=== PATIENT | male | born 1945 | race Caucasian/White ===

== ENCOUNTER 2016-03-25 15:55 | Emergency (ER) | payer OTHER, MEDICARE ==
[~2016-03-25] VITALS: Ht 177.8 cm; Wt 59.9 kg
[~2016-03-25 15:55] MED LIST: AMBIEN 10MG10 MG PO; AMITIZA24 MCG PO; AMLODIPINE5 MG PO; ANDROGEL1.62% TOP; ASPIR 8181 MG PO; ASPIRIN EC81 M1 PO; CARVEDILOL12.5 M1 PO; CYMBALTA 30 MG30 MG PO; ISOSORBIDE MONO60 M1 PO; LISINOPRIL20 M1 PO; METOPROLOL SUCC25 MG PO; MULTI VITAMINS1 TAB PO; NOVAPLUS FE50 MCG/HR TOP; OMEPRAZOLE40 M1 PO; OXYCODONE HYDRO10 M1 PO; PRILOSEC 20MG C20 MG PO; RANEXA 500MG500 MG PO; REGLAN10 M1 PO; SINEMET 25-1001 TAB PO; SPIRIVA1 PUF INH; SPIRONOLACTONE25 M1 PO; SYMBICORT 16010.2 GM INH; SYMBICORT 80/4.1 PUF INH; VENTOLIN1 PUF INH; VITAMIN B-121000 MC3 PO; VITAMIN D31000 UNI2 PO; ZOFRAN ODT4 MG SL
--- NOTE | 2016-03-25 16:49 | ED DYSPNEA/ASTHMA COMPLAINT ---
History of Present Illness General Chief Complaint: Upper Respiratory Sx/Fever Stated Complaint: URI X 5 DAYS Source: patient, old records Exam Limitations: no limitations Vital Signs & Intake/Output Vital Signs & Intake/Output Vital Signs Date Time Temp Pulse Resp B/P Pulse O2 O2 Flow FiO2 Ox Delivery Rate 03/25 1814 98.0 69 22 124/70 96 Room Air 03/25 1758 96 Room Air 03/25 1758 76 16 96 Room Air 03/25 1723 95 03/25 1612 99.6 89 34 121/77 94 Room Air Allergies Coded Allergies: NO KNOWN ALLERGIES (12/24/10) Reconcile Medications Albuterol Sulfate (Ventolin) 1 UNIT PUF 2 PUF INH Q4 HRS NEEDED PRN Shortness of breath (Reported) Amlodipine Besylate (Amlodipine) 5 MG TAB 1 TAB PO DAILY HYPRTENSION ( Reported) Aspirin (Ecotrin*) 81 MG TABLET.DR 1 TAB PO DAILY HEART/BLOOD (Reported) Azithromycin (Zithromax) 250 MG TABLET 1 DP PO AD brochitis/copd 2 the first day followed by 1 for days 2-5 Budesonide/Formoterol Fumarate (Symbicort 160-4.5 Mcg Inhaler) 160 MCG-4.5 MCG/ ACTUATION HFA.AER.AD 2 PUF INH BID COPD (Reported) Carbidopa/Levodopa (Sinemet) 25 MG/100 MG TAB 1 TAB PO AT BEDTIME RESTLESS LEG SYNDROME (Reported) Carvedilol 12.5 MG TABLET 1 TAB PO BID HEART/BP (Reported) Cholecalciferol (Vitamin D3) (Unknown Strength) TABLET (Unknown Dose) PO DAILY SUPPLEMENT (Reported) Cyanocobalamin (Vitamin B-12) (Unknown Strength) TABLET (Unknown Dose) PO DAILY SUPPLEMENT (Reported) Duloxetine Hydrochloride (Cymbalta) 30 MG CAPSULE.DR 1 CAP PO DAILY MOOD ( Reported) Fentanyl 50 MCG/HR TDM 1 PAT TOP Q3D PAIN (Reported) Isosorbide Mononitrate (Isosorbide Mononitrate ER) 60 MG TAB.ER.24H 1 TAB PO DAILY HEART (Reported) Lisinopril 20 MG TABLET 1 TAB PO DAILY BP (Reported) Lubiprostone (Amitiza) 24 MCG CAPSULE 1 CAP PO DAILY Constipation (Reported) Metoclopramide HCl (Reglan) 10 MG TABLET 1 TAB PO TID PRN N/V (Reported) 30 minutes before meals and bedtime Multivitamin (One Daily Multivitamin) 1 EACH TABLET 1 TAB PO DAILY supplement (Reported) Omeprazole 40 MG CAPSULE.DR 1 CAP PO DAILY GI (Reported) Ondansetron (Zofran Odt) 4 MG TAB.RAPDIS 1 TAB SL Q8 PRN nuasea/vomiting OXYCODONE HCL (Oxycodone Hydrochloride) 10 MG TABLET 1 TAB PO TID PRN PAIN ( Reported) Prednisone (Deltasone) 20 MG TABLET 1 TAB PO BID COPD Ranolazine (Ranexa 500MG) 500 MG TAB.ER.12H 1 TAB PO BID HEART (Reported) Spironolactone (Unknown Strength) TABLET (Unknown Dose) PO AD DIURETIC ( Reported) Tiotropium [place] (Spiriva) 18 MCG CAP.W.DEV 1 PUF INH DAILY COPD (Reported) Triage Note: C/O WORSENING PRODUCTIVE COUGH WITH FEVER X 5 DAYS. ALSO C/O WEAKNESS, POOR APPETITE. DENEIS CHEST PAIN. PMH: CT X 4. Triage Nurses Notes Reviewed? yes Onset: Abrupt Duration: day(s): (4-5), constant Timing: recent history Severity: moderate, severe Activities at Onset: none HPI: 70-year-old male comes into emergency room with complaints of cough shortness of breath fever chills body aches and mucus production. Patient has a significant history of COPD and congestive heart failure and cardiac disease. Patient has an EF of 23% he reports. Patient has been feeling sick for the past 4-5 days getting progressively worse. Patient is reporting fevers 102 at home. (NIMISHA MENDOZA,VANNESSA) Past History Travel History Traveled to [place] past 21 day No Medical History Any Pertinent Medical History? 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 No (VANNESSA FLETCHER) Review of Systems Review of Systems Constitutional: Reports: see HPI. EENTM: Reports: see HPI. Respiratory: Reports: see HPI. Cardiovascular: Reports: no symptoms. GI: Reports: no symptoms. Genitourinary: Reports: no symptoms. Musculoskeletal: Reports: no symptoms. Skin: Reports: no symptoms. Neurological/Psychological: Reports: no symptoms. Hematologic/Endocrine: Reports: no symptoms. Immunologic/Allergic: Reports: no symptoms. All Other Systems: Reviewed and Negative (VANNESSA FLETCHER) Physical Exam Physical Exam General Appearance: alert, awake, mild distress Head: atraumatic, normal appearance Eyes: Bilateral: normal appearance, EOMI. Ears, Nose, Throat: normal pharynx, normal ENT inspection Neck: normal inspection, full range of motion Respiratory: decreased breath sounds, wheezing, respiratory distress (mild) Cardiovascular: regular rate/rhythm, murmur Gastrointestinal: soft Extremities: normal inspection Neurologic/Psych: awake, alert, oriented x 3, normal gait, normal mood/affect Skin: intact, normal color Core Measures ACS in differential dx? Yes Severe Sepsis Present: No Septic Shock Present: No (VANNESSA FLETCHER) Progress Differential Diagnosis: asthma, AMI, bronchitis, costochondritis, CHF, COPD, musculoskeletal pain, pericarditis, pulmonary embolism, pneumonia, pneumothorax, rib fracture, unstable angina Plan of Care: Orders Procedure Date/time Status RAPID VIRAL INFLUENZA A 03/25 164 Complete BLOOD CULTURE 03/25 1648 Active TROPONIN LEVEL 03/25 164 Complete LACTIC ACID 03/25 164 Complete COMPREHENSIVE METABOLIC PANEL 03/25 164 Complete CBC WITHOUT DIFFERENTIAL 03/25 164 Complete EKG 03/25 164 Active Laboratory Tests 03/25/16 1948: Lactic Acid Cancelled 03/25/16 165: Anion Gap 11, Estimated GFR > 60, BUN/Creatinine Ratio 16.0, Glucose 102 H, Lactic Acid 1.4, Calcium 9.6, Total Bilirubin 0.5, AST 16 L, ALT 25, Alkaline Phosphatase 41, Troponin I < 0.01, Total Protein 7.2, Albumin 3.9, Globulin 3.3, Albumin/Globulin Ratio 1.2, CBC w Diff NO MAN DIFF REQ, RBC 3.93 L, MCV 96.1 H , MCH 31.3 H, RDW 13.9, MPV 7.5, Gran % 65.5, Lymphocytes % 21.3, Monocytes % 8.8, Eosinophils % 4.0, Basophils % 0.4, Absolute Granulocytes 6.9 H, Absolute Lymphocytes 2.3, Absolute Monocytes 0.9 H, Absolute Eosinophils 0.4, Absolute Basophils 0, PUBS MCHC 32.5 L Microbiology 03/25 1701 BLOOD: Blood Culture - RECD 03/25 1654 BLOOD: Blood Culture - RECD Diagnostic Imaging: Viewed by Me: Radiology Read. Discussed w/RAD: Radiology Read. Radiology Impression: EXAM TYPE: RAD - XRY-CHEST XRAY, PA AND LATERAL EXAMINATION: XR CHEST CLINICAL INFORMATION: 70-year-old male with cough and mucus production and fever. COMPARISON: Chest x-ray on 02/02/2016. TECHNIQUE: PA and lateral views of the chest were obtained. FINDINGS: Examination shows the left pectoral AICD pacemaker to be unchanged in position. The heart is not enlarged. Numerous clips are seen throughout the mediastinum. Sternal wires are in place. Lungs are clear. Pulmonary vascularity is normal. There is no sign of consolidation or pleural effusion. IMPRESSION: No pneumonia. DICTATED BY: JILLIAN NEVES MD DATE/TIME DICTATED:03/25/161810 REEL HOOKER:RAMÓN DATE /TIME TRANSCRIBED:03/25/161810 Initial ED EKG: normal intervals, normal p-waves, normal sinus rhythm, rate (79) , nonspecific ST T wave chg Prior EKG: unchanged Comments: 03/25/2016 7:08:17 PM Patient clinically looks well. Walking O2 saturation 95-96%. Patient was able to walk up and down the hallways with no difficulty. No evidence of acute heart failure or pneumonia. Symptoms are likely consistent with bronchitis versus COPD. At this time I feel that the patient can follow-up with his [employer] hcm developer. Sure decision making. No apparent distress. Nontoxic appearing. Reevaluated as stated before multiple times. Patient was seen and evaluated by Dr. Stone and he agrees with plan of care. (NIMISHA MENDOZA,VANNESSA) Departure Departure Disposition: HOME OR SELF CARE Condition: Stable Clinical Impression Primary Impression: Bronchitis Secondary Impressions: COPD (chronic obstructive pulmonary disease) Referrals: ANN VERMA MD (PCP/Family) Additional Instructions: Take azithromycin and prednisone as prescribed. Follow-up with your [employer] hcm developer. Return if any other concerns worsening symptoms. Please go over all results of today's visit with your primary care doctor. Contact your primary care doctor to let them know you were here in the emergency room. There may be nonspecific findings which may not be related to your visit today here in the emergency room but may require further evaluation and chronic monitoring by your primary care doctor. If you had a laceration today the chance of foreign body always remains. You should follow-up with your primary care doctor for recheck in 3-5 days for a wound check. If you had an x-ray done there is a chance that a fracture could have been missed on initial read and you should follow-up with your primary care doctor for repeat x-rays if symptoms persist. If your blood pressure was elevated here in the emergency room please have rechecked by her primary care doctor within the next 48 hours by your primary care doctor. If you were prescribed a narcotic here in the emergency room or any type of controlled substances you're not allowed to drive while taking this medication or operate any type of heavy machinery. Narcotics can make you feel lightheaded dizziness nausea and can cause constipation. You may need to picking table worker a stool softener. Thank you for choosing [facility] emergency room. Please return to the emergency room immediately if you have any other concerns worsening of symptoms. Departure Forms: Customer Survey General Discharge Information Prescriptions: Current Visit Scripts Azithromycin (Zithromax) 1 DP PO AD #6 TAB 2 the first day followed by 1 for days 2-5 Prednisone (Deltasone) 1 TAB PO BID #8 MG (VANNESSA FLETCHER) PA/INDEPENDENT JEWELER Co-Sign Statement Statement: ED Attending supervision documentation- [X] I saw and evaluated the patient. I have also reviewed all the pertinent lab results and diagnostic results. I agree with the findings and the plan of care as documented in the PA's/INDEPENDENT JEWELER's documentation. [] I have reviewed the ED Record and agree with the PA's/INDEPENDENT JEWELER's documentation. [] Additions or exceptions (if any) to the PAs/INDEPENDENT JEWELER's note and plan are summarized below: [] (MILY STONE DO) Critical Care Note Critical Care Note Critical Care Time: non-applicable (NIMISHA MENDOZA,VANNESSA)
[2016-03-25 17:14] LABS: ABSOLUTE BASOPHIL COUNT 0 /CUMM (0.0-0.2); ABSOLUTE EOSINOPHIL COUNT 0.4 /CUMM (0.0-0.7); ABSOLUTE GRANULOCYTE CT 6.9 /CUMM (1.4-6.5); ABSOLUTE LYMPH COUNT 2.3 /CUMM (1.2-3.4); ABSOLUTE MONOCYTE COUNT 0.9 /CUMM (0.10-0.60); BASOPHIL % 0.4 % (0.0-2.0); GRANULOCYTE % 65.5 % (42.2-75.2); HEMATOCRIT 37.8 % (42-52); MEAN CORPUSCULAR HGB 31.3 PG (27.0-31.0); MEAN CORPUSCULAR HGB CONC 32.5 G/DL (33.0-37.0); MEAN CORPUSCULAR VOLUME 96.1 FL (80.0-94.0); MEAN PLATELET VOLUME 7.5 FL (7.4-10.4); PLATELET COUNT 340 /CUMM (130-400); RBC DISTRIBUTION WIDTH 13.9 % (11.5-14.5); RED BLOOD CELL CT 3.93 /CUMM (4.70-6.10); WHITE BLOOD CELL COUNT 10.6 /CUMM (4.8-10.8)
[2016-03-25 18:14] VITALS: BP 124/70
--- NOTE | 2016-03-25 18:17 | RADIOLOGY REPORT ---
EXAMINATION: XR CHEST CLINICAL INFORMATION: 70-year-old male with cough and mucus production and fever. COMPARISON: Chest x-ray on 02/02/2016. TECHNIQUE: PA and lateral views of the chest were obtained. FINDINGS: Examination shows the left pectoral AICD pacemaker to be unchanged in position. The heart is not enlarged. Numerous clips are seen throughout the mediastinum. Sternal wires are in place. Lungs are clear. Pulmonary vascularity is normal. There is no sign of consolidation or pleural effusion. IMPRESSION: No pneumonia.
[2016-03-25] MEDS ORDERED: ZITHROMAX250 M2 PO (18:41)
[2016-03-25] MEDS ORDERED: DELTASONE20 MG PO (18:41)
== END 2016-03-25 18:55 ==
LOC: ERH 15:55
PROVIDERS: Physician Assistant Medical
DX: J44.9 Chronic obstructive pulmonary disease, unspecified (principal)
CPT/HCPCS: 1263; 87040; 87804; 87804-59; 93005; 93010; 96374

== ENCOUNTER 2017-05-24 11:23 | Inpatient (IN) | payer OTHER, MEDICARE ==
[~2017-05-24] VITALS: Ht 180.3 cm; Wt 64.0 kg
[~2017-05-24 11:23] MED LIST changes: +AMITIZA24 MC1 PO; -AMITIZA24 MCG PO; -AMLODIPINE5 MG PO; -CYMBALTA 30 MG30 MG PO; +CYMBALTA60 M1 PO; +DELTASONE20 MG PO; +FENTANYL1 EAC3 TOP; +NORVASC5 M1 PO; -NOVAPLUS FE50 MCG/HR TOP; +OXYCODONE HCL10 M2 PO; +OXYCODONE HCL5 M2 PO; -OXYCODONE HYDRO10 M1 PO; -RANEXA 500MG500 MG PO; +RANEXA500 M1 PO; +SINEMET 25-1001 EACH PO; -SINEMET 25-1001 TAB PO; +VENTOLIN HFA18 GM INH; -VENTOLIN1 PUF INH; +ZITHROMAX250 M2 PO
--- NOTE | 2017-05-24 11:38 | ED MVC/FALL/TRAUMA COMPLAINT ---
History of Present Illness General Chief Complaint: Fall Stated Complaint: BIBA FOR FALL Source: patient, EMS Exam Limitations: confusion Vital Signs & Intake/Output Vital Signs & Intake/Output Vital Signs Date Time Temp Pulse Resp B/P B/P Pulse O2 O2 Flow FiO2 Mean Ox Delivery Rate 05/24 1532 97.4 79 18 164/78 97 Room Air 05/24 1347 86 167/72 05/24 1136 97.8 88 17 184/90 98 Room Air Allergies Coded Allergies: No Known Allergies (10/01/16) Reconcile Medications Albuterol Sulfate (Ventolin Hfa) 90 MCG HFA.AER.AD 2 PUF INH Q4-6 PRN PRN SHORTNESS OF BREATH (Reported) Amlodipine Besylate (Norvasc) 5 MG TABLET 1 TAB PO DAILY HTN (Reported) Aspirin (Ecotrin*) 81 MG TABLET.DR 1 TAB PO DAILY HEART/BLOOD (Reported) Budesonide/Formoterol Fumarate (Symbicort 160-4.5 Mcg Inhaler) 160 MCG-4.5 MCG/ ACTUATION HFA.AER.AD 2 PUF INH BID COPD (Reported) Carbidopa/Levodopa (Sinemet 25-100 MG Tablet) 25 MG-100 MG TABLET 1 TAB PO BID RESTLESS LEGS (Reported) Duloxetine HCl (Cymbalta) 60 MG CAPSULE.DR 1 CAP PO DAILY MOOD (Reported) Fentanyl 50 MCG/HOUR PATCH.TD72 1 PAT TOP Q3D PAIN (Reported) Isosorbide Mononitrate (Isosorbide Mononitrate ER) 60 MG TAB.ER.24H 1 TAB PO DAILY HEART (Reported) Lubiprostone (Amitiza) 24 MCG CAPSULE 1 CAP PO BID CONSTIPATION (Reported) Metoclopramide HCl (Reglan) 10 MG TABLET 1 TAB PO TID PRN N/V (Reported) 30 minutes before meals and bedtime Omeprazole 40 MG CAPSULE.DR 1 CAP PO DAILY GI (Reported) Oxycodone HCl 10 MG TABLET 1 TAB PO TIDPRN PRN PAIN (Reported) Ranolazine (Ranexa) 500 MG TAB.ER.12H 1 TAB PO BID HEART (Reported) Spironolactone 25 MG TABLET 0.5 TAB PO AD DIURETIC (Reported) Triage Nurses Notes Reviewed? yes Onset: Abrupt Duration: day(s): (1), constant, continues in ED Timing: recent history Severity: moderate, severe Method of Injury: fall Loss of Consciousness: no loss of consciousness No Modifying Factors: none HPI: 71-year-old male comes into emergency room for further evaluation of right hip pain. Patient fell last night apparently at home. He tripped and fell and came down his right hip. He was on the floor all night. His nurse found him today. He lives by himself. He has no family. Some baseline confusion. Denies any other associated pain other than his right hip. Denies any other associated symptoms. (Charles Zaragoza) Past History Travel History Traveled to [place] past 21 day No Medical History Any Pertinent Medical History? 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 No (Charles Zaragoza) Review of Systems Review of Systems Constitutional: Reports: see HPI. Eyes: Reports: no symptoms. Ears, Nose, Throat, Mouth: Reports: no symptoms. Respiratory: Reports: no symptoms. Cardiovascular: Reports: no symptoms. Gastrointestinal/Abdominal: Reports: no symptoms. Genitourinary: Reports: no symptoms. Musculoskeletal: Reports: see HPI. Skin: Reports: no symptoms. Neurological/Psychological: Reports: see HPI. All Other Systems: Reviewed and Negative (Charles Zaragoza) Physical Exam Physical Exam General Appearance: alert, awake, moderate distress, thin Head: atraumatic Eyes: Bilateral: normal appearance, EOMI. Ears, Nose, Throat, Mouth: hearing grossly normal Neck: normal inspection, IN C COLLAR Respiratory: no respiratory distress Cardiovascular: regular rate/rhythm Gastrointestinal: soft Back: decreased range of motion Extremities: RIGHT LEG SHORTENING, LIMITED RANGE OF MOTION OF RIGHT HIP, TENDERNESS WITH PALPATION, Neurologic/Psych: awake, alert Skin: intact Core Measures ACS in differential dx? No CVA/TIA Diagnosis No Sepsis Present: No Sepsis Focused Exam Completed? No (Charles Zaragoza) Progress Differential Diagnosis: abd injury, C/T/L spine injury, ext injury, ICH, pelvis injury, pnemothorax, spinal cord injury Plan of Care: Orders Procedure Date/time Status Nothing by Mouth 05/25 B Active CBC WITHOUT DIFFERENTIAL 05/25 0600 Active BASIC ELECTROLYTES PLUS BUN&CR 05/25 0600 Active Misc Message 05/24 1622 Active ED Holding Orders 05/24 1622 Active Admit to inpatient 05/24 1622 Active Vital Signs 05/24 1622 Active BLOOD CULTURE 05/24 1620 Active BASIC ELECTROLYTES PLUS BUN&CR 05/24 1619 Active Pathway - chart 05/24 1617 Active House Staff 05/24 1617 Active Code Status 05/24 1617 Active Patient Data 05/24 1552 Active Intake & Output 05/24 1355 Active URINE DRUGS OF ABUSE 05/24 1312 Complete Marie, Insertion/Removal/Asses 05/24 1129 Active CULTURE,URINE 05/24 1129 Active URINALYSIS 05/24 1129 Complete TROPONIN LEVEL 05/24 1129 Complete PARTIAL THROMBOPLASTIN TIME 05/24 1129 Complete PROTHROMBIN TIME 05/24 1129 Complete COMPREHENSIVE METABOLIC PANEL 05/24 1129 Complete CREATINE PHOSPHOKINASE 05/24 1129 Complete CBC WITHOUT DIFFERENTIAL 05/24 1129 Complete EKG 05/24 1129 Active TYPE & SCREEN (NOT X-MATCH) 05/24 1129 Active VTE Mechanical Prophylaxis 05/24 UNK Active Current Medications Sig/Jesus Start time Last Medication Dose Stop Time Status Admin Acetaminophen 650 MG Q6P PRN 05/24 1615 UNVr (Tylenol) Morphine Sulfate 2 MG Q4P PRN 05/24 1615 UNVr (Morphine) Oxycodone/ 1 TAB Q6P PRN 05/24 1615 UNVr Acetaminophen (Percocet) Sodium Chloride 1,000 ML .Q10H 05/24 1615 UNVr (Normal Saline 0.9%) Sodium Polystyrene 60 ML ONCE ONE 05/24 1615 CANr Sulfonate 05/24 1616 (Kayexalate) Sodium Chloride 1,000 ML ONCE ONE 05/24 1130 AC 05/24 (Normal Saline 0.9%) 05/24 2128 1142 Laboratory Tests 05/24/17 1403: Urine Opiates Screen 1145.00, Methadone Screen 109, Barbiturate Screen < 60, Ur Phencyclidine Scrn < 6.00, Amphetamines Screen < 100, U Benzodiazepines Scrn < 85, Urine Cocaine Screen < 50, Urine Cannabis Screen < 5.00 05/24/17 1400: Urine Color YEL, Urine Clarity CLEAR, Urine pH 6.5, Ur Specific Screven 1.025, Urine Protein NEG, Urine Ketones 15 H, Urine Nitrite NEG, Urine Bilirubin NEG, Urine Urobilinogen 0.2, Ur Leukocyte Esterase NEG, Ur Microscopic SEDIMENT EXAMINED, Urine RBC 15-25 H, Urine Mucus MOD H, Urine Hemoglobin MOD H, Urine Glucose NEG 05/24/17 1133: Anion Gap 15, Estimated GFR > 60, BUN/Creatinine Ratio 37.1 H, Glucose 137 H, Calcium 10.0, Total Bilirubin 1.4 H, AST 36, ALT 29, Alkaline Phosphatase 36, Creatine Kinase 271 H, Troponin I < 0.01, Total Protein 7.9, Albumin 4.5, Globulin 3.4, Albumin/Globulin Ratio 1.3, PT 13.0 H, INR 1.19 H, APTT 27, CBC w Diff MAN DIFF ORDERED, RBC 4.03 L, MCV 91.3, MCH 30.4, MCHC 33.3, RDW 14.9 H , MPV 7.9, Gran % 87.1 H, Lymphocytes % 6.8 L, Monocytes % 5.7, Eosinophils % 0.2, Basophils % 0.2, Absolute Granulocytes 18.2 H, Segmented Neutrophils 84 H , Absolute Lymphocytes 1.4, Lymphocytes 10 L, Monocytes 6, Absolute Monocytes 1.2 H, Absolute Eosinophils 0, Absolute Basophils 0, Platelet Estimate ADEQUATE , Normocytic RBCs VERIFIED, Normochromic RBCs VERIFIED Microbiology 05/25 1619 BLOOD: Blood Culture - ORD 05/24 162 BLOOD: Blood Culture - ORD 05/24 1400 URINE ROUT: Urine Culture - RECD Diagnostic Imaging: Viewed by Me: Radiology Read, CT Scan. Discussed w/RAD: Radiology Read, CT Scan. Radiology Impression: PATIENT: CORNELL GARNER PRESENT AGE: 71 PATIENT ACCOUNT NO: [id number] : 44 LOCATION: [facility] ORDERING PHYSICIAN: Charles MENDOZA SERVICE DATE: 05/24/17 EXAM TYPE : CAT - CT CERV SPINE WO IV CONTRAST; CT HEAD WO IV CONTRAST EXAMINATION: CT HEAD AND CERVICAL SPINE. CLINICAL INFORMATION: Fall. Head injury. Right hip pain. Altered mental status. COMPARISON: CT scan of the head 05/12/2017. TECHNIQUE: Horseradish Maker images were obtained. CT acquisition of the head and cervical spine was performed without intravenous administration of contrast. Reformatted into multiplanar images at the acquisition workstation. DLP: 996.37 mGy-cm. FINDINGS: Head: There is no acute intracranial hemorrhage or abnormal extra- axial collection. No intracranial mass effect or midline shift. Lateral and third ventricles are prominent and there is proportionate prominence of the subarachnoid spaces reflecting global parenchymal volume loss. Ill-defined foci of hypoattenuation are visualized throughout the periventricular white matter that most likely represent a chronic manifestation of small vessel ischemia. Rowe-white matter differentiation is otherwise grossly preserved and there is no evidence of acute territorial infarct. The calvarium and skull base are intact. Mastoid air cells and middle ear cavities are well aerated. Visualized paranasal sinuses are well-aerated. Cervical spine: There is slight retrolisthesis of C4- C5. Vertebral alignment is otherwise preserved in the sagittal dimension. Vertebral heights are preserved. There is no acute fracture. No abnormal prevertebral soft tissue swelling. There is advanced arthrosis of the atlantodental joint. C1-C2 articular facets are unremarkable. There are varying degrees of neuroforaminal encroachment related to uncovertebral joint spurring and facet degenerative change. Grossly no evidence of canal compromise. Heavily calcified atheromatous plaque involves both carotid bifurcations. Soft tissues of the neck including the thyroid gland are otherwise unremarkable. IMPRESSION: Head: There is global parenchymal volume loss and chronic small vessel ischemic changes within the periventricular white matter. No evidence of acute territorial infarct or hemorrhage. Cervical spine: Multilevel degenerative spondylosis of the cervical spine. No evidence of acute fracture or traumatic subluxation. Grossly no evidence of canal compromise. Uncovertebral joint spurring and facet degenerative change causes varying degrees of neuroforaminal encroachment. Heavily calcified atheromatous plaque involves both carotid bifurcations. DICTATED BY: Rupinder CORREIA,Vadim Gaviria DATE/TIME DICTATED:05/24/171250 COIL ASSEMBLER:RAMÓN DATE/TIME TRANSCRIBED:05/24/171250 CONFIDENTIAL, DO NOT COPY WITHOUT APPROPRIATE AUTHORIZATION. <Electronically signed in Other Vendor System> SIGNED BY: Vadim Bucio MD 05/24/17 1300, PATIENT: CORNELL GARNER PRESENT AGE: 71 PATIENT ACCOUNT NO: [id number] : 44 LOCATION: [facility] ORDERING PHYSICIAN: Charles MENDOZA SERVICE DATE: 05/24/17 EXAM TYPE: RAD - XRY-AP PELVIS; XRY-HIP 2-3 VIEWS, RIGHT EXAMINATION: XR PELVIS XR HIP, RIGHT CLINICAL INFORMATION: Fall. Pain. COMPARISON: Pelvic radiography 10/16/2009. TECHNIQUE: AP view of the pelvis. 2 views of the right hip. FINDINGS: There is an intertrochanteric right proximal femoral fracture with overriding of fracture fragments and varus angulation. The right femoral head is well situated over the acetabulum. No other fracture or dislocation. The pelvic rings are maintained. Lower lumbar degenerative changes. Decreased bone mineral density. IMPRESSION: Intertrochanteric right femoral fracture. DICTATED BY: Teofilo Mustafa MD DATE/ TIME DICTATED:05/24/171418 COIL ASSEMBLER:RAMÓN DATE/TIME TRANSCRIBED: 05/24/171418 CONFIDENTIAL, DO NOT COPY WITHOUT APPROPRIATE AUTHORIZATION. < Electronically signed in Other Vendor System> SIGNED BY: Teofilo Mustafa MD 05/24/17 1430 Initial ED EKG: normal sinus rhythm, rate (84) (Charles Zaragoza) Departure Departure Disposition: STILL A PATIENT Condition: Stable Clinical Impression Primary Impression: Intertrochanteric fracture of right femur Secondary Impressions: Leukocytosis Referrals: Toni Govea MD (PCP/Family) Departure Forms: Customer Survey General Discharge Information Admission Note Spoke With: Mario Quick MD Documentation of Exam: Documentation of any treatments & extenuating circumstances including Concerns Regarding Discharge (functional status, medication knowledge or non-compliance, living conditions, etc.) that warrant an admission rather than observation: Patient will require surgery. IV pain control. Cardiac clearance. High risk. Patient has a hip fracture. Nonweightbearing. Medically not safe for discharge. (Charles Zaragoza) PA/SHELL WORKER Co-Sign Statement Statement: ED Attending supervision documentation- [X] I saw and evaluated the patient. I have also reviewed all the pertinent lab results and diagnostic results. I agree with the findings and the plan of care as documented in the PA's/SHELL WORKER's documentation. Patient presents for evaluation of right hip pain status post fall. Physical examination reveals tenderness with range of motion of the right hip. The right lower extremity is otherwise neurovascularly intact. [] I have reviewed the ED Record and agree with the PA's/SHELL WORKER's documentation. [] Additions or exceptions (if any) to the PAs/SHELL WORKER's note and plan are summarized below: [] (Marie CORREIA,Murali Colindres) Critical Care Note Critical Care Note Critical Care Time: 30-74 min (35) (Charles Zaragoza)
[2017-05-24 11:42] LABS: ABSOLUTE BASOPHIL COUNT 0 /CUMM (0.0-0.2); ABSOLUTE EOSINOPHIL COUNT 0 /CUMM (0.0-0.7); ABSOLUTE GRANULOCYTE CT 18.2 /CUMM (1.4-6.5); ABSOLUTE LYMPH COUNT 1.4 /CUMM (1.2-3.4); ABSOLUTE MONOCYTE COUNT 1.2 /CUMM (0.10-0.60); BASOPHIL % 0.2 % (0.0-2.0); EOSINOPHIL % 0.2 % (0-5); GRANULOCYTE % 87.1 % (42.2-75.2); HEMATOCRIT 36.8 % (42-52); MEAN CORPUSCULAR HGB 30.4 PG (27.0-31.0); MEAN CORPUSCULAR HGB CONC 33.3 G/DL (33.0-37.0); MEAN CORPUSCULAR VOLUME 91.3 FL (80.0-94.0); MEAN PLATELET VOLUME 7.9 FL (7.4-10.4); PLATELET COUNT 325 /CUMM (130-400); RBC DISTRIBUTION WIDTH 14.9 % (11.5-14.5); RED BLOOD CELL CT 4.03 /CUMM (4.70-6.10); WHITE BLOOD CELL COUNT 20.9 /CUMM (4.8-10.8)
[2017-05-24 11:52] LABS: PTT 27 SEC (25-37)
--- NOTE | 2017-05-24 13:00 | CT SCAN REPORT ---
EXAMINATION: CT HEAD AND CERVICAL SPINE. CLINICAL INFORMATION: Fall. Head injury. Right hip pain. Altered mental status. COMPARISON: CT scan of the head 05/12/2017. TECHNIQUE: Ramp Supervisor images were obtained. CT acquisition of the head and cervical spine was performed without intravenous administration of contrast. Reformatted into multiplanar images at the acquisition workstation. DLP: 996.37 mGy-cm. FINDINGS: Head: There is no acute intracranial hemorrhage or abnormal extra-axial collection. No intracranial mass effect or midline shift. Lateral and third ventricles are prominent and there is proportionate prominence of the subarachnoid spaces reflecting global parenchymal volume loss. Ill-defined foci of hypoattenuation are visualized throughout the periventricular white matter that most likely represent a chronic manifestation of small vessel ischemia. Rowe-white matter differentiation is otherwise grossly preserved and there is no evidence of acute territorial infarct. The calvarium and skull base are intact. Mastoid air cells and middle ear cavities are well aerated. Visualized paranasal sinuses are well-aerated. Cervical spine: There is slight retrolisthesis of C4-C5. Vertebral alignment is otherwise preserved in the sagittal dimension. Vertebral heights are preserved. There is no acute fracture. No abnormal prevertebral soft tissue swelling. There is advanced arthrosis of the atlantodental joint. C1-C2 articular facets are unremarkable. There are varying degrees of neuroforaminal encroachment related to uncovertebral joint spurring and facet degenerative change. Grossly no evidence of canal compromise. Heavily calcified atheromatous plaque involves both carotid bifurcations. Soft tissues of the neck including the thyroid gland are otherwise unremarkable. IMPRESSION: Head: There is global parenchymal volume loss and chronic small vessel ischemic changes within the periventricular white matter. No evidence of acute territorial infarct or hemorrhage. Cervical spine: Multilevel degenerative spondylosis of the cervical spine. No evidence of acute fracture or traumatic subluxation. Grossly no evidence of canal compromise. Uncovertebral joint spurring and facet degenerative change causes varying degrees of neuroforaminal encroachment. Heavily calcified atheromatous plaque involves both carotid bifurcations.
--- NOTE | 2017-05-24 14:30 | RADIOLOGY REPORT ---
EXAMINATION: XR PELVIS XR HIP, RIGHT CLINICAL INFORMATION: Fall. Pain. COMPARISON: Pelvic radiography 10/16/2009. TECHNIQUE: AP view of the pelvis. 2 views of the right hip. FINDINGS: There is an intertrochanteric right proximal femoral fracture with overriding of fracture fragments and varus angulation. The right femoral head is well situated over the acetabulum. No other fracture or dislocation. The pelvic rings are maintained. Lower lumbar degenerative changes. Decreased bone mineral density. IMPRESSION: Intertrochanteric right femoral fracture.
--- NOTE | 2017-05-24 15:31 | Cons- Orthopedic ---
General Information and HPI Consulting Request Date of Consult: 05/24/17 Requested By: REJI LUCERO Reason for Consult: R hip fracture Source of Information: patient, old records Exam Limitations: no limitations History of Present Illness: 71-year-old male presents to the emergency department after a mechanical fall last night where he states he slipped and fell onto his right side injuring his right hip. He spent the evening on the floor, came to the ER today, x-ray show a right hip intertrochanteric fracture and orthopedics was consulted for further management and evaluation of this. He is being admitted to the medical service due to his multiple comorbidities and possible early rhabdomyolysis. He denies any other previous hip pain or injury, he has moderate to severe pain in the right hip and cannot stand or walk. Allergies/Medications Allergies: Coded Allergies: No Known Allergies (10/01/16) Home Med List: Albuterol Sulfate (Ventolin Hfa) 90 MCG HFA.AER.AD 2 PUF INH Q4-6 PRN PRN SHORTNESS OF BREATH (Reported) Amlodipine Besylate (Norvasc) 5 MG TABLET 1 TAB PO DAILY HTN (Reported) Aspirin (Ecotrin*) 81 MG TABLET.DR 1 TAB PO DAILY HEART/BLOOD (Reported) Budesonide/Formoterol Fumarate (Symbicort 160-4.5 Mcg Inhaler) 160 MCG-4.5 MCG/ ACTUATION HFA.AER.AD 2 PUF INH BID COPD (Reported) Carbidopa/Levodopa (Sinemet 25-100 MG Tablet) 25 MG-100 MG TABLET 1 TAB PO BID RESTLESS LEGS (Reported) Duloxetine HCl (Cymbalta) 60 MG CAPSULE.DR 1 CAP PO DAILY MOOD (Reported) Fentanyl 50 MCG/HOUR PATCH.TD72 1 PAT TOP Q3D PAIN (Reported) Isosorbide Mononitrate (Isosorbide Mononitrate ER) 60 MG TAB.ER.24H 1 TAB PO DAILY HEART (Reported) Lubiprostone (Amitiza) 24 MCG CAPSULE 1 CAP PO BID CONSTIPATION (Reported) Metoclopramide HCl (Reglan) 10 MG TABLET 1 TAB PO TID PRN N/V (Reported) 30 minutes before meals and bedtime Omeprazole 40 MG CAPSULE.DR 1 CAP PO DAILY GI (Reported) Oxycodone HCl 10 MG TABLET 1 TAB PO TIDPRN PRN PAIN (Reported) Ranolazine (Ranexa) 500 MG TAB.ER.12H 1 TAB PO BID HEART (Reported) Spironolactone 25 MG TABLET 0.5 TAB PO AD DIURETIC (Reported) Past History Medical History Neurological: NONE EENT: NONE Cardiovascular: hypertension, myocardial infarction, CAD AR X 4 BYPASS ATHLEROSCLEROSIS PAD Respiratory: COPD, obstructive sleep apnea Gastrointestinal: NAUSEA Hepatic: NONE Renal: NONE Musculoskeletal: BACK FX restless leg syndrome Psychiatric: anxiety, depression Endocrine: NONE Blood Disorders: NONE Cancer(s): prostate cancer 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 Review of Systems Review of Systems: Review of systems: See HPI, all other systems negative. Constitutional: No chills fever or weight loss HEENT: No visual changes no sore throat no congestion Cardiovascular: No chest pain ,palpitation , orthopnea or ankle swelling Skin: No jaundice no rashes Respiratory: No dyspnea cough sputum or hemoptysis GI: No nausea no vomiting : No dysuria no hematuria Musclulo skeletal: No back pain no neck pain, see HPI Neurologic: No numbness no confusion Psych: No stress anxiety or depression,. Heme/endocrine: No bruising no bleeding no polyuria or polydipsia Immunology: No splenectomy or history of AIDS Exam & Diagnostic Data Vital Signs and I&O Vital Signs Date Time Temp Pulse Resp B/P B/P Pulse O2 O2 Flow FiO2 Mean Ox Delivery Rate 05/24 1532 97.4 79 18 164/78 97 Room Air 05/24 1347 86 167/72 05/24 1136 97.8 88 17 184/90 98 Room Air Intake & Output 05/24 1600 05/24 0800 05/24 0000 05/23 1600 05/23 0805/23 0000 Intake Total Output Total 1150 Balance -1150 Output, Urine 1150 Patient 130 lb Weight Weight Reported by Patient Measurement Method Physical Exam: Well-developed well-nourished no apparent distress. HEENT: Atraumatic, extraocular motion intact Neck: Supple, no lymphadenopathy Respiratory: No respiratory distress Extremities: No edema RIGHT lower extremity tenderness to the right greater trochanteric region, right lower leg is shortened Mild thigh swelling right proximal thigh and hip region Hip range of motion is severely limited with significant pain Neurovascularly intact distally Bilateral calves are supple, nontender. Neuro: Alert and oriented x3 Psych: Mood affect normal, normal memory normal judgment. Skin: Warm and dry, no rash on exposed skin Last 24 Hours of Labs: Laboratory Tests 05/24 05/24 1403 1400 Toxicology Urine Opiates Screen (>2000 NG/ML) 1145.00 Methadone Screen (>300 NG/ML) 109 Barbiturate Screen (>200 NG/ML) < 60 Ur Phencyclidine Scrn (>25 NG/ML) < 6.00 Amphetamines Screen (>1000 NG/ML) < 100 U Benzodiazepines Scrn (>200 NG/ML) < 85 Urine Cocaine Screen (>300 NG/ML) < 50 Urine Cannabis Screen (>50 NG/ML) < 5.00 Urines Urine Color (YEL,AMB,STR) YEL Urine Clarity (CLEAR) CLEAR Urine pH (5.0 - 8.0) 6.5 Ur Specific [place] (1.001 - 1.035) 1.025 Urine Protein (NEG,<30 MG/DL) NEG Urine Ketones (NEG) 15 H Urine Nitrite (NEG) NEG Urine Bilirubin (NEG) NEG Urine Urobilinogen (0.1 - 1.0 EU/dl) 0.2 Ur Leukocyte Esterase (NEG) NEG Ur Microscopic SEDIMENT EXAMINED Urine RBC (0 - 5 /HPF) 15-25 H Urine Mucus (FEW,NONE) MOD H Urine Hemoglobin (NEG) MOD H Urine Glucose (N MG/DL) NEG 05/24 1133 Chemistry Sodium (137 - 145 mmol/L) 133 L Potassium (3.5 - 5.1 mmol/L) 5.4 H Chloride (98 - 107 mmol/L) 91 L Carbon Dioxide (22 - 30 mmol/L) 27 Anion Gap (5 - 16) 15 BUN (9 - 20 mg/dL) 26 H Creatinine (0.7 - 1.2 mg/dL) 0.7 Estimated GFR (>60 ml/min) > 60 BUN/Creatinine Ratio (7 - 25 %) 37.1 H Glucose (65 - 99 mg/dL) 137 H Calcium (8.4 - 10.2 mg/dL) 10.0 Total Bilirubin (0.2 - 1.3 mg/dL) 1.4 H AST (17 - 59 U/L) 36 ALT (21 - 72 U/L) 29 Alkaline Phosphatase (< 127 U/L) 36 Creatine Kinase (55 - 170 U/L) 271 H Troponin I (<0.11 ng/ml) < 0.01 Total Protein (6.3 - 8.2 g/dL) 7.9 Albumin (3.5 - 5.0 g/dL) 4.5 Globulin (1.9 - 4.2 gm/dL) 3.4 Albumin/Globulin Ratio (1.1 - 2.2 %) 1.3 Coagulation PT (9.4 - 12.5 SEC) 13.0 H INR (0.90 - 1.17) 1.19 H APTT (25 - 37 SEC) 27 Hematology CBC w Diff MAN DIFF ORDERED WBC (4.8 - 10.8 /CUMM) 20.9 H RBC (4.70 - 6.10 /CUMM) 4.03 L Hgb (14.0 - 18.0 G/DL) 12.2 L Hct (42 - 52 %) 36.8 L MCV (80.0 - 94.0 FL) 91.3 MCH (27.0 - 31.0 PG) 30.4 MCHC (33.0 - 37.0 G/DL) 33.3 RDW (11.5 - 14.5 %) 14.9 H Plt Count (130 - 400 /CUMM) 325 MPV (7.4 - 10.4 FL) 7.9 Gran % (42.2 - 75.2 %) 87.1 H Lymphocytes % (20.5 - 51.1 %) 6.8 L Monocytes % (1.7 - 9.3 %) 5.7 Eosinophils % (0 - 5 %) 0.2 Basophils % (0.0 - 2.0 %) 0.2 Absolute Granulocytes (1.4 - 6.5 /CUMM) 18.2 H Segmented Neutrophils (42.2 - 75.2 %) 84 H Absolute Lymphocytes (1.2 - 3.4 /CUMM) 1.4 Lymphocytes (20.5 - 51.1 %) 10 L Monocytes (1.7 - 9.3 %) 6 Absolute Monocytes (0.10 - 0.60 /CUMM) 1.2 H Absolute Eosinophils (0.0 - 0.7 /CUMM) 0 Absolute Basophils (0.0 - 0.2 /CUMM) 0 Platelet Estimate (ADEQUATE) ADEQUATE Normocytic RBCs VERIFIED Normochromic RBCs VERIFIED Imaging Results: Plain radiographs of the right hip show intertrochanteric right hip fracture Assessment/Plan Assessment/Plan Patient with right hip intratrochanteric fracture Being admitted to the medical service, he will need open reduction internal fixation of this when medically cleared. He has multiple medical comorbidities. Would hold all anticoagulation and antiplatelet if clinically acceptable with the medical team. If possible that patient will be cleared by tomorrow, would make nothing by mouth after midnight, pain medication as needed, IV fluids. bedrest, non weight bearing pre op. Discussed with Dr. Jara Problem List: 1. Intertrochanteric fracture of right femur Consult Acknowledgment - Thank you for your consult request.
--- NOTE | 2017-05-24 16:09 | History & Physical ---
Esme CORREIA,Toni 05/24/17 6736: General Information and HPI MD Statement: I have seen and personally examined CORNELL GARNER and documented this H&P. The patient is a 71 year old M who presented with a patient stated chief complaint of [fall, R hip pain]. Source of Information: patient, old records Exam Limitations: no limitations History of Present Illness: Patient is a 71-year-old male with a PMH significant for CAD status post RI with PCI and stent placement, COPD, obstructive sleep apnea, peripheral artery disease, prostate cancer status post radiation and in remission who presents to [facility] ED after suffering a fall at home. Patient states that he is supposed to use a cane or walker for ambulation but is often noncompliant. He was walking at home when his leg suddenly gave out and he fell and hit his right hip against his bed. This occurred the morning prior to admission and he was unable to stand up since that time. He was found the morning of admission by his visiting nurse. He is unable to get anything to eat or drink he was on the ground. He denies any associated chest pain, shortness of breath, lightheadedness, dizziness or loss of consciousness prior to the fall. He did not hit his head. At the time he fell his pain is a 9/10, his pain is now approximately 7/10. He has no numbness or tingling of his right leg. Allergies/Medications Allergies: Coded Allergies: No Known Allergies (10/01/16) Home Med list Albuterol Sulfate (Ventolin Hfa) 90 MCG HFA.AER.AD 2 PUF INH Q4-6 PRN PRN SHORTNESS OF BREATH (Reported) Amlodipine Besylate (Norvasc) 5 MG TABLET 1 TAB PO DAILY HTN (Reported) Aspirin (Ecotrin*) 81 MG TABLET.DR 1 TAB PO DAILY HEART/BLOOD (Reported) Budesonide/Formoterol Fumarate (Symbicort 160-4.5 Mcg Inhaler) 160 MCG-4.5 MCG/ ACTUATION HFA.AER.AD 2 PUF INH BID COPD (Reported) Carbidopa/Levodopa (Sinemet 25-100 MG Tablet) 25 MG-100 MG TABLET 1 TAB PO BID RESTLESS LEGS (Reported) Duloxetine HCl (Cymbalta) 60 MG CAPSULE.DR 1 CAP PO DAILY MOOD (Reported) Fentanyl 50 MCG/HOUR PATCH.TD72 1 PAT TOP Q3D PAIN (Reported) Isosorbide Mononitrate (Isosorbide Mononitrate ER) 60 MG TAB.ER.24H 1 TAB PO DAILY HEART (Reported) Lubiprostone (Amitiza) 24 MCG CAPSULE 1 CAP PO BID CONSTIPATION (Reported) Metoclopramide HCl (Reglan) 10 MG TABLET 1 TAB PO TID PRN N/V (Reported) 30 minutes before meals and bedtime Omeprazole 40 MG CAPSULE.DR 1 CAP PO DAILY GI (Reported) Oxycodone HCl 10 MG TABLET 1 TAB PO TIDPRN PRN PAIN (Reported) Ranolazine (Ranexa) 500 MG TAB.ER.12H 1 TAB PO BID HEART (Reported) Spironolactone 25 MG TABLET 0.5 TAB PO AD DIURETIC (Reported) Past History Travel History Traveled to [place] past 21 day No Medical History Neurological: NONE EENT: NONE Cardiovascular: hypertension, myocardial infarction, CAD RI X 4 BYPASS ATHLEROSCLEROSIS PAD Respiratory: COPD, obstructive sleep apnea Gastrointestinal: NAUSEA Hepatic: NONE Renal: NONE Musculoskeletal: BACK FX restless leg syndrome Psychiatric: anxiety, depression Endocrine: NONE Blood Disorders: NONE Cancer(s): prostate cancer 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 Home Services at Home: Nursing Primary Language: Hebrew ETOH Use: denies use Illicit Drug Use: denies illicit drug use Functional Ability ADLs Independent: dressing, eating, toileting, bathing. Review of Systems Review of Systems Constitutional: Reports: no symptoms. EENTM: Reports: no symptoms. Cardiovascular: Denies: chest pain, palpitations, syncope. Respiratory: Denies: cough, short of breath. GI: Reports: no symptoms. Genitourinary: Reports: no symptoms. Musculoskeletal: Reports: see HPI, joint pain (R hip). Skin: Reports: no symptoms. Exam & Diagnostic Data Last 24 Hrs of Vital Signs/I&O Vital Signs Date Time Temp Pulse Resp B/P B/P Pulse O2 O2 Flow FiO2 Mean Ox Delivery Rate 05/24 1840 98.1 68 20 140/84 95 05/24 1756 98.5 87 17 158/82 96 Room Air 05/24 1532 97.4 79 18 164/78 97 Room Air 05/24 1347 86 167/72 05/24 1136 97.8 88 17 184/90 98 Room Air Intake & Output 05/24 1600 05/24 0800 05/24 0000 Intake Total Output Total 1150 Balance -1150 Output, Urine 1150 Patient 130 lb Weight Weight Reported by Patient Measurement Method Physical Exam General Appearance Alert, Oriented X3, Cooperative, Mild Distress HEENT PERRLA, EOMI, Mucous Membr. moist/pink Neck No JVD Cardiovascular Regular Rate, Normal S1, Normal S2 Lungs Clear to Auscultation, Normal Air Movement Abdomen Normal Bowel Sounds, Soft, No Tenderness Neurological Normal Speech, Normal Tone, Sensation Intact Extremities No Clubbing, No Cyanosis, No Edema, R Lateral thigh TTP, no overlying skin changes, Pain with active and passive ROM, R leg shortened and externally rotated Vascular Normal Pulses, Pulses Symmetrical Last 24 Hrs of Labs/Rudy: Laboratory Tests 05/24/17 1740: Anion Gap 11, Estimated GFR > 60, BUN/Creatinine Ratio 37.1 H, 25-OH Vitamin D Total Pending 05/24/17 1403: Urine Opiates Screen 1145.00, Methadone Screen 109, Barbiturate Screen < 60, Ur Phencyclidine Scrn < 6.00, Amphetamines Screen < 100, U Benzodiazepines Scrn < 85, Urine Cocaine Screen < 50, Urine Cannabis Screen < 5.00 05/24/17 1400: Urine Color YEL, Urine Clarity CLEAR, Urine pH 6.5, Ur Specific [place] 1.025, Urine Protein NEG, Urine Ketones 15 H, Urine Nitrite NEG, Urine Bilirubin NEG, Urine Urobilinogen 0.2, Ur Leukocyte Esterase NEG, Ur Microscopic SEDIMENT EXAMINED, Urine RBC 15-25 H, Urine Mucus MOD H, Urine Hemoglobin MOD H, Urine Glucose NEG 05/24/17 1133: Anion Gap 15, Estimated GFR > 60, BUN/Creatinine Ratio 37.1 H, Glucose 137 H, Calcium 10.0, Total Bilirubin 1.4 H, AST 36, ALT 29, Alkaline Phosphatase 36, Creatine Kinase 271 H, Troponin I < 0.01, Total Protein 7.9, Albumin 4.5, Globulin 3.4, Albumin/Globulin Ratio 1.3, PT 13.0 H, INR 1.19 H, APTT 27, CBC w Diff MAN DIFF ORDERED, RBC 4.03 L, MCV 91.3, MCH 30.4, MCHC 33.3, RDW 14.9 H , MPV 7.9, Gran % 87.1 H, Lymphocytes % 6.8 L, Monocytes % 5.7, Eosinophils % 0.2, Basophils % 0.2, Absolute Granulocytes 18.2 H, Segmented Neutrophils 84 H , Absolute Lymphocytes 1.4, Lymphocytes 10 L, Monocytes 6, Absolute Monocytes 1.2 H, Absolute Eosinophils 0, Absolute Basophils 0, Platelet Estimate ADEQUATE , Normocytic RBCs VERIFIED, Normochromic RBCs VERIFIED Microbiology 05/24 1800 BLOOD: Blood Culture - RECD 05/24 1740 BLOOD: Blood Culture - RECD 05/24 1400 URINE ROUT: Urine Culture - RECD Diagnostic Data EKG Results NSR, no significant ST-T changes, HR [address] Head: There is global parenchymal volume loss and chronic small vessel ischemic changes within the periventricular white matter. No evidence of acute territorial infarct or hemorrhage. Cervical spine: Multilevel degenerative spondylosis of the cervical spine. No evidence of acute fracture or traumatic subluxation. Grossly no evidence of canal compromise. Uncovertebral joint spurring and facet degenerative change causes varying degrees of neuroforaminal encroachment. Heavily calcified atheromatous plaque involves both carotid bifurcations. Hip XR Intertrochanteric right femoral fracture. Assessment/Plan Assessment: Patient is a 71-year-old male with a PMH significant for CAD status post RI with PCI and stent placement, COPD, obstructive sleep apnea, peripheral artery disease, prostate cancer status post radiation and in remission who presents to [facility] ED after suffering a fall at home. He hit his right hip and suffered severe amount of pain, he did not his head and had no symptoms suggestive of neurocardiogenic syncope. Labs are significant for leukocytosis, mild hyponatremia, hyperkalemia which has resolved, creatinine kinase 271 Problem list #Intertrochanteric right femoral fracture #Leukocytosis, possibly reactive #Electrolyte abnormalities, hyperkalemia (resolved), hyponatremia #Chronic medical problems Plan -Admit to GENERAL medicine -Patient's RCRI is 1, with history of CAD. Proceeding with surgery would be reasonable from a medical standpoint -Nothing by mouth at midnight -Hold anticoagulation until surgery -Monitor CBC for leukocytosis -Follow-up blood and urine cultures -Confirm med list in am with patient's pharmacy Diet: Nothing by mouth at midnight DVT prophylaxis: Alps, will start pharmacologic prophylaxis after surgery CODE STATUS: Full code As Ranked By This Provider Problem List: 1. Leukocytosis 2. Intertrochanteric fracture of right femur Core Measures/Misc (11/15) Acute Coronary Syndrome ACS Diagnosis: No Congestive Heart Failure Congestive Heart Failure Diagnosis No Cerebrovascular Accident CVA/TIA Diagnosis: No VTE (View Protocol) VTE Risk Factors Age>40 No Mechanical VTE Prophylaxis d/t N/A MechProphylax Ordered No VTE Pharm Prophylaxis d/t Surgical Contraindication Sepsis (View protocol) Sepsis Present: No Marion Whitley MD 05/24/171957: Review of Systems Review of Systems Constitutional: Reports: no symptoms. Exam & Diagnostic Data Last 24 Hrs of Vital Signs/I&O Vital Signs Date Time Temp Pulse Resp B/P B/P Pulse O2 O2 Flow FiO2 Mean Ox Delivery Rate 05/24 1840 98.1 68 20 140/84 95 05/24 1756 98.5 87 17 158/82 96 Room Air 05/24 1532 97.4 79 18 164/78 97 Room Air 05/24 1347 86 167/72 05/24 1136 97.8 88 17 184/90 98 Room Air Intake & Output 05/24 1600 05/24 0800 05/24 0000 Intake Total Output Total 1150 Balance -1150 Output, Urine 1150 Patient 130 lb Weight Weight Reported by Patient Measurement Method Physical Exam General Appearance Alert, Oriented X3, Cooperative, Mild Distress Skin No Significant Lesion HEENT PERRLA, EOMI, Mucous Membr. moist/pink Neck No JVD Cardiovascular Regular Rate, Normal S1, Normal S2 Lungs Clear to Auscultation, Normal Air Movement Abdomen Normal Bowel Sounds, Soft, No Tenderness Extremities No Edema, Pain with movement of Rt leg Last 24 Hrs of Labs/Rudy: Laboratory Tests 05/24/17 1740: Anion Gap 11, Estimated GFR > 60, BUN/Creatinine Ratio 37.1 H 05/24/17 1403: Urine Opiates Screen 1145.00, Methadone Screen 109, Barbiturate Screen < 60, Ur Phencyclidine Scrn < 6.00, Amphetamines Screen < 100, U Benzodiazepines Scrn < 85, Urine Cocaine Screen < 50, Urine Cannabis Screen < 5.00 05/24/17 1400: Urine Color YEL, Urine Clarity CLEAR, Urine pH 6.5, Ur Specific [place] 1.025, Urine Protein NEG, Urine Ketones 15 H, Urine Nitrite NEG, Urine Bilirubin NEG, Urine Urobilinogen 0.2, Ur Leukocyte Esterase NEG, Ur Microscopic SEDIMENT EXAMINED, Urine RBC 15-25 H, Urine Mucus MOD H, Urine Hemoglobin MOD H, Urine Glucose NEG 05/24/17 1133: Anion Gap 15, Estimated GFR > 60, BUN/Creatinine Ratio 37.1 H, Glucose 137 H, Calcium 10.0, Total Bilirubin 1.4 H, AST 36, ALT 29, Alkaline Phosphatase 36, Creatine Kinase 271 H, Troponin I < 0.01, Total Protein 7.9, Albumin 4.5, Globulin 3.4, Albumin/Globulin Ratio 1.3, PT 13.0 H, INR 1.19 H, APTT 27, CBC w Diff MAN DIFF ORDERED, RBC 4.03 L, MCV 91.3, MCH 30.4, MCHC 33.3, RDW 14.9 H , MPV 7.9, Gran % 87.1 H, Lymphocytes % 6.8 L, Monocytes % 5.7, Eosinophils % 0.2, Basophils % 0.2, Absolute Granulocytes 18.2 H, Segmented Neutrophils 84 H , Absolute Lymphocytes 1.4, Lymphocytes 10 L, Monocytes 6, Absolute Monocytes 1.2 H, Absolute Eosinophils 0, Absolute Basophils 0, Platelet Estimate ADEQUATE , Normocytic RBCs VERIFIED, Normochromic RBCs VERIFIED Microbiology 05/24 1800 BLOOD: Blood Culture - RECD 05/24 1740 BLOOD: Blood Culture - RECD 05/24 1400 URINE ROUT: Urine Culture - RECD Resident Review Statement Resident Statement: examined this patient, discussed with internet marketing manager, agreed with internet marketing manager, reviewed images, amended to note Other Findings: 71-year-old male with a past medical history of hypertension, RI, CAD with 4 stents, COPD, ANDRADE, PAD, prostate cancer status post radiation; in remission who presents after a fall at home with a fracture of his right hip. Patient lives alone and uses a walker for ambulation and reports his legs giving out from under him while he was walking to his kitchen. He denies dizziness, lightheadedness, palpitations, chest pain or shortness of breath prior to fall. He reports laying on the floor for 2-3 days until he was found by his visiting nurse and brought to the ER this morning. EKG-normal sinus rhythm, rate 84 Assessment 1. Right hip fracture 2. Leukocytosis; unclear etiology could be reactive Plan Admit to Ortho evaluation for hip repair Medical clearance-RCRI (1 point-History of ischemic heart disease)-Class 2 risk; 0.9% risk of major cardiac event Check Vit D level Start Calcium and Vit D Keep NPO at IA for surgery in AM Full code Alps for DVT ppx Non-weight bearing for now Repeat labs in a.m. Please confirm his home medications and restart Follow attending recommendations Mario Quick MD 05/25/17 0000: Attending MD Review Statement Attending Statement Attending MD Statement: examined this patient, discuss w/resident/PA/TRAIN CONTROLLER, agreed w/resident/PA/TRAIN CONTROLLER, reviewed EMR data (avail), reviewed images, amended to note Attending Assessment/Plan: The patient is a 71 yo male with h/o CAD (s/p RI/stent), COPD, ANDRADE, PVD, RLS, and prostate cancer (s/p XRT) who presented in the [place] ED after a mechanical fall at home resulting in intertrochanteric fracture of the right hip. He normally uses a cane or walker at home, however is often non-compliant. He denied any chest pain, dyspnea, palpitations, lightheadedness, etc. Has pain in hip. Seen by ortho in ED. Physical Exam: VS: T 98.1, P 58, R 20, BP 140/84, PO 95-97% RA HEENT: eyes- PERRLA, EOMI paris- slightly dry mucosa Neck: no JVD/bruits Chest: sl diminished breath sounds, clear Cor: RRR, nl S1, S2 + 1/6 sys murm Abd: BS+, soft, NT Ext: no edema, right leg externally rotated Neuro: alert, non-focal exam Labs/Tests- as above Impression/Plan: #Acute Intertrochanteric Fracture of Right Hip- due to mechanical fall. Plan: Admit to general medical service. Orthopedic consult obtained. Will need ORIF, STR. #Leukocytosis- etiology unclear. No source of infection. May be reactive/ demargination. Plan: Follow-up WBC and observe for symptoms of infection. Cultures done. #CAD- has h/o CAD as above. Followed by Dr. Soto. RCRI is 1- no cardiac symptoms or EKG abnormalities. Plan: Should be OK for OR. Continue usual meds. #HTN- BP has been stable. Plan: Continue Amlodipine. #COPD- lungs clear and pulse ox good. Plan: Continue prn inhaler/aerosol. #GERD- on Omeprazole. Plan: Continue Omeprazole.
[2017-05-24 18:40] VITALS: BP 140/84
--- NOTE | 2017-05-24 18:50 | Cons- Orthopedic ---
General Information and HPI Consulting Request Date of Consult: 05/24/17 Requested By: Mario Quick MD Reason for Consult: Right intertrochanteric hip fracture Source of Information: patient History of Present Illness: Patient was at home had a mechanical fall and developed pain in the right hip inability to ambulate. He was taken to [facility] emergency room Allergies/Medications Allergies: Coded Allergies: No Known Allergies (10/01/16) Home Med List: Albuterol Sulfate (Ventolin Hfa) 90 MCG HFA.AER.AD 2 PUF INH Q4-6 PRN PRN SHORTNESS OF BREATH (Reported) Amlodipine Besylate (Norvasc) 5 MG TABLET 1 TAB PO DAILY HTN (Reported) Aspirin (Ecotrin*) 81 MG TABLET.DR 1 TAB PO DAILY HEART/BLOOD (Reported) Budesonide/Formoterol Fumarate (Symbicort 160-4.5 Mcg Inhaler) 160 MCG-4.5 MCG/ ACTUATION HFA.AER.AD 2 PUF INH BID COPD (Reported) Carbidopa/Levodopa (Sinemet 25-100 MG Tablet) 25 MG-100 MG TABLET 1 TAB PO BID RESTLESS LEGS (Reported) Duloxetine HCl (Cymbalta) 60 MG CAPSULE.DR 1 CAP PO DAILY MOOD (Reported) Fentanyl 50 MCG/HOUR PATCH.TD72 1 PAT TOP Q3D PAIN (Reported) Isosorbide Mononitrate (Isosorbide Mononitrate ER) 60 MG TAB.ER.24H 1 TAB PO DAILY HEART (Reported) Lubiprostone (Amitiza) 24 MCG CAPSULE 1 CAP PO BID CONSTIPATION (Reported) Metoclopramide HCl (Reglan) 10 MG TABLET 1 TAB PO TID PRN N/V (Reported) 30 minutes before meals and bedtime Omeprazole 40 MG CAPSULE.DR 1 CAP PO DAILY GI (Reported) Oxycodone HCl 10 MG TABLET 1 TAB PO TIDPRN PRN PAIN (Reported) Ranolazine (Ranexa) 500 MG TAB.ER.12H 1 TAB PO BID HEART (Reported) Spironolactone 25 MG TABLET 0.5 TAB PO AD DIURETIC (Reported) Past History Medical History Neurological: NONE EENT: NONE Cardiovascular: hypertension, myocardial infarction, CAD [place] X 4 BYPASS ATHLEROSCLEROSIS PAD Respiratory: COPD, obstructive sleep apnea Gastrointestinal: NAUSEA Hepatic: NONE Renal: NONE Musculoskeletal: BACK FX restless leg syndrome Psychiatric: anxiety, depression Endocrine: NONE Blood Disorders: NONE Cancer(s): prostate cancer 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 Admission Lab Results I reviewed the following labs: Laboratory Tests 05/24 05/24 05/24 1740 1403 1400 Chemistry Sodium (137 - 145 mmol/L) 132 L Potassium (3.5 - 5.1 mmol/L) 4.4 Chloride (98 - 107 mmol/L) 94 L Carbon Dioxide (22 - 30 mmol/L) 27 Anion Gap (5 - 16) 11 BUN (9 - 20 mg/dL) 26 H Creatinine (0.7 - 1.2 mg/dL) 0.7 Estimated GFR (>60 ml/min) > 60 BUN/Creatinine Ratio (7 - 25 %) 37.1 H Toxicology Urine Opiates Screen (>2000 NG/ML) 1145.00 Methadone Screen (>300 NG/ML) 109 Barbiturate Screen (>200 NG/ML) < 60 Ur Phencyclidine Scrn (>25 NG/ML) < 6.00 Amphetamines Screen (>1000 NG/ML) < 100 U Benzodiazepines Scrn (>200 NG/ML) < 85 Urine Cocaine Screen (>300 NG/ML) < 50 Urine Cannabis Screen (>50 NG/ML) < 5.00 Urines Urine Color (YEL,AMB,STR) YEL Urine Clarity (CLEAR) CLEAR Urine pH (5.0 - 8.0) 6.5 Ur Specific [place] (1.001 - 1.035) 1.025 Urine Protein (NEG,<30 MG/DL) NEG Urine Ketones (NEG) 15 H Urine Nitrite (NEG) NEG Urine Bilirubin (NEG) NEG Urine Urobilinogen (0.1 - 1.0 EU/dl) 0.2 Ur Leukocyte Esterase (NEG) NEG Ur Microscopic SEDIMENT EXAMINED Urine RBC (0 - 5 /HPF) 15-25 H Urine Mucus (FEW,NONE) MOD H Urine Hemoglobin (NEG) MOD H Urine Glucose (N MG/DL) NEG 05/24 1133 Chemistry Sodium (137 - 145 mmol/L) 133 L Potassium (3.5 - 5.1 mmol/L) 5.4 H Chloride (98 - 107 mmol/L) 91 L Carbon Dioxide (22 - 30 mmol/L) 27 Anion Gap (5 - 16) 15 BUN (9 - 20 mg/dL) 26 H Creatinine (0.7 - 1.2 mg/dL) 0.7 Estimated GFR (>60 ml/min) > 60 BUN/Creatinine Ratio (7 - 25 %) 37.1 H Glucose (65 - 99 mg/dL) 137 H Calcium (8.4 - 10.2 mg/dL) 10.0 Total Bilirubin (0.2 - 1.3 mg/dL) 1.4 H AST (17 - 59 U/L) 36 ALT (21 - 72 U/L) 29 Alkaline Phosphatase (< 127 U/L) 36 Creatine Kinase (55 - 170 U/L) 271 H Troponin I (<0.11 ng/ml) < 0.01 Total Protein (6.3 - 8.2 g/dL) 7.9 Albumin (3.5 - 5.0 g/dL) 4.5 Globulin (1.9 - 4.2 gm/dL) 3.4 Albumin/Globulin Ratio (1.1 - 2.2 %) 1.3 Coagulation PT (9.4 - 12.5 SEC) 13.0 H INR (0.90 - 1.17) 1.19 H APTT (25 - 37 SEC) 27 Hematology CBC w Diff MAN DIFF ORDERED WBC (4.8 - 10.8 /CUMM) 20.9 H RBC (4.70 - 6.10 /CUMM) 4.03 L Hgb (14.0 - 18.0 G/DL) 12.2 L Hct (42 - 52 %) 36.8 L MCV (80.0 - 94.0 FL) 91.3 MCH (27.0 - 31.0 PG) 30.4 MCHC (33.0 - 37.0 G/DL) 33.3 RDW (11.5 - 14.5 %) 14.9 H Plt Count (130 - 400 /CUMM) 325 MPV (7.4 - 10.4 FL) 7.9 Gran % (42.2 - 75.2 %) 87.1 H Lymphocytes % (20.5 - 51.1 %) 6.8 L Monocytes % (1.7 - 9.3 %) 5.7 Eosinophils % (0 - 5 %) 0.2 Basophils % (0.0 - 2.0 %) 0.2 Absolute Granulocytes (1.4 - 6.5 /CUMM) 18.2 H Segmented Neutrophils (42.2 - 75.2 %) 84 H Absolute Lymphocytes (1.2 - 3.4 /CUMM) 1.4 Lymphocytes (20.5 - 51.1 %) 10 L Monocytes (1.7 - 9.3 %) 6 Absolute Monocytes (0.10 - 0.60 /CUMM) 1.2 H Absolute Eosinophils (0.0 - 0.7 /CUMM) 0 Absolute Basophils (0.0 - 0.2 /CUMM) 0 Platelet Estimate (ADEQUATE) ADEQUATE Normocytic RBCs VERIFIED Normochromic RBCs VERIFIED Exam & Diagnostic Data Vital Signs and I&O Vital Signs Date Time Temp Pulse Resp B/P B/P Pulse O2 O2 Flow FiO2 Mean Ox Delivery Rate 05/24 1840 98.1 68 20 140/84 95 05/24 1756 98.5 87 17 158/82 96 Room Air 05/24 1532 97.4 79 18 164/78 97 Room Air 05/24 1347 86 167/72 05/24 1136 97.8 88 17 184/90 98 Room Air Intake & Output 05/24 1600 05/24 0800 05/24 0000 05/23 1600 05/23 0800 05/23 0000 Intake Total Output Total 1150 Balance -1150 Output, Urine 1150 Patient 130 lb Weight Weight Reported by Patient Measurement Method Physical Exam: Patient is a 71-year-old male is alert he answers questions appropriately this evening. He is complaining of pain in the right hip. She is a closed injury to his right hip. Neurologically intact in that lower extremity. Also chronically has severe low back pain from a prior fall and some lumbar fractures. He has good motion of his ankle and foot. Pulses are 2+. Assessment/Plan Assessment/Plan Patient is a 71-year-old male with a closed right intratrochanteric hip fracture. The plan at this point in time is for clearance by the medical team and then probable intramedullary rodding sometime tomorrow on the add-on list. The patient signs consent willingly I went through the operative procedure with the patient. Consult Acknowledgment - Thank you for your consult request. Attending MD Review Statement Attending Statement Attending MD Statement: examined this patient
[2017-05-24 23:57] VITALS: BP 136/70
[2017-05-25 06:35] VITALS: BP 120/80
--- NOTE | 2017-05-25 06:41 | Admission Certification ---
Admission Certification Certification Statement - As attending physician, I certify that at the time of - admission, based on clinical presentation, severity of - symptoms, need for further diagnostic testing and - therapeutic interventions, and risk of adverse outcomes - without in-hospital treatment, in my clinical assessment, - this patient requires an acute hospital stay for a minimum - of two nights or longer. I have also considered psychsocial - factors such as support system, advanced age, financial - issues, cognitive issues, and failed out-patient treatments, - past re-admission history, safety of patient, and lack of - compliance as applicable. Specific rationale supporting this admission is: The patient presents with acute right hip intertrochanteric fracture secondary to mechanical fall. Needs surgical intervention (?ORIF)/orthopedic consult. Also evaluation cardiac risk, ?cause of leukocytosis (no obvious infection).
[2017-05-25 08:40] LABS: ABSOLUTE BASOPHIL COUNT 0 /CUMM (0.0-0.2); ABSOLUTE EOSINOPHIL COUNT 0.1 /CUMM (0.0-0.7); ABSOLUTE LYMPH COUNT 1.4 /CUMM (1.2-3.4); ABSOLUTE MONOCYTE COUNT 1.3 /CUMM (0.10-0.60); BASOPHIL % 0.1 % (0.0-2.0); EOSINOPHIL % 0.4 % (0-5); MEAN CORPUSCULAR HGB 31.1 PG (27.0-31.0); MEAN CORPUSCULAR HGB CONC 33.7 G/DL (33.0-37.0); MEAN CORPUSCULAR VOLUME 92.2 FL (80.0-94.0); MEAN PLATELET VOLUME 8.4 FL (7.4-10.4); PLATELET COUNT 222 /CUMM (130-400); RBC DISTRIBUTION WIDTH 15.4 % (11.5-14.5); RED BLOOD CELL CT 3.14 /CUMM (4.70-6.10); WHITE BLOOD CELL COUNT 14.8 /CUMM (4.8-10.8)
[2017-05-25 09:16] LABS: HEMATOCRIT 28.9 % (42-52)
--- NOTE | 2017-05-25 11:36 | PN- Att Addend ---
Attending Addendum Attending Brief Note 71M PMH CAD (s/p MA/stent), COPD, ANDRADE, PVD, RLS, and prostate cancer (s/p XRT) admitted with mechanical fall at home and right hip fracture. RCRI = 1, low cardiac risk at this time for surgery, EKG NSR with no acute changes. Patient received Morphine this morning and was sleepy. He has no complaints. 1. Right closed intertrochanteric hip fracture 2. Fall, initial 3. History of CAD Plan - Continue on general medicine - Cardiology consult - Medically optimized for OR this afternoon - NPO - Continue pain control - Follow orthopedic recommendations - PT eval post-op - DVT PPx
[2017-05-25 12:51] VITALS: BP 160/80
--- NOTE | 2017-05-25 13:05 | PN- Housestaff ---
Subjective Follow-up For: Right intertrochanteric fracture Subjective: Patient seen and examined. Was sleeping received morphine because of pain. He is scheduled for today. Daughter and brother were updated about the patient's progress so far. Review of Systems Constitutional: Reports: see HPI. Objective Last 24 Hrs of Vital Signs/I&O Vital Signs Date Time Temp Pulse Resp B/P B/P Pulse O2 O2 Flow FiO2 Mean Ox Delivery Rate 05/25 1251 98.1 76 20 160/80 96 05/25 0918 70 150/76 05/25 0800 Room Air 05/25 0635 97.6 69 20 120/80 96 Room Air 05/24 2357 98.2 70 20 136/70 98 Room Air 05/24 1840 98.1 68 20 140/84 95 05/24 1756 98.5 87 17 158/82 96 Room Air 05/24 1532 97.4 79 18 164/78 97 Room Air 05/24 1347 86 167/72 Intake & Output 05/25 1600 05/25 0800 05/25 0000 Intake Total 800 500 Output Total 125 600 Balance 675 -100 Intake, IV 800 400 Intake, Oral 100 Number 1 4 Bowel Movements Output, Urine 125 600 Patient 147 lb 130 lb Weight Weight Reported by Patient Measurement Method Physical Exam General Appearance: Mild Distress Neck: Supple Cardiovascular: Regular Rate, Normal S1, Normal S2 Lungs: Clear to Auscultation Abdomen: Normal Bowel Sounds, Soft Extremities: No Edema Current Medications: Current Medications Sig/Jesus Start time Last Medication Dose Route Stop Time Status Admin Acetaminophen 650 MG Q6P PRN 05/24 1615 AC PO Acetaminophen 1,000 MG ONCE ONE 05/24 1600 DC 05/24 N/A 1 UNIT IV 05/24 1614 1608 Amlodipine Besylate 5 MG DAILY 05/25 1000 AC 05/25 PO 0918 Calcium 600 MG BID 05/24 2200 AC 05/24 PO 2258 Cholecalciferol 2,000 IU DAILY 05/24 2102 AC 05/24 PO 2258 Fentanyl Citrate 50 MCG Q3D 05/24 2100 AC 05/24 TOP 2129 Lorazepam 0.5 MG ONCE ONE 05/24 1600 DC 05/24 IV 05/24 1601 1608 Morphine Sulfate 2 MG Q4P PRN 05/24 1615 AC 05/25 IV 1311 Morphine Sulfate 0 .STK-MED ONE 05/24 1342 DC .ROUTE Morphine Sulfate 4 MG ONCE ONE 05/24 1330 DC 05/24 IV 05/24 1331 1347 Omeprazole 40 MG DAILY AC 05/25 0700 AC 05/25 PO 0540 Oxycodone/ 1 TAB Q6P PRN 05/24 1615 AC 05/25 Acetaminophen PO 0543 Sodium Chloride 1,000 ML .Q10H 05/24 1615 AC 05/25 IV 0539 Sodium Chloride 1,000 ML ONCE ONE 05/24 1130 DC 05/24 IV 05/24 2129 1142 Sodium Polystyrene 60 ML ONCE ONE 05/24 1615 CAN Sulfonate PO 05/24 1616 Last 24 Hrs of Lab/Rudy Results Last 24 Hrs of Labs/Mics: Laboratory Tests 05/25/17 0803: Anion Gap 11, Estimated GFR > 60, BUN/Creatinine Ratio 30.0 H, CBC w Diff NO MAN DIFF REQ, RBC 3.14 L, MCV 92.2, MCH 31.1 H, MCHC 33.7, RDW 15.4 H, MPV 8.4, Gran % 81.0 H, Lymphocytes % 9.5 L, Monocytes % 9.0, Eosinophils % 0.4, Basophils % 0.1, Absolute Granulocytes 12.0 H, Absolute Lymphocytes 1.4, Absolute Monocytes 1.3 H, Absolute Eosinophils 0.1, Absolute Basophils 0 05/24/17 1740: Anion Gap 11, Estimated GFR > 60, BUN/Creatinine Ratio 37.1 H, 25-OH Vitamin D Total 19.2 L 05/24/17 1403: Urine Opiates Screen 1145.00, Methadone Screen 109, Barbiturate Screen < 60, Ur Phencyclidine Scrn < 6.00, Amphetamines Screen < 100, U Benzodiazepines Scrn < 85, Urine Cocaine Screen < 50, Urine Cannabis Screen < 5.00 05/24/17 1400: Urine Color YEL, Urine Clarity CLEAR, Urine pH 6.5, Ur Specific [place] 1.025, Urine Protein NEG, Urine Ketones 15 H, Urine Nitrite NEG, Urine Bilirubin NEG, Urine Urobilinogen 0.2, Ur Leukocyte Esterase NEG, Ur Microscopic SEDIMENT EXAMINED, Urine RBC 15-25 H, Urine Mucus MOD H, Urine Hemoglobin MOD H, Urine Glucose NEG Microbiology 05/24 1800 BLOOD: Blood Culture - RES 05/24 1740 BLOOD: Blood Culture - RES 05/24 1400 URINE ROUT: Urine Culture - RES Assessment/Plan Assessment: Patient is a 71-year-old male with a PMH significant for CAD status post ID with PCI and stent placement, COPD, obstructive sleep apnea, peripheral artery disease, prostate cancer status post radiation and in remission who presents to [facility] ED after suffering a fall at home. He hit his right hip and suffered severe amount of pain, he did not his head and had no symptoms suggestive of neurocardiogenic syncope. #Acute Intertrochanteric Fracture of Right Hip- due to mechanical fall. -Scheduled for ORIF today -Patient's RCRI is 1, with history of CAD. Proceeding with surgery would be reasonable from a medical standpoint -PT eval post procedure -Hold anticoagulation until surgery #Leukocytosis- etiology unclear. No source of infection. May be reactive/ demargination. -Follow-up blood and urine cultures No growth so far -Monitor fever and WBC curve stable -Monitor off antibiotics #CAD- has h/o CAD as above. Followed by Dr. Nunez. RCRI is 1- no cardiac symptoms or EKG abnormalities. -Will notify Dr. nunez #HTN- BP has been stable. -Continue Amlodipine. #COPD -Continue prn inhaler/aerosol. #GERD -Continue Omeprazole. Diet: Nothing by mouth at midnight DVT prophylaxis: Alps, will start pharmacologic prophylaxis after surgery CODE STATUS: Full code Problem List: 1. Intertrochanteric fracture of right femur Pain Ratin Pain Location: R hip Pain Goal: Pain 4 or less Pain Plan: prn Tomorrow's Labs & Rationales: cbc bep
[2017-05-25 15:42] VITALS: BP 120/70
[2017-05-25 22:56] VITALS: BP 142/70
[2017-05-26 06:41] VITALS: BP 140/80
--- NOTE | 2017-05-26 07:21 | PN- Housestaff ---
Subjective Follow-up For: ORIF Subjective: Patient seen and examined. Resting comfortably. As per patient has pain is well managed. The patient did not underwent ORIF yesterday because of OR schedule, he will be going today after 1 PM. He denies any fever, chills, and nausea or abdominal pain. Review of Systems Constitutional: Reports: see HPI. Objective Last 24 Hrs of Vital Signs/I&O Vital Signs Date Time Temp Pulse Resp B/P B/P Pulse O2 O2 Flow FiO2 Mean Ox Delivery Rate 05/26 0930 99.2 74 20 154/74 95 Room Air 05/26 0641 98.9 74 20 140/80 95 Room Air 05/25 2256 99.1 83 20 142/70 97 Room Air 05/25 2130 99.1 05/25 2024 100.3 05/25 1542 98.7 78 20 120/70 95 05/25 1251 98.1 76 20 160/80 96 Intake & Output 05/26 1600 05/26 0800 05/26 0000 Intake Total 800 800 Output Total 250 300 Balance 550 500 Intake, IV 800 400 Intake, Oral 0 400 Number 4 Bowel Movements Output, Urine 250 300 Patient 149 lb Weight Weight Bed scale Measurement Method Physical Exam General Appearance: Alert, Oriented X3 Skin: No Rashes Cardiovascular: Normal S1, Normal S2 Lungs: Clear to Auscultation Abdomen: Normal Bowel Sounds, Soft Neurological: Normal Speech Other Physical Findings: No hematoma noted at the site of fracture Current Medications: Current Medications Sig/Jesus Start time Last Medication Dose Route Stop Time Status Admin Acetaminophen 650 MG .STK-MED ONE 05/25 2022 DC PO 05/26 2023 Acetaminophen 650 MG Q6P PRN 05/24 161 AC 05/25 PO 2024 Amlodipine Besylate 5 MG DAILY 05/25 1000 AC 05/26 PO 0918 Calcium 600 MG BID 05/24 2200 05/25 PO 2138 Cholecalciferol 2,000 IU DAILY 05/24 2101 AC 05/24 PO 225 Fentanyl Citrate 50 MCG Q3D 05/24 2100 AC 05/24 TOP 212 Morphine Sulfate 2 MG Q4P PRN 05/24 1615 AC 05/26 IV 0925 Omeprazole 40 MG DAILY AC 05/25 0700 05/26 PO 0528 Oxycodone/ 1 TAB Q6P PRN 05/24 161 AC 05/25 Acetaminophen PO 2310 Patient Medication 1 ED ONE ONE 05/25 1615 DC 05/25 Teaching ED 05/25 1616 1711 Sodium Chloride 1,000 ML .Q10H 05/24 1615 AC 05/26 IV 0925 Last 24 Hrs of Lab/Rudy Results Last 24 Hrs of Labs/Mics: Laboratory Tests 05/26/17 0620: Anion Gap 10, Estimated GFR > 60, BUN/Creatinine Ratio 20.0, CBC w Diff NO MAN DIFF REQ, RBC 3.11 L, MCV 92.7, MCH 31.0, MCHC 33.4, RDW 15.3 H, MPV 8.3, Gran % 69.2, Lymphocytes % 19.0 L, Monocytes % 9.7 H, Eosinophils % 1.9, Basophils % 0.2, Absolute Granulocytes 8.1 H, Absolute Lymphocytes 2.2, Absolute Monocytes 1.1 H, Absolute Eosinophils 0.2, Absolute Basophils 0 Assessment/Plan Assessment: Patient is a 71-year-old male with a PMH significant for CAD status post CT with PCI and stent placement, COPD, obstructive sleep apnea, peripheral artery disease, prostate cancer status post radiation and in remission who presents to [facility] ED after suffering a fall at home. He hit his right hip and suffered severe amount of pain, he did not his head and had no symptoms suggestive of neurocardiogenic syncope. He is being treated and evaluated for following conditions #Acute Intertrochanteric Fracture of Right Hip- due to mechanical fall. -Scheduled for ORIF today after 1pm -Patient's RCRI is 1, with history of CAD. Proceeding with surgery would be reasonable from a medical standpoint -PT eval post procedure -Hold anticoagulation until surgery #Leukocytosis- etiology unclear. No source of infection. May be reactive/ demargination. -Follow-up blood and urine cultures No growth so far -Monitor fever and WBC curve stable -Monitor off antibiotics #Drop in H/H Pt H/H dropped form to 12/27, most likely dilutional. All cell lines down -Stable at 9.28 today -Continue to monitor -No hematoma at site of fracture -No obvious signs of bleeding hemodynamically stable #CAD- has h/o CAD as above. Followed by Dr. Soto. RCRI is 1- no cardiac symptoms or EKG abnormalities. -Cardiology consult placed with Dr. Soto #HTN- BP has been stable. -Continue Amlodipine. #COPD -Continue prn inhaler/aerosol. #GERD -Continue Omeprazole. Diet: Nothing by mouth DVT prophylaxis: Alps, will start pharmacologic prophylaxis after surgery CODE STATUS: Full code Problem List: 1. Intertrochanteric fracture of right femur Pain Ratin Pain Location: R hip Pain Goal: Pain 4 or less Pain Plan: prn Tomorrow's Labs & Rationales: cbc DVT/Prophylaxis: mechanical
[2017-05-26 08:16] LABS: ABSOLUTE BASOPHIL COUNT 0 /CUMM (0.0-0.2); ABSOLUTE EOSINOPHIL COUNT 0.2 /CUMM (0.0-0.7); ABSOLUTE GRANULOCYTE CT 8.1 /CUMM (1.4-6.5); ABSOLUTE LYMPH COUNT 2.2 /CUMM (1.2-3.4); ABSOLUTE MONOCYTE COUNT 1.1 /CUMM (0.10-0.60); BASOPHIL % 0.2 % (0.0-2.0); EOSINOPHIL % 1.9 % (0-5); GRANULOCYTE % 69.2 % (42.2-75.2); HEMATOCRIT 28.8 % (42-52); MEAN CORPUSCULAR HGB CONC 33.4 G/DL (33.0-37.0); MEAN CORPUSCULAR VOLUME 92.7 FL (80.0-94.0); MEAN PLATELET VOLUME 8.3 FL (7.4-10.4); PLATELET COUNT 220 /CUMM (130-400); RBC DISTRIBUTION WIDTH 15.3 % (11.5-14.5); RED BLOOD CELL CT 3.11 /CUMM (4.70-6.10); WHITE BLOOD CELL COUNT 11.8 /CUMM (4.8-10.8)
[2017-05-26 09:30] VITALS: BP 154/74
[2017-05-26 13:42] VITALS: BP 146/78
--- NOTE | 2017-05-26 15:13 | Cons- Cardiology ---
General Information and HPI Consulting Request Date of Consult: 05/26/17 Requested By: Marci Howell MD Reason for Consult: Preoperative assessment prior to hip surgery. Source of Information: patient, old records Exam Limitations: no limitations History of Present Illness: the patient is a 71-year-old male who is well-known to me. He has a history significant for coronary disease, status post myocardial infarction, arrhythmia, with syncope, and ultimately cardiac catheterization and defibrillator implantation in September 2015. At that time, his cardiac catheterization showed significant obstructive coronary disease which was not amenable to intervention. The patient is now admitted to the hospital after a fall with resultant right hip fracture. according to the patient, he did not lose consciousness at the time of the event. Allergies/Medications Allergies: Coded Allergies: No Known Allergies (10/01/16) Home Med List: Albuterol Sulfate (Ventolin Hfa) 90 MCG HFA.AER.AD 2 PUF INH Q4-6 PRN PRN SHORTNESS OF BREATH (Reported) Amlodipine Besylate (Norvasc) 5 MG TABLET 1 TAB PO DAILY HTN (Reported) Aspirin (Ecotrin*) 81 MG TABLET.DR 1 TAB PO DAILY HEART/BLOOD (Reported) Budesonide/Formoterol Fumarate (Symbicort 160-4.5 Mcg Inhaler) 160 MCG-4.5 MCG/ ACTUATION HFA.AER.AD 2 PUF INH BID COPD (Reported) Carbidopa/Levodopa (Sinemet 25-100 MG Tablet) 25 MG-100 MG TABLET 1 TAB PO BID RESTLESS LEGS (Reported) Duloxetine HCl (Cymbalta) 60 MG CAPSULE.DR 1 CAP PO DAILY MOOD (Reported) Fentanyl 50 MCG/HOUR PATCH.TD72 1 PAT TOP Q3D PAIN (Reported) Isosorbide Mononitrate (Isosorbide Mononitrate ER) 60 MG TAB.ER.24H 1 TAB PO DAILY HEART (Reported) Lubiprostone (Amitiza) 24 MCG CAPSULE 1 CAP PO BID CONSTIPATION (Reported) Metoclopramide HCl (Reglan) 10 MG TABLET 1 TAB PO TID PRN N/V (Reported) 30 minutes before meals and bedtime Omeprazole 40 MG CAPSULE.DR 1 CAP PO DAILY GI (Reported) Oxycodone HCl 10 MG TABLET 1 TAB PO TIDPRN PRN PAIN (Reported) Ranolazine (Ranexa) 500 MG TAB.ER.12H 1 TAB PO BID HEART (Reported) Spironolactone 25 MG TABLET 0.5 TAB PO AD DIURETIC (Reported) Current Medications: Current Medications Sig/Jesus Start time Last Medication Dose Route Stop Time Status Admin Acetaminophen 650 MG .STK-MED ONE 05/25 2022 DC PO 05/26 2023 Acetaminophen 650 MG Q6P PRN 05/24 1615 AC 05/25 PO 202 Amlodipine Besylate 5 MG DAILY 05/25 1000 AC 05/26 PO 0918 Calcium 600 MG BID 05/24 2200 AC 05/25 PO 2139 Cholecalciferol 2,000 IU DAILY 05/24 2102 AC 05/24 PO 2258 Fentanyl Citrate 50 MCG Q3D 05/24 2100 AC 05/24 TOP 2129 Morphine Sulfate 2 MG Q4P PRN 05/24 1615 AC 05/26 IV 1329 Omeprazole 40 MG DAILY AC 05/25 0700 AC 05/26 PO 0528 Oxycodone/ 1 TAB Q6P PRN 05/24 1615 AC 05/25 Acetaminophen PO 2310 Patient Medication 1 ED ONE ONE 05/25 1615 DC 05/25 Teaching ED 05/25 1616 1711 Sodium Chloride 1,000 ML .Q10H 05/24 1615 AC 05/26 IV 0925 Past History Travel History Traveled to [place] past 21 day No Medical History Blood Transfusion Hx: No Neurological: restless leg syndrome EENT: NONE Cardiovascular: hypertension, myocardial infarction, CAD SD X 4 BYPASS ATHLEROSCLEROSIS PAD Respiratory: COPD, obstructive sleep apnea Gastrointestinal: NAUSEA Hepatic: NONE Renal: NONE Musculoskeletal: BACK FX restless leg syndrome Psychiatric: anxiety, depression Endocrine: NONE Blood Disorders: NONE Cancer(s): prostate cancer 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 Home Services at Home: Nursing Primary Language: Bengali Smoking Status: Former Smoker ETOH Use: denies use Illicit Drug Use: denies illicit drug use Functional Ability ADLs Independent: dressing, eating, toileting, bathing. Exam & Diagnostic Data Vital Signs and I&O Vital Signs Date Time Temp Pulse Resp B/P B/P Pulse O2 O2 Flow FiO2 Mean Ox Delivery Rate 05/26 1342 99.4 84 16 146/78 95 Room Air 05/26 0930 99.2 74 20 154/74 95 Room Air 05/26 0641 98.9 74 20 140/80 95 Room Air 05/25 2256 99.1 83 20 142/70 97 Room Air 05/25 2130 99.1 05/25 2024 100.3 05/25 1542 98.7 78 20 120/70 95 Intake & Output 05/26 1600 05/26 0800 05/26 0000 05/25 1600 05/25 0800 05/25 0000 Intake Total 860 800 800 800 800 500 Output Total 1400 250 300 350 125 600 Balance -540 550 500 450 675 -100 Intake, IV 800 800 400 800 800 400 Intake, Oral 60 0 400 100 Number 1 4 5 4 Bowel Movements Output, Urine 1400 250 300 350 125 600 Patient 149 lb 147 lb 130 lb Weight Weight Bed scale Reported by Patient Measurement Method Physical Exam: General Appearance Alert, Oriented X3, Cooperative, Mild Distress HEENT PERRLA, EOMI, Mucous Membr. moist/pink Neck No JVD Cardiovascular Regular Rate, Normal S1, Normal S2, 1/6 systolic murmur left sternal border Lungs Clear to Auscultationand percussion bilaterally Abdomen Normal Bowel Sounds, Soft, No Tenderness Neurological Normal /nonfocal Extremities No Clubbing, No Cyanosis, No Edema, R Lateral thigh TTP, no overlying skin changes, Pain with active and passive ROM, R leg shortened and externally rotated Vascular Normal Pulses, Pulses Symmetrical Labs/Rudy Results: Laboratory Tests 05/26 05/25 0620 0803 Chemistry Sodium (137 - 145 mmol/L) 134 L 133 L Potassium (3.5 - 5.1 mmol/L) 3.6 4.0 Chloride (98 - 107 mmol/L) 102 101 Carbon Dioxide (22 - 30 mmol/L) 22 21 L Anion Gap (5 - 16) 10 11 BUN (9 - 20 mg/dL) 14 21 H Creatinine (0.7 - 1.2 mg/dL) 0.7 0.7 Estimated GFR (>60 ml/min) > 60 > 60 BUN/Creatinine Ratio (7 - 25 %) 20.0 30.0 H Hematology CBC w Diff NO MAN DIFF REQ NO MAN DIFF REQ WBC (4.8 - 10.8 /CUMM) 11.8 H 14.8 H RBC (4.70 - 6.10 /CUMM) 3.11 L 3.14 L Hgb (14.0 - 18.0 G/DL) 9.6 L 9.8 L Hct (42 - 52 %) 28.8 L 28.9 L MCV (80.0 - 94.0 FL) 92.7 92.2 MCH (27.0 - 31.0 PG) 31.0 31.1 H MCHC (33.0 - 37.0 G/DL) 33.4 33.7 RDW (11.5 - 14.5 %) 15.3 H 15.4 H Plt Count (130 - 400 /CUMM) 220 222 MPV (7.4 - 10.4 FL) 8.3 8.4 Gran % (42.2 - 75.2 %) 69.2 81.0 H Lymphocytes % (20.5 - 51.1 %) 19.0 L 9.5 L Monocytes % (1.7 - 9.3 %) 9.7 H 9.0 Eosinophils % (0 - 5 %) 1.9 0.4 Basophils % (0.0 - 2.0 %) 0.2 0.1 Absolute Granulocytes (1.4 - 6.5 /CUMM) 8.1 H 12.0 H Absolute Lymphocytes (1.2 - 3.4 /CUMM) 2.2 1.4 Absolute Monocytes (0.10 - 0.60 /CUMM) 1.1 H 1.3 H Absolute Eosinophils (0.0 - 0.7 /CUMM) 0.2 0.1 Absolute Basophils (0.0 - 0.2 /CUMM) 0 0 03/26 1740 Chemistry Sodium (137 - 145 mmol/L) 132 L Potassium (3.5 - 5.1 mmol/L) 4.4 Chloride (98 - 107 mmol/L) 94 L Carbon Dioxide (22 - 30 mmol/L) 27 Anion Gap (5 - 16) 11 BUN (9 - 20 mg/dL) 26 H Creatinine (0.7 - 1.2 mg/dL) 0.7 Estimated GFR (>60 ml/min) > 60 BUN/Creatinine Ratio (7 - 25 %) 37.1 H 25-OH Vitamin D Total (30 - 100 ng/ml) 19.2 L Assessment/Plan Assessment/Plan Assessment: 1. Right hip fracture post fall without evidence of syncope 2. Known CAD; last cath in 10/14 with non revascularizable disease at that time 3. PPM / AICD 4. PAD 5. COPD Recommendations: 1. From a cardiac perspective, the patient has moderate risk of cardiac issues with any surgery. He has been stable from a cardiac standpoint, but has had a cardiac event/SD/VT about 15 months ago and cath at that time showed significant disease which was not amenable to intervention. 2. I would consider monitoring the patient on telemetry post procedure 3. During the procedure a magnet can be placed on his device and removed post procedure. 4. Continue regular meds if possible. Consult Acknowledgment - Thank you for your consult request.
--- NOTE | 2017-05-26 18:42 | Operative Report ---
Operative/Inv Procedure Report Surgery Date: 05/26/17 Name of Procedure: Right intramedullary rodding Pre-Operative Diagnosis: Right comminuted intertrochanteric hip fracture Post-Operative Diagnosis: Right comminuted intertrochanteric hip fracture Estimated Blood Loss: 50ml to 100ml Surgeon/Sap Gatherer: Vickie jara Anesthesia: laryngeal mask airway Operative/Procedure Note Note: Patient is a 71-year-old male with a comminuted right intertrochanteric hip fracture was brought to the operating room given a general anesthetic transferred from his bed onto the fracture table and placed in longitudinal traction. With reduction maneuvers prior to surgery he still had some sag to his fracture site due to some comminution so this warranted a slightly larger incision to get a retractor under the greater trochanter to lift it into a co linear position. We did the appropriate timeouts his right leg was signed the right leg was prepped and draped in usual sterile fashion. He had about a 4-5 cm incision over the greater trochanter and proximal. A Murray retractor was placed under the greater trochanter to lift the femur. Guidewire was placed down the femur and then proximal reaming commenced. A 10 x 130 jared was placed. This was a sli.do jared. Excellent alignment was noted on the AP and lateral fluoroscopic pictures after the jared had been placed. Then went ahead and placed the proximal lag screw which turned out to be 100 mm. This was first reamed and then the appropriate screw placed. Then went ahead and did the distal locking screw which measured 40 mm. Small incisions were made for the lag screw and the locking screw. Thorough irrigation was carried out the end of the procedure final x-rays taken in the operating room the wounds closed in a layered fashion dry sterile dressing is applied and he was sent back to recovery room in stable condition no complications all needle and instrument counts correct and a dictation by Dr. Jara thank you
[2017-05-26 19:28] VITALS: BP 122/70
--- NOTE | 2017-05-26 19:46 | RADIOLOGY REPORT ---
EXAMINATION: XR HIP, RIGHT CLINICAL INFORMATION: Right hip intramedullary rodding COMPARISON: 05/24/2017 TECHNIQUE: 3 images submitted during ORIF of the right hip. FINDINGS: Right hip intertrochanteric fracture appears to be anatomically reduced. Hardware appears satisfactory. IMPRESSION: Anatomic caodaism as above.
[2017-05-26 21:07] VITALS: BP 152/80
[2017-05-26 23:42] VITALS: BP 122/64
[2017-05-27 06:51] VITALS: BP 124/76
--- NOTE | 2017-05-27 07:09 | PN- Housestaff ---
[place] 05/27/17 0708: Subjective Follow-up For: Right hip fracture s/p ORIF Tele-Events Since Last Visit: sinus rhythm with HR 76-91 Subjective: No overnight events. Patient afebrile overnight. Seen and examined this morning. He denied any chest pain, short of breath, nausea, vomiting, chills, fever, abdominal pain dysuria. patient reported having right hip pain 7/10 but it's under control with pain medication. Patient has first postoperative day after right hip surgery. He is on telemetry floor considering his significant cardiac history in the past. If patient remains stable. 24-hour he can be transferred back to [facility]. Review of Systems Constitutional: Reports: no symptoms. EENTM: Reports: no symptoms. Cardiovascular: Reports: no symptoms. Respiratory: Reports: no symptoms. Gastrointestinal: Reports: no symptoms. Genitourinary: Reports: no symptoms. Musculoskeletal: Reports: see HPI. Neurological/Psychological: Reports: no symptoms. Objective Last 24 Hrs of Vital Signs/I&O Vital Signs Date Time Temp Pulse Resp B/P B/P Pulse O2 O2 Flow FiO2 Mean Ox Delivery Rate 05/27 0651 99.6 77 20 124/76 99 Nasal 2.0L Cannula 05/27 0000 Nasal 2.0L Cannula 05/26 2342 99.6 99 18 122/64 95 Nasal Cannula 05/26 2107 99.1 97 18 152/80 96 Nasal 2.0L Cannula 05/26 1928 98.9 86 16 122/70 96 Nasal 2.0L Cannula 05/26 1342 99.4 84 16 146/78 95 Room Air Intake & Output 05/27 1600 05/27 0800 05/27 0000 Intake Total 1310 200 Output Total 350 1050 Balance 960 -850 Intake, IV 950 200 Intake, Oral 360 0 Output, Urine 350 1050 Physical Exam General Appearance: Alert, Oriented X3, Cooperative Skin: No Rashes Skin Temp/Moisture Exam: Warm/Dry Sepsis Skin Exam (color): Normal for Ethnicity HEENT: Atraumatic, PERRLA, EOMI Neck: Supple Cardiovascular: Normal S1, Normal S2 Lungs: Clear to Auscultation Abdomen: Soft, No Tenderness Neurological: Normal Speech, Normal Tone Assessment/Plan Assessment: Patient is a 71-year-old male with a PMH significant for CAD status post IL with PCI and stent placement, COPD, obstructive sleep apnea, peripheral artery disease, prostate cancer status post radiation and in remission who presents to [facility] ED after suffering a fall at home. He hit his right hip and suffered severe amount of pain, he did not his head and had no symptoms suggestive of neurocardiogenic syncope. He is being treated and evaluated for following conditions Right Intertrochanteric Fracture s/p ORIF: -1st post op day. -Patient was transfered to tele considering his significat cardiac hisatory to monitor for 24hrs. -PT eval. -Eliquis is strted from today evening. DAY 1 -Follow ortho recommendations for anticoagulation. Leukocytosis: -etiology unclear. No source of infection. May be reactive/demargination. -Follow-up blood and urine cultures No growth so far -Monitor fever and WBC curve stable -Monitor off antibiotics Drop in H/H: -H&H 7.9/23.5 today from 9.6 -We will follow her systems software manager want to transfuse the patient. -Continue to monitor -No hematoma at site of fracture -No obvious signs of bleeding hemodynamically stable CAD s/p CABG: - Followed by Dr. Soto. RCRI is 1- no cardiac symptoms or EKG abnormalities. -Patient was transfered to tele floor after the surgery yesterday considering his significat past medical history for cardiac problem. HTN: - BP has been stable. -Continue Amlodipine. COPD: -Continue prn inhaler/aerosol. GERD: -Continue Omeprazole. DVT prophylaxis: Alps, will start eliquis CODE STATUS: Full code Problem List: 1. Intertrochanteric fracture of right femur Pain Ratin Pain Location: right hip Pain Goal: Pain 4 or less Pain Plan: pain pathway Tomorrow's Labs & Rationales: cbc Johanny Torres 05/27/17 1553: Attending MD Review Statement Attending Statement Attending MD Statement: examined this patient, discuss w/resident/PA/FEED INSPECTION SUPERVISOR, agreed w/resident/PA/FEED INSPECTION SUPERVISOR, reviewed EMR data (avail), discussed with nursing, discussed with case mgmt Attending Assessment/Plan: Anemia- acute blood loss- will d/w cardio if they want to transfuse given his cardiac history. will recheck jose. Hip fracture rt side s/p surgical repair- started on eliquis for dvt prophylaxis. Vit d def- on vit d supplement.
--- NOTE | 2017-05-27 08:08 | PN- Orthopedic ---
Subjective Subjective: Patient reports postop pain which is currently uncontrolled. He denies ambualting with PT yet. He denies numbness or tingling. Objective Vital Signs and I&Os Vital Signs Date Time Temp Pulse Resp B/P B/P Pulse O2 O2 Flow FiO2 Mean Ox Delivery Rate 05/27 0651 99.6 77 20 124/76 99 Nasal 2.0L Cannula 05/27 0000 Nasal 2.0L Cannula 05/26 2342 99.6 99 18 122/64 95 Nasal Cannula 05/26 2106 99.1 97 18 152/80 96 Nasal 2.0L Cannula 05/26 1928 98.9 86 16 122/70 96 Nasal 2.0L Cannula 05/26 1342 99.4 84 16 146/78 95 Room Air Intake & Output 05/27 1600 05/27 0800 05/27 0000 05/26 1600 05/26 0800 05/26 0000 Intake Total 1310 200 860 800 800 Output Total 350 1050 1400 250 300 Balance 960 -850 -540 550 500 Intake, IV 950 200 800 800 400 Intake, Oral 360 0 60 0 400 Number 1 4 Bowel Movements Output, Urine 350 1050 1400 250 300 Patient 149 lb Weight Weight Bed scale Measurement Method Physical Exam: Gen - nad Ext - Right hip dressing c/d/i, compartment soft, moves all extremities, sensory /motor intact, alps in place, no edema or calf tenderness Stone - clear/yellow urine noted Current Medications: Current Medications Sig/Jesus Start time Last Medication Dose Route Stop Time Status Admin Acetaminophen 650 MG Q6P PRN 05/24 161 AC 05/25 PO 2024 Amlodipine Besylate 5 MG DAILY 05/25 1000 AC 05/26 PO 09 Calcium 600 MG BID 05/24 2199 AC 05/26 PO 2234 Cefazolin Sodium 2 GM IQ8 05/27 0000 DC 05/27 N/A 1 UNIT IV 05/27 828 0159 Cholecalciferol 2,000 IU DAILY 05/24 2101 AC 05/24 PO 2258 Dexamethasone 4 MG .STK-MED ONE 05/26 1613 DC IM 05/26 161 Fentanyl Citrate 250 MCG .STK-MED ONE 05/26 161 DC IM 05/26 161 Fentanyl Citrate 50 MCG Q3D 05/24 2100 AC 05/24 TOP 2129 Ketamine HCl 50 MG .STK-MED ONE 05/26 1612 DC IM 05/26 1613 Midazolam HCl 2 MG .STK-MED ONE 05/26 1612 DC IM 05/26 1613 Morphine Sulfate 4 MG .STK-MED ONE 05/26 1900 DC IM 05/26 1901 Morphine Sulfate 2 MG Q4P PRN 05/24 1615 AC 05/27 IV 0525 Omeprazole 40 MG DAILY AC 05/25 0700 AC 05/27 PO 0646 Ondansetron HCl 8 MG .STK-MED ONE 05/26 1613 DC IM 05/26 161 Oxycodone HCl 5 MG ONCE ONE 05/26 2230 DC 05/26 PO 05/26 223 223 Oxycodone/ 1 TAB Q6P PRN 05/24 161 AC 05/27 Acetaminophen PO 0416 Sodium Chloride 1,000 ML .Q10H 05/24 161 DC 05/27 IV 0250 Results Last 48 Hours of Labs: Laboratory Tests 05/27 05/26 0710 0620 Chemistry Sodium (137 - 145 mmol/L) 134 L Potassium (3.5 - 5.1 mmol/L) 3.6 Chloride (98 - 107 mmol/L) 102 Carbon Dioxide (22 - 30 mmol/L) 22 Anion Gap (5 - 16) 10 BUN (9 - 20 mg/dL) 14 Creatinine (0.7 - 1.2 mg/dL) 0.7 Estimated GFR (>60 ml/min) > 60 BUN/Creatinine Ratio (7 - 25 %) 20.0 Hematology CBC w Diff NO MAN DIFF REQ NO MAN DIFF REQ WBC (4.8 - 10.8 /CUMM) 10.6 11.8 H RBC (4.70 - 6.10 /CUMM) 2.54 L 3.11 L Hgb (14.0 - 18.0 G/DL) 7.9 L 9.6 L Hct (42 - 52 %) 23.5 L 28.8 L MCV (80.0 - 94.0 FL) 92.5 92.7 MCH (27.0 - 31.0 PG) 30.9 31.0 MCHC (33.0 - 37.0 G/DL) 33.5 33.4 RDW (11.5 - 14.5 %) 15.1 H 15.3 H Plt Count (130 - 400 /CUMM) 215 220 MPV (7.4 - 10.4 FL) 8.6 8.3 Gran % (42.2 - 75.2 %) 80.4 H 69.2 Lymphocytes % (20.5 - 51.1 %) 10.8 L 19.0 L Monocytes % (1.7 - 9.3 %) 8.6 9.7 H Eosinophils % (0 - 5 %) 0 1.9 Basophils % (0.0 - 2.0 %) 0.2 0.2 Absolute Granulocytes (1.4 - 6.5 /CUMM) 8.5 H 8.1 H Absolute Lymphocytes (1.2 - 3.4 /CUMM) 1.1 L 2.2 Absolute Monocytes (0.10 - 0.60 /CUMM) 0.9 H 1.1 H Absolute Eosinophils (0.0 - 0.7 /CUMM) 0 0.2 Absolute Basophils (0.0 - 0.2 /CUMM) 0 0 Assessment/Plan Assessment/Plan 71 M POD 1 s/p R IM rodding secondary to R comminuted IT hip fx with inadequate pain control PT eval, WBAT Add Percocet 2 tabs q4-6h prn for severe pain IV Morphine for breakthrough pain Cont cardiac diet D/c stone DVT ppx - Lovenox or Eliquis x4 weeks, alps Dressing change POD2 Labs reviewed, monitor H&H Will continue to follow All other medical mamagment per primary D/w Dr. Jara
[2017-05-27 08:24] LABS: ABSOLUTE BASOPHIL COUNT 0 /CUMM (0.0-0.2); ABSOLUTE EOSINOPHIL COUNT 0 /CUMM (0.0-0.7); EOSINOPHIL % 0 % (0-5); GRANULOCYTE % 80.4 % (42.2-75.2)
[2017-05-27 08:58] LABS: ABSOLUTE GRANULOCYTE CT 8.5 /CUMM (1.4-6.5); ABSOLUTE LYMPH COUNT 1.1 /CUMM (1.2-3.4); ABSOLUTE MONOCYTE COUNT 0.9 /CUMM (0.10-0.60); BASOPHIL % 0.2 % (0.0-2.0); MEAN CORPUSCULAR HGB 30.9 PG (27.0-31.0); MEAN CORPUSCULAR HGB CONC 33.5 G/DL (33.0-37.0); MEAN CORPUSCULAR VOLUME 92.5 FL (80.0-94.0); MEAN PLATELET VOLUME 8.6 FL (7.4-10.4); PLATELET COUNT 215 /CUMM (130-400); RBC DISTRIBUTION WIDTH 15.1 % (11.5-14.5); RED BLOOD CELL CT 2.54 /CUMM (4.70-6.10); WHITE BLOOD CELL COUNT 10.6 /CUMM (4.8-10.8)
[2017-05-27 09:14] LABS: HEMATOCRIT 23.5 % (42-52)
[2017-05-27 14:54] VITALS: BP 142/76
--- NOTE | 2017-05-27 20:04 | PN- Cardiology ---
Subjective Subjective: Cardiac status appears stable post operatively Objective Vital Signs and I&Os Vital Signs Date Time Temp Pulse Resp B/P B/P Pulse O2 O2 Flow FiO2 Mean Ox Delivery Rate 05/27 1600 96 Room Air Room Air 05/27 1454 99.2 85 17 142/76 96 Room Air 05/27 1415 Nasal 2.0L Cannula 05/27 1254 Nasal 2.0L Cannula 05/27 0800 99 Nasal 2.0L Cannula 05/27 0651 99.6 77 20 124/76 99 Nasal 2.0L Cannula 05/27 0000 Nasal 2.0L Cannula 05/26 2342 99.6 99 18 122/64 95 Nasal Cannula 05/26 2107 99.1 97 18 152/80 96 Nasal 2.0L Cannula Intake & Output 05/27 1600 05/27 0800 05/27 0000 05/26 1600 05/26 0800 05/26 0000 Intake Total 600 1310 200 860 800 800 Output Total 114 719 0605 1400 250 300 Balance -100 960 -850 -540 550 500 Intake, IV 200 950 200 800 800 400 Intake, Oral 400 360 0 60 0 400 Number 1 1 4 Bowel Movements Output, Urine 923 757 4592 1400 250 300 Patient 149 lb 149 lb Weight Weight Bed scale Measurement Method Current Medications: Current Medications Sig/Jesus Start time Last Medication Dose Route Stop Time Status Admin Acetaminophen 650 MG Q6P PRN 05/24 1615 AC 05/25 PO 5 Amlodipine Besylate 5 MG DAILY 05/25 1000 AC 05/27 PO 0938 Apixaban 2.5 MG BID 05/27 2199 AC PO Calcium 600 MG BID 05/24 220 AC 05/27 PO 0931 Cefazolin Sodium 2 GM IQ8 05/27 0000 DC 05/27 N/A 1 UNIT IV 05/27 08 0940 Cholecalciferol 2,000 IU DAILY 05/24 2102 AC 05/27 PO 0931 Fentanyl Citrate 50 MCG Q3D 05/24 2100 AC 05/24 TOP 2129 Morphine Sulfate 2 MG Q4P PRN 05/24 1615 AC 05/27 IV 1727 Omeprazole 40 MG DAILY AC 05/25 0700 AC 05/27 PO 0646 Oxycodone HCl 5 MG ONCE ONE 05/26 2230 DC 05/26 PO 05/26 223 2234 Oxycodone/ 1 TAB Q6P PRN 05/24 1615 AC 05/27 Acetaminophen PO 1855 Patient Medication 1 ED ONE ONE 05/27 1530 DC Teaching ED 05/27 1531 Sodium Chloride 1,000 ML .Q10H 05/24 1615 DC 05/27 IV 0250 Results Last 48 Hrs of Labs/Mics: Laboratory Tests 05/27/17 0710: CBC w Diff NO MAN DIFF REQ, RBC 2.54 L, MCV 92.5, MCH 30.9, MCHC 33.5, RDW 15.1 H, MPV 8.6, Gran % 80.4 H, Lymphocytes % 10.8 L, Monocytes % 8.6, Eosinophils % 0, Basophils % 0.2, Absolute Granulocytes 8.5 H, Absolute Lymphocytes 1.1 L, Absolute Monocytes 0.9 H, Absolute Eosinophils 0, Absolute Basophils 0 05/26/17 0620: Anion Gap 10, Estimated GFR > 60, BUN/Creatinine Ratio 20.0, CBC w Diff NO MAN DIFF REQ, RBC 3.11 L, MCV 92.7, MCH 31.0, MCHC 33.4, RDW 15.3 H, MPV 8.3, Gran % 69.2, Lymphocytes % 19.0 L, Monocytes % 9.7 H, Eosinophils % 1.9, Basophils % 0.2, Absolute Granulocytes 8.1 H, Absolute Lymphocytes 2.2, Absolute Monocytes 1.1 H, Absolute Eosinophils 0.2, Absolute Basophils 0 Assessment/Plan Assessment/Plan Assessment: 1. Right hip fracture post fall without evidence of syncope 2. Known CAD; last cath in 10/14 with non revascularizable disease at that time 3. PPM / AICD 4. PAD 5. COPD Recommendations: 1. From a cardiac perspective, the patient has moderate risk of cardiac issues with any surgery. He has been stable from a cardiac standpoint, but has had a cardiac event/DE/VT about 15 months ago and cath at that time showed significant disease which was not amenable to intervention. 2. The patient appears to be stable postoperatively and can be taken off of telemetry in the AM 4. Continue regular meds if possible. Continue telemetry? No
[2017-05-27 22:34] VITALS: BP 142/76
--- NOTE | 2017-05-27 22:59 | RADIOLOGY REPORT ---
EXAMINATION: XR PORTABLE CHEST CLINICAL INFORMATION: Fever, postop COMPARISON: 05/12/2017 TECHNIQUE: Portable frontal view of the chest was obtained. FINDINGS: Mild discoid atelectasis both bases. There is no infiltrate seen. Heart size mildly enlarged. Dual-chamber pacer device grossly intact. No pleural disease. Evidence of previous cardiac surgery. No focal abnormality grossly. IMPRESSION: No active chest disease. Stable exam.
[2017-05-28 06:00] VITALS: BP 142/72
--- NOTE | 2017-05-28 07:07 | PN- Housestaff ---
[facility] 0707: Subjective Follow-up For: Right hip fracture s/p ORIF Tele-Events Since Last Visit: off tele Subjective: No overnight events. Patient remained afebrile overnight. Seen and examined this morning. He was complaining of right hip pain 09/07. Patient reported that his pain is under control with pain medication. He is cleared by cardiology to keep him off tele monitor. She denied any chest pain, short of breath, nausea, fever, chills, abdominal pain and dysuria. He is back to his normal eating and drinking habit. His last bowel movement was yesterday. Review of Systems Constitutional: Reports: no symptoms. EENTM: Reports: no symptoms. Cardiovascular: Reports: no symptoms. Respiratory: Reports: no symptoms. Gastrointestinal: Reports: no symptoms. Genitourinary: Reports: no symptoms. Musculoskeletal: Reports: see HPI. Skin: Reports: no symptoms. Neurological/Psychological: Reports: no symptoms. Objective Last 24 Hrs of Vital Signs/I&O Vital Signs Date Time Temp Pulse Resp B/P B/P Pulse O2 O2 Flow FiO2 Mean Ox Delivery Rate 05/28 0600 98.4 77 18 142/72 97 05/27 2234 100.6 86 16 142/76 99 Room Air 05/27 1600 96 Room Air Room Air 05/27 1454 99.2 85 17 142/76 96 Room Air 05/27 1415 Nasal 2.0L Cannula 05/27 1254 Nasal 2.0L Cannula 05/27 0800 99 Nasal 2.0L Cannula Intake & Output 05/28 0800 05/28 0000 05/27 1600 Intake Total 100 100 600 Output Total 700 800 700 Balance -600 -700 -100 Intake, IV 200 Intake, Oral 100 100 400 Number 1 Bowel Movements Output, Urine 700 800 700 Patient 143 lb 149 lb Weight Physical Exam General Appearance: Alert, Oriented X3, Cooperative Skin: No Rashes Skin Temp/Moisture Exam: Warm/Dry Sepsis Skin Exam (color): Normal for Ethnicity HEENT: Atraumatic, PERRLA, EOMI Neck: Supple Cardiovascular: Normal S1, Normal S2 Lungs: Clear to Auscultation Abdomen: Soft, No Tenderness Neurological: Normal Speech, Sensation Intact Extremities: No Edema Assessment/Plan Assessment: Patient is a 71-year-old male with a PMH significant for CAD status post IA with PCI and stent placement, COPD, obstructive sleep apnea, peripheral artery disease, prostate cancer status post radiation and in remission who presents to [facility] ED after suffering a fall at home. He hit his right hip and suffered severe amount of pain, he did not his head and had no symptoms suggestive of neurocardiogenic syncope. He is being treated and evaluated for following conditions Right Intertrochanteric Fracture s/p ORIF: -2nd post op day. -Patient was transfered to tele considering his significat cardiac hisatory to monitor for 24hrs. -PT eval. -Eliquis is strted from today evening. DAY 2. Leukocytosis: -etiology unclear. No source of infection. May be reactive/demargination. -Follow-up blood and urine cultures No growth so far -Monitor fever and WBC curve stable -Monitor off antibiotics Drop in H/H: -H&H 7.9/23.4 today from 9.6 -If hemoglobin drops less than 7.9 we will transfuse him. -Continue to monitor. CAD s/p CABG: -Followed by Dr. Soto. RCRI is 1- no cardiac symptoms or EKG abnormalities. -Patient was transfered to tele floor after the surgery yesterday considering his significat past medical history for cardiac problem. HTN: - BP has been stable. -Continue Amlodipine. COPD: -Continue prn inhaler/aerosol. GERD: -Continue Omeprazole. DVT prophylaxis: Alps, will start eliquis CODE STATUS: Full code Problem List: 1. Intertrochanteric fracture of right femur Pain Ratin Pain Location: right hip Pain Goal: Pain 4 or less Pain Plan: pain pathway Tomorrow's Labs & Rationales: Johanny Connolly 05/28/17 1212: Attending MD Review Statement Attending Statement Attending MD Statement: examined this patient, discuss w/resident/PA/CLAIM SERVICE REPRESENTATIVE, agreed w/resident/PA/CLAIM SERVICE REPRESENTATIVE, reviewed EMR data (avail), discussed with nursing, discussed with case mgmt Attending Assessment/Plan: Low grade temp of 100.6 last night. will do incentive spirometry, If remains afebrile tomorrow. will dc to STR at [facility] tomorrow am. pt has bed secured there. d/w pt the care plan. dc tele. d/w cardio the care plan. dc tele. d/w cardio the care plan.
[2017-05-28 08:01] LABS: ABSOLUTE BASOPHIL COUNT 0.1 /CUMM (0.0-0.2); ABSOLUTE EOSINOPHIL COUNT 0.2 /CUMM (0.0-0.7); ABSOLUTE LYMPH COUNT 2.3 /CUMM (1.2-3.4); ABSOLUTE MONOCYTE COUNT 0.9 /CUMM (0.10-0.60); BASOPHIL % 0.5 % (0.0-2.0); EOSINOPHIL % 1.4 % (0-5); GRANULOCYTE % 70.1 % (42.2-75.2); HEMATOCRIT 23.4 % (42-52); MEAN CORPUSCULAR HGB 30.9 PG (27.0-31.0); MEAN CORPUSCULAR HGB CONC 33.5 G/DL (33.0-37.0); MEAN CORPUSCULAR VOLUME 92.3 FL (80.0-94.0); MEAN PLATELET VOLUME 8.2 FL (7.4-10.4); PLATELET COUNT 247 /CUMM (130-400); RBC DISTRIBUTION WIDTH 14.8 % (11.5-14.5); RED BLOOD CELL CT 2.54 /CUMM (4.70-6.10); WHITE BLOOD CELL COUNT 11.4 /CUMM (4.8-10.8)
--- NOTE | 2017-05-28 12:12 | PN- Orthopedic ---
Subjective Subjective: 71 y/o Male S/P right ITfx ORIF 05/26 doing well postop. currently sitting in hair eating lunch. complains of hip soreness was seen by PT yesterday and stood up but complains of weakness Objective Vital Signs and I&Os Vital Signs Date Time Temp Pulse Resp B/P B/P Pulse O2 O2 Flow FiO2 Mean Ox Delivery Rate 05/28 1011 Room Air Room Air 05/28 0929 77 142/72 05/28 0600 98.4 77 18 142/72 97 05/27 2234 100.6 86 16 142/76 99 Room Air 05/27 1600 96 Room Air Room Air 05/27 1454 99.2 85 17 142/76 96 Room Air 05/27 1415 Nasal 2.0L Cannula 05/27 1254 Nasal 2.0L Cannula Intake & Output 05/28 1600 05/28 0800 05/28 0000 05/27 1600 05/27 0800 05/27 0000 Intake Total 100 200 214 3070 200 Output Total 700 800 588 973 4152 Balance -600 -700 -100 960 -850 Intake, IV 200 950 200 Intake, Oral 100 100 400 360 0 Number 1 Bowel Movements Output, Urine 700 [phone] Patient 143 lb 149 lb Weight Physical Exam: A+O x 3 brother present during visit -all questions answered chest -CTA symmetric heart -RRR without MRG abd - soft without distention, NT right hip - dressings removed - incision -CDI without erythema or drainage thigh with mild edema, calves soft bilaterally and distal pulses intact. Results Last 48 Hours of Labs: Laboratory Tests 05/28 05/27 0615 0710 Chemistry Sodium (137 - 145 mmol/L) 135 L Potassium (3.5 - 5.1 mmol/L) 3.7 Chloride (98 - 107 mmol/L) 101 Carbon Dioxide (22 - 30 mmol/L) 24 Anion Gap (5 - 16) 11 BUN (9 - 20 mg/dL) 10 Creatinine (0.7 - 1.2 mg/dL) 0.6 L Estimated GFR (>60 ml/min) > 60 BUN/Creatinine Ratio (7 - 25 %) 16.7 Hematology CBC w Diff NO MAN DIFF REQ NO MAN DIFF REQ WBC (4.8 - 10.8 /CUMM) 11.4 H 10.6 RBC (4.70 - 6.10 /CUMM) 2.54 L 2.54 L Hgb (14.0 - 18.0 G/DL) 7.9 L 7.9 L Hct (42 - 52 %) 23.4 L 23.5 L MCV (80.0 - 94.0 FL) 92.3 92.5 MCH (27.0 - 31.0 PG) 30.9 30.9 MCHC (33.0 - 37.0 G/DL) 33.5 33.5 RDW (11.5 - 14.5 %) 14.8 H 15.1 H Plt Count (130 - 400 /CUMM) 247 215 MPV (7.4 - 10.4 FL) 8.2 8.6 Gran % (42.2 - 75.2 %) 70.1 80.4 H Lymphocytes % (20.5 - 51.1 %) 20.1 L 10.8 L Monocytes % (1.7 - 9.3 %) 7.9 8.6 Eosinophils % (0 - 5 %) 1.4 0 Basophils % (0.0 - 2.0 %) 0.5 0.2 Absolute Granulocytes (1.4 - 6.5 /CUMM) 8.0 H 8.5 H Absolute Lymphocytes (1.2 - 3.4 /CUMM) 2.3 1.1 L Absolute Monocytes (0.10 - 0.60 /CUMM) 0.9 H 0.9 H Absolute Eosinophils (0.0 - 0.7 /CUMM) 0.2 0 Absolute Basophils (0.0 - 0.2 /CUMM) 0.1 0 Admission Lab Results I reviewed the following labs: Laboratory Tests 05/28 0615 Chemistry Sodium (137 - 145 mmol/L) 135 L Potassium (3.5 - 5.1 mmol/L) 3.7 Chloride (98 - 107 mmol/L) 101 Carbon Dioxide (22 - 30 mmol/L) 24 Anion Gap (5 - 16) 11 BUN (9 - 20 mg/dL) 10 Creatinine (0.7 - 1.2 mg/dL) 0.6 L Estimated GFR (>60 ml/min) > 60 BUN/Creatinine Ratio (7 - 25 %) 16.7 Hematology CBC w Diff NO MAN DIFF REQ WBC (4.8 - 10.8 /CUMM) 11.4 H RBC (4.70 - 6.10 /CUMM) 2.54 L Hgb (14.0 - 18.0 G/DL) 7.9 L Hct (42 - 52 %) 23.4 L MCV (80.0 - 94.0 FL) 92.3 MCH (27.0 - 31.0 PG) 30.9 MCHC (33.0 - 37.0 G/DL) 33.5 RDW (11.5 - 14.5 %) 14.8 H Plt Count (130 - 400 /CUMM) 247 MPV (7.4 - 10.4 FL) 8.2 Gran % (42.2 - 75.2 %) 70.1 Lymphocytes % (20.5 - 51.1 %) 20.1 L Monocytes % (1.7 - 9.3 %) 7.9 Eosinophils % (0 - 5 %) 1.4 Basophils % (0.0 - 2.0 %) 0.5 Absolute Granulocytes (1.4 - 6.5 /CUMM) 8.0 H Absolute Lymphocytes (1.2 - 3.4 /CUMM) 2.3 Absolute Monocytes (0.10 - 0.60 /CUMM) 0.9 H Absolute Eosinophils (0.0 - 0.7 /CUMM) 0.2 Absolute Basophils (0.0 - 0.2 /CUMM) 0.1 Assessment/Plan Assessment/Plan POD#2 right hip ORIF for IT FX continue with PT -WBAT eliquis for DVT proph will need ECF for D/C Core Measures Venous Thromboembolism VTE Risk Factors Age>40 No Mechanical VTE Prophylaxis d/t N/A MechProphylax Ordered No VTE Pharm Prophylaxis d/t Surgical Contraindication
--- NOTE | 2017-05-28 13:14 | PN- Cardiology ---
Subjective Subjective: The patient is doing well day #2 postop. No cardiac symptoms. Objective Vital Signs and I&Os Vital Signs Date Time Temp Pulse Resp B/P B/P Pulse O2 O2 Flow FiO2 Mean Ox Delivery Rate 05/28 1011 Room Air Room Air 05/28 0929 77 142/72 05/28 0600 98.4 77 18 142/72 97 05/27 2234 100.6 86 16 142/76 99 Room Air 05/27 1600 96 Room Air Room Air 05/27 1454 99.2 85 17 142/76 96 Room Air 05/27 1415 Nasal 2.0L Cannula Intake & Output 05/28 1600 05/28 0800 05/28 0000 05/27 1600 05/27 0800 05/27 0000 Intake Total 100 859 336 3405 200 Output Total 700 800 557 958 7455 Balance -600 -700 -100 960 -850 Intake, IV 200 950 200 Intake, Oral 100 100 400 360 0 Number 1 Bowel Movements Output, Urine 700 800 [phone] Patient 143 lb 149 lb Weight Physical Exam: General Appearance Alert, Oriented X3, Cooperative, Mild Distress HEENT PERRLA, EOMI, Mucous Membr. moist/pink Neck No JVD Cardiovascular Regular Rate, Normal S1, Normal S2, 1/6 systolic murmur left sternal border Lungs Clear to Auscultationand percussion bilaterally Abdomen Normal Bowel Sounds, Soft, No Tenderness Neurological Normal /nonfocal Extremities No Clubbing, No Cyanosis, No Edema, stable postop findings Vascular Normal Pulses, Pulses Symmetrical Current Medications: Current Medications Sig/Jesus Start time Last Medication Dose Route Stop Time Status Admin Acetaminophen 650 MG Q6P PRN 05/24 161 AC 05/25 PO 2024 Amlodipine Besylate 5 MG DAILY 05/25 1000 AC 05/28 PO 928 Apixaban 2.5 MG BID 05/27 2199 AC 05/28 PO 927 Calcium 600 MG BID 05/24 2199 AC 05/28 PO 927 Cholecalciferol 2,000 IU DAILY 05/28 1000 CAN PO Cholecalciferol 2,000 IU DAILY 05/24 2101 AC 05/28 PO 928 Fentanyl Citrate 50 MCG Q3D 05/24 2100 AC 05/27 TOP 2105 Melatonin 5 MG AT BEDTIME 05/27 2199 AC PO Morphine Sulfate 2 MG Q4P PRN 05/24 161 AC 05/28 IV 1032 Omeprazole 40 MG DAILY AC 05/25 0700 AC 05/28 PO 0544 Oxycodone/ 1 TAB Q6P PRN 05/24 1615 AC 05/28 Acetaminophen PO 1156 Patient Medication 1 ED ONE ONE 05/28 1230 DC Teaching ED 05/28 1231 Patient Medication 1 ED ONE ONE 05/27 1530 DC Teaching ED 05/27 1531 Potassium Chloride 20 MEQ ONCE ONE 05/28 0915 DC 05/28 PO 05/28 0916 0928 Tiotropium [place] 1 PUF DAILY 05/28 1013 AC INH Results Last 48 Hrs of Labs/Mics: Laboratory Tests 05/28/17 0615: Anion Gap 11, Estimated GFR > 60, BUN/Creatinine Ratio 16.7, CBC w Diff NO MAN DIFF REQ, RBC 2.54 L, MCV 92.3, MCH 30.9, MCHC 33.5, RDW 14.8 H, MPV 8.2, Gran % 70.1, Lymphocytes % 20.1 L, Monocytes % 7.9, Eosinophils % 1.4, Basophils % 0.5, Absolute Granulocytes 8.0 H, Absolute Lymphocytes 2.3, Absolute Monocytes 0.9 H, Absolute Eosinophils 0.2, Absolute Basophils 0.1 05/27/17 0710: CBC w Diff NO MAN DIFF REQ, RBC 2.54 L, MCV 92.5, MCH 30.9, MCHC 33.5, RDW 15.1 H, MPV 8.6, Gran % 80.4 H, Lymphocytes % 10.8 L, Monocytes % 8.6, Eosinophils % 0, Basophils % 0.2, Absolute Granulocytes 8.5 H, Absolute Lymphocytes 1.1 L, Absolute Monocytes 0.9 H, Absolute Eosinophils 0, Absolute Basophils 0 Assessment/Plan Assessment/Plan Assessment: 1. Right hip fracture post fall without evidence of syncope 2. Known CAD; last cath in 10/14 with non revascularizable disease at that time 3. PPM / AICD 4. PAD 5. COPD 6. Anemia Recommendations: 1. From a cardiac perspective, the patient has moderate risk of cardiac issues with any surgery. He has been stable from a cardiac standpoint, but has had a cardiac event/MN/VT about 15 months ago and cath at that time showed significant disease which was not amenable to intervention. 2. The patient appears to be stable postoperatively and can be taken off of telemetry 3. Continue regular meds if possible. 4. Continue to monitor hemoglobin/hematocrit and transfuse if necessary. Continue telemetry? No
[2017-05-28 14:31] VITALS: BP 132/66
[2017-05-28 19:03] VITALS: BP 128/68
[2017-05-28 22:05] VITALS: BP 122/76
[2017-05-29 06:47] VITALS: BP 122/60
--- NOTE | 2017-05-29 06:57 | PN- Housestaff ---
See Addendum Subjective Follow-up For: ORIF Subjective: Patient seen and examined. Resting comfortably. Complains of pain at fracture site. States is due for his IV morphine. Otherwise uneventful night Review of Systems Constitutional: Reports: see HPI. Objective Last 24 Hrs of Vital Signs/I&O Vital Signs Date Time Temp Pulse Resp B/P B/P Pulse O2 O2 Flow FiO2 Mean Ox Delivery Rate 05/29 0647 98.3 73 20 122/60 96 Room Air 05/28 2205 99.2 81 20 122/76 100 Room Air 05/28 1903 99.0 92 18 128/68 97 Room Air Room Air 05/28 1431 98.2 96 18 132/66 97 05/28 1011 Room Air Room Air 05/28 0929 77 142/72 Intake & Output 05/29 1600 05/29 0800 05/29 0000 Intake Total Output Total 650 1075 Balance -650 -1075 Output, Urine 650 1075 Patient 141 lb Weight Weight Bed scale Measurement Method Physical Exam General Appearance: Alert, Oriented X3, Cooperative Cardiovascular: Normal S1, Normal S2, No Murmurs Lungs: Clear to Auscultation Abdomen: Normal Bowel Sounds, Soft Current Medications: Current Medications Sig/Jesus Start time Last Medication Dose Route Stop Time Status Admin Acetaminophen 650 MG Q6P PRN 05/24 1615 AC 05/25 PO 202 Amlodipine Besylate 5 MG DAILY 05/25 1000 AC 05/28 PO 09 Apixaban 2.5 MG BID 05/27 2200 AC 05/28 PO 211 Calcium 600 MG BID 05/24 2200 AC 05/28 PO 2115 Cholecalciferol 2,000 IU DAILY 05/24 2102 AC 05/28 PO 0929 Fentanyl Citrate 50 MCG Q3D 05/24 2100 AC 05/27 TOP 210 Ferrous Sulfate 325 MG TID 05/28 1600 AC 05/28 PO 2116 Melatonin 5 MG AT BEDTIME 05/27 2200 AC 05/28 PO 211 Morphine Sulfate 2 MG Q4P PRN 05/24 1615 AC 05/29 IV 0431 Omeprazole 40 MG DAILY AC 05/25 0700 AC 05/29 PO 0608 Oxycodone/ 1 TAB Q6P PRN 05/24 1615 AC 05/29 Acetaminophen PO 0615 Patient Medication 1 ED ONE ONE 05/28 1230 DC 05/28 Teaching ED 05/28 1231 1230 Polyethylene Glycol 17 GM DAILY PRN 05/28 1430 AC PO Potassium Chloride 20 MEQ ONCE ONE 05/28 0915 DC 05/28 PO 05/28 0916 0928 Tiotropium [place] 1 PUF DAILY 05/28 1013 AC 05/28 INH 1437 Last 24 Hrs of Lab/Rudy Results Last 24 Hrs of Labs/Mics: Laboratory Tests 05/29/17 0705: Anion Gap 10, Estimated GFR > 60, BUN/Creatinine Ratio 15.0, CBC w Diff Pending, WBC Pending, RBC Pending, Hgb Pending, Hct Pending, MCV Pending, MCH Pending, MCHC Pending, RDW Pending, Plt Count Pending, MPV Pending Assessment/Plan Assessment: Patient is a 71-year-old male with a PMH significant for CAD status post [place] with PCI and stent placement, COPD, obstructive sleep apnea, peripheral artery disease, prostate cancer status post radiation and in remission who presents to [facility] ED after suffering a fall at home. He hit his right hip and suffered severe amount of pain, he did not his head and had no symptoms suggestive of neurocardiogenic syncope. He is being treated and evaluated for following conditions Right Intertrochanteric Fracture s/p ORIF: -post op day 3 -Adequate analgesia -PT eval. -would likely need STR placement -Eliquis statrted on Leukocytosis: -etiology unclear. No source of infection. May be reactive/demargination. -Follow-up blood and urine cultures No growth so far -Monitor fever and WBC curve stable -Monitor off antibiotics Drop in H/H: -H&H 7.9/23.4, today's labs pending -If hemoglobin drops less than 7.9 we will transfuse him. -Continue to monitor. CAD s/p CABG: -Followed by Dr. Soto. RCRI is 1- no cardiac symptoms or EKG abnormalities. -Patient was transfered to tele floor after the surgery for postop monitoring and was transferred back to general medicine floor overnight HTN: - BP has been stable. -Continue Amlodipine. COPD: -Continue prn inhaler/aerosol. GERD: -Continue Omeprazole. DVT prophylaxis: Alps, will start eliquis CODE STATUS: Full code Problem List: 1. Intertrochanteric fracture of right femur Pain Ratin Pain Location: R hip Pain Goal: Pain 4 or less Pain Plan: prn Tomorrow's Labs & Rationales: cbc
[2017-05-29 08:37] LABS: ABSOLUTE BASOPHIL COUNT 0 /CUMM (0.0-0.2); ABSOLUTE EOSINOPHIL COUNT 0.3 /CUMM (0.0-0.7); ABSOLUTE GRANULOCYTE CT 6.8 /CUMM (1.4-6.5); ABSOLUTE LYMPH COUNT 2.5 /CUMM (1.2-3.4); ABSOLUTE MONOCYTE COUNT 0.7 /CUMM (0.10-0.60); BASOPHIL % 0.3 % (0.0-2.0); EOSINOPHIL % 3.2 % (0-5); GRANULOCYTE % 65.3 % (42.2-75.2); HEMATOCRIT 23.8 % (42-52); MEAN CORPUSCULAR HGB 30.6 PG (27.0-31.0); MEAN CORPUSCULAR VOLUME 92.5 FL (80.0-94.0); MEAN PLATELET VOLUME 8.1 FL (7.4-10.4); PLATELET COUNT 304 /CUMM (130-400); RBC DISTRIBUTION WIDTH 15.3 % (11.5-14.5); RED BLOOD CELL CT 2.58 /CUMM (4.70-6.10); WHITE BLOOD CELL COUNT 10.3 /CUMM (4.8-10.8)
--- NOTE | 2017-05-29 13:27 | Discharge Summary ---
Visit Information Visit Dates Admission Date: 05/24/17 Discharge Date: 05/29/17 Hospital Course Course Attending Physician: Melissa CORREIA,Johanny Denis Primary Care Physician: Xuan CORREIA,Toni Araiza Consulting Request: Consulting Specialty: Cardiology Hospital Course: Patient is a 71-year-old male with a PMH significant for CAD status post ID ,PCI , COPD, obstructive sleep apnea, peripheral artery disease, prostate cancer status post radiation and in remission who presents to [facility] ED after suffering a fall at home. He hit his right hip and suffered severe amount of pain, he did not his head and had no symptoms suggestive of neurocardiogenic syncope. 1. Right hip fracture post fall without evidence of syncope s/p ORIF on 05/26/17 2. Known CAD; last cath in 10/14 with non revascularizable disease at that time 3. PPM / AICD 4. PAD 5. COPD 6. Anemia 7. Constipation 8. Chronic opiate dependence As stated about patient was seen by the orthopedic service, Dr. Jara, the orthopedic surgeon and he had his ORIF done on May 26. Postoperatively he did well without any arrhythmia or active ischemia. And the plan is that he'll go to rehabilitation with PT and weightbearing as tolerated. He needs the Eliquis low-dose for 4-6 weeks for DVT prophylaxis status post hip surgery. For his underlying CAD he needs to continue on all of his medications including his aspirin and Norvasc, Ranexa, Imdur and Aldactone. Given that he is going to restart all of his regular medications ,follow-up BEP with BUN and creatinine should be checked in a few days. For his COPD he is going to continue his inhaled beta agonist, his Symbicort and his Spiriva. Patient has chronic anemia with an underlying hemoglobin of 9-10 and for the past 3 days has been stable at 7.9. He is on iron and and given that he is going to leave on Eliquis with aspirin, close follow-up should be placed on the CBC and a repeat CBC has been requested for for 06/01/17. Patient has chronic opiate dependence and we continued his fentanyl patch and his oxycodone. Given the acute on chronic pain, we've also added a low-dose morphine immediate release 15 mg every 6 hours as needed. However close watch needs to be placed to make sure no excessive opiate use and to make sure he doesn't suffer from worsening constipation. Allergies: Coded Allergies: No Known Allergies (10/01/16) Significant Procedures: ORIF on 05/26/17 Disposition Summary Disposition Principal Diagnosis: Fall with intertrochanteric hip fracture status post ORIF,acute blood loss anemia on chronic anemia Additional Diagnosis: COPD, CAD, peripheral arterial disease, pacemaker and AICD, chronic opiate dependence, chronic constipation Discharge Disposition: SNF Discharge Instructions General Discharge Information Code Status: Full Code Patient's Diet: Heart Healthy Diet Patient's Activity: OOB Follow-Up Instructions/Appts: Follow-up with Dr. Jara (Orthopedic) in 7-10 days Follow-up with Dr. Soto his main entree cook and cashier in 7-10 days Repeat CBC, BEP on Wednesday06/01/17 to follow-up BUN/creatinine and hemoglobin. Medications at Discharge Discharge Medications: Continue taking these medications: Oxycodone HCl (Oxycodone HCl) 10 MG TABLET 1 Tablet ORAL THREE TIMES A DAY NEEDED as needed for PAIN Lubiprostone (Amitiza) 24 MCG CAPSULE 1 Capsule ORAL TWICE DAILY Albuterol Sulfate (Ventolin Hfa) 90 MCG HFA.AER.AD 2 Puff Inhale through mouth EVERY 4-6 HOURS NEEDED as needed for SHORTNESS OF BREATH Carbidopa/Levodopa (Sinemet 25-100 MG Tablet) 25 MG-100 MG TABLET 1 Tablet ORAL TWICE DAILY Duloxetine HCl (Cymbalta) 60 MG CAPSULE.DR 1 Capsule ORAL DAILY Amlodipine Besylate (Norvasc) 5 MG TABLET 1 Tablet ORAL DAILY Ranolazine (Ranexa) 500 MG TAB.ER.12H 1 Tablet ORAL TWICE DAILY Fentanyl (Fentanyl) 50 MCG/HOUR PATCH.TD72 1 Patch On the skin Every 3 days Omeprazole (Omeprazole) 40 MG CAPSULE.DR 1 Capsule ORAL DAILY Qty = 30 Comments: PER PT Metoclopramide HCl (Reglan) 10 MG TABLET 1 Tablet ORAL THREE TIMES DAILY as needed for N/V Qty = 90 Instructions: 30 minutes before meals and bedtime Comments: PER PT Budesonide/Formoterol Fumarate (Symbicort 160-4.5 Mcg Inhaler) 160 MCG-4.5 MCG/ ACTUATION HFA.AER.AD 2 Puff Inhale through mouth TWICE DAILY Qty = 10 Comments: PER PT Spironolactone (Spironolactone) 25 MG TABLET 0.5 Tablet ORAL As Directed Qty = 15 Comments: PER PT Isosorbide Mononitrate (Isosorbide Mononitrate ER) 60 MG TAB.ER.24H 1 Tablet ORAL DAILY Qty = 30 Comments: PER PT Aspirin (Ecotrin*) 81 MG TABLET.DR 1 Tablet ORAL DAILY Comments: PER PT Start taking the following new medications: Tiotropium [place] (Spiriva) 18 MCG CAP.W.DEV 1 Puff Inhale through mouth DAILY Qty = 1 No Refills Ferrous Sulfate (Ferrous Sulfate) 325 MG (65 MG IRON) TABLET. 325 Milligram ORAL THREE TIMES DAILY Qty = 90 No Refills Apixaban (Eliquis) 2.5 MG TABLET 2.5 Milligram ORAL TWICE DAILY Qty = 60 No Refills Cholecalciferol (Vitamin D3) 1,000 UNIT TABLET 2,000 International Unit ORAL DAILY Qty = 30 No Refills Melatonin (Melatonin) 5 MG TABLET 5 Milligram ORAL AT BEDTIME as needed for Insomnia Qty = 30 No Refills Polyethylene Glycol 3350 (Miralax) 17 GRAM POWD.PACK 1 Packet ORAL DAILY Qty = 30 No Refills Instructions: dissolve in water Sennosides/Docusate Sodium (Senna S Tablet) 8.6 MG-50 MG TABLET 1 Tablet ORAL TWICE DAILY Qty = 60 No Refills Morphine Sulfate (Morphine Sulfate) 15 MG TABLET 1 Tablet ORAL EVERY SIX HOURS NEEDED as needed for Severe Pain Qty = 28 No Refills Copies To: Marek CORREIA,Connor Ohara; Xuan CORREIA,Toni Araiza; Charles CORREIA,Jeanette Hopkins
[2017-05-29] MEDS ORDERED: MIRALAX17 G1 PO (13:32)
[2017-05-29] MEDS ORDERED: VITAMIN D31000 UNI2 PO (13:32)
[2017-05-29] MEDS ORDERED: FERROUS SULFAT325 M2 PO (13:32)
[2017-05-29] MEDS ORDERED: ELIQUIS2.5 M1 PO (13:32)
[2017-05-29] MEDS ORDERED: SPIRIVA18 MCG INH (13:32)
[2017-05-29] MEDS ORDERED: SENNA S TABLET1 EACH PO (13:32)
[2017-05-29] MEDS ORDERED: MORPHINE SULFAT15 M4 PO (13:32)
[2017-05-29] MEDS ORDERED: MELATONIN5 M7 PO (13:32)
--- NOTE | 2017-05-29 13:36 | Patient Discharge Instructions ---
Discharge Instructions General Discharge Information You were seen/treated for: Fall with right hip fracture s/p ORIF on 05/26/17. Watch for these problems: Fever, chest pain, shortness of breath Special Instructions: Please follow up with Dr. Jara in 7-10 days, Dr Soto in 7-10 days. Please repeat CBC/BEP on 06/01/17. Discharge hemoglobin 7.9, on diuretics. Please take all medications as directed. Please follow up with primary care. Diet Continue normal diet: Yes Recommended Diet: Heart Healthy Activity Full Activity/No Limits: No Activity Self Limited: Yes (weight bearing as tolerated) Acute Coronary Syndrome Inclusion Criteria At DC or during hospital stay patient has or had the following: ACS DIAGNOSIS No Discharge Core Measures Meds if any: Prescribed or Continued at Discharge Meds if any: NOT Prescribed or Continued at Discharge Congestive Heart Failure Inclusion Criteria At DC or during hospital stay patient has or had the following: CHF DIAGNOSIS No Discharge Core Measures Meds if any: Prescribed or Continued at Discharge Meds if any: NOT Prescribed or Continued at Discharge Cerebrovascular accident Inclusion Criteria At DC or during hospital stay patient has or had the following: CVA/TIA Diagnosis No Discharge Core Measures Meds if any: Prescribed or Continued at Discharge Meds if any: NOT Prescribed or Continued at Discharge Venous thromboembolism Inclusion Criteria VTE Diagnosis No VTE Type NONE VTE Confirmed by (Test) NONE Discharge Core Measures - Per Current guidelines, there needs to be overlap - treatment for the first 5 days of Warfarin therapy. - If discharged on Warfarin prior to 5 days of - overlap therapy, the patient will need to be - assessed for post discharge needs including - *Post discharge parental anticoagulation - *Warfarin and/or parental anticoagulation education - *Follow up date to check INR post discharge At least 5 days overlap therapy as Inpatient No Meds if any: Prescribed or Continued at Discharge Note: Overlap Therapy is Warfarin and Anticoagulant Meds if any: NOT Prescribed or Continued at Discharge
[2017-05-29 15:26] VITALS: BP 140/70
[2017-05-29 16:19] VITALS: BP 140/70
== END 2017-05-29 17:15 | DRG 481 ==
LOC: ERH 11:23 → 1NO 16:22 → ERHI 16:22 → 2NA 16:22 → ENRESERV 16:53 → ENTRNSPT 17:56 → EDTRNSPT 18:22 → EDTRNSPTSTS 18:22 → 2NA 18:22 → CMPTRNSPT 18:37 → 2NA 05-25 13:34 → ENTRNSPT 05-26 19:10 → EDTRNSPTSTS 05-26 19:23 → EDTRNSPT 05-26 19:23 → CMPTRNSPT 05-26 19:32 → 1NO 05-26 20:54 → ENTRNSPT 05-28 18:10 → EDTRNSPT 05-28 18:37 → EDTRNSPTSTS 05-28 18:37 → 1NO 05-28 18:43 → 2NB 05-28 18:47 → CMPTRNSPT 05-28 18:51 → ENPENDDIS 05-29 13:08 → 2NB 05-29 17:15
PROVIDERS: Internal Medicine; Physician Assistant Medical; Student in an Organized Health Care Education/Training Program
PROC: 0QS604Z Reposition Right Upper Femur with Internal Fixation Device, Open Approach (ICD-10-PCS; principal; 2017-05-24)
DX: S72.141A Displaced intertrochanteric fracture of right femur, initial encounter for closed fracture (principal); D62 Acute posthemorrhagic anemia; J44.9 Chronic obstructive pulmonary disease, unspecified; D64.9 Anemia, unspecified; F32.9 Major depressive disorder, single episode, unspecified; G47.33 Obstructive sleep apnea (adult) (pediatric); I25.10 Atherosclerotic heart disease of native coronary artery without angina pectoris; I25.2 Old myocardial infarction; I10 Essential (primary) hypertension; G25.81 Restless legs syndrome; R50.9 Fever, unspecified; K59.09 Other constipation; F41.9 Anxiety disorder, unspecified; W18.30XA Fall on same level, unspecified, initial encounter; Y92.009 Unspecified place in unspecified non-institutional (private) residence as the place of occurrence of the external cause; I73.9 Peripheral vascular disease, unspecified; D72.829 Elevated white blood cell count, unspecified; Z79.891 Long term (current) use of opiate analgesic; Z95.1 Presence of aortocoronary bypass graft; Z85.46 Personal history of malignant neoplasm of prostate; Z95.0 Presence of cardiac pacemaker; Z95.5 Presence of coronary angioplasty implant and graft; Z91.81 History of falling
CPT/HCPCS: 1NP; 2NASP; 2NBSP; 36592; 71045; 72170; 73502-RT; 80307; 81001; 82436; 87040; 87086; 93005; 93010; 96374; 96375; 96376; 97110-GO; 97116-GO; 97161-GP; 97530-GO; J0131; J0690; J1100; J2405

== ENCOUNTER 2017-07-23 13:17 | Emergency (ER) | payer OTHER, MEDICARE ==
[~2017-07-23] VITALS: Ht 177.8 cm; Wt 56.7 kg
[~2017-07-23 13:17] MED LIST changes: +ELIQUIS2.5 M1 PO; +FERROUS SULFAT325 M2 PO; +MELATONIN5 M7 PO; +MIRALAX17 G1 PO; +MORPHINE SULFAT15 M4 PO; +SENNA S TABLET1 EACH PO; +SPIRIVA18 MCG INH
[2017-07-23] MEDS ORDERED: COLACE100 M1 PO (13:27)
--- NOTE | 2017-07-23 14:07 | ED GENERAL ADULT ---
History of Present Illness General Chief Complaint: General Adult Stated Complaint: SOB, WEAKNESS Source: patient, EMS Exam Limitations: clinical condition (SOB) Vital Signs & Intake/Output Vital Signs & Intake/Output Vital Signs Date Time Temp Pulse Resp B/P B/P Pulse O2 O2 Flow FiO2 Mean Ox Delivery Rate 07/23 1423 98.9 100 18 130/72 94 Room Air 07/23 1332 98 Room Air Room Air 07/23 1325 98.6 95 18 129/74 97 Room Air Room Air Allergies Coded Allergies: No Known Allergies (10/01/16) Reconcile Medications Amlodipine Besylate (Norvasc) 5 MG TABLET 1 TAB PO DAILY HTN (Reported) Apixaban (Eliquis) 2.5 MG TABLET 2.5 MG PO BID Blood thinner Aspirin (Ecotrin*) 81 MG TABLET.DR 1 TAB PO DAILY HEART/BLOOD (Reported) Budesonide/Formoterol Fumarate (Symbicort 160-4.5 Mcg Inhaler) 160 MCG-4.5 MCG/ ACTUATION HFA.AER.AD 2 PUF INH BID COPD (Reported) Carbidopa/Levodopa (Sinemet 25-100 MG Tablet) 25 MG-100 MG TABLET 1 TAB PO BID RESTLESS LEGS (Reported) Cholecalciferol (Vitamin D3) 1,000 UNIT TABLET 2,000 IU PO DAILY Vitamin D supplment Docusate Sodium (Colace) 100 MG CAPSULE 1 CAP PO BID CONSTIPATION (Reported) Duloxetine HCl (Cymbalta) 60 MG CAPSULE.DR 1 CAP PO DAILY MOOD (Reported) Fentanyl 50 MCG/HOUR PATCH.TD72 1 PAT TOP Q3D PAIN (Reported) Isosorbide Mononitrate (Isosorbide Mononitrate ER) 60 MG TAB.ER.24H 1 TAB PO DAILY HEART (Reported) Lubiprostone (Amitiza) 24 MCG CAPSULE 1 CAP PO BID CONSTIPATION (Reported) Melatonin 5 MG TABLET 5 MG PO AT BEDTIME PRN Insomnia Metoclopramide HCl (Reglan) 10 MG TABLET 1 TAB PO TID PRN N/V (Reported) 30 minutes before meals and bedtime Omeprazole 40 MG CAPSULE.DR 1 CAP PO DAILY GI (Reported) Oxycodone HCl 10 MG TABLET 1 TAB PO TIDPRN PRN PAIN (Reported) Ranolazine (Ranexa) 500 MG TAB.ER.12H 1 TAB PO BID HEART (Reported) Sennosides/Docusate Sodium (Senna S Tablet) 8.6 MG-50 MG TABLET 1 TAB PO BID Constipation Spironolactone 25 MG TABLET 0.5 TAB PO AD DIURETIC (Reported) Tiotropium [place] (Spiriva) 18 MCG CAP.W.DEV 1 PUF INH DAILY COPD Triage Note: BIBA FROM HOME, WITH C/O SOB AND FEELING WEAK, PT ARRIVES TO ED AWAKE, ALERT, ORIENTED. O2 SATS 98% ON ROOM AIR UPON ARRIVAL, PT SPEAKING IN FULL SENTENCES WITHOUT DIFFICULTY. DENIES CHEST PAIN. Triage Nurses Notes Reviewed? yes Onset: Abrupt Duration: day(s): (2) Timing: multiple episodes today Injury Environment: home Severity: mild Modifying Factors: Improves With: rest. Worsens With: movement. Associated Symptoms: DENIES HPI: 71 year old male with hx/o COPD, cad s/p cabg with ICD/PPM in place present with sob/srivastava x 2 days. States he has COPD but is not O2 dependent. Has not been using any of his COPD meds in the last 2 days because he has "forgotten." Recently had a right hip fx and surgical repair 4 weeks ago. He spent time at a rehab and subsequently went home. He was seen by visiting nurse today and she called EMS. SW here noted that patient's family/friend has noted that he has been "off" lately, leaving his water on and seeming confused. He currently denies any n/v/f /c/cp. Uses a walker, wheelchair, and cane if needed since his surgery. Previously did not use any assistive devices. Lives alone. (Shelbi MENDOZA,Ilan) Past History Travel History Traveled to [place] past 21 day No Medical History Any Pertinent Medical History? see below for history Neurological: restless leg syndrome EENT: NONE Cardiovascular: hypertension, myocardial infarction, CAD [place] X 4 BYPASS ATHLEROSCLEROSIS PAD Respiratory: COPD, obstructive sleep apnea Gastrointestinal: NAUSEA Hepatic: NONE Renal: NONE Musculoskeletal: BACK FX restless leg syndrome Psychiatric: anxiety, depression Endocrine: NONE Blood Disorders: NONE Cancer(s): prostate cancer MATHEMATICIAN RESEARCH/Reproductive: NONE History of MRSA: No History of VRE: No History of CDIFF: No Influenza Vaccine: 12/30/16 Surgical History Surgical History: CABG Psychosocial History Who do you live with Patient/Self Services at Home Nursing What is your primary language Jordanian Tobacco Use: Quit >30 days ago ETOH Use: denies use Illicit Drug Use: denies illicit drug use Family History Family History, If Any: BROTHER FH: [place] (myocardial infarction) Hx Contributory? No (Ilan Momin) Review of Systems Review of Systems Constitutional: Reports: weakness. Denies: see HPI, chills, diaphoresis, fever, malaise. EENTM: Denies: blurred vision, visual changes, ear discharge, ear pain. Respiratory: Reports: short of breath. Denies: cough, hemoptysis, orthopnea, sputum production, stridor, wheezing. Cardiovascular: Denies: chest pain, edema, orthopena, palpitations, peripheral edema, syncope. GI: Denies: abdominal pain, bloating, constipation, diarrhea, distention. Genitourinary: Denies: dysuria, frequency. Musculoskeletal: Denies: see HPI (recent r hip surgery w/pain), back pain, muscle pain, muscle stiffness, neck pain. Skin: Denies: no symptoms. Neurological/Psychological: Denies: anxiety. All Other Systems: Reviewed and Negative (Ilan Momin) Physical Exam Physical Exam General Appearance: alert, awake, cachetic, mild distress Head: normal appearance Eyes: Left: PERRL, EOMI. Ears, Nose, Throat: normal ENT inspection Neck: supple, full range of motion Respiratory: quiet respiration (c/w copd hx) Cardiovascular: regular rate/rhythm, PPM/ICD in place c/d/i Gastrointestinal: normal bowel sounds, soft, non-tender Extremities: normal inspection, Right hip with well healed scar. Neurologic/Psych: awake, alert (oriented x 2) Skin: intact, normal color Core Measures ACS in differential dx? No CVA/TIA Diagnosis: No Sepsis Present: No Sepsis Focused Exam Completed? No (Ilan Momin) Progress Differential Diagnoses I considered the following diagnoses in my evaluation of the patient: [COPD, PE] Plan of Care: Orders Procedure Date/time Status LACTIC ACID 07/23 1448 Complete ARTERIAL BLOOD GAS (GEN) 07/23 1352 Complete TROPONIN LEVEL 07/23 1350 Complete COMPREHENSIVE METABOLIC PANEL 07/23 1350 Complete CBC WITHOUT DIFFERENTIAL 07/23 1350 Complete EKG 07/23 1350 Active Current Medications Sig/Jesus Start time Last Medication Dose Stop Time Status Admin Oxycodone HCl 10 MG ONCE ONE 07/23 1415 CAN (OxyCONTIN) 07/23 1416 Laboratory Tests 07/23/17 1448: Anion Gap 14, Estimated GFR > 60, BUN/Creatinine Ratio 17.5, Glucose 118 H, Lactic Acid 1.8, Calcium 9.8, Total Bilirubin 0.5, AST 19, ALT 19 L, Alkaline Phosphatase 66, Troponin I 0.06, Total Protein 7.2, Albumin 4.1, Globulin 3.1, Albumin/Globulin Ratio 1.3, CBC w Diff NO MAN DIFF REQ, RBC 4.21 L, MCV 90.9, MCH 30.3, MCHC 33.3, RDW 15.9 H, MPV 7.0 L, Gran % 80.0 H, Lymphocytes % 11.1 L, Monocytes % 7.7, Eosinophils % 1.1, Basophils % 0.1, Absolute Granulocytes 9.4 H, Absolute Lymphocytes 1.3, Absolute Monocytes 0.9 H, Absolute Eosinophils 0.1, Absolute Basophils 0 07/23/17 1420: pH 7.53 H, pCO2 23 L, pO2 88, HCO3 19 L, ABG O2 Sat (Measured) 95.0 L, P-50 (Temp Corrected) N, Carboxyhemoglobin 1.7, O2 Concentration % .21, O2 Delivery Method RA, Phlebotomy Draw Site RIGHT BRACHIAL 07/23/17 1352: Lactic Acid Cancelled 07/23/2017 3:52:07 PM patient was ambulated by nursing staff. He had no shortness of breath on exertion at time of this evaluation. He had stable O2 saturations --did not drop below normal while ambulating. At this time is waiting for his ride home. He has been informed of all of his results. He feels comfortable going home and is agreeable to this plan. Initial ED EKG: normal sinus rhythm, LBBB (unchanged) (Ilan Momin) Departure Departure Disposition: HOME OR SELF CARE Condition: Stable Clinical Impression Primary Impression: Dyspnea Referrals: Toni Govea MD (PCP/Family) Additional Instructions: Follow up with your pmd, return with any concerns Departure Forms: Customer Survey General Discharge Information (Ilan Momin) PA/VISUAL PRESENTATION MANAGER Co-Sign Statement Statement: ED Attending supervision documentation- [X] I saw and evaluated the patient. I have also reviewed all the pertinent lab results and diagnostic results. I agree with the findings and the plan of care as documented in the PA's/VISUAL PRESENTATION MANAGER's documentation. [X] I have reviewed the ED Record and agree with the PA's/VISUAL PRESENTATION MANAGER's documentation. [] Additions or exceptions (if any) to the PAs/VISUAL PRESENTATION MANAGER's note and plan are summarized below: [] (Evita CORREIA,Toni Haynes) Critical Care Note Critical Care Note Critical Care Time: non-applicable (Shelbi MENDOZA,Ilan)
--- NOTE | 2017-07-23 14:44 | RADIOLOGY REPORT ---
EXAMINATION: XR PORTABLE CHEST CLINICAL INFORMATION: Shortness of breath COMPARISON: Multiple priors, most recently 05/12/2017 TECHNIQUE: Portable frontal view of the chest was obtained. FINDINGS: Left chest wall dual-lead pacer remains in place. Multiple surgical clips overlie the mediastinum. Patient with known emphysema. No consolidation, edema, or effusion. No pneumothorax. The cardiomediastinal silhouette is unchanged, with a tortuous and somewhat ectatic aorta. IMPRESSION: Emphysema. No acute pulmonary finding.
[2017-07-23 14:57] LABS: ABSOLUTE BASOPHIL COUNT 0 /CUMM (0.0-0.2); ABSOLUTE EOSINOPHIL COUNT 0.1 /CUMM (0.0-0.7); ABSOLUTE GRANULOCYTE CT 9.4 /CUMM (1.4-6.5); ABSOLUTE LYMPH COUNT 1.3 /CUMM (1.2-3.4); ABSOLUTE MONOCYTE COUNT 0.9 /CUMM (0.10-0.60); BASOPHIL % 0.1 % (0.0-2.0); EOSINOPHIL % 1.1 % (0-5); HEMATOCRIT 38.3 % (42-52); MEAN CORPUSCULAR HGB 30.3 PG (27.0-31.0); MEAN CORPUSCULAR HGB CONC 33.3 G/DL (33.0-37.0); MEAN CORPUSCULAR VOLUME 90.9 FL (80.0-94.0); PLATELET COUNT 579 /CUMM (130-400); RBC DISTRIBUTION WIDTH 15.9 % (11.5-14.5); RED BLOOD CELL CT 4.21 /CUMM (4.70-6.10); WHITE BLOOD CELL COUNT 11.7 /CUMM (4.8-10.8)
[2017-07-23 16:00] VITALS: BP 114/74
[2017-07-24] MEDS ORDERED: PREDNISONE50 M1 PO (00:49)
== END 2017-07-23 16:21 ==
LOC: ERH 13:17
PROVIDERS: Physician Assistant Medical
DX: R06.00 Dyspnea, unspecified (principal); R53.1 Weakness; I10 Essential (primary) hypertension; J44.9 Chronic obstructive pulmonary disease, unspecified; Z87.891 Personal history of nicotine dependence
CPT/HCPCS: 71045; 93005; 93010; 96374

== ENCOUNTER 2017-07-23 20:25 | Emergency (ER) | payer OTHER, MEDICARE ==
[~2017-07-23 20:25] MED LIST changes: +COLACE100 M1 PO
--- NOTE | 2017-07-23 20:29 | ED DYSPNEA/ASTHMA COMPLAINT ---
History of Present Illness General Chief Complaint: Dyspnea (COPD, CHF, Other) Stated Complaint: SOB Source: patient Exam Limitations: no limitations Allergies Coded Allergies: No Known Allergies (07/23/17) Triage Nurses Notes Reviewed? yes Onset: Abrupt Duration: day(s):, constant Timing: recent history Severity: moderate, severe Activities at Onset: none HPI: 71-year-old male comes into emergency room with complaints of shortness of breath has been going on for the past couple days. Patient was seen here earlier this morning. Denies any chest pain. Denies any fever chills. He feels that he can't catch a deep breath. He reports he felt better upon discharge earlier today. He had his right hip replacement 4 weeks ago. (Maximiliano MENDOZA,Charles) Vital Signs & Intake/Output Vital Signs & Intake/Output Vital Signs Date Time Temp Pulse Resp B/P B/P Pulse O2 O2 Flow FiO2 Mean Ox Delivery Rate 07/24 0300 98.2 80 20 136/74 99 Room Air 07/24 0000 98 Room Air 07/23 2322 98.2 88 20 150/70 100 Room Air 07/23 2057 99 Room Air 07/23 2053 99 07/23 2029 97.5 124 18 124/69 97 Nasal Cannula ED Intake and Output 07/24 0000 07/23 1200 Intake Total 0 Output Total Balance 0 Intake, Oral 0 Reconcile Medications Amlodipine Besylate (Norvasc) 5 MG TABLET 1 TAB PO DAILY HTN (Reported) Apixaban (Eliquis) 2.5 MG TABLET 2.5 MG PO BID Blood thinner Aspirin (Ecotrin*) 81 MG TABLET.DR 1 TAB PO DAILY HEART/BLOOD (Reported) Budesonide/Formoterol Fumarate (Symbicort 160-4.5 Mcg Inhaler) 160 MCG-4.5 MCG/ ACTUATION HFA.AER.AD 2 PUF INH BID COPD (Reported) Carbidopa/Levodopa (Sinemet 25-100 MG Tablet) 25 MG-100 MG TABLET 1 TAB PO BID RESTLESS LEGS (Reported) Cholecalciferol (Vitamin D3) 1,000 UNIT TABLET 2,000 IU PO DAILY Vitamin D supplment Docusate Sodium (Colace) 100 MG CAPSULE 1 CAP PO BID CONSTIPATION (Reported) Duloxetine HCl (Cymbalta) 60 MG CAPSULE.DR 1 CAP PO DAILY MOOD (Reported) Fentanyl 50 MCG/HOUR PATCH.TD72 1 PAT TOP Q3D PAIN (Reported) Isosorbide Mononitrate (Isosorbide Mononitrate ER) 60 MG TAB.ER.24H 1 TAB PO DAILY HEART (Reported) Lubiprostone (Amitiza) 24 MCG CAPSULE 1 CAP PO BID CONSTIPATION (Reported) Melatonin 5 MG TABLET 5 MG PO AT BEDTIME PRN Insomnia Metoclopramide HCl (Reglan) 10 MG TABLET 1 TAB PO TID PRN N/V (Reported) 30 minutes before meals and bedtime Omeprazole 40 MG CAPSULE.DR 1 CAP PO DAILY GI (Reported) Oxycodone HCl 10 MG TABLET 1 TAB PO TIDPRN PRN PAIN (Reported) Prednisone 50 MG TABLET 1 TAB PO DAILY copd Ranolazine (Ranexa) 500 MG TAB.ER.12H 1 TAB PO BID HEART (Reported) Sennosides/Docusate Sodium (Senna S Tablet) 8.6 MG-50 MG TABLET 1 TAB PO BID Constipation Spironolactone 25 MG TABLET 0.5 TAB PO AD DIURETIC (Reported) Tiotropium [place] (Spiriva) 18 MCG CAP.W.DEV 1 PUF INH DAILY COPD (Evin CORREIA,Coleman Rhoades) Past History Medical History Any Pertinent Medical History? see below for history Neurological: restless leg syndrome EENT: NONE Cardiovascular: hypertension, myocardial infarction, CAD [place] X 4 BYPASS ATHLEROSCLEROSIS PAD Respiratory: COPD, obstructive sleep apnea Gastrointestinal: NAUSEA Hepatic: NONE Renal: NONE Musculoskeletal: BACK FX restless leg syndrome Psychiatric: anxiety, depression Endocrine: NONE Blood Disorders: NONE Cancer(s): prostate cancer BASE ENGINEER/Reproductive: NONE History of MRSA: No History of VRE: No History of CDIFF: No Influenza Vaccine: 12/30/16 Surgical History Surgical History: CABG Psychosocial History Who do you live with Patient/Self Services at Home Nursing What is your primary language Citizen Of [place] Family History Family History, If Any: BROTHER FH: [place] (myocardial infarction) Hx Contributory? No (Charles Zaragoza) Review of Systems Review of Systems Constitutional: Reports: no symptoms. EENTM: Reports: no symptoms. Respiratory: Reports: see HPI. Cardiovascular: Reports: see HPI. GI: Reports: no symptoms. Genitourinary: Reports: no symptoms. Musculoskeletal: Reports: no symptoms. Skin: Reports: no symptoms. Neurological/Psychological: Reports: no symptoms. Hematologic/Endocrine: Reports: no symptoms. Immunologic/Allergic: Reports: no symptoms. All Other Systems: Reviewed and Negative (Charles Zaragoza) Physical Exam Physical Exam General Appearance: well developed/nourished, alert, awake, mild distress Head: atraumatic, normal appearance Eyes: Bilateral: normal appearance. Ears, Nose, Throat: normal ENT inspection, hearing grossly normal Neck: normal inspection Respiratory: normal breath sounds, no respiratory distress Cardiovascular: regular rate/rhythm, tachycardia Gastrointestinal: soft Extremities: normal inspection Neurologic/Psych: awake, alert, oriented x 3, normal gait Skin: intact, normal color Core Measures ACS in differential dx? Yes CVA/TIA Diagnosis No Sepsis Present: No Sepsis Focused Exam Completed? No (Charles Zaragoza) Progress Differential Diagnosis: asthma, AMI, bronchitis, costochondritis, CHF, COPD, musculoskeletal pain, pericarditis, pulmonary embolism, pneumonia, pneumothorax, unstable angina Diagnostic Imaging: Viewed by Me: CT Scan. Discussed w/RAD: CT Scan. Radiology Impression: PATIENT: CORNELL GARNER PRESENT AGE: 71 PATIENT ACCOUNT NO: [id number] : 44 LOCATION: [facility] ORDERING PHYSICIAN: Charles MENDOZA SERVICE DATE: 07/23/17 EXAM TYPE : CAT - CTA CHEST-PULMONARY EMBOLISM EXAMINATION: CT ANGIOGRAM OF THE CHEST WITH AND WITHOUT CONTRAST (CT PULMONARY ANGIOGRAM FOR PE) CLINICAL INFORMATION: Reason for Study:
Presumptive Dx: SOB, RECENT HIP SURGERY
Signs Symptoms: ROOM 4
COMPARISON: Portions of a previous study 05/12/17 TECHNIQUE: Prior to contrast administration, noncontrast localization images were obtained. Subsequently, multidetector volumetric imaging was performed from the thoracic inlet to below the diaphragms following the administration of 84 mL Optiray 320 intravenous contrast. No contrast reaction reported. Sagittal, coronal, and MIP oblique sagittal reformatted images were obtained on the CT workstation, uploaded to PACS, and reviewed. Total exam dose-length product 204 mGy-cm. FINDINGS: QUALITY OF STUDY/CONTRAST BOLUS: Satisfactory Significant motion artifact greatest in the lower chest limits assessment of the vessels in the lower lobes. PULMONARY ARTERIES: No pulmonary embolus demonstrated. The main pulmonary artery is normal caliber. THORACIC AORTA: The aorta is not well opacified. No definite thoracic aortic aneurysm. There is atherosclerosis. There is evidence of previous coronary artery bypass grafting. Cardiac leads cause artifact terminating in the right atrium and right ventricle There is marked opacification of collateral vessels in the chest wall and paraspinal regions with reflux into the azygos. LUNG: No abnormality in the trachea. There is generalized thickening of the interlobular septa and there is some centrilobular emphysema. No acute consolidation. No edema. Some linear opacity in the inferior lingula could be atelectasis. There is some fibrotic change adjacent to some lower right-sided osteophytes. PLEURA: No pleural effusion or pneumothorax. MEDIASTINUM: There are no enlarged mediastinal or hilar lymph nodes. No suspicious abnormality of the esophagus. No significant pericardial fluid or thickening No evidence of septal bowing or right heart strain. CHEST WALL/AXILLA : Artifact due to a generator in the left chest wall. No axillary adenopathy. OSSEOUS STRUCTURES: Evidence of sternotomy. Previous mediastinal surgery. There are degenerative changes in the spine. UPPER ABDOMEN: No suspicious abnormality. No reflux of contrast into the hepatic veins to suggest elevated right heart pressures. IMPRESSION: No pulmonary embolus demonstrated. There is some underlying interstitial lung disease. No acute pneumonia or edema. Previous cardiac surgery. VTE: negative DICTATED BY: Floyd Silver MD DATE/TIME DICTATED :07/23/172217 DRILL PRESS OPERATOR:RAMÓN DATE/TIME TRANSCRIBED:07/23/172217 CONFIDENTIAL, DO NOT COPY WITHOUT APPROPRIATE AUTHORIZATION. < Electronically signed in Other Vendor System> SIGNED BY: Floyd Silver MD 07/23/172230 Initial ED EKG: normal sinus rhythm, rate (114) Repeat EKG: unchanged Hand-Off Endorsed To: Evin CORREIA,Coleman Rhoades Pending: labs (REPEAT TROPONIN) Comments: 07/23/17 Patient has been in no apparent distress during emergency room. He clinically looks well. He is nontoxic appearing. He is resting comfortably in room. He does not appear to be in any type of respiratory distress. Reevaluated multiple times. (Maximiliano MENDOZA,Charles) Plan of Care: Orders Procedure Date/time Status TROPONIN LEVEL 07/24 Complete EKG 07/24 Active PARTIAL THROMBOPLASTIN TIME 07/23 2033 Complete PROTHROMBIN TIME 07/23 2033 Complete TROPONIN LEVEL 07/23 2028 Complete COMPREHENSIVE METABOLIC PANEL 07/23 2028 Complete CBC WITHOUT DIFFERENTIAL 07/23 2028 Complete EKG 07/23 2028 Active Laboratory Tests 07/24/17 0005: Troponin I 0.07 07/23/172045: Anion Gap 14, Estimated GFR > 60, BUN/Creatinine Ratio 20.0, Glucose 97, Calcium 9.0, Total Bilirubin 0.4, AST 19, ALT 25, Alkaline Phosphatase 65, Troponin I 0.07, Total Protein 6.8, Albumin 3.7, Globulin 3.1, Albumin/Globulin Ratio 1.2, PT 12.1, INR 1.11, APTT 28, CBC w Diff NO MAN DIFF REQ, RBC 3.72 L, MCV 91.4, MCH 29.8, MCHC 32.6 L, RDW 16.5 H, MPV 6.9 L, Gran % 77.0 H, Lymphocytes % 13.6 L, Monocytes % 8.1, Eosinophils % 0.9, Basophils % 0.4, Absolute Granulocytes 8.3 H, Absolute Lymphocytes 1.5, Absolute Monocytes 0.9 H, Absolute Eosinophils 0.1, Absolute Basophils 0 (Evin CORREIA,Coleman Rhoades) Departure Departure Disposition: HOME OR SELF CARE Condition: Stable Clinical Impression Primary Impression: COPD (chronic obstructive pulmonary disease) Referrals: Xuan CORREIA,Toni Araiza (PCP/Family) Additional Instructions: Take prednisone as prescribed. Use her nebulizer machine at home. Return if any concerns worsening symptoms. Please go over all results of today's visit with your primary care doctor. Contact your primary care doctor to let them know you were here in the emergency room. There may be nonspecific findings which may not be related to your visit today here in the emergency room but may require further evaluation and chronic monitoring by your primary care doctor. If you had a laceration today the chance of foreign body always remains. You should follow-up with your primary care doctor for recheck in 3-5 days for a wound check. If you had an x-ray done there is a chance that a fracture could have been missed on initial read and you should follow-up with your primary care doctor for repeat x-rays if symptoms persist. If your blood pressure was elevated here in the emergency room please have rechecked by [facility] primary care doctor within the next 48. If you were prescribed a narcotic here in the emergency room or any type of controlled substances you're not allowed to drive while taking this medication or operate any type of heavy machinery. Narcotics can make you feel lightheaded dizziness nausea and can cause constipation. You may need to nut picker a stool softener. Thank you for choosing [facility] emergency room. Please return to the emergency room immediately if you have any other concerns worsening of symptoms. Departure Forms: Customer Survey General Discharge Information Prescriptions: Current Visit Scripts Prednisone 1 TAB PO DAILY #4 TAB (Charles Zaragoza) Departure Comments 07/24/17, 3:11am... pt resting comfortable in the ED... trop/ekg benign x 2... pt feels comfortable going home... safe for discharge. PA/GEOSPATIAL TECHNOLOGIST Co-Sign Statement Statement: ED Attending supervision documentation- [x] I saw and evaluated the patient. I have also reviewed all the pertinent lab results and diagnostic results. I agree with the findings and the plan of care as documented in the PA's/GEOSPATIAL TECHNOLOGIST's documentation. [] I have reviewed the ED Record and agree with the PA's/GEOSPATIAL TECHNOLOGIST's documentation. [] Additions or exceptions (if any) to the PAs/GEOSPATIAL TECHNOLOGIST's note and plan are summarized below: [] (Evin CORREIA,Coleman Rhoades) Critical Care Note Critical Care Note Critical Care Time: non-applicable (Charles Zaragoza)
[2017-07-23 21:07] LABS: PT 12.1 SEC (9.4-12.5); PTT 28 SEC (25-37)
[2017-07-23 21:30] LABS: ABSOLUTE BASOPHIL COUNT 0 /CUMM (0.0-0.2); ABSOLUTE EOSINOPHIL COUNT 0.1 /CUMM (0.0-0.7); ABSOLUTE GRANULOCYTE CT 8.3 /CUMM (1.4-6.5); ABSOLUTE LYMPH COUNT 1.5 /CUMM (1.2-3.4); ABSOLUTE MONOCYTE COUNT 0.9 /CUMM (0.10-0.60); BASOPHIL % 0.4 % (0.0-2.0); EOSINOPHIL % 0.9 % (0-5); MEAN CORPUSCULAR HGB 29.8 PG (27.0-31.0); MEAN CORPUSCULAR HGB CONC 32.6 G/DL (33.0-37.0); MEAN CORPUSCULAR VOLUME 91.4 FL (80.0-94.0); MEAN PLATELET VOLUME 6.9 FL (7.4-10.4); PLATELET COUNT 521 /CUMM (130-400); RBC DISTRIBUTION WIDTH 16.5 % (11.5-14.5); RED BLOOD CELL CT 3.72 /CUMM (4.70-6.10); WHITE BLOOD CELL COUNT 10.8 /CUMM (4.8-10.8)
--- NOTE | 2017-07-23 22:31 | CT SCAN REPORT ---
EXAMINATION: CT ANGIOGRAM OF THE CHEST WITH AND WITHOUT CONTRAST (CT PULMONARY ANGIOGRAM FOR PE) CLINICAL INFORMATION: Reason for Study:
Presumptive Dx: SOB, RECENT HIP SURGERY
Signs Symptoms: ROOM 4
COMPARISON: Portions of a previous study 05/12/17 TECHNIQUE: Prior to contrast administration, noncontrast localization images were obtained. Subsequently, multidetector volumetric imaging was performed from the thoracic inlet to below the diaphragms following the administration of 84 mL Optiray 320 intravenous contrast. No contrast reaction reported. Sagittal, coronal, and MIP oblique sagittal reformatted images were obtained on the CT workstation, uploaded to PACS, and reviewed. Total exam dose-length product 204 mGy-cm. FINDINGS: QUALITY OF STUDY/CONTRAST BOLUS: Satisfactory Significant motion artifact greatest in the lower chest limits assessment of the vessels in the lower lobes. PULMONARY ARTERIES: No pulmonary embolus demonstrated. The main pulmonary artery is normal caliber. THORACIC AORTA: The aorta is not well opacified. No definite thoracic aortic aneurysm. There is atherosclerosis. There is evidence of previous coronary artery bypass grafting. Cardiac leads cause artifact terminating in the right atrium and right ventricle There is marked opacification of collateral vessels in the chest wall and paraspinal regions with reflux into the azygos. LUNG: No abnormality in the trachea. There is generalized thickening of the interlobular septa and there is some centrilobular emphysema. No acute consolidation. No edema. Some linear opacity in the inferior lingula could be atelectasis. There is some fibrotic change adjacent to some lower right-sided osteophytes. PLEURA: No pleural effusion or pneumothorax. MEDIASTINUM: There are no enlarged mediastinal or hilar lymph nodes. No suspicious abnormality of the esophagus. No significant pericardial fluid or thickening No evidence of septal bowing or right heart strain. CHEST WALL/AXILLA: Artifact due to a generator in the left chest wall. No axillary adenopathy. OSSEOUS STRUCTURES: Evidence of sternotomy. Previous mediastinal surgery. There are degenerative changes in the spine. UPPER ABDOMEN: No suspicious abnormality. No reflux of contrast into the hepatic veins to suggest elevated right heart pressures. IMPRESSION: No pulmonary embolus demonstrated. There is some underlying interstitial lung disease. No acute pneumonia or edema. Previous cardiac surgery. VTE: negative
[2017-07-24] MEDS ORDERED: PREDNISONE50 M1 PO (00:49)
[2017-07-24 03:00] VITALS: BP 136/74
== END 2017-07-24 03:06 ==
LOC: ERH 20:25
PROVIDERS: Physician Assistant Medical
DX: J44.9 Chronic obstructive pulmonary disease, unspecified (principal)
CPT/HCPCS: 93005; 93010; 96374; 96375; 96376; J2930

== ENCOUNTER 2017-09-07 11:02 | Inpatient (IN) | payer OTHER, MEDICARE ==
[~2017-09-07] VITALS: Ht 177.8 cm; Wt 62.6 kg
[~2017-09-07 11:02] MED LIST changes: +PREDNISONE50 M1 PO
--- NOTE | 2017-09-07 11:20 | ED UPPER/LOWER EXTREMITY COMPL ---
History of Present Illness General Chief Complaint: Hip Injury Stated Complaint: R HIP FX Source: patient, family, old records, PCP Exam Limitations: no limitations Vital Signs & Intake/Output Vital Signs & Intake/Output Vital Signs Date Time Temp Pulse Resp B/P B/P Pulse O2 O2 Flow FiO2 Mean Ox Delivery Rate 09/07 1130 Room Air 09/07 1112 97.0 65 20 124/78 94 Room Air Allergies Coded Allergies: No Known Allergies (07/23/17) Reconcile Medications Albuterol Sulfate (Proair Hfa) 90 MCG HFA.AER.AD 2 PUF INH Q4-6 PRN PRN SHORTNESS OF BREATH (Reported) Amlodipine Besylate (Norvasc) 5 MG TABLET 1 TAB PO DAILY HTN (Reported) Apixaban (Eliquis) 2.5 MG TABLET 2.5 MG PO BID Blood thinner Aspirin (Ecotrin*) 81 MG TABLET.DR 1 TAB PO DAILY HEART/BLOOD (Reported) Budesonide/Formoterol Fumarate (Symbicort 160-4.5 Mcg Inhaler) 160 MCG-4.5 MCG/ ACTUATION HFA.AER.AD 2 PUF INH BID COPD (Reported) Carbidopa/Levodopa (Sinemet 25-100 MG Tablet) 25 MG-100 MG TABLET 1 TAB PO QPM RESTLESS LEGS (Reported) Carvedilol 12.5 MG TABLET 1 TAB PO BID HEART (Reported) Cholecalciferol (Vitamin D3) (Vitamin D) 1,000 UNIT TABLET 1 TAB PO DAILY VITAMIN SUPPORT (Reported) Docusate Sodium (Colace) 100 MG CAPSULE 1 CAP PO DAILY CONSTIPATION (Reported ) Duloxetine HCl (Cymbalta) 60 MG CAPSULE.DR 1 CAP PO DAILY MOOD (Reported) Fentanyl 50 MCG/HOUR PATCH.TD72 1 PAT TOP Q3D PAIN (Reported) Gabapentin 100 MG CAPSULE 1 CAP PO TID PAIN (Reported) Isosorbide Mononitrate (Isosorbide Mononitrate ER) 60 MG TAB.ER.24H 1 TAB PO DAILY HEART (Reported) Lubiprostone (Amitiza) 24 MCG CAPSULE 1 CAP PO BID CONSTIPATION (Reported) Melatonin 5 MG TABLET 1 TAB PO QPM SLEEP (Reported) Metoclopramide HCl (Reglan) 10 MG TABLET 1 TAB PO TID NAUSEA (Reported) 30 minutes before meals and bedtime Omeprazole 40 MG CAPSULE.DR 1 CAP PO DAILY GI (Reported) Oxycodone HCl 10 MG TABLET 1 TAB PO TIDPRN PRN PAIN (Reported) Polyethylene Glycol 3350 (Miralax) 17 GRAM/DOSE POWDER 17 GM PO DAILY PRN CONSTIPATION (Reported) mix with water, juice, soda, coffee or tea Ranolazine (Ranexa) 500 MG TAB.ER.12H 1 TAB PO BID HEART (Reported) Sennosides/Docusate Sodium (Senna S Tablet) 8.6 MG-50 MG TABLET 2 TAB PO QPM CONSTIPATION (Reported) Spironolactone 25 MG TABLET 0.5 TAB PO AD DIURETIC (Reported) Tiotropium [place] (Spiriva) 18 MCG CAP.W.DEV 1 PUF INH DAILY COPD Core Measure Meds Pre-Hospital aspirin, Eliquis Triage Note: PT SENT TO ED BY DR JARA FOR RIGHT HIP REPLACEMENT TOMORROW. PT HAD SCREW PLACED TO RIGHT HIP A FEW WEEKS AGO. HAD A CAT SCAN ON WEDNESDAY AND CONFIRMED THAT THE SCREW IS BENT. Triage Nurses Notes Reviewed? yes Onset: Several weeks Duration: week(s):, constant, continues in ED Timing: recent history Severity: severe Pain/Injury Location: Right: Hip. Method of Injury: fall Modifying Factors: Improves With: pain medication, rest. Worsens With: movement. Associated Symptoms: GCS 15 since, stiffness HPI: Several weeks prior to admission the patient suffered a fall with severe sharp constant right hip pain. He had outpatient radiography demonstrating a bent nail. He denies recent fall fever chills nausea vomiting diarrhea abdominal pain chest pain shortness breath headache dysuria rash bleeding. Past History Travel History Traveled to [place] past 21 day No Medical History Any Pertinent Medical History? 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 No Review of Systems Review of Systems Constitutional: Reports: no symptoms. EENTM: Reports: no symptoms. Respiratory: Reports: no symptoms. Cardiovascular: Reports: no symptoms. Gastrointestinal/Abdominal: Reports: no symptoms. Genitourinary: Reports: no symptoms. Musculoskeletal: Reports: see HPI, joint pain. Skin: Reports: no symptoms. Neurological/Psychological: Reports: no symptoms. Hematologic/Endocrine: Reports: no symptoms. Immunological: Reports: no symptoms. All Other Systems: Reviewed and Negative Physical Exam Physical Exam General Appearance: well developed/nourished, alert, awake, anxious, mild distress Head: atraumatic, normal appearance Eyes: Bilateral: normal appearance, PERRL, EOMI. Ears, Nose, Throat: normal pharynx, normal ENT inspection, hearing grossly normal Neck: normal inspection, supple, full range of motion Cardiovascular/Respiratory: normal breath sounds, normal peripheral pulses, regular rate/rhythm, no respiratory distress Peripheral Pulses: 4+ carotid (R), 4+ carotid (L) Back: normal inspection, normal range of motion, no vertebral tenderness Shoulder Left: normal range of motion, normal inspection Shoulder Right: normal range of motion, normal inspection Elbow Left: normal range of motion, normal inspection Elbow Right: normal range of motion, normal inspection Hand Left: normal inspection, normal range of motion Hand Right: normal inspection, normal range of motion Upper Extremity Reflexes: 2+: bicep (R), bicep (L). Leg Left: normal range of motion, normal inspection Leg Right: normal range of motion, normal inspection Hip Left: normal range of motion, normal inspection Hip Right: normal inspection, bone tenderness, limited range of motion Knee Left: normal range of motion, normal inspection Knee Right: normal range of motion, normal inspection Foot Left: normal inspection, normal range of motion Foot Right: normal inspection, normal range of motion Lower Extremity Reflexes: 2+: knee (R), knee (L). Neurologic/Tendon: normal sensation, normal motor functions, normal tendon functions Skin: intact, normal color, warm/dry Lymphatic: no anterior cervical arielle Progress Differential Diagnosis: dislocation, fracture Plan of Care: Orders Procedure Date/time Status Nothing by Mouth 09/08 B Active CBC WITHOUT DIFFERENTIAL 09/08 06 Active BASIC ELECTROLYTES PLUS BUN&CR 09/08 06 Active Regular Diet 09/07 L Complete Regular Diet 09/07 D Active Pathway - chart 09/07 1334 Active Patient Data 09/07 1329 Active Code Status 09/07 1329 Active Intake & Output 09/07 1245 Active Add-on Test (ER Only) 09/07 1226 Active Admit to inpatient 09/07 1119 Active TYPE & SCREEN (NOT X-MATCH) 09/07 1119 Complete VITAMIN D1,25 DIHYDROXY Ref$ 09/07 1115 Active TROPONIN LEVEL 09/07 1115 Complete PARTIAL THROMBOPLASTIN TIME 09/07 1115 Complete PROTHROMBIN TIME 09/07 1115 Complete COMPREHENSIVE METABOLIC PANEL 09/07 1115 Complete CBC WITHOUT DIFFERENTIAL 09/07 1115 Complete EKG 09/07 1115 Active VTE Mechanical Prophylaxis 09/07 UNK Active Vital Signs 09/07 UNK Active Intake & Output 09/07 UNK Active Activity/Ambulation 09/07 UNK Active Current Medications Sig/Jesus Start time Last Medication Dose Stop Time Status Admin Amlodipine Besylate 5 MG DAILY 09/08 09 AC (Norvasc) Duloxetine HCl 60 MG DAILY 09/08 09 AC (Cymbalta) Isosorbide 60 MG DAILY 09/08 09 AC Mononitrate (Imdur) Tiotropium [place] 1 PUF DAILY 09/08 09 AC (Spiriva) Omeprazole 40 MG DAILY AC 09/08 07 AC (Prilosec) Dextrose/Sodium 1,000 ML Q10H 09/08 0000 AC Chloride (D5W-1/2 Normal Saline 1000ML) Budesonide/ 2 PUF BID 09/07 2100 AC Formoterol Fumarate (Symbicort) Carbidopa/Levodopa 1 TAB QPM 09/07 2100 AC (Sinemet 25/100MG) Carvedilol 12.5 MG BID 09/07 2100 AC (Coreg) Docusate Sodium 100 MG BID 09/07 2100 AC (Colace) Melatonin 5 MG QPM 09/07 2100 AC (Melatonin) Ranolazine 500 MG BID 09/07 2100 AC (Ranexa) Gabapentin 100 MG TID 09/07 1400 AC (Neurontin) Albuterol Sulfate 2 PUF Q4-6 PRN PRN 09/07 1345 AC (Ventolin) Ondansetron HCl 4 MG Q6-PRN PRN 09/07 1345 AC (Zofran) Oxycodone HCl 5 MG Q4 HRS NEEDED PRN 09/07 1345 AC (Roxicodone) Oxycodone/ 2 TAB Q4P PRN 09/07 1345 AC Acetaminophen (Percocet) Polyethylene Glycol 17 GM DAILY NEEDED PRN 09/07 1345 AC (Miralax) Acetaminophen 650 MG Q6PRN PRN 09/07 1330 AC (Tylenol) Laboratory Tests 09/07/17 1226: Vit D 1,25-Dihyd Total Cancelled, 1,25 Dihydroxy Vit D2 Cancelled, 1,25 Dihydroxy Vit D3 Cancelled 09/07/17 1125: Anion Gap 12, Estimated GFR > 60, BUN/Creatinine Ratio 16.0, Glucose 127 H, Calcium 9.1, Total Bilirubin 0.7, AST 22, ALT 21, Alkaline Phosphatase 68, Troponin I 0.02, Total Protein 6.8, Albumin 3.6, Globulin 3.2, Albumin/Globulin Ratio 1.1, PT 13.0 H, INR 1.19 H, APTT 30, CBC w Diff NO MAN DIFF REQ, RBC 3.57 L, MCV 87.8, MCH 29.0, MCHC 33.1, RDW 15.9 H, MPV 7.4, Gran % 73.3, Lymphocytes % 15.8 L, Monocytes % 7.7, Eosinophils % 2.7, Basophils % 0.5, Absolute Granulocytes 8.0 H, Absolute Lymphocytes 1.7, Absolute Monocytes 0.8 H, Absolute Eosinophils 0.3, Absolute Basophils 0.1 09/07/17 1119: Vit D 1,25-Dihyd Total Cancelled, 1,25 Dihydroxy Vit D2 Cancelled, 1,25 Dihydroxy Vit D3 Cancelled 09/07/17 1115: Vit D 1,25-Dihyd Total Pending, 1,25 Dihydroxy Vit D2 Pending, 1,25 Dihydroxy Vit D3 Pending Diagnostic Imaging: Viewed by Me: Radiology Read. Discussed w/RAD: Radiology Read. CXR Impression: no acute abnormality, no infiltrates Initial ED EKG: normal axis, normal intervals, normal p-waves, normal QRS complex, normal sinus rhythm, LVH, nonspecific ST T wave chg Prior EKG: changed Rhythm Strip: normal sinus rhythm Departure Departure Disposition: STILL A PATIENT Condition: Stable Clinical Impression Primary Impression: Failed orthopedic implant Referrals: Xuan CORREIA,Toni Araiza (PCP/Family) Departure Forms: Customer Survey General Discharge Information Admission Note Spoke With: Connor Jara MD Documentation of Exam: Documentation of any treatments & extenuating circumstances including Concerns Regarding Discharge (functional status, medication knowledge or non-compliance, living conditions, etc.) that warrant an admission rather than observation: Preop clearance nothing by mouth orthopedic management medication adjustment physical therapy psychiatry evaluation for opioid dependence continuing care discharge planning
[2017-09-07 11:41] LABS: ABSOLUTE BASOPHIL COUNT 0.1 /CUMM (0.0-0.2); ABSOLUTE EOSINOPHIL COUNT 0.3 /CUMM (0.0-0.7); ABSOLUTE LYMPH COUNT 1.7 /CUMM (1.2-3.4); ABSOLUTE MONOCYTE COUNT 0.8 /CUMM (0.10-0.60); BASOPHIL % 0.5 % (0.0-2.0); EOSINOPHIL % 2.7 % (0-5); GRANULOCYTE % 73.3 % (42.2-75.2); HEMATOCRIT 31.4 % (42-52); MEAN CORPUSCULAR HGB CONC 33.1 G/DL (33.0-37.0); MEAN CORPUSCULAR VOLUME 87.8 FL (80.0-94.0); MEAN PLATELET VOLUME 7.4 FL (7.4-10.4); PLATELET COUNT 635 /CUMM (130-400); RBC DISTRIBUTION WIDTH 15.9 % (11.5-14.5); RED BLOOD CELL CT 3.57 /CUMM (4.70-6.10); WHITE BLOOD CELL COUNT 10.9 /CUMM (4.8-10.8)
[2017-09-07 11:51] LABS: PTT 30 SEC (25-37)
[2017-09-07] MEDS ORDERED: MIRALAX119 GM PO (12:07)
[2017-09-07] MEDS ORDERED: SENNA S TABLET1 EACH PO (12:07)
[2017-09-07] MEDS ORDERED: VITAMIN D1000 UNIT PO (12:08)
[2017-09-07] MEDS ORDERED: MELATONIN5 M7 PO (12:09)
[2017-09-07] MEDS ORDERED: CARVEDILOL12.5 M1 PO (12:41)
--- NOTE | 2017-09-07 12:41 | RADIOLOGY REPORT ---
EXAMINATION: XR PORTABLE CHEST CLINICAL INFORMATION: Preoperative study. Right hip revision. COMPARISON: Chest x-ray from 07/23/2017. TECHNIQUE: Portable frontal view of the chest was obtained. FINDINGS: No airspace opacity or pleural effusion is seen. Emphysematous changes again evident. Multiple surgical clips are present in the mediastinum with sternotomy wires in place. A dual-chamber pacemaker device is again visible. The cardiac silhouette is unchanged. No acute osseous abnormality is seen. IMPRESSION: No acute process. Stable emphysematous changes.
[2017-09-07] MEDS ORDERED: GABAPENTIN100 M2 PO (12:42)
[2017-09-07] MEDS ORDERED: PROAIR HFA8.5 GM INH (12:44)
--- NOTE | 2017-09-07 13:51 | History & Physical Pre-Op ---
General Information and HPI MD Statement: I have seen and personally examined CORNELL GARNER and documented this H&P. The patient is a 71 year old M who presented with a patient stated chief complaint of [RIGHT LEG PAIN]. Source of Information: patient Exam Limitations: no limitations History of Present Illness: THIS IS A 71YO M WITH SIGNIFICANT CARDIAC HISTORY INCLUDING 4 HEART ATTACKS AND A CABG, HTN, COPD, PARKINSONS, CHRONIC PAIN AND HX OF PROSTATE CANCER, NOW IN REMISSION. STATES HE FELL ABOUT 4 MONTHS AGO RESULTING IN A RIGHT INTERTROCH FRACURE WHICH WAS REPAIRED WITH A GAMMA NAIL BY DR KNUTSON ON 05/26/17. OVER LAST SEVERAL DAYS PT NOTES INCREASED PAIN IN HIS RIGHT HIP THAT RADIATES DOWN HIS LEG. HE DENIES ANY FALLS SINCE HIS SURGERY. DENIES PARESTHESIAS. ABLE TO BEAR WEIGHT. PT WAS SENT TO THE ER FOR ADMISSION TO REVISE GAMMA NAIL FIXATION TO TOTAL HIP REPLACEMENT Allergies/Medications Allergies: Coded Allergies: No Known Allergies (07/23/17) Home Med list Albuterol Sulfate (Proair Hfa) 90 MCG HFA.AER.AD 2 PUF INH Q4-6 PRN PRN SHORTNESS OF BREATH (Reported) Amlodipine Besylate (Norvasc) 5 MG TABLET 1 TAB PO DAILY HTN (Reported) Apixaban (Eliquis) 2.5 MG TABLET 2.5 MG PO BID Blood thinner Aspirin (Ecotrin*) 81 MG TABLET.DR 1 TAB PO DAILY HEART/BLOOD (Reported) Budesonide/Formoterol Fumarate (Symbicort 160-4.5 Mcg Inhaler) 160 MCG-4.5 MCG/ ACTUATION HFA.AER.AD 2 PUF INH BID COPD (Reported) Carbidopa/Levodopa (Sinemet 25-100 MG Tablet) 25 MG-100 MG TABLET 1 TAB PO QPM RESTLESS LEGS (Reported) Carvedilol 12.5 MG TABLET 1 TAB PO BID HEART (Reported) Cholecalciferol (Vitamin D3) (Vitamin D) 1,000 UNIT TABLET 1 TAB PO DAILY VITAMIN SUPPORT (Reported) Docusate Sodium (Colace) 100 MG CAPSULE 1 CAP PO DAILY CONSTIPATION (Reported ) Duloxetine HCl (Cymbalta) 60 MG CAPSULE.DR 1 CAP PO DAILY MOOD (Reported) Fentanyl 50 MCG/HOUR PATCH.TD72 1 PAT TOP Q3D PAIN (Reported) Gabapentin 100 MG CAPSULE 1 CAP PO TID PAIN (Reported) Isosorbide Mononitrate (Isosorbide Mononitrate ER) 60 MG TAB.ER.24H 1 TAB PO DAILY HEART (Reported) Lubiprostone (Amitiza) 24 MCG CAPSULE 1 CAP PO BID CONSTIPATION (Reported) Melatonin 5 MG TABLET 1 TAB PO QPM SLEEP (Reported) Metoclopramide HCl (Reglan) 10 MG TABLET 1 TAB PO TID NAUSEA (Reported) 30 minutes before meals and bedtime Omeprazole 40 MG CAPSULE.DR 1 CAP PO DAILY GI (Reported) Oxycodone HCl 10 MG TABLET 1 TAB PO TIDPRN PRN PAIN (Reported) Polyethylene Glycol 3350 (Miralax) 17 GRAM/DOSE POWDER 17 GM PO DAILY PRN CONSTIPATION (Reported) mix with water, juice, soda, coffee or tea Ranolazine (Ranexa) 500 MG TAB.ER.12H 1 TAB PO BID HEART (Reported) Sennosides/Docusate Sodium (Senna S Tablet) 8.6 MG-50 MG TABLET 2 TAB PO QPM CONSTIPATION (Reported) Spironolactone 25 MG TABLET 0.5 TAB PO AD DIURETIC (Reported) Tiotropium [place] (Spiriva) 18 MCG CAP.W.DEV 1 PUF INH DAILY COPD Past History Medical History Neurological: restless leg syndrome EENT: NONE Cardiovascular: hypertension, myocardial infarction, CAD [place] X 4 BYPASS ATHLEROSCLEROSIS PAD Respiratory: COPD, obstructive sleep apnea Gastrointestinal: NAUSEA Hepatic: NONE Renal: NONE Musculoskeletal: BACK FX restless leg syndrome Psychiatric: anxiety, depression Endocrine: NONE Blood Disorders: NONE Cancer(s): prostate cancer 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 Review of Systems Review of Systems: PER HPI Exam & Diagnostic Data Last 24 Hrs of Vital Signs/I&O Vital Signs Date Time Temp Pulse Resp B/P B/P Pulse O2 O2 Flow FiO2 Mean Ox Delivery Rate 09/07 1130 Room Air 09/07 1112 97.0 65 20 124/78 94 Room Air Intake & Output 09/07 1600 09/07 0800 09/07 0000 Intake Total Output Total Balance Patient 110 lb Weight Weight Estimated Measurement Method Physical Exam: GEN-NAD, THIN AND FRAIL, CACHECTIC RESP- CLEAR CARDIAC-RRR ABD- FLAT, SOFT, NONTENDER EXT-SCAR OVER RIGHT HIP, NO SIGNS OF INFECTION, NONTENDER. NO PEDAL EDEMA, NO CALF TENDERNESS. NO LEG SHORTENING OR ROTATION. DISTAL SENSORY AND MOTOR FUNCTION INTACT. 2+DP PULSE Last 24 Hrs of Labs/Rudy: Laboratory Tests 09/07/17 1226: Vit D 1,25-Dihyd Total Cancelled, 1,25 Dihydroxy Vit D2 Cancelled, 1,25 Dihydroxy Vit D3 Cancelled 09/07/17 1125: Anion Gap 12, Estimated GFR > 60, BUN/Creatinine Ratio 16.0, Glucose 127 H, Calcium 9.1, Total Bilirubin 0.7, AST 22, ALT 21, Alkaline Phosphatase 68, Troponin I 0.02, Total Protein 6.8, Albumin 3.6, Globulin 3.2, Albumin/Globulin Ratio 1.1, PT 13.0 H, INR 1.19 H, APTT 30, CBC w Diff NO MAN DIFF REQ, RBC 3.57 L, MCV 87.8, MCH 29.0, MCHC 33.1, RDW 15.9 H, MPV 7.4, Gran % 73.3, Lymphocytes % 15.8 L, Monocytes % 7.7, Eosinophils % 2.7, Basophils % 0.5, Absolute Granulocytes 8.0 H, Absolute Lymphocytes 1.7, Absolute Monocytes 0.8 H, Absolute Eosinophils 0.3, Absolute Basophils 0.1 09/07/17 1119: Vit D 1,25-Dihyd Total Cancelled, 1,25 Dihydroxy Vit D2 Cancelled, 1,25 Dihydroxy Vit D3 Cancelled 09/07/17 1115: Vit D 1,25-Dihyd Total Pending, 1,25 Dihydroxy Vit D2 Pending, 1,25 Dihydroxy Vit D3 Pending Diagnostic Data Other Results RIGHT LOWER EXTREMITY CT: IMPRESSION: 1. Failed fixation of the right proximal femoral intertrochanteric fracture with protrusion of the femoral head screw through the femoral head articular cortex and into the acetabulum. This results in a 3.7 cm diameter area of bone resorption at the superomedial acetabulum. The femoral neck is impacted into the intertrochanteric region. 2. No appreciable osseous bridging between the femoral neck fragments and the distal femoral fragments. Significant callus, periosteal bone, and heterotopic bone is present at the fracture site. A 6 cm focus of heterotopic bone is situated lateral/superficial to the intertrochanteric region. Assessment/Plan Assessment/Plan: 71YO M WITH MULTIPLE MEDICAL PROBLEMS WITH INCREASED PAIN AFTER HAVING A GAMMA NAIL FIXATION FOR REPAIR OF RIGHT INTERTROCH FRACTURE IN APRIL. CT SHOWS FAILED FIXATION IN RIGHT INTERTROCHANTERIC FRACURE. PER DR KNUTSON, WILL NEED TO EXPLANT GAMMA NAIL AND CONVERT TO A TOTAL HIP REPLACEMENT TOMORROW NONWEIGHT BEARING REG HOME MEDS PAIN MANAGEMENT NPO AFTER MIDNIGHT, IVF PRE-OP LABS As Ranked By This Provider Problem List: 1. Failed orthopedic implant Copies To: Xuan CORREIA,Toni Araiza
[2017-09-07 15:10] VITALS: BP 135/80
--- NOTE | 2017-09-07 16:54 | Cons- Medical ---
Shyann De 09/07/17 1653: General Information and HPI Consulting Request Date of Consult: 09/07/17 Requested By: Marek CORREIA,Connor Ohara Reason for Consult: Pre-op clearance Source of Information: patient, old records Exam Limitations: no limitations History of Present Illness: Mr. Cohen is a 71yo M w/ PMH of CAD status post AL with PCI and multiple stents placement, COPD, obstructive sleep apnea, peripheral artery disease, prostate cancer status post radiation and in remission, presented to [facility] for increasing pain at right hip s/p fixation back in 04/[address] Jara at [facility]. Patient is now admitted under surgical risks pending further fixation of the right hip gamma nail. Patient stated that he was discharged from [facility] after the last fixation to rehab, underwent physical therapy with adequate pain control with morphine tablets, and discharged back to home after month, with patient being able to ambulate freely with a walker. Patient claimed that he always walk with leaning towards the right side, and you could walk with a walker to a maximum of 100 feet without any shortness of breath, however he had to stop to rest due to the pain at the right hip. Patient had received oxycodone on discharge from rehab, however his oxycodone ran out about 2 weeks ago, that he could no longer control his pain in the right hip. Previously his pain was intermittent along 6-8 out of 10 being controlled by oxycodone adequately. Patient denied any event of fall/syncope/ trauma since last hospital discharge, however endorsed some "clicking" of the right hip in the last [address] Soto in outpatient setting 3 months ago and stated that he had echocardiograph in office setting. Patient endorsed that Dr. Soto had no change of plan or medications. Last echo in our system was back in 10/2015, with EF of 40-45% with global hypokinesis. During our clinical interaction, patient denied fever/night sweat/weight change/ cough/SOB/Chest Pain/Palpitation/Abdominal pain/bowel movement abnormality, or other skin/musculoskeletal/neurological disorders/mood change/insomnia/dietary/ appetite change. Allergies/Medications Allergies: Coded Allergies: No Known Allergies (07/23/17) Home Med List: Albuterol Sulfate (Proair Hfa) 90 MCG HFA.AER.AD 2 PUF INH Q4-6 PRN PRN SHORTNESS OF BREATH (Reported) Amlodipine Besylate (Norvasc) 5 MG TABLET 1 TAB PO DAILY HTN (Reported) Apixaban (Eliquis) 2.5 MG TABLET 2.5 MG PO BID Blood thinner Aspirin (Ecotrin*) 81 MG TABLET.DR 1 TAB PO DAILY HEART/BLOOD (Reported) Budesonide/Formoterol Fumarate (Symbicort 160-4.5 Mcg Inhaler) 160 MCG-4.5 MCG/ ACTUATION HFA.AER.AD 2 PUF INH BID COPD (Reported) Carbidopa/Levodopa (Sinemet 25-100 MG Tablet) 25 MG-100 MG TABLET 1 TAB PO QPM RESTLESS LEGS (Reported) Carvedilol 12.5 MG TABLET 1 TAB PO BID HEART (Reported) Cholecalciferol (Vitamin D3) (Vitamin D) 1,000 UNIT TABLET 1 TAB PO DAILY VITAMIN SUPPORT (Reported) Docusate Sodium (Colace) 100 MG CAPSULE 1 CAP PO DAILY CONSTIPATION (Reported ) Duloxetine HCl (Cymbalta) 60 MG CAPSULE.DR 1 CAP PO DAILY MOOD (Reported) Fentanyl 50 MCG/HOUR PATCH.TD72 1 PAT TOP Q3D PAIN (Reported) Gabapentin 100 MG CAPSULE 1 CAP PO TID PAIN (Reported) Isosorbide Mononitrate (Isosorbide Mononitrate ER) 60 MG TAB.ER.24H 1 TAB PO DAILY HEART (Reported) Lubiprostone (Amitiza) 24 MCG CAPSULE 1 CAP PO BID CONSTIPATION (Reported) Melatonin 5 MG TABLET 1 TAB PO QPM SLEEP (Reported) Metoclopramide HCl (Reglan) 10 MG TABLET 1 TAB PO TID NAUSEA (Reported) 30 minutes before meals and bedtime Omeprazole 40 MG CAPSULE.DR 1 CAP PO DAILY GI (Reported) Oxycodone HCl 10 MG TABLET 1 TAB PO TIDPRN PRN PAIN (Reported) Polyethylene Glycol 3350 (Miralax) 17 GRAM/DOSE POWDER 17 GM PO DAILY PRN CONSTIPATION (Reported) mix with water, juice, soda, coffee or tea Ranolazine (Ranexa) 500 MG TAB.ER.12H 1 TAB PO BID HEART (Reported) Sennosides/Docusate Sodium (Senna S Tablet) 8.6 MG-50 MG TABLET 2 TAB PO QPM CONSTIPATION (Reported) Spironolactone 25 MG TABLET 0.5 TAB PO AD DIURETIC (Reported) Tiotropium [place] (Spiriva) 18 MCG CAP.W.DEV 1 PUF INH DAILY COPD Review of Systems Review of Systems Constitutional: Reports: see HPI. Past History Travel History Traveled to [place] past 21 day No Medical History Blood Transfusion Hx: Yes Neurological: restless leg syndrome EENT: NONE Cardiovascular: hypertension, myocardial infarction, CAD AL X 4 BYPASS ATHLEROSCLEROSIS PAD Respiratory: COPD, obstructive sleep apnea Gastrointestinal: NAUSEA Hepatic: NONE Renal: NONE Musculoskeletal: BACK FX restless leg syndrome Psychiatric: anxiety, depression Endocrine: NONE Blood Disorders: NONE Cancer(s): prostate cancer BRICK PAVER/Reproductive: NONE Surgical History Surgical History: CABG Family History Relations & Conditions If Any: BROTHER FH: AL (myocardial infarction) Psychosocial History Where Do You Live? Home Services at Home: Nursing Primary Language: Vietnamese Smoking Status: Former Smoker ETOH Use: denies use Illicit Drug Use: denies illicit drug use Other Social History: opiates Functional Ability ADLs Independent: dressing, eating, toileting, bathing. Ambulation: walker IADLs Independent: shopping, housework, finances, food prep, telephone, transportation , medication admin. Exam & Diagnostic Data Last 24 Hrs of Vital Signs/I&O Vital Signs Date Time Temp Pulse Resp B/P B/P Pulse O2 O2 Flow FiO2 Mean Ox Delivery Rate 09/07 1510 98.3 70 18 135/80 96 Room Air Room Air 09/07 1418 97.8 69 18 151/79 94 Room Air 09/07 1130 Room Air 09/07 1112 97.0 65 20 124/78 94 Room Air Intake & Output 09/07 1600 09/07 0800 09/07 0000 Intake Total Output Total Balance Patient 49.101 kg Weight Weight Bed scale Measurement Method Physical Exam General Appearance: no apparent distress, alert, awake, comfortable Head: atraumatic, normal appearance Eyes: Bilateral: normal appearance, PERRL. Respiratory: normal breath sounds, chest non-tender, no respiratory distress Cardiovascular: regular rate/rhythm Gastrointestinal: normal bowel sounds, soft, non-tender Extremities: right thigh and legs with reduced strength due to pain LLE grossly intact on strength. BLEs sensations grossly intact Last 24 Hrs of Labs/Rudy: Laboratory Tests 09/07/17 1226: Vit D 1,25-Dihyd Total Cancelled, 1,25 Dihydroxy Vit D2 Cancelled, 1,25 Dihydroxy Vit D3 Cancelled 09/07/17 1125: Anion Gap 12, Estimated GFR > 60, BUN/Creatinine Ratio 16.0, Glucose 127 H, Calcium 9.1, Total Bilirubin 0.7, AST 22, ALT 21, Alkaline Phosphatase 68, Troponin I 0.02, Total Protein 6.8, Albumin 3.6, Globulin 3.2, Albumin/Globulin Ratio 1.1, PT 13.0 H, INR 1.19 H, APTT 30, CBC w Diff NO MAN DIFF REQ, RBC 3.57 L, MCV 87.8, MCH 29.0, MCHC 33.1, RDW 15.9 H, MPV 7.4, Gran % 73.3, Lymphocytes % 15.8 L, Monocytes % 7.7, Eosinophils % 2.7, Basophils % 0.5, Absolute Granulocytes 8.0 H, Absolute Lymphocytes 1.7, Absolute Monocytes 0.8 H, Absolute Eosinophils 0.3, Absolute Basophils 0.1 09/07/17 1119: Vit D 1,25-Dihyd Total Cancelled, 1,25 Dihydroxy Vit D2 Cancelled, 1,25 Dihydroxy Vit D3 Cancelled 09/07/17 1115: Vit D 1,25-Dihyd Total Pending, 1,25 Dihydroxy Vit D2 Pending, 1,25 Dihydroxy Vit D3 Pending Assessment/Plan Assessment/Plan Mr. Cohen is a 71yo M w/ PMH of CAD status post AL with PCI and multiple stents placement, COPD, obstructive sleep apnea, peripheral artery disease, prostate cancer status post radiation and in remission, presented to [facility] for increasing pain at right hip s/p fixation back in 04/[address] Jara at [facility]. Patient is now admitted under surgical risks pending further fixation of the right hip gamma nail. Problem list/Assessment/Hospital Course: #Failed right hip implant/nail fixation #PMH of CAD s/p AL with PCI and multiple stents placement, HFrEF, COPD not on home O2, ANDRADE, PAD, prostate cancer s/p radiation in remission - Patient RCRI risk stratification scored 1 (PMH of AL) at Class II risk with pending fixation of faily right hip gamma nail. However, given patient extensive cardiac history with underlying COPD although not exacerbating, a more cautious approach on medical clearance is warranted and patient's Grease Buffer should be consulted, despite that patient tolerated the last hip fixation well without complications, patient still reamined a moderate to high risk for CVS events during OR. Surgical team has been informed to contact Dr. Soto regarding cardiac input and recent Echo. - Pending Cardiology consult. - Would continue home meds including amlodipine, Imdur, Coreg, and COPD/mental health/other medications as in EMR. - Would hold Eliquis and ASA for home medications pending surgery. - Would hold Heparin SC 4 hrs prior OR. - NPO starting midnight, w/ D5w 1/2 gentle IVF. - Continue current pain regimen of Tylenol/Roxicodone/Percocet. DVT PPX Heparin SC + ALPS NPO starting midnight Full Code Thank you for consulting General Medicine Team. We will follow along with you. Problem List: 1. Failed orthopedic implant Consult Acknowledgment - Thank you for your consult request. Marquis CORREIA,Krista 09/07/17 6984: Assessment/Plan Consult Acknowledgment - Thank you for your consult request. Attending MD Review Statement Attending Statement Attending MD Statement: examined this patient, discuss w/resident/PA/BRANCH CONTROLLER, agreed w/resident/PA/BRANCH CONTROLLER, discussed with nursing, reviewed images Attending Assessment/Plan: 71-year-old male fairly extensive past medical history including COPD, peripheral arterial disease, CAD with last cath in September 2015 showing non- intervenable vascular disease. He also has a pacemaker/AICD and had a cardiac event in September 2015 with AL and DVT that prompted this cath. He had a fall in April 2017 when he was admitted to [facility] and had a right hip intertrochanteric fracture that was surgically operated on. Postoperatively patient was transferred to rehabilitation and subsequently home however has been having issues with ongoing pain and went to see Dr. Jara as an outpatient and the CT done revealed non-fixation by the nail and he will likely need a total hip replacement. We are called for perioperative evaluation and medical optimization. Patient tolerated his previous surgery and is fairly independent with his ADLs and IADLs however given his multiple cardiac comorbidities and significant coronary artery disease he is at moderate to high risk for cardiovascular events. At this point I would continue all of his current medications including his aspirin, beta robin and other cardiac medications and I would call his regular divisional merchandising manager Dr. Soto to evaluate him perioperatively. His last echo done in October 2015 showed an EF of 40-45% with global hypokinesis. intervenable vascular disease. He also has a pacemaker/AICD and had a cardiac event in September 2015 with AL and DVT that prompted this cath. He had a fall in April 2017 when he was admitted to [facility] and had a right hip intertrochanteric fracture that was surgically operated on. Postoperatively patient was transferred to rehabilitation and subsequently home however has been having issues with ongoing pain and went to see Dr. Jara as an outpatient and the CT done revealed non-fixation by the nail and he will likely need a total hip replacement. We are called for perioperative evaluation and medical optimization. Patient tolerated his previous surgery and is fairly independent with his ADLs and IADLs however given his multiple cardiac comorbidities and significant coronary artery disease he is at moderate to high risk for cardiovascular events. At this point I would continue all of his current medications including his aspirin, beta robin and other cardiac medications and I would call his regular divisional merchandising manager Dr. Soto to evaluate him perioperatively. His last echo done in October 2015 showed an EF of 40-45% with global hypokinesis.
[2017-09-07 21:03] VITALS: BP 138/84
[2017-09-08 06:24] VITALS: BP 133/78
[2017-09-08 08:32] LABS: ABSOLUTE BASOPHIL COUNT 0 /CUMM (0.0-0.2); ABSOLUTE EOSINOPHIL COUNT 0.3 /CUMM (0.0-0.7); ABSOLUTE GRANULOCYTE CT 3.1 /CUMM (1.4-6.5); ABSOLUTE LYMPH COUNT 2.4 /CUMM (1.2-3.4); ABSOLUTE MONOCYTE COUNT 0.5 /CUMM (0.10-0.60); BASOPHIL % 0.6 % (0.0-2.0); EOSINOPHIL % 4.5 % (0-5); GRANULOCYTE % 49.3 % (42.2-75.2); HEMATOCRIT 31.4 % (42-52); MEAN CORPUSCULAR VOLUME 87.9 FL (80.0-94.0); MEAN PLATELET VOLUME 7.7 FL (7.4-10.4); PLATELET COUNT 559 /CUMM (130-400); RBC DISTRIBUTION WIDTH 16.8 % (11.5-14.5); RED BLOOD CELL CT 3.58 /CUMM (4.70-6.10); WHITE BLOOD CELL COUNT 6.4 /CUMM (4.8-10.8)
--- NOTE | 2017-09-08 09:45 | PN- Medicine Consult ---
Veronica Gill 09/08/17 0945: Assessment/PlanMedical Consult Assessment/Plan Assessment: 71-year-old gentleman past medical history significant for CAD status post multiple MIs with PCI and multiple stents placement and CABG, s/p PPM / AICD, COPD, obstructive sleep apnea, Parkinson's disease, severe peripheral artery disease, prostate cancer status post radiation and in remission, history of right intertrochanteric fracture status post total hip release placement gamma nail surgery by Dr. Jara in April 2017. Admitted to [facility] for worsening right hip pain, admitted to surgical save service for revision of the gamma nail fixation versus total hip replacement. Medicine consulted for comanagement. Afebrile overnight. Vitals stable saturating 95% on room air. Plan: Problem list: 1. failed right hip implant/nail fixation 2. CAD s/p MS with PCI and multiple stents placement 3.HFrEF 4.COPD not on home O2, 5.ANDRADE. 6.PAD 7.prostate cancer s/p radiation in remission plan: -RCRI risk stratification scored 1 (PMH of MS) at Class II risk -surgery Pending Cardiology consult. - Would continue home meds including amlodipine, Imdur, Coreg, Cymbalta, Ranexa, Sinemet and Neurontin - continue to hold Eliquis and ASA in anticipation of surgery -Patient currently NPO, continue w/ D5w 1/2 gentle IVF. - Continue current pain regimen of Tylenol/Roxicodone/Percocet. DVT PPX Heparin SC + ALPS NPO Full Code Thank you for your consult will follow along with you Formal attending recommendations to follow Problem List: 1. Intertrochanteric fracture of right femur Subjective Subjective: Seen and examined patient. Reports no overnight events. Denies fever, chills, chest pain, shortness of breath also states that his pain is controlled. Review of Systems Constitutional: Denies: chills. Objective Last 24 Hrs of Vital Signs/I&O Vital Signs Date Time Temp Pulse Resp B/P B/P Pulse O2 O2 Flow FiO2 Mean Ox Delivery Rate 09/08 0846 64 130/76 09/08 0846 64 130/76 09/08 0846 64 130/76 09/08 0743 98.0 09/08 0624 91.1 59 18 133/78 95 09/07 2154 68 138/84 09/07 2154 68 138/84 09/07 2103 98.5 68 18 138/84 98 Room Air 09/07 1510 98.3 70 18 135/80 96 Room Air Room Air 09/07 1418 97.8 69 18 151/79 94 Room Air 09/07 1130 Room Air 09/07 1112 97.0 65 20 124/78 94 Room Air Intake & Output 09/08 1600 09/08 0800 09/08 0000 Intake Total 480 Output Total 1175 Balance -695 Intake, Oral 480 Output, Urine 1175 Physical Exam General Appearance: awake, comfortable Cardiovascular: regular rate/rhythm Respiratory: normal breath sounds Abdomen: normal bowel sounds, soft, non-tender Extremities: no edema Current Medications: Current Medications Sig/Jesus Start time Last Medication Dose Route Stop Time Status Admin Acetaminophen 650 MG .STK-MED ONE 09/08 0025 DC PO 09/08 0026 Acetaminophen 650 MG Q6PRN PRN 09/07 1330 AC 09/08 PO 0029 Albuterol Sulfate 2 PUF Q4-6 PRN PRN 09/07 1345 AC INH Amlodipine Besylate 5 MG DAILY 09/08 09 AC 09/08 PO 0846 Budesonide/ 2 PUF BID 09/07 2100 AC 09/08 Formoterol Fumarate INH 0748 Carbidopa/Levodopa 1 TAB QPM 09/07 2100 AC 09/07 PO 215 Carvedilol 12.5 MG BID 09/07 2100 AC 09/08 PO 0846 Dextrose/Sodium 1,000 ML Q10H 09/08 0000 AC 09/08 Chloride IV 0748 Docusate Sodium 100 MG BID 09/07 2100 AC 09/08 PO 0846 Duloxetine HCl 60 MG DAILY 09/08 0900 AC 09/08 PO 0846 Gabapentin 100 MG TID 09/07 1400 AC 09/08 PO 0846 Heparin Sodium 5,000 UNIT Q8 09/07 2200 AC 09/08 (Porcine) SC 0522 Isosorbide 60 MG DAILY 09/08 09 AC 09/08 Mononitrate PO 0846 Melatonin 5 MG QPM 09/07 2100 AC 09/07 PO 2154 Omeprazole 40 MG DAILY AC 09/08 0700 AC 09/08 PO 0522 Ondansetron HCl 4 MG Q6-PRN PRN 09/07 1345 AC IV Oxycodone HCl 5 MG Q4 HRS NEEDED PRN 09/07 1345 AC 09/07 PO 2230 Oxycodone/ 2 TAB Q4P PRN 09/07 1345 AC 09/07 Acetaminophen PO 1945 Polyethylene Glycol 17 GM DAILY NEEDED PRN 09/07 1345 AC PO Ranolazine 500 MG BID 09/07 2100 AC 09/08 PO 0846 Tiotropium [place] 1 PUF DAILY 09/08 0900 AC 09/08 INH 0749 Results Last 24 Hrs Lab/Rudy Results: Laboratory Tests 09/08/17 0617: Anion Gap 10, Estimated GFR > 60, BUN/Creatinine Ratio 18.6, CBC w Diff NO MAN DIFF REQ, RBC 3.58 L, MCV 87.9, MCH 29.0, MCHC 33.0, RDW 16.8 H, MPV 7.7, Gran % 49.3, Lymphocytes % 37.6, Monocytes % 8.0, Eosinophils % 4.5, Basophils % 0.6, Absolute Granulocytes 3.1, Absolute Lymphocytes 2.4, Absolute Monocytes 0.5, Absolute Eosinophils 0.3, Absolute Basophils 0 09/07/17 1226: Vit D 1,25-Dihyd Total Cancelled, 1,25 Dihydroxy Vit D2 Cancelled, 1,25 Dihydroxy Vit D3 Cancelled 09/07/17 1125: Anion Gap 12, Estimated GFR > 60, BUN/Creatinine Ratio 16.0, Glucose 127 H, Calcium 9.1, Total Bilirubin 0.7, AST 22, ALT 21, Alkaline Phosphatase 68, Troponin I 0.02, Total Protein 6.8, Albumin 3.6, Globulin 3.2, Albumin/Globulin Ratio 1.1, PT 13.0 H, INR 1.19 H, APTT 30, CBC w Diff NO MAN DIFF REQ, RBC 3.57 L, MCV 87.8, MCH 29.0, MCHC 33.1, RDW 15.9 H, MPV 7.4, Gran % 73.3, Lymphocytes % 15.8 L, Monocytes % 7.7, Eosinophils % 2.7, Basophils % 0.5, Absolute Granulocytes 8.0 H, Absolute Lymphocytes 1.7, Absolute Monocytes 0.8 H, Absolute Eosinophils 0.3, Absolute Basophils 0.1 09/07/17 1119: Vit D 1,25-Dihyd Total Cancelled, 1,25 Dihydroxy Vit D2 Cancelled, 1,25 Dihydroxy Vit D3 Cancelled 09/07/17 1115: Vit D 1,25-Dihyd Total Pending, 1,25 Dihydroxy Vit D2 Pending, 1,25 Dihydroxy Vit D3 Pending Recent Imaging Studies: SERVICE DATE: 09/07/17 EXAM TYPE: RAD - XRY-PORTABLE CHEST XRAY FINDINGS: No airspace opacity or pleural effusion is seen. Emphysematous changes again evident. Multiple surgical clips are present in the mediastinum with sternotomy wires in place. A dual-chamber pacemaker device is again visible. The cardiac silhouette is unchanged. No acute osseous abnormality is seen. IMPRESSION: No acute process. Stable emphysematous changes. Krista Cho MD 09/08/17 1257: Attending MD Review Statement Attending Sign Off Attending Cosign Statement: I have: examined this patient, reviewed [facility] EMR data, personally reviewd images, discussd w/resident/PA/PATTERNATOR, discussed mgmt plan w/ej, discussed mgmt plan w/pt, agreed w/resident/PA/PATTERNATOR. Other Findings: Appreciate cardiology's note. As stated and as per cardiology, patient has had no further cardiac symptomatology and is not in florid heart failure or any kind of ventricular arrhythmia however given his past history and comorbidities he is at moderate to high risk for an event. Cardiology noted that he should be monitored on telemetry post procedure for at least 24-36 hours with postprocedure EKG and troponins. Will follow closely.
--- NOTE | 2017-09-08 10:02 | Cons- Cardiology ---
General Information and HPI Consulting Request Date of Consult: 09/08/17 Requested By: Connor Jara MD Reason for Consult: Preoperative evaluation Source of Information: patient, old records Exam Limitations: no limitations History of Present Illness: The patient is a 71-year-old male who is well-known to me. The patient has a known history of coronary artery disease, prior myocardial infarction, prior stents, COPD, sleep apnea, peripheral arterial disease status post intervention, prostate cancer, etc. At the time of his last cardiac catheterization, the patient had evidence of coronary disease but no disease amenable to intervention at that time. The patient was admitted to the hospital a few months ago after a fall with hip fracture. The patient is now admitted with worsening symptoms for surgical intervention for further fixation of his prior hip gamma nail The patient notes no significant change in his cardiac status since the prior surgery, however, his activities have been increasingly limited by his orthopedic issues. At the time of his last surgery, the patient was cleared for the procedure with moderately elevated risk. He tolerated the procedure without difficulty. -At the moment, the patient seems to be doing about the same clinically. He has no overt episode evidence of heart failure. His last ejection fraction was noted to be 45%. He has had no evidence of any new ischemic symptoms. His ECG and examination are unchanged. Allergies/Medications Allergies: Coded Allergies: No Known Allergies (07/23/17) Home Med List: Albuterol Sulfate (Proair Hfa) 90 MCG HFA.AER.AD 2 PUF INH Q4-6 PRN PRN SHORTNESS OF BREATH (Reported) Amlodipine Besylate (Norvasc) 5 MG TABLET 1 TAB PO DAILY HTN (Reported) Apixaban (Eliquis) 2.5 MG TABLET 2.5 MG PO BID Blood thinner Aspirin (Ecotrin*) 81 MG TABLET.DR 1 TAB PO DAILY HEART/BLOOD (Reported) Budesonide/Formoterol Fumarate (Symbicort 160-4.5 Mcg Inhaler) 160 MCG-4.5 MCG/ ACTUATION HFA.AER.AD 2 PUF INH BID COPD (Reported) Carbidopa/Levodopa (Sinemet 25-100 MG Tablet) 25 MG-100 MG TABLET 1 TAB PO QPM RESTLESS LEGS (Reported) Carvedilol 12.5 MG TABLET 1 TAB PO BID HEART (Reported) Cholecalciferol (Vitamin D3) (Vitamin D) 1,000 UNIT TABLET 1 TAB PO DAILY VITAMIN SUPPORT (Reported) Docusate Sodium (Colace) 100 MG CAPSULE 1 CAP PO DAILY CONSTIPATION (Reported ) Duloxetine HCl (Cymbalta) 60 MG CAPSULE.DR 1 CAP PO DAILY MOOD (Reported) Fentanyl 50 MCG/HOUR PATCH.TD72 1 PAT TOP Q3D PAIN (Reported) Gabapentin 100 MG CAPSULE 1 CAP PO TID PAIN (Reported) Isosorbide Mononitrate (Isosorbide Mononitrate ER) 60 MG TAB.ER.24H 1 TAB PO DAILY HEART (Reported) Lubiprostone (Amitiza) 24 MCG CAPSULE 1 CAP PO BID CONSTIPATION (Reported) Melatonin 5 MG TABLET 1 TAB PO QPM SLEEP (Reported) Metoclopramide HCl (Reglan) 10 MG TABLET 1 TAB PO TID NAUSEA (Reported) 30 minutes before meals and bedtime Omeprazole 40 MG CAPSULE.DR 1 CAP PO DAILY GI (Reported) Oxycodone HCl 10 MG TABLET 1 TAB PO TIDPRN PRN PAIN (Reported) Polyethylene Glycol 3350 (Miralax) 17 GRAM/DOSE POWDER 17 GM PO DAILY PRN CONSTIPATION (Reported) mix with water, juice, soda, coffee or tea Ranolazine (Ranexa) 500 MG TAB.ER.12H 1 TAB PO BID HEART (Reported) Sennosides/Docusate Sodium (Senna S Tablet) 8.6 MG-50 MG TABLET 2 TAB PO QPM CONSTIPATION (Reported) Spironolactone 25 MG TABLET 0.5 TAB PO AD DIURETIC (Reported) Tiotropium [place] (Spiriva) 18 MCG CAP.W.DEV 1 PUF INH DAILY COPD Current Medications: Current Medications Sig/Jesus Start time Last Medication Dose Route Stop Time Status Admin Acetaminophen 650 MG .STK-MED ONE 09/08 0025 DC PO 09/08 0026 Acetaminophen 650 MG Q6PRN PRN 09/07 1330 AC 09/08 PO 0029 Albuterol Sulfate 2 PUF Q4-6 PRN PRN 09/07 1345 AC INH Amlodipine Besylate 5 MG DAILY 09/08 0900 AC 09/08 PO 0846 Budesonide/ 2 PUF BID 09/07 2100 AC 09/08 Formoterol Fumarate INH 0748 Carbidopa/Levodopa 1 TAB QPM 09/07 2099 AC 09/07 PO 2154 Carvedilol 12.5 MG BID 09/07 2099 AC 09/08 PO 0846 Dextrose/Sodium 1,000 ML Q10H 09/08 0000 AC 09/08 Chloride IV 0748 Docusate Sodium 100 MG BID 09/07 2100 AC 09/08 PO 0846 Duloxetine HCl 60 MG DAILY 09/08 0900 AC 09/08 PO 0846 Gabapentin 100 MG TID 09/07 1400 AC 09/08 PO 0846 Heparin Sodium 5,000 UNIT Q8 09/07 2200 AC 09/08 (Porcine) SC 0522 Isosorbide 60 MG DAILY 09/08 09 AC 09/08 Mononitrate PO 0846 Melatonin 5 MG QPM 09/07 2100 AC 09/07 PO 2154 Omeprazole 40 MG DAILY AC 09/08 07 AC 09/08 PO 0522 Ondansetron HCl 4 MG Q6-PRN PRN 09/07 1345 AC IV Oxycodone HCl 5 MG Q4 HRS NEEDED PRN 09/07 1345 AC 09/07 PO 2230 Oxycodone/ 2 TAB Q4P PRN 09/07 1345 AC 09/07 Acetaminophen PO 1945 Polyethylene Glycol 17 GM DAILY NEEDED PRN 09/07 1345 AC PO Ranolazine 500 MG BID 09/07 2100 AC 09/08 PO 0846 Tiotropium [place] 1 PUF DAILY 09/08 09 AC 09/08 INH 0749 Past History Travel History Traveled to [place] past 21 day No Medical History Blood Transfusion Hx: Yes Neurological: restless leg syndrome EENT: NONE Cardiovascular: hypertension, myocardial infarction, CAD VT X 4 BYPASS ATHLEROSCLEROSIS PAD Respiratory: COPD, obstructive sleep apnea Gastrointestinal: NAUSEA Hepatic: NONE Renal: NONE Musculoskeletal: BACK FX restless leg syndrome Psychiatric: anxiety, depression Endocrine: NONE Blood Disorders: NONE Cancer(s): prostate cancer 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 Home Services at Home: Nursing Primary Language: Sami Smoking Status: Former Smoker ETOH Use: denies use Illicit Drug Use: denies illicit drug use Other Social History: opiates Functional Ability ADLs Independent: dressing, eating, toileting, bathing. Ambulation: walker IADLs Independent: shopping, housework, finances, food prep, telephone, transportation , medication admin. Exam & Diagnostic Data Vital Signs and I&O Vital Signs Date Time Temp Pulse Resp B/P B/P Pulse O2 O2 Flow FiO2 Mean Ox Delivery Rate 09/08 1205 97.9 61 18 120/80 94 Room Air 09/08 0846 64 130/76 09/08 0846 64 130/76 09/08 0846 64 130/76 09/08 0743 98.0 09/08 0624 91.1 59 18 133/78 95 09/07 2154 68 138/84 09/07 2154 68 138/84 09/07 2103 98.5 68 18 138/84 98 Room Air 09/07 1510 98.3 70 18 135/80 96 Room Air Room Air 09/07 1418 97.8 69 18 151/79 94 Room Air Intake & Output 09/08 1600 09/08 0800 09/08 0000 09/07 1600 09/07 0800 09/07 0000 Intake Total 480 Output Total 1175 Balance -695 Intake, Oral 480 Output, Urine 1175 Patient 108 lb Weight Weight Bed scale Measurement Method Physical Exam: General Appearance: Thin, frail-appearing, elderly male, alert, awake, oriented Head: normal HEENT: Normal Neck: supple, JVP normal, carotid upstrokes normal bilaterally, no masses or thyromegaly Respiratory: chest non-tender, clear to auscultation and percussion bilaterally Cardiovascular: regular rate/rhythm, normal S1, S2, 2/6 systolic murmur Abdomen: normal bowel sounds, soft, non-tender Extremities: normal inspection, no edema Vascular: Pulses are 2+ and equal bilaterally Neurologic: Grossly normal/nonfocal Labs/Rudy Results: Laboratory Tests 09/08 09/07 0617 1226 Chemistry Sodium (137 - 145 mmol/L) 134 L Potassium (3.5 - 5.1 mmol/L) 4.4 Chloride (98 - 107 mmol/L) 100 Carbon Dioxide (22 - 30 mmol/L) 24 Anion Gap (5 - 16) 10 BUN (9 - 20 mg/dL) 13 Creatinine (0.7 - 1.2 mg/dL) 0.7 Estimated GFR (>60 ml/min) > 60 BUN/Creatinine Ratio (7 - 25 %) 18.6 Vit D 1,25-Dihyd Total Cancelled 1,25 Dihydroxy Vit D2 Cancelled 1,25 Dihydroxy Vit D3 Cancelled Hematology CBC w Diff NO MAN DIFF REQ WBC (4.8 - 10.8 /CUMM) 6.4 RBC (4.70 - 6.10 /CUMM) 3.58 L Hgb (14.0 - 18.0 G/DL) 10.4 L Hct (42 - 52 %) 31.4 L MCV (80.0 - 94.0 FL) 87.9 MCH (27.0 - 31.0 PG) 29.0 MCHC (33.0 - 37.0 G/DL) 33.0 RDW (11.5 - 14.5 %) 16.8 H Plt Count (130 - 400 /CUMM) 559 H MPV (7.4 - 10.4 FL) 7.7 Gran % (42.2 - 75.2 %) 49.3 Lymphocytes % (20.5 - 51.1 %) 37.6 Monocytes % (1.7 - 9.3 %) 8.0 Eosinophils % (0 - 5 %) 4.5 Basophils % (0.0 - 2.0 %) 0.6 Absolute Granulocytes (1.4 - 6.5 /CUMM) 3.1 Absolute Lymphocytes (1.2 - 3.4 /CUMM) 2.4 Absolute Monocytes (0.10 - 0.60 /CUMM) 0.5 Absolute Eosinophils (0.0 - 0.7 /CUMM) 0.3 Absolute Basophils (0.0 - 0.2 /CUMM) 0 09/07 09/07 09/07 1125 1119 1115 Chemistry Sodium (137 - 145 mmol/L) 131 L Potassium (3.5 - 5.1 mmol/L) 4.9 Chloride (98 - 107 mmol/L) 97 L Carbon Dioxide (22 - 30 mmol/L) 22 Anion Gap (5 - 16) 12 BUN (9 - 20 mg/dL) 16 Creatinine (0.7 - 1.2 mg/dL) 1.0 Estimated GFR (>60 ml/min) > 60 BUN/Creatinine Ratio (7 - 25 %) 16.0 Glucose (65 - 99 mg/dL) 127 H Calcium (8.4 - 10.2 mg/dL) 9.1 Total Bilirubin (0.2 - 1.3 mg/dL) 0.7 AST (17 - 59 U/L) 22 ALT (21 - 72 U/L) 21 Alkaline Phosphatase (< 127 U/L) 68 Troponin I (<0.11 ng/ml) 0.02 Total Protein (6.3 - 8.2 g/dL) 6.8 Albumin (3.5 - 5.0 g/dL) 3.6 Globulin (1.9 - 4.2 gm/dL) 3.2 Albumin/Globulin Ratio (1.1 - 2.2 %) 1.1 Vit D 1,25-Dihyd Total Cancelled Pending 1,25 Dihydroxy Vit D2 Cancelled Pending 1,25 Dihydroxy Vit D3 Cancelled Pending Coagulation PT (9.4 - 12.5 SEC) 13.0 H INR (0.90 - 1.17) 1.19 H APTT (25 - 37 SEC) 30 Hematology CBC w Diff NO MAN DIFF REQ WBC (4.8 - 10.8 /CUMM) 10.9 H RBC (4.70 - 6.10 /CUMM) 3.57 L Hgb (14.0 - 18.0 G/DL) 10.4 L Hct (42 - 52 %) 31.4 L MCV (80.0 - 94.0 FL) 87.8 MCH (27.0 - 31.0 PG) 29.0 MCHC (33.0 - 37.0 G/DL) 33.1 RDW (11.5 - 14.5 %) 15.9 H Plt Count (130 - 400 /CUMM) 635 H MPV (7.4 - 10.4 FL) 7.4 Gran % (42.2 - 75.2 %) 73.3 Lymphocytes % (20.5 - 51.1 %) 15.8 L Monocytes % (1.7 - 9.3 %) 7.7 Eosinophils % (0 - 5 %) 2.7 Basophils % (0.0 - 2.0 %) 0.5 Absolute Granulocytes (1.4 - 6.5 /CUMM) 8.0 H Absolute Lymphocytes (1.2 - 3.4 /CUMM) 1.7 Absolute Monocytes (0.10 - 0.60 /CUMM) 0.8 H Absolute Eosinophils (0.0 - 0.7 /CUMM) 0.3 Absolute Basophils (0.0 - 0.2 /CUMM) 0.1 Diagnostic Data CXR Results FINDINGS: No airspace opacity or pleural effusion is seen. Emphysematous changes again evident. Multiple surgical clips are present in the mediastinum with sternotomy wires in place. A dual-chamber pacemaker device is again visible. The cardiac silhouette is unchanged. No acute osseous abnormality is seen. IMPRESSION: No acute process. Stable emphysematous changes. Assessment/Plan Assessment/Plan Assessment: 1. Status post right hip fracture, repair, with recurrent symptoms, pending redo fixation of gamma nail 2. Known CAD; last cath in 10/14 with non revascularizable disease at that time 3. PPM / AICD 4. PAD 5. COPD Recommendations: 1. From a cardiac perspective, the patient has moderate risk of cardiac issues with any surgery. He has been stable from a cardiac standpoint, but has had a cardiac event/VT/VT about 18 months ago and cath at that time showed significant disease which was not amenable to intervention. At the present time, although his activities are increasingly limited, the patient has had no new symptoms, he has no evidence of overt heart failure, and there are no changes on examination or ECG. 2. I would monitor the patient on telemetry post procedure for 24-36 hours; check troponin 2 and ECG 2 post procedure 3. During the procedure a magnet can be placed on his device and removed post procedure. 4. Continue regular meds if possible. Consult Acknowledgment - Thank you for your consult request.
[2017-09-08 12:05] VITALS: BP 120/80
[2017-09-08 18:57] LABS: ABSOLUTE BASOPHIL COUNT 0 /CUMM (0.0-0.2); ABSOLUTE EOSINOPHIL COUNT 0.1 /CUMM (0.0-0.7); ABSOLUTE GRANULOCYTE CT 7.5 /CUMM (1.4-6.5); ABSOLUTE MONOCYTE COUNT 0.7 /CUMM (0.10-0.60); BASOPHIL % 0.3 % (0.0-2.0); EOSINOPHIL % 1.2 % (0-5); GRANULOCYTE % 79.4 % (42.2-75.2); MEAN CORPUSCULAR HGB 29.3 PG (27.0-31.0); MEAN CORPUSCULAR HGB CONC 32.9 G/DL (33.0-37.0); MEAN CORPUSCULAR VOLUME 89.1 FL (80.0-94.0); MEAN PLATELET VOLUME 7.3 FL (7.4-10.4); PLATELET COUNT 468 /CUMM (130-400); RBC DISTRIBUTION WIDTH 15.3 % (11.5-14.5); WHITE BLOOD CELL COUNT 9.4 /CUMM (4.8-10.8)
--- NOTE | 2017-09-08 19:07 | RADIOLOGY REPORT ---
EXAMINATION: XR HIP, RIGHT CLINICAL INFORMATION: Postop right hip replacement. COMPARISON: 05/24/2017 TECHNIQUE: 1 portable view of the right hip. FINDINGS: Since the prior study, a jared and screw device have been removed from the right hip and a right total hip prosthesis is in place. Sutures are present and a surgical drain is in place. Bone fragments surround the proximal femur. No acute fracture is seen. IMPRESSION: Right postoperative hip findings as described above.
[2017-09-08 19:41] VITALS: BP 130/84
[2017-09-08 22:03] VITALS: BP 144/86
[2017-09-09 07:23] VITALS: BP 120/50
--- NOTE | 2017-09-09 07:48 | PN- Medicine Consult ---
Veronica Gill 09/09/17 0747: Assessment/PlanMedical Consult Assessment/Plan Assessment: 71-year-old gentleman past medical history significant for CAD status post multiple MIs with PCI and multiple stents placement and CABG, s/p PPM / AICD, COPD, obstructive sleep apnea, Parkinson's disease, severe peripheral artery disease, prostate cancer status post radiation and in remission, history of right intertrochanteric fracture status post total hip release placement gamma nail surgery by Dr. Jara in April 2017. [facility] for worsening right hip pain, admitted to surgical save service for revision of the gamma nail fixation versus total hip replacement. S/p right total hip prosthesis POD 1. Medicine consulted for comanagement. Patient transferred to telemetry floor postoperatively actively for cardiac monitoring afebrile overnight. Afebrile overnight. Vitals stable saturating 99% on room air. No overnight tele events noted. In NSR with intermittent pacing. Trop neg X2. Most recent EKG showing NSR with nonspecific T Wave inversions in anterior leads. Plan: Problem list: 1. failed right hip implant/nail fixation 2. CAD s/p [place] with PCI and multiple stents placement 3.HFrEF 4.COPD not on home O2, 5.ANDRADE. 6.PAD 7.prostate cancer s/p radiation in remission Plan: Repeat EKG Incentive spirometry at bedside. Would continue home meds including amlodipine, Imdur, Coreg, Cymbalta, Ranexa, Sinemet and Neurontin Eliquis restarted by surgery Continue current pain regimen of Tylenol/Roxicodone/Percocet. Started on regular diet, if he has good p.o. intake can DC IV fluids continue bowel regimen Thank you for your consult will follow along with you DVT PPX : Eliquis restarted Full Code Formal attending recommendations to follow Problem List: 1. Intertrochanteric fracture of right femur 2. CAD (coronary artery disease) 3. ANDRADE (obstructive sleep apnea) 4. Failed orthopedic implant Subjective Subjective: Seen and examined patient, States that the pain in his hip is worse. Denies any fever, chills, shortness of breath or palpitations. Feels hungry and would like to eat. Review of Systems Constitutional: Reports: see HPI. Objective Last 24 Hrs of Vital Signs/I&O Vital Signs Date Time Temp Pulse Resp B/P B/P Pulse O2 O2 Flow FiO2 Mean Ox Delivery Rate 09/09 722 97.1 65 18 120/50 99 09/09 0000 Nasal 3.0L Cannula 09/08 2202 98.6 73 18 144/86 100 09/08 2113 71 130/70 09/08 2113 71 130/70 09/08 1941 98.0 62 14 130/84 99 09/08 1205 97.9 61 18 120/80 94 Room Air 09/08 0846 64 130/76 09/08 0846 64 130/76 09/08 0846 64 130/76 Intake & Output 09/09 0800 09/09 0000 09/08 1600 Intake Total 500 800 Output Total 200 300 725 Balance -200 200 75 Intake, IV 300 800 Intake, Oral 200 0 Number 0 Bowel Movements Output, 150 Drainage Output, Urine 200 150 725 Patient 122 lb Weight Physical Exam General Appearance: alert, awake, comfortable, cachetic Cardiovascular: regular rate/rhythm Respiratory: normal breath sounds Abdomen: normal bowel sounds, soft, non-tender Extremities: dressing over left hip Current Medications: Current Medications Sig/Jesus Start time Last Medication Dose Route Stop Time Status Admin Acetaminophen 1,000 MG Q6H 09/08 2045 AC 09/09 N/A 1 UNIT IV 09/09 1459 0239 Acetaminophen 650 MG Q6PRN PRN 09/07 1330 AC 09/08 PO 0029 Albuterol Sulfate 2 PUF Q4-6 PRN PRN 09/07 1345 AC INH Amlodipine Besylate 5 MG DAILY 09/08 899 AC 09/08 PO 0846 Apixaban 2.5 MG BID 09/09 899 AC PO Budesonide/ 2 PUF BID 09/07 2099 AC 09/08 Formoterol Fumarate INH 211 Carbidopa/Levodopa 1 TAB QPM 09/07 2099 AC 09/08 PO 2110 Carvedilol 12.5 MG BID 09/07 2099 AC 09/08 PO 211 Cefazolin Sodium 2 GM Q8H 09/08 2215 DC 09/09 N/A 1 UNIT IV 09/09 0644 0531 Dextrose/Sodium 1,000 ML Q10H 09/08 0000 AC 09/09 Chloride IV 0530 Docusate Sodium 100 MG BID 09/07 2099 AC 09/08 PO 211 Duloxetine HCl 60 MG DAILY 09/08 899 AC 09/08 PO 0846 Fentanyl Citrate 250 MCG .STK-MED ONE 09/08 1335 DC IM 09/08 1336 Gabapentin 100 MG TID 09/07 1400 AC 09/08 PO 2110 Heparin Sodium 5,000 UNIT Q8 09/07 2200 DC 09/09 (Porcine) SC 09/09 07 0534 Hydromorphone HCl 1 MG Q2-3 HRS NEEDED.. 09/08 1900 AC 09/09 IV 0757 Isosorbide 60 MG DAILY 09/08 09 AC 09/08 Mononitrate PO 0846 Ketorolac 30 MG ONCE ONE 09/08 204 DC 09/08 Tromethamine IV 09/08 2045 2128 Melatonin 5 MG QPM 09/07 2100 AC 09/08 PO 211 Midazolam HCl 2 MG .STK-MED ONE 09/08 1336 DC IM 09/08 1337 Omeprazole 40 MG DAILY AC 09/08 07 AC 09/09 PO 0537 Ondansetron HCl 4 MG Q6-PRN PRN 09/07 1345 AC IV Oxycodone HCl 5 MG Q4-6 PRN PRN 09/08 2045 AC PO Oxycodone HCl 10 MG Q4-6 PRN PRN 09/08 2045 AC 09/09 PO 0238 Oxycodone HCl 5 MG Q4 HRS NEEDED PRN 09/07 1345 DC 09/08 PO 1127 Oxycodone/ 2 TAB Q4P PRN 09/07 1345 DC 09/07 Acetaminophen PO 1945 Polyethylene Glycol 17 GM DAILY NEEDED PRN 09/07 1345 AC PO Ranolazine 500 MG BID 09/07 2100 AC 09/08 PO 211 Tiotropium [place] 1 PUF DAILY 09/08 09 AC 09/08 INH 0749 Tranexamic Acid 2,000 MG .STK-MED ONE 09/08 1341 DC IV 09/08 1342 Results Last 24 Hrs Lab/Rudy Results: Laboratory Tests 09/09/17 0630: Anion Gap 10, Estimated GFR > 60, BUN/Creatinine Ratio 16.3, Calcium 8.2 L, Phosphorus 3.9, Magnesium 1.5 L, CBC w Diff Pending, WBC Pending, RBC Pending, Hgb Pending, Hct Pending, MCV Pending, MCH Pending, MCHC Pending, RDW Pending, Plt Count Pending, MPV Pending 09/09/17 0055: Troponin I 0.02 09/08/17 1800: Anion Gap 9, Estimated GFR > 60, BUN/Creatinine Ratio 12.5, Troponin I 0.02, CBC w Diff NO MAN DIFF REQ, RBC 3.70 L, MCV 89.1, MCH 29.3, MCHC 32.9 L, RDW 15.3 H, MPV 7.3 L, Gran % 79.4 H, Lymphocytes % 11.1 L, Monocytes % 8.0, Eosinophils % 1.2, Basophils % 0.3, Absolute Granulocytes 7.5 H, Absolute Lymphocytes 1.0 L, Absolute Monocytes 0.7 H, Absolute Eosinophils 0.1, Absolute Basophils 0 09/08/17 1756: Troponin I Cancelled 09/08/17 1627: CBC w Diff Cancelled, WBC Cancelled, RBC Cancelled, Hgb Cancelled, Hct Cancelled , MCV Cancelled, MCH Cancelled, MCHC Cancelled, RDW Cancelled, Plt Count Cancelled, MPV Cancelled Microbiology 09/08 1417 URINE ROUT: Urine Culture - RECD Recent Imaging Studies: SERVICE DATE: 09/08/17-1755 Postop right hip replacement. FINDINGS: Since the prior study, a jared and screw device have been removed from the right hip and a right total hip prosthesis is in place. Sutures are present and a surgical drain is in place. Bone fragments surround the proximal femur. No acute fracture is seen. IMPRESSION: Right postoperative hip findings as described above. Marquis CORREIA,Krista 09/09/17 1125: Attending MD Review Statement Attending Sign Off Attending Cosign Statement: I have: examined this patient, reviewed [facility] EMR data, personally reviewd images, discussd w/resident/PA/PREPARED FOODS ASSOCIATE, discussed mgmt plan w/pt, agreed w/resident/ PA/PREPARED FOODS ASSOCIATE. Other Findings: Overall patient is doing well and tolerated his surgery okay. His EKG is unrevealing for ischemic changes and his troponin has been negative. Appreciate cardiology follow-up. He's been restarted on his anticoagulation for DVT prophylaxis and will follow-up as per orthopedics.
[2017-09-09 08:26] LABS: ABSOLUTE BASOPHIL COUNT 0 /CUMM (0.0-0.2); ABSOLUTE EOSINOPHIL COUNT 0 /CUMM (0.0-0.7); ABSOLUTE LYMPH COUNT 1.6 /CUMM (1.2-3.4); BASOPHIL % 0.3 % (0.0-2.0); EOSINOPHIL % 0.3 % (0-5); GRANULOCYTE % 77.2 % (42.2-75.2); HEMATOCRIT 30.4 % (42-52); MEAN CORPUSCULAR HGB 29.7 PG (27.0-31.0); MEAN CORPUSCULAR HGB CONC 33.2 G/DL (33.0-37.0); MEAN CORPUSCULAR VOLUME 89.4 FL (80.0-94.0); MEAN PLATELET VOLUME 7.8 FL (7.4-10.4); PLATELET COUNT 399 /CUMM (130-400); RBC DISTRIBUTION WIDTH 15.3 % (11.5-14.5); WHITE BLOOD CELL COUNT 11.6 /CUMM (4.8-10.8)
--- NOTE | 2017-09-09 10:08 | PN- Cardiology ---
Subjective Subjective: The patient is doing well status post surgery. He complains of pain at the surgical site. No chest pain. No palpitations. No shortness of breath. No diaphoresis. Objective Vital Signs and I&Os Vital Signs Date Time Temp Pulse Resp B/P B/P Pulse O2 O2 Flow FiO2 Mean Ox Delivery Rate 09/09 0916 18 94 Room Air 09/09 0857 120/50 09/09 0857 120/50 09/09 0857 120/50 09/09 0851 120/50 09/09 0723 97.1 65 18 120/50 99 09/09 0000 Nasal 3.0L Cannula 09/083 98.6 73 18 144/86 100 09/08 2114 71 130/70 09/08 2114 71 130/70 09/08 1941 98.0 62 14 130/84 99 09/08 1205 97.9 61 18 120/80 94 Room Air Intake & Output 09/09 1600 09/09 0800 09/09 0000 09/08 1600 09/08 0800 09/08 0000 Intake Total 480 500 800 480 Output Total 255 964 146 8278 Balance 225 200 75 -695 Intake, IV 300 800 Intake, Oral 480 200 0 480 Number 0 Bowel Movements Output, 55 150 Drainage Output, Urine 200 716 901 7114 Patient 122 lb Weight Physical Exam: Gen: NAD HEENT: normal Lungs: clear to auscultation, normal resp. effort Heart: RRR, S1, S2, 2 out of 6 systolic murmur Abdomen: Soft, nontender, no masses Extremities: No clubbing, cyanosis, or edema. Neuro: Alert and oriented x 3, cranial nerves intact Current Medications: Current Medications Sig/Jesus Start time Last Medication Dose Route Stop Time Status Admin Acetaminophen 1,000 MG Q6H 09/08 2044 AC 09/09 N/A 1 UNIT IV 09/09 1459 0849 Acetaminophen 650 MG Q6PRN PRN 09/07 1330 AC 09/08 PO 0029 Albuterol Sulfate 2 PUF Q4-6 PRN PRN 09/07 1345 AC INH Amlodipine Besylate 5 MG DAILY 09/08 899 AC 09/09 PO 0857 Apixaban 2.5 MG BID 09/09 0900 AC 09/09 PO 0851 Budesonide/ 2 PUF BID 09/07 2100 AC 09/09 Formoterol Fumarate INH 0902 Carbidopa/Levodopa 1 TAB QPM 09/07 2100 AC 09/08 PO 2110 Carvedilol 12.5 MG BID 09/07 2100 AC 09/09 PO 0851 Cefazolin Sodium 2 GM Q8H 09/08 2215 DC 09/09 N/A 1 UNIT IV 09/09 0644 0531 Dextrose/Sodium 1,000 ML Q10H 09/08 0000 AC 09/09 Chloride IV 0530 Docusate Sodium 100 MG BID 09/07 2100 AC 09/09 PO 0849 Duloxetine HCl 60 MG DAILY 09/08 09 AC 09/09 PO 0851 Fentanyl Citrate 250 MCG .STK-MED ONE 09/08 133 DC IM 09/08 1336 Gabapentin 100 MG TID 09/07 1400 AC 09/09 PO 0857 Heparin Sodium 5,000 UNIT Q8 09/07 2200 DC 09/09 (Porcine) SC 09/09 07 0534 Hydromorphone HCl 1 MG Q2-3 HRS NEEDED.. 09/08 1900 AC 09/09 IV 0757 Isosorbide 60 MG DAILY 09/08 09 09/09 Mononitrate PO 0857 Ketorolac 30 MG ONCE ONE 09/08 204 DC 09/08 Tromethamine IV 09/088 Melatonin 5 MG QPM 09/07 2099 AC 09/08 PO 2110 Midazolam HCl 2 MG .STK-MED ONE 09/08 1336 DC IM 09/08 1337 Omeprazole 40 MG DAILY AC 09/08 07 AC 09/09 PO 0851 Ondansetron HCl 4 MG Q6-PRN PRN 09/07 1345 IV Oxycodone HCl 5 MG Q4-6 PRN PRN 09/08 204 AC PO Oxycodone HCl 10 MG Q4-6 PRN PRN 09/08 204 AC 09/09 PO 0846 Oxycodone HCl 5 MG Q4 HRS NEEDED PRN 09/07 1345 DC 09/08 PO 1127 Oxycodone/ 2 TAB Q4P PRN 09/07 1345 DC 09/07 Acetaminophen PO 1945 Polyethylene Glycol 17 GM DAILY NEEDED PRN 09/07 1345 AC 09/09 PO 0858 Ranolazine 500 MG BID 09/07 2100 AC 09/09 PO 0857 Tiotropium [place] 1 PUF DAILY 09/08 0900 AC 09/09 INH 0903 Tranexamic Acid 2,000 MG .STK-MED ONE 09/08 1341 DC IV 09/08 1342 Results Last 48 Hrs of Labs/Mics: Laboratory Tests 09/09/17 0630: Anion Gap 10, Estimated GFR > 60, BUN/Creatinine Ratio 16.3, Calcium 8.2 L, Phosphorus 3.9, Magnesium 1.5 L, CBC w Diff NO MAN DIFF REQ, RBC 3.40 L, MCV 89.4, MCH 29.7, MCHC 33.2, RDW 15.3 H, MPV 7.8, Gran % 77.2 H, Lymphocytes % 13.6 L, Monocytes % 8.6, Eosinophils % 0.3, Basophils % 0.3, Absolute Granulocytes 9.0 H, Absolute Lymphocytes 1.6, Absolute Monocytes 1.0 H, Absolute Eosinophils 0, Absolute Basophils 0 09/09/17 0055: Troponin I 0.02 09/08/17 1800: Anion Gap 9, Estimated GFR > 60, BUN/Creatinine Ratio 12.5, Troponin I 0.02, CBC w Diff NO MAN DIFF REQ, RBC 3.70 L, MCV 89.1, MCH 29.3, MCHC 32.9 L, RDW 15.3 H, MPV 7.3 L, Gran % 79.4 H, Lymphocytes % 11.1 L, Monocytes % 8.0, Eosinophils % 1.2, Basophils % 0.3, Absolute Granulocytes 7.5 H, Absolute Lymphocytes 1.0 L, Absolute Monocytes 0.7 H, Absolute Eosinophils 0.1, Absolute Basophils 0 09/08/17 1756: Troponin I Cancelled 09/08/17 1627: CBC w Diff Cancelled, WBC Cancelled, RBC Cancelled, Hgb Cancelled, Hct Cancelled , MCV Cancelled, MCH Cancelled, MCHC Cancelled, RDW Cancelled, Plt Count Cancelled, MPV Cancelled 09/08/17 0617: Anion Gap 10, Estimated GFR > 60, BUN/Creatinine Ratio 18.6, CBC w Diff NO MAN DIFF REQ, RBC 3.58 L, MCV 87.9, MCH 29.0, MCHC 33.0, RDW 16.8 H, MPV 7.7, Gran % 49.3, Lymphocytes % 37.6, Monocytes % 8.0, Eosinophils % 4.5, Basophils % 0.6, Absolute Granulocytes 3.1, Absolute Lymphocytes 2.4, Absolute Monocytes 0.5, Absolute Eosinophils 0.3, Absolute Basophils 0 09/07/17 1226: Vit D 1,25-Dihyd Total Cancelled, 1,25 Dihydroxy Vit D2 Cancelled, 1,25 Dihydroxy Vit D3 Cancelled 09/07/17 1125: Anion Gap 12, Estimated GFR > 60, BUN/Creatinine Ratio 16.0, Glucose 127 H, Calcium 9.1, Total Bilirubin 0.7, AST 22, ALT 21, Alkaline Phosphatase 68, Troponin I 0.02, Total Protein 6.8, Albumin 3.6, Globulin 3.2, Albumin/Globulin Ratio 1.1, PT 13.0 H, INR 1.19 H, APTT 30, CBC w Diff NO MAN DIFF REQ, RBC 3.57 L, MCV 87.8, MCH 29.0, MCHC 33.1, RDW 15.9 H, MPV 7.4, Gran % 73.3, Lymphocytes % 15.8 L, Monocytes % 7.7, Eosinophils % 2.7, Basophils % 0.5, Absolute Granulocytes 8.0 H, Absolute Lymphocytes 1.7, Absolute Monocytes 0.8 H, Absolute Eosinophils 0.3, Absolute Basophils 0.1 09/07/17 1119: Vit D 1,25-Dihyd Total Cancelled, 1,25 Dihydroxy Vit D2 Cancelled, 1,25 Dihydroxy Vit D3 Cancelled 09/07/17 1115: Vit D 1,25-Dihyd Total Pending, 1,25 Dihydroxy Vit D2 Pending, 1,25 Dihydroxy Vit D3 Pending Assessment/Plan Assessment/Plan Assessment: 1. Right hip fracture, s/p redo surgical repair 2. Known CAD; last cath in 10/14 with non revascularizable disease at that time 3. PPM / AICD 4. PAD 5. COPD Plan: * The patient is stable postoperatively with no cardiac symptoms * Continue current cardiac medications * Follow up with Dr. Soto after discharge Continue telemetry? Yes
--- NOTE | 2017-09-09 11:38 | PN- Orthopedic ---
See Addendum Subjective Subjective: Pt. denies chest pain or dyspnea. Ambulated with PT in room to chair Has moderate pain early this morning but reports improved with narcotics Objective Vital Signs and I&Os Vital Signs Date Time Temp Pulse Resp B/P B/P Pulse O2 O2 Flow FiO2 Mean Ox Delivery Rate 09/09 0916 18 94 Room Air 09/09 0857 120/50 09/09 0857 120/50 09/09 0857 120/50 09/09 0851 120/50 09/09 0723 97.1 65 18 120/50 99 09/09 0000 Nasal 3.0L Cannula 09/08 2203 98.6 73 18 144/86 100 09/08 2114 71 130/70 09/08 2114 71 130/70 09/08 1941 98.0 62 14 130/84 99 09/08 1205 97.9 61 18 120/80 94 Room Air Intake & Output 09/09 1600 09/09 0800 09/09 0000 09/08 1600 09/08 0800 09/08 0000 Intake Total 480 500 800 480 Output Total 255 332 866 5140 Balance 225 200 75 -695 Intake, IV 300 800 Intake, Oral 480 200 0 480 Number 0 Bowel Movements Output, 55 150 Drainage Output, Urine 200 361 003 1309 Patient 122 lb Weight Alert, oriented, appropriate, sitting in chair.No distress Lungs are clear Herat, normal rate Abddomen is soft, benign R hip with dressing on C/D/I, foot warm, neurovascular check intact, appropriately mildly tender Assessment/Plan Assessment/Plan s/p RTHA/ explant gamma nail POD#1 Stable Progressing as expected. Pain improved Nerovascularly intact Continue mobility with PT, WBAT Anticoagulation with Eliquis. Eventually plan for discharge to rehab Core Measures Venous Thromboembolism VTE Risk Factors Surgery No Mechanical VTE Prophylaxis d/t N/A MechProphylax Ordered No VTE Pharm Prophylaxis d/t NA PharmProphylax ordered
[2017-09-09 15:35] VITALS: BP 130/70
[2017-09-09 20:42] VITALS: BP 118/66
[2017-09-09 22:02] VITALS: BP 110/76
[2017-09-10 06:13] VITALS: BP 98/50
--- NOTE | 2017-09-10 07:04 | Patient Discharge Instructions ---
Discharge Instructions General Discharge Information You were seen/treated for: failed hardware right hip You had these procedures: removal of failed hardware and right total hip arthroplasty 09/08, closed reduction 09/12 - Watch for these problems: increased wound drainage/redness, temp>101.5, increased pain right leg with ambulation Call Surgeon to remove: Adamaris No bath, but you may shower: Yes Other wound care: keep woudn clean and dry Special Instructions: Keep abduction brace to right leg. Follow up with primary care physician within two weeks of discharge Diet Continue normal diet: Yes Activity Activity Limited to: Weight bear as tolerated Additional ACTIVITY Info: right posterior hip precautions, abductor brace to right lower extremity Acute Coronary Syndrome Inclusion Criteria At DC or during hospital stay patient has or had the following: ACS DIAGNOSIS No Discharge Core Measures Meds if any: Prescribed or Continued at Discharge Meds if any: NOT Prescribed or Continued at Discharge Congestive Heart Failure Inclusion Criteria At DC or during hospital stay patient has or had the following: CHF DIAGNOSIS No Discharge Core Measures Meds if any: Prescribed or Continued at Discharge Meds if any: NOT Prescribed or Continued at Discharge Cerebrovascular accident Inclusion Criteria At DC or during hospital stay patient has or had the following: CVA/TIA Diagnosis No Discharge Core Measures Meds if any: Prescribed or Continued at Discharge Meds if any: NOT Prescribed or Continued at Discharge Venous thromboembolism Inclusion Criteria VTE Diagnosis No VTE Type NONE VTE Confirmed by (Test) NONE Discharge Core Measures - Per Current guidelines, there needs to be overlap - treatment for the first 5 days of Warfarin therapy. - If discharged on Warfarin prior to 5 days of - overlap therapy, the patient will need to be - assessed for post discharge needs including - *Post discharge parental anticoagulation - *Warfarin and/or parental anticoagulation education - *Follow up date to check INR post discharge At least 5 days overlap therapy as Inpatient No Meds if any: Prescribed or Continued at Discharge Note: Overlap Therapy is Warfarin and Anticoagulant Meds if any: NOT Prescribed or Continued at Discharge
[2017-09-10] MEDS ORDERED: OXYCODONE HCL10 M2 PO (07:07)
--- NOTE | 2017-09-10 07:16 | Discharge Summary ---
Visit Information Visit Dates Admission Date: 09/07/17 Discharge Date: 09/17/17 Hospital Course Course Attending Physician: Marek CORREIA,Connor Ohara Primary Care Physician: Xuan CORREIA,Toni Araiza Consulting Request: Consulting Specialty: Cardiology Consulting Physician: Dr. Soto Reason for Consult: preop clearance Hospital Course: Mr. Cohen THIS IS A 71YO M WITH SIGNIFICANT CARDIAC HISTORY INCLUDING PPM/ AICD, 4 HEART ATTACKS AND A CABG, HTN, COPD, PARKINSONS, CHRONIC PAIN AND HX OF PROSTATE CANCER, NOW IN REMISSION. STATES HE FELL ABOUT 4 MONTHS AGO RESULTING IN A RIGHT INTERTROCH FRACURE WHICH WAS REPAIRED WITH A GAMMA NAIL BY DR JARA ON 05/26/17. OVER LAST SEVERAL DAYS PT NOTES INCREASED PAIN IN HIS RIGHT HIP THAT RADIATES DOWN HIS LEG. HE DENIES ANY FALLS SINCE HIS SURGERY. DENIES PARESTHESIAS. ABLE TO BEAR WEIGHT. PT WAS SENT TO THE ER FOR ADMISSION TO REVISE GAMMA NAIL FIXATION TO TOTAL HIP REPLACEMENT After admission the patient was evaluated by Dr. Soto and cleared for revision right hip surgery. He was taken to the operating room on 09/08/2017 and underwent removal of hardware right hip and placement of right total hip arthroplasty. He had continued pain post op and it was noted that he had a dislocation of the hip and was therefore returned to the OR on 09/12 for a closed reduction. He tolerated the procedure well and was transferred to the floor for monitoring postoperatively. EKG evaluation and troponin evaluation post surgery did not reveal any evidence of ischemic changes. He was out of bed with physical therapy with posterior hip precautions and was placed in an abductor brace for the right hip and was determined that he will require rehab placement to increase his activities of daily living and return to baseline ambulation. He was placed on eliquis post op. He was seen by the medicine service for management of hyponatremia which slowly resolved with fluid restriction to his baseline. He was seen by cardiology and pulmonology and remained stable. He was cleared for discharge to rehab and spent a couple of days in the hospital awaiting rehab placement. Allergies: Coded Allergies: No Known Allergies (07/23/17) Significant Procedures: Gamma nail removal, R MUNDO R hip closed reduction See operative reports Disposition Summary Disposition Principal Diagnosis: Failed hardware right hip, MUNDO dislocation Additional Diagnosis: CAD, [place], COPD, Parkinson's Discharge Disposition: SNF Discharge Instructions General Discharge Information Code Status: Full Code Patient's Diet: Regular diet Patient's Activity: May be weightbearing as tolerated right lower extremity, posterior hip precautions for the right hip should be adhered to. Abductor brace to RLE. Follow-Up Instructions/Appts: Follow-up with Dr. Jara in the office in 2 weeks Medications at Discharge Discharge Medications: Stop taking the following medications: Lubiprostone (Amitiza) 24 MCG CAPSULE ORAL TWICE DAILY Sennosides/Docusate Sodium (Senna S Tablet) 8.6 MG-50 MG TABLET ORAL Every night Continue taking these medications: Carbidopa/Levodopa (Sinemet 25-100 MG Tablet) 25 MG-100 MG TABLET 1 Tablet ORAL Every night Comments: Last Taken: 09/17/17 Time: 8:00 PM Duloxetine HCl (Cymbalta) 60 MG CAPSULE.DR 1 Capsule ORAL DAILY Comments: Last Taken: 09/17/17 Time: 9:30 AM Amlodipine Besylate (Norvasc) 5 MG TABLET 1 Tablet ORAL DAILY Comments: Last Taken: 09/17/17 Time: 9:30 AM Ranolazine (Ranexa) 500 MG TAB.ER.12H 1 Tablet ORAL TWICE DAILY Comments: Last Taken: 09/17/17 Time: 9:30 AM Fentanyl (Fentanyl) 50 MCG/HOUR PATCH.TD72 1 Patch On the skin Every 3 days Comments: Last Taken: 09/16/17 Time: 8:00PM Omeprazole (Omeprazole) 40 MG CAPSULE.DR 1 Capsule ORAL DAILY Qty = 30 Comments: Last Taken: 09/17/17 Time: 6:00 AM Metoclopramide HCl (Reglan) 10 MG TABLET 1 Tablet ORAL BEFORE MEALS AND AT BEDTIME Qty = 90 Instructions: 30 minutes before meals and bedtime Comments: PER PT NOT GIVEN IN HOSPITAL Budesonide/Formoterol Fumarate (Symbicort 160-4.5 Mcg Inhaler) 160 MCG-4.5 MCG/ ACTUATION HFA.AER.AD 2 Puff Inhale through mouth TWICE DAILY Qty = 10 Comments: PER PT Last Taken: 09/16/17 Time: 9:00 AM Spironolactone (Spironolactone) 25 MG TABLET 0.5 Tablet ORAL As Directed Qty = 15 Comments: PER PT NOT GIVEN IN HOSPITAL Isosorbide Mononitrate (Isosorbide Mononitrate ER) 60 MG TAB.ER.24H 1 Tablet ORAL DAILY Qty = 30 Comments: PER PT Last Taken: 09/16/17 Time: 9:00 AM Aspirin (Ecotrin*) 81 MG TABLET.DR 1 Tablet ORAL DAILY Comments: PER PT NOT GIVEN IN HOSPITAL Tiotropium [place] (Spiriva) 18 MCG CAP.W.DEV 1 Puff Inhale through mouth DAILY Qty = 1 Comments: Last Taken: 09/17/17 Time: 9:00 AM Apixaban (Eliquis) 2.5 MG TABLET 2.5 Milligram ORAL TWICE DAILY Qty = 60 Comments: Last Taken: 09/17/17 Time: 9:30 AM Docusate Sodium (Colace) 100 MG CAPSULE 1 Capsule ORAL DAILY Comments: Last Taken: 09/17/17 Time: 9:30 AM Polyethylene Glycol 3350 (Miralax) 17 GRAM/DOSE POWDER 17 Gram ORAL DAILY as needed for CONSTIPATION Instructions: mix with water, juice, soda, coffee or tea Comments: Last Taken: 09/09/17 Time: 9:00 AM Cholecalciferol (Vitamin D3) (Vitamin D) 1,000 UNIT TABLET 1 Tablet ORAL DAILY Comments: NOT GIVEN IN HOSPITAL Melatonin (Melatonin) 5 MG TABLET 1 Tablet ORAL Every night Comments: Last Taken: 09/16/17 Time: 8:00 PM Carvedilol (Carvedilol) 12.5 MG TABLET 1 Tablet ORAL TWICE DAILY Comments: Last Taken: 09/17/17 Time: 9:30 AM Gabapentin (Gabapentin) 100 MG CAPSULE 1 Capsule ORAL THREE TIMES DAILY Comments: Last Taken: 09/17/17 Time: 9:30 PM Albuterol Sulfate (Proair Hfa) 90 MCG HFA.AER.AD 2 Puff Inhale through mouth EVERY 4-6 HOURS NEEDED as needed for SHORTNESS OF BREATH Comments: NOT GIVEN IN HOSPITAL Start taking the following new medications: Oxycodone HCl (Oxycodone HCl) 10 MG TABLET 1 Tablet ORAL EVERY 4-6 HOURS NEEDED as needed for PAIN Qty = 30 No Refills Comments: Last Taken: 09/17/17 Time: 1:00 PM Copies To: Marek CORREIA,Connor Ohara
--- NOTE | 2017-09-10 07:24 | PN- Orthopedic ---
Subjective Subjective: pod#2 s/p right chong comfortable no majorissues overnight denies cp, sob, no n+v with diet Objective Vital Signs and I&Os Vital Signs Date Time Temp Pulse Resp B/P B/P Pulse O2 O2 Flow FiO2 Mean Ox Delivery Rate / 0613 98.2 67 16 98/50 97 Room Air / 2202 98.4 66 16 110/76 94 / 2042 98.6 67 18 118/66 93 Room Air / 2036 67 118/66 / 2036 67 118/66 / 1535 98.0 63 20 130/70 97 / 1142 Room Air 3.0L 09/09 0916 18 94 Room Air / 0857 120/50 09/09 0857 120/50 09/09 0857 120/50 09/09 0851 120/50 09/09 0723 97.1 65 18 120/50 99 Intake & Output 09/10 0800 / 0000 12 1600 09/09 0800 09/09 0000 09/08 1600 Intake Total 100 480 480 500 800 Output Total 350 475 360 255 300 725 Balance -250 -475 120 225 200 75 Intake, IV 0 200 300 800 Intake, Oral 100 280 480 200 0 Number 0 0 Bowel Movements Output, 55 150 Drainage Output, Urine 350 475 360 200 150 725 Patient 131 lb 120 lb 122 lb Weight Physical Exam: cv: rrr lungs: clear abd: soft, +bs ext: right le wound c/d/i thigh soft distalcms intact Assessment/Plan Assessment/Plan ortho stable plan ducolax supp cont oob with pt f/u am labs, if ok: stable for ortho d/c when bed avail Core Measures Venous Thromboembolism VTE Risk Factors Surgery No Mechanical VTE Prophylaxis d/t N/A MechProphylax Ordered No VTE Pharm Prophylaxis d/t NA PharmProphylax ordered
--- NOTE | 2017-09-10 07:48 | PN- Medicine Consult ---
Veronica Gill 09/10/17 0748: Assessment/PlanMedical Consult Assessment/Plan Assessment: 71-year-old gentleman past medical history significant for CAD status post multiple MIs with PCI and multiple stents placement and CABG, s/p PPM / AICD, COPD, obstructive sleep apnea, Parkinson's disease, severe peripheral artery disease, prostate cancer status post radiation and in remission, history of right intertrochanteric fracture status post total hip release placement gamma nail surgery by Dr. Jara in April 2017. Admitted to [facility] for worsening right hip pain, admitted to surgical save service for revision of the gamma nail fixation versus total hip replacement. S/p right total hip prosthesis POD 2. Medicine consulted for comanagement. Patient transferred to telemetry floor postoperatively actively for cardiac monitoring afebrile overnight. No overnight tele events noted. trop neg X2 with no new EKG changes noted. Worked with PT yesterday. BP this morning 98/50mmhg, afebrile overnight. Vitals stable saturating 97% on room air. Patient working well with PT. Plan: Problem list: 1. failed right hip implant/nail fixation 2. CAD s/p CO with PCI and multiple stents placement 3.HFrEF 4.COPD not on home O2, 5.ANDRADE. 6.PAD 7.prostate cancer s/p radiation in remission Plan: Enourage Incentive spirometry at bedside. Consider adding PO tyelenol , roxicodone at 10mg Continue home meds including amlodipine, Imdur, Coreg, Cymbalta, Ranexa, Sinemet and Neurontin continue Eliquis continue bowel regimen DVT PPX : Eliquis restarted Full Code Formal attending recommendations to follow Thank you for your consult Problem List: 1. Failed orthopedic implant 2. Intertrochanteric fracture of right femur Subjective Subjective: Seen and examined patient, sitting in bed eating his breakfast. Complains about mild left hip pain offers no other complaints. Review of Systems Constitutional: Denies: chills, diaphoresis, fever, malaise, weakness, unexplained weight loss. Cardiovascular: Denies: chest pain, edema, orthopena, palpitations, peripheral edema, syncope. Objective Last 24 Hrs of Vital Signs/I&O Vital Signs Date Time Temp Pulse Resp B/P B/P Pulse O2 O2 Flow FiO2 Mean Ox Delivery Rate 09/10 0613 98.2 67 16 98/50 97 Room Air 09/09 2202 98.4 66 16 110/76 94 09/09 2042 98.6 67 18 118/66 93 Room Air 09/09 2036 67 118/66 09/09 2036 67 118/66 09/09 1535 98.0 63 20 130/70 97 09/09 1142 Room Air 3.0L 09/09 0916 18 94 Room Air 09/09 0857 120/50 09/09 0857 120/50 09/09 0857 120/50 09/09 0851 120/50 Intake & Output 09/10 1600 09/10 0800 09/10 0000 Intake Total 100 Output Total 350 475 Balance -250 -475 Intake, IV 0 Intake, Oral 100 Number 0 Bowel Movements Output, Urine 350 475 Patient 131 lb Weight Physical Exam General Appearance: no apparent distress, alert, awake, comfortable Cardiovascular: regular rate/rhythm Respiratory: normal breath sounds Abdomen: normal bowel sounds, soft, non-tender Extremities: no edema Current Medications: Current Medications Sig/Jesus Start time Last Medication Dose Route Stop Time Status Admin Acetaminophen 1,000 MG Q6H 09/08 2044 DC 09/09 N/A 1 UNIT IV 09/09 1459 1315 Acetaminophen 650 MG Q6PRN PRN 09/07 1330 AC 09/08 PO 0029 Albuterol Sulfate 2 PUF Q4-6 PRN PRN 09/07 1345 AC INH Amlodipine Besylate 5 MG DAILY 09/08 09 AC 09/09 PO 0857 Apixaban 2.5 MG BID 09/09 09 AC 09/09 PO 2031 Bisacodyl 10 MG ONCE ONE 09/10 0730 DC KS 09/10 0731 Budesonide/ 2 PUF BID 09/07 2099 AC 09/09 Formoterol Fumarate INH 2030 Carbidopa/Levodopa 1 TAB QPM 09/07 2099 AC 09/09 PO 203 Carvedilol 12.5 MG BID 09/07 2100 AC 09/09 PO 203 Dextrose/Sodium 1,000 ML Q10H 09/08 0000 DC 09/09 Chloride IV 0530 Docusate Sodium 100 MG BID 09/07 2100 AC 09/09 PO 203 Duloxetine HCl 60 MG DAILY 09/08 09 AC 09/09 PO 0851 Gabapentin 100 MG TID 09/07 1400 AC 09/09 PO 2030 Hydromorphone HCl 1 MG Q2-3 HRS NEEDED.. 09/08 1900 DC 09/09 IV 1203 Isosorbide 60 MG DAILY 09/08 09 AC 09/09 Mononitrate PO 0857 Magnesium Sulfate 1 GM ONCE ONE 09/09 1700 DC 09/09 Dextrose/Water 100 ML IV 09/09 205 1821 Melatonin 5 MG QPM 09/07 2100 AC 09/09 PO 203 Omeprazole 40 MG DAILY AC 09/08 07 AC 09/09 PO 0851 Ondansetron HCl 4 MG Q6-PRN PRN 09/07 1345 AC IV Oxycodone HCl 5 MG Q4-6 PRN PRN 09/08 204 AC 09/09 PO 203 Oxycodone HCl 10 MG Q4-6 PRN PRN 09/08 204 AC 09/10 PO 0539 Polyethylene Glycol 17 GM DAILY NEEDED PRN 09/07 1345 AC 09/09 PO 0858 Ranolazine 500 MG BID 09/07 2100 AC 09/09 PO 203 Sodium Chloride 1,000 ML Q13H 09/10 0645 CAN IV 09/10 194 Tiotropium [place] 1 PUF DAILY 09/08 09 AC 09/09 INH 0903 Results Last 24 Hrs Lab/Rudy Results: Laboratory Tests 09/10/17 0615: Phosphorus Pending, Magnesium Pending Marquis CORREIA,Krista 09/10/17 1125: Attending MD Review Statement Attending Sign Off Attending Cosign Statement: I have: examined this patient, reviewed [facility] EMR data, personally reviewd images, discussd w/resident/PA/HEALTH AND WELLNESS COACH, discussed mgmt plan w/pt, agreed w/resident/ PA/HEALTH AND WELLNESS COACH. Other Findings: The patient is doing well. He tolerated the surgery on the right hip and is on his cardiac medications. The plan is for him to go to rehabilitation to place close to his brother's and ultimately transition home. We'll sign off for now please recall if any active medical issues arise.
[2017-09-10 10:46] LABS: ABSOLUTE BASOPHIL COUNT 0 /CUMM (0.0-0.2); ABSOLUTE EOSINOPHIL COUNT 0.1 /CUMM (0.0-0.7); ABSOLUTE GRANULOCYTE CT 11.5 /CUMM (1.4-6.5); BASOPHIL % 0.1 % (0.0-2.0); EOSINOPHIL % 0.5 % (0-5); HEMATOCRIT 25.9 % (42-52); MEAN CORPUSCULAR HGB 29.2 PG (27.0-31.0); MEAN CORPUSCULAR VOLUME 88.3 FL (80.0-94.0); MEAN PLATELET VOLUME 7.9 FL (7.4-10.4); PLATELET COUNT 328 /CUMM (130-400); RBC DISTRIBUTION WIDTH 15.4 % (11.5-14.5); RED BLOOD CELL CT 2.94 /CUMM (4.70-6.10); WHITE BLOOD CELL COUNT 13.6 /CUMM (4.8-10.8)
[2017-09-10 11:25] LABS: GRANULOCYTE % 84.7 % (42.2-75.2)
--- NOTE | 2017-09-10 12:15 | PN- Cardiology ---
Subjective Subjective: The patient is sitting in bed comfortably. No new issues. No specific cardiac complaints. Some discomfort at surgical site Objective Vital Signs and I&Os Vital Signs Date Time Temp Pulse Resp B/P B/P Pulse O2 O2 Flow FiO2 Mean Ox Delivery Rate 09/10 612 98.2 67 16 98/50 97 Room Air 09/09 2202 98.4 66 16 110/76 94 09/09 204 98.6 67 18 118/66 93 Room Air 09/10 2035 67 118/66 09/09 203 67 118/66 09/09 1535 98.0 63 20 130/70 97 Intake & Output 09/10 1600 09/10 0800 09/10 0000 09/09 1600 09/09 0809/09 0000 Intake Total 100 480 480 500 Output Total 350 475 360 255 300 Balance -250 -475 120 225 200 Intake, IV 0 200 300 Intake, Oral 100 280 480 200 Number 0 0 Bowel Movements Output, 55 150 Drainage Output, Urine 350 475 360 200 150 Patient 131 lb 120 lb 122 lb Weight Current Medications: Current Medications Sig/Jesus Start time Last Medication Dose Route Stop Time Status Admin Acetaminophen 1,000 MG Q6H 09/08 204 DC 09/09 N/A 1 UNIT IV 09/09 1459 1315 Acetaminophen 650 MG Q6PRN PRN 09/07 1330 AC 09/08 PO 0029 Albuterol Sulfate 2 PUF Q4-6 PRN PRN 09/07 1345 AC INH Amlodipine Besylate 5 MG DAILY 09/08 899 AC 09/09 PO 0857 Apixaban 2.5 MG BID 09/09 899 AC 09/10 PO 0839 Bisacodyl 10 MG ONCE ONE 09/10 0730 DC AL 09/10 0731 Budesonide/ 2 PUF BID 09/07 2099 AC 09/10 Formoterol Fumarate INH 0844 Carbidopa/Levodopa 1 TAB QPM 09/07 2099 AC 09/09 PO 2030 Carvedilol 12.5 MG BID 09/07 2099 AC 09/09 PO 203 Docusate Sodium 100 MG BID 09/07 2100 AC 09/10 PO 0838 Duloxetine HCl 60 MG DAILY 09/08 899 AC 09/10 PO 0839 Gabapentin 100 MG TID 09/07 1400 AC 09/10 PO 0838 Hydromorphone HCl 1 MG Q2-3 HRS NEEDED.. 09/08 1900 DC 09/09 IV 1203 Isosorbide 60 MG DAILY 09/08 09 AC 09/09 Mononitrate PO 0857 Magnesium Sulfate 1 GM ONCE ONE 09/09 1700 DC 09/09 Dextrose/Water 100 ML IV 09/09 2058 1821 Melatonin 5 MG QPM 09/07 2100 AC 09/09 PO 2032 Omeprazole 40 MG DAILY AC 09/08 07 AC 09/09 PO 0851 Ondansetron HCl 4 MG Q6-PRN PRN 09/07 1345 AC IV Oxycodone HCl 5 MG Q4-6 PRN PRN 09/08 204 AC 09/10 PO 0838 Oxycodone HCl 10 MG Q4-6 PRN PRN 09/08 2044 AC 09/10 PO 1101 Polyethylene Glycol 17 GM DAILY NEEDED PRN 09/07 1345 AC 09/09 PO 0858 Ranolazine 500 MG BID 09/07 2100 AC 09/09 PO 203 Sodium Chloride 1,000 ML Q13H 09/10 0645 CAN IV 09/10 194 Tiotropium [place] 1 PUF DAILY 09/08 899 AC 09/10 INH 0840 Results Last 48 Hrs of Labs/Mics: Laboratory Tests 09/10/17 0826: Anion Gap 10, Estimated GFR > 60, BUN/Creatinine Ratio 21.4, CBC w Diff NO MAN DIFF REQ, RBC 2.94 L, MCV 88.3, MCH 29.2, MCHC 33.0, RDW 15.4 H, MPV 7.9, Gran % 84.7 H, Lymphocytes % 7.6 L, Monocytes % 7.1, Eosinophils % 0.5, Basophils % 0.1, Absolute Granulocytes 11.5 H, Absolute Lymphocytes 1.0 L, Absolute Monocytes 1.0 H, Absolute Eosinophils 0.1, Absolute Basophils 0 09/10/17 0615: Phosphorus 2.8, Magnesium 1.8 09/09/17 0630: Anion Gap 10, Estimated GFR > 60, BUN/Creatinine Ratio 16.3, Calcium 8.2 L, Phosphorus 3.9, Magnesium 1.5 L, CBC w Diff NO MAN DIFF REQ, RBC 3.40 L, MCV 89.4, MCH 29.7, MCHC 33.2, RDW 15.3 H, MPV 7.8, Gran % 77.2 H, Lymphocytes % 13.6 L, Monocytes % 8.6, Eosinophils % 0.3, Basophils % 0.3, Absolute Granulocytes 9.0 H, Absolute Lymphocytes 1.6, Absolute Monocytes 1.0 H, Absolute Eosinophils 0, Absolute Basophils 0 09/09/17 0055: Troponin I 0.02 09/08/17 1800: Anion Gap 9, Estimated GFR > 60, BUN/Creatinine Ratio 12.5, Troponin I 0.02, CBC w Diff NO MAN DIFF REQ, RBC 3.70 L, MCV 89.1, MCH 29.3, MCHC 32.9 L, RDW 15.3 H, MPV 7.3 L, Gran % 79.4 H, Lymphocytes % 11.1 L, Monocytes % 8.0, Eosinophils % 1.2, Basophils % 0.3, Absolute Granulocytes 7.5 H, Absolute Lymphocytes 1.0 L, Absolute Monocytes 0.7 H, Absolute Eosinophils 0.1, Absolute Basophils 0 09/08/17 1756: Troponin I Cancelled 09/08/17 1627: CBC w Diff Cancelled, WBC Cancelled, RBC Cancelled, Hgb Cancelled, Hct Cancelled , MCV Cancelled, MCH Cancelled, MCHC Cancelled, RDW Cancelled, Plt Count Cancelled, MPV Cancelled Assessment/Plan Assessment/Plan Assessment: 1. Right hip fracture, s/p redo surgical repair 2. Known CAD; last cath in 10/14 with non revascularizable disease at that time 3. PPM / AICD 4. PAD 5. COPD 6. Mild hypotension Recommend additions: -From a cardiac standpoint, the patient appears stable postoperatively. Borderline low blood pressure noted today. -Await follow-up labs -Hold amlodipine and carvedilol pending follow-up blood pressure and laboratories -If blood pressure stabilizes, restart amlodipine and carvedilol at that time. -Short-term rehab pending resolution of aforementioned issues. Continue telemetry? Yes
[2017-09-10 14:00] VITALS: BP 98/50
[2017-09-10 21:25] VITALS: BP 138/70
--- NOTE | 2017-09-10 21:34 | Event Note ---
Event Note Event Note: Pt is complaining of severe pain. He has been receiving a total of 15 mg of oxycodone about every 4 hours. Dilaudid 2mg po x 1 was given earlier with no effect. Pt continues to describe excrutiating pain. Review of his records reveals that he uses a Fentanyl patch at home. This was confirmed with the patient. He also admits to using 10-20 mg of Oxycodone q 4h at home (med rec states that he receives 10 mg tabs x 28 pills for a 7 day supply). We will give Dilaudid IV 1mg x 1 now and resume the Fentanyl patch for longer control.
[2017-09-10 22:06] VITALS: BP 132/76
[2017-09-11 07:15] VITALS: BP 130/72
--- NOTE | 2017-09-11 07:25 | PN- Orthopedic ---
Subjective Subjective: pod#3 s/p right chong revision sitting up in chair this am c/o pesistent right hip pain pain med regime adjusted with some relief denies cp, sob, no n+v Objective Vital Signs and I&Os Vital Signs Date Time Temp Pulse Resp B/P B/P Pulse O2 O2 Flow FiO2 Mean Ox Delivery Rate 09/11 714 98.2 76 18 130/72 97 Room Air 09/10 2206 99.4 74 18 132/76 92 09/10 2147 80 132/68 09/10 2146 132/68 09/10 2125 94 138/70 09/10 1400 97.9 97 20 98/50 96 09/10 0930 72 84/40 09/10 0930 72 84/40 09/10 0930 72 84/40 09/10 0930 72 84/40 Intake & Output 09/11 0800 09/11 0000 09/10 1600 09/10 0800 09/10 0000 09/09 1600 Intake Total 900 420 100 480 Output Total 100 600 350 475 360 Balance 800 -180 -250 -475 120 Intake, Blood 600 Product Intake, IV 0 200 Intake, Oral 300 420 100 280 Number 0 Bowel Movements Output, Urine 100 600 350 475 360 Patient 126 lb 131 lb 120 lb Weight Physical Exam: cv: rrr lungs: clear abd: soft, +bs ext: right thigh soft wound c/d/i distal cms intact no deformity of right leg no crepitus with passivve rom right hip Assessment/Plan Assessment/Plan ortho stable plan f/u psot transfusion labs cont current regime titrate pain meds snf later today Core Measures Venous Thromboembolism VTE Risk Factors Surgery No Mechanical VTE Prophylaxis d/t N/A MechProphylax Ordered No VTE Pharm Prophylaxis d/t NA PharmProphylax ordered
[2017-09-11 08:29] LABS: ABSOLUTE BASOPHIL COUNT 0 /CUMM (0.0-0.2); ABSOLUTE EOSINOPHIL COUNT 0 /CUMM (0.0-0.7); ABSOLUTE GRANULOCYTE CT 14.4 /CUMM (1.4-6.5); ABSOLUTE LYMPH COUNT 1.3 /CUMM (1.2-3.4); ABSOLUTE MONOCYTE COUNT 1.5 /CUMM (0.10-0.60); BASOPHIL % 0 % (0.0-2.0); EOSINOPHIL % 0.2 % (0-5); GRANULOCYTE % 83.6 % (42.2-75.2); MEAN CORPUSCULAR HGB 30.4 PG (27.0-31.0); MEAN CORPUSCULAR VOLUME 89.5 FL (80.0-94.0); MEAN PLATELET VOLUME 8.2 FL (7.4-10.4); PLATELET COUNT 319 /CUMM (130-400); RBC DISTRIBUTION WIDTH 15.2 % (11.5-14.5); RED BLOOD CELL CT 3.56 /CUMM (4.70-6.10)
[2017-09-11 09:25] LABS: HEMATOCRIT 31.8 % (42-52)
[2017-09-11 10:09] LABS: WHITE BLOOD CELL COUNT 17.2 /CUMM (4.8-10.8)
--- NOTE | 2017-09-11 12:29 | RADIOLOGY REPORT ---
EXAMINATION: XR HIP, RIGHT CLINICAL INFORMATION: Status post total hip arthroplasty; question dislocation with limb shortening. COMPARISON: Prior radiographs, most recently 09/08/2017. TECHNIQUE: Two views of the right hip. FINDINGS: A superior dislocation is noted of the right hip arthroplasty. No hardware loosening is seen. No acute fracture. There is generalized bony demineralization. Lateral skin aliza are noted. IMPRESSION: There is a superior dislocation of the patient's right hip total arthroplasty. No hardware loosening is seen. There is no acute fracture.
--- NOTE | 2017-09-11 13:48 | Event Note ---
Event Note Event Note: right hip xray taken this am demonstrate right chong dislocation patient notified along with brother from bedside phone also discussed with medical attending who was called to re eval patient for leukocytosis stress/pain associated with dislocation could attribute to rise in wbc plan place stone urine cx f/u cxr results OR later today for closed v open reduction/revision
[2017-09-11 14:21] VITALS: BP 114/68
--- NOTE | 2017-09-11 14:48 | PN- Cardiology ---
Subjective Subjective: The patient has remained stable from a cardiac standpoint. Continued hip pain noted. Objective Vital Signs and I&Os Vital Signs Date Time Temp Pulse Resp B/P B/P Pulse O2 O2 Flow FiO2 Mean Ox Delivery Rate 09/11 1421 99.2 81 18 114/68 96 Room Air 09/11 0952 130/72 09/11 0952 122/72 09/11 0952 122/72 09/11 0952 122/72 09/11 0715 98.2 76 18 130/72 97 Room Air 09/10 2206 99.4 74 18 132/76 92 09/10 2147 80 132/68 09/10 2146 132/68 09/10 2125 94 138/70 Intake & Output 09/11 1600 09/11 0809/11 0000 09/10 1600 09/10 0000 Intake Total 220 900 420 100 Output Total 175 100 600 350 475 Balance 45 800 -180 -250 -475 Intake, Blood 600 Product Intake, IV 0 Intake, Oral 220 300 420 100 Number 0 Bowel Movements Output, Urine 175 100 600 350 475 Patient 126 lb 131 lb Weight Current Medications: Current Medications Sig/Jesus Start time Last Medication Dose Route Stop Time Status Admin Acetaminophen 650 MG .STK-MED ONE 09/11 0233 DC PO 09/11 0234 Acetaminophen 650 MG Q6PRN PRN 09/07 1330 AC 09/11 PO 0237 Albuterol Sulfate 2 PUF Q4-6 PRN PRN 09/07 1345 AC INH Amlodipine Besylate 5 MG DAILY 09/08 899 AC 09/11 PO 0952 Apixaban 2.5 MG BID 09/09 09 AC 09/11 PO 0952 Budesonide/ 2 PUF BID 09/07 2100 AC 09/11 Formoterol Fumarate INH 0952 Carbidopa/Levodopa 1 TAB QPM 09/07 2099 AC 09/10 PO 2146 Carvedilol 12.5 MG BID 09/07 2099 AC 09/11 PO 0952 Docusate Sodium 100 MG BID 09/07 2099 AC 09/11 PO 0952 Duloxetine HCl 60 MG DAILY 09/08 899 AC 09/11 PO 0952 Fentanyl Citrate 50 MCG Q72H 09/100 AC 09/10 TOP 2211 Gabapentin 100 MG TID 09/07 1400 AC 09/11 PO 0952 Hydromorphone HCl 1 MG ONCE ONE 09/10 2129 DC 09/10 IV 09/10 Hydromorphone HCl 2 MG ONCE ONE 09/10 2029 DC 09/10 PO 09/10 Isosorbide 60 MG DAILY 09/08 899 AC 09/11 Mononitrate PO 0952 Melatonin 5 MG QPM 09/07 2100 AC 09/10 PO 2146 Omeprazole 40 MG DAILY AC 09/08 07 AC 09/11 PO 0633 Ondansetron HCl 4 MG Q6-PRN PRN 09/07 1345 AC IV Oxycodone HCl 5 MG Q4-6 PRN PRN 09/08 2044 AC 09/11 PO 0847 Oxycodone HCl 10 MG Q4-6 PRN PRN 09/08 2044 AC 09/11 PO 0634 Polyethylene Glycol 17 GM DAILY NEEDED PRN 09/07 134 AC 09/09 PO 0858 Ranolazine 500 MG BID 09/07 2100 AC 09/11 PO 0952 Sodium Chloride 1,000 ML Q10H 09/11 1330 AC 09/11 IV 1437 Tiotropium [place] 1 PUF DAILY 09/08 899 AC 09/10 INH 0840 Results Last 48 Hrs of Labs/Mics: Laboratory Tests 09/11/17 0618: Anion Gap 9, Estimated GFR > 60, BUN/Creatinine Ratio 31.7 H, Calcium 8.2 L, Phosphorus 2.6, Magnesium 1.7, Total Bilirubin 0.7, Direct Bilirubin 0.3, AST 24 , ALT 21, Alkaline Phosphatase 68, Total Protein 5.0 L, Albumin 2.5 L, CBC w Diff NO MAN DIFF REQ, RBC 3.56 L, MCV 89.5, MCH 30.4, MCHC 34.0, RDW 15.2 H, MPV 8.2, Gran % 83.6 H, Lymphocytes % 7.3 L, Monocytes % 8.9, Eosinophils % 0.2, Basophils % 0, Absolute Granulocytes 14.4 H, Absolute Lymphocytes 1.3, Absolute Monocytes 1.5 H, Absolute Eosinophils 0, Absolute Basophils 0 09/10/17 0826: Anion Gap 10, Estimated GFR > 60, BUN/Creatinine Ratio 21.4, CBC w Diff NO MAN DIFF REQ, RBC 2.94 L, MCV 88.3, MCH 29.2, MCHC 33.0, RDW 15.4 H, MPV 7.9, Gran % 84.7 H, Lymphocytes % 7.6 L, Monocytes % 7.1, Eosinophils % 0.5, Basophils % 0.1, Absolute Granulocytes 11.5 H, Absolute Lymphocytes 1.0 L, Absolute Monocytes 1.0 H, Absolute Eosinophils 0.1, Absolute Basophils 0 09/10/17 0615: Phosphorus 2.8, Magnesium 1.8 Assessment/Plan Assessment/Plan Assessment: 1. Right hip fracture, s/p redo surgical repair 2. Known CAD; last cath in 10/14 with non revascularizable disease at that time 3. PPM / AICD 4. PAD 5. COPD 6. Mild hypotension Recommend additions: -From a cardiac standpoint, the patient appears stable postoperatively. Borderline low blood pressure noted today. -Await follow-up labs -Hold amlodipine and carvedilol pending follow-up blood pressure and laboratories -If blood pressure stabilizes, restart amlodipine and carvedilol at that time. -Short-term rehab pending resolution of aforementioned issues. -If the patient needs to go back to the operating room today, he should be kept on telemetry monitoring for another 24 hours. Continue telemetry? Yes
--- NOTE | 2017-09-11 16:30 | RADIOLOGY REPORT ---
EXAMINATION: XR CHEST CLINICAL INFORMATION: Leukocytosis. Rule out infiltrate. COMPARISON: Chest x-ray dated 09/07/2017 and older exams. TECHNIQUE: 2 views of the chest were obtained on 4 images. FINDINGS: Multiple EKG leads overlie the chest. Right atrial pacer lead and right ventricular AICD lead are seen in place. The patient is status post median sternotomy. Fracture of the second sternal wire is seen without significant displacement. Multiple mediastinal clips are seen. The cardiomediastinal silhouette is within normal limits in size. There is slight elevation of the right hemidiaphragm with patchy parenchymal opacity seen in the right lung base. This may be related to atelectasis or pneumonia. Some linear atelectatic changes also seen in the left lung base. There is diffuse coarsening of the bronchovascular lung markings and thickening of the central airways seen. No pleural effusion or pneumothorax is seen. An S-shaped thoracolumbar scoliosis is noted. IMPRESSION: 1. Thickening of central airways and streaky perihilar opacities with more focal parenchymal opacity and volume loss in the right lung base, suspicious for pneumonia in the clinical setting provided. Alternatively, findings may be related to atelectasis related to mucous plugging. Close clinical correlation requested. 2. There is some linear atelectatic change in the left lung base.
--- NOTE | 2017-09-11 17:44 | Event Note ---
Event Note Event Note: Was called by the surgical services to see the patinet as pt having high wbc. pt on review of system denies any fever or chills. Is incontinent of urine so asked the nurse to do bladder scan and send the UA / UC and also encourage the pt to do incentive spirometry. pt denies any chest pain or cough. pt resting comfortable in bed. Will cont to monitor closely for fever or chills. Will repeat cbc in am. Hip xray done- shows- There is a superior dislocation of the patient's right hip total arthroplasty.
[2017-09-11 22:00] VITALS: BP 28/76
[2017-09-12 07:38] VITALS: BP 120/80
[2017-09-12 08:00] LABS: ABSOLUTE BASOPHIL COUNT 0 /CUMM (0.0-0.2); ABSOLUTE EOSINOPHIL COUNT 0 /CUMM (0.0-0.7); ABSOLUTE GRANULOCYTE CT 14.2 /CUMM (1.4-6.5); ABSOLUTE MONOCYTE COUNT 1.1 /CUMM (0.10-0.60); BASOPHIL % 0.1 % (0.0-2.0); EOSINOPHIL % 0 % (0-5); GRANULOCYTE % 87.2 % (42.2-75.2); HEMATOCRIT 29.4 % (42-52); MEAN CORPUSCULAR HGB 30.2 PG (27.0-31.0); MEAN CORPUSCULAR HGB CONC 33.4 G/DL (33.0-37.0); MEAN CORPUSCULAR VOLUME 90.5 FL (80.0-94.0); MEAN PLATELET VOLUME 8.5 FL (7.4-10.4); PLATELET COUNT 318 /CUMM (130-400); RBC DISTRIBUTION WIDTH 15.1 % (11.5-14.5); RED BLOOD CELL CT 3.24 /CUMM (4.70-6.10)
[2017-09-12 09:18] LABS: WHITE BLOOD CELL COUNT 16.3 /CUMM (4.8-10.8)
--- NOTE | 2017-09-12 09:49 | Operative Report ---
Operative/Inv Procedure Report Surgery Date: 09/12/17 Name of Procedure: Closed reduction right total hip arthroplasty prosthetic Pre-Operative Diagnosis: Right total hip dislocation Post-Operative Diagnosis: Right total hip arthroplasty dislocation Estimated Blood Loss: none Surgeon/Electronic Assembler: [email or web address] Anesthesia: general endotracheal tube IV Fluids: See anesthesia record Implants: None Complications: None Condition: Stable Operative Indication: Patient is a 71-year-old male who underwent revision hip surgery this past September 08 for a failed implant with removal of an intramedullary nail and conversion to a right total hip arthroplasty. Wednesday morning x-rays were performed which showed a dislocation of the prosthesis. He was indicated for closed reduction in the operating room with general anesthesia necessary. Operative/Procedure Note Note: Once informed consent was obtained and the correct limb was identified the patient brought to the operating room placed on table supine position. Administration of general endotracheal anesthesia the patient's hip was flexed and pulling traction longitudinally the hip was reduced without complication. This was confirmed with C-arm fluoroscopy. There was taken through a range of motion and found to be stable. The patient had a knee immobilizer placed in order to prevent flexion of the knee and positioning of possible dislocation risk. The patient was awakened from anesthesia and taken recovery in stable condition.
--- NOTE | 2017-09-12 10:36 | RADIOLOGY REPORT ---
EXAMINATION: CR RIGHT HIP/INTRAOPERATIVE FLUOROSCOPY CLINICAL INDICATION: Right hip closed reduction. COMPARISON: Right hip films from 09/11/2017. TECHNIQUE/FINDINGS: Fluoroscopic equipment was dedicated to the operating room for the performance of an intraoperative procedure. Single spot film was acquired and is archived in PACS, along with the dose report. Please refer to operative notes for procedural detail. FLUOROSCOPY TIME: 25 seconds. IMPRESSION: Administrative dictation for intraoperative fluoroscopy and image archiving in PACS. Please refer to operative notes for details.
[2017-09-12 10:45] VITALS: BP 148/84
--- NOTE | 2017-09-12 12:42 | PN- Orthopedic ---
Subjective Subjective: Post op check: Pt drowsy but responded to verbal stimuli. Denies discomfort presently. Objective Vital Signs and I&Os Vital Signs Date Time Temp Pulse Resp B/P B/P Pulse O2 O2 Flow FiO2 Mean Ox Delivery Rate 09/12 1045 70 20 148/84 89 Room Air 09/12 0738 99.6 74 18 120/80 97 Room Air 09/11 2200 99.4 84 20 28/76 94 Room Air 09/11 2146 84 128/76 09/11 2146 84 128/76 09/11 1421 99.2 81 18 114/68 96 Room Air Intake & Output 09/12 1600 09/12 0800 09/12 0000 09/11 1600 09/11 0800 09/11 0000 Intake Total 520 220 900 Output Total 175 100 Balance 520 45 800 Intake, Blood 600 Product Intake, IV 300 Intake, Oral 220 220 300 Number 4 4 2 Bowel Movements Output, Urine 175 100 Patient 126 lb 126 lb Weight Weight Bed scale Measurement Method Physical Exam: General: Drowsy but responsive to verbal stimuli Cardiac: RRR, s1s2 Pulm: Diminished breath sounds anteriorly, non-labored Abdomen: Non-tender, non-distended Extremities: Neurovascularly intact. No evidence of rle shortening or rotational deformity. Abduction pillow in place. Knee immobilizer in place. Bilateral calves soft/non-tender. 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 Leslie Core Measures Venous Thromboembolism VTE Risk Factors Surgery No Mechanical VTE Prophylaxis d/t N/A MechProphylax Ordered No VTE Pharm Prophylaxis d/t NA PharmProphylax ordered
[2017-09-12 14:29] VITALS: BP 140/80
--- NOTE | 2017-09-12 15:09 | PN- Cardiology ---
Subjective Subjective: Cardiology status appears unchanged and stable. Objective Vital Signs and I&Os Vital Signs Date Time Temp Pulse Resp B/P B/P Pulse O2 O2 Flow FiO2 Mean Ox Delivery Rate 09/12 1429 98.1 76 20 140/80 95 Room Air 09/12 1045 70 20 148/84 89 Room Air 09/12 0738 99.6 74 18 120/80 97 Room Air 09/11 2200 99.4 84 20 28/76 94 Room Air 09/11 2146 84 128/76 09/11 214 84 128/76 Intake & Output 09/12 1600 09/13 0700 09/12 0000 09/11 1600 09/11 0000 Intake Total 520 220 900 Output Total 175 100 Balance 520 45 800 Intake, Blood 600 Product Intake, IV 300 Intake, Oral 220 220 300 Number 4 4 2 Bowel Movements Output, Urine 175 100 Patient 126 lb 126 lb Weight Weight Bed scale Measurement Method Current Medications: Current Medications Sig/Jesus Start time Last Medication Dose Route Stop Time Status Admin Acetaminophen 650 MG .STK-MED ONE 09/12 0049 DC PO 09/12 0050 Acetaminophen 650 MG Q6PRN PRN 09/07 1330 AC 09/12 PO 1106 Albuterol Sulfate 2 PUF Q4-6 PRN PRN 09/07 1345 AC INH Amlodipine Besylate 5 MG DAILY 09/08 09 AC 09/12 PO 1105 Apixaban 2.5 MG BID 09/13 0900 AC PO Apixaban 2.5 MG BID 09/09 0900 DC 09/11 PO 2148 Budesonide/ 2 PUF BID 09/07 2099 AC 09/12 Formoterol Fumarate INH 1108 Carbidopa/Levodopa 1 TAB QPM 09/07 2099 AC 09/11 PO 2148 Carvedilol 12.5 MG BID 09/07 2099 AC 09/12 PO 1105 Docusate Sodium 100 MG BID 09/07 2100 AC 09/12 PO 1104 Duloxetine HCl 60 MG DAILY 09/08 09 AC 09/12 PO 1105 Fentanyl Citrate 50 MCG Q72H 09/10 2129 AC 09/10 TOP 2211 Gabapentin 100 MG TID 09/07 1400 AC 09/12 PO 1433 Isosorbide 60 MG DAILY 09/08 09 AC 09/12 Mononitrate PO 1104 Melatonin 5 MG QPM 09/07 2100 AC 09/11 PO 2146 Omeprazole 40 MG DAILY AC 09/08 0700 AC 09/12 PO 0710 Ondansetron HCl 4 MG Q6-PRN PRN 09/07 134 AC IV Oxycodone HCl 5 MG Q4-6 PRN PRN 09/08 204 AC 09/11 PO 0847 Oxycodone HCl 10 MG Q4-6 PRN PRN 09/08 204 AC 09/12 PO 1105 Polyethylene Glycol 17 GM DAILY NEEDED PRN 09/07 1345 AC 09/09 PO 0858 Ranolazine 500 MG BID 09/07 2100 AC 09/12 PO 1105 Sodium Chloride 1,000 ML Q10H 09/11 1330 AC 09/12 IV 1108 Tiotropium [place] 1 PUF DAILY 09/08 09 AC 09/12 INH 1107 Results Last 48 Hrs of Labs/Mics: Laboratory Tests 09/12/17 0650: Anion Gap 10, Estimated GFR > 60, BUN/Creatinine Ratio 28.3 H, Phosphorus 3.4, Magnesium 1.7, CBC w Diff NO MAN DIFF REQ, RBC 3.24 L, MCV 90.5, MCH 30.2, MCHC 33.4, RDW 15.1 H, MPV 8.5, Gran % 87.2 H, Lymphocytes % 5.9 L, Monocytes % 6.8, Eosinophils % 0, Basophils % 0.1, Absolute Granulocytes 14.2 H, Absolute Lymphocytes 1.0 L, Absolute Monocytes 1.1 H, Absolute Eosinophils 0, Absolute Basophils 0 09/11/17 0618: Anion Gap 9, Estimated GFR > 60, BUN/Creatinine Ratio 31.7 H, Calcium 8.2 L, Phosphorus 2.6, Magnesium 1.7, Total Bilirubin 0.7, Direct Bilirubin 0.3, AST 24 , ALT 21, Alkaline Phosphatase 68, Total Protein 5.0 L, Albumin 2.5 L, CBC w Diff NO MAN DIFF REQ, RBC 3.56 L, MCV 89.5, MCH 30.4, MCHC 34.0, RDW 15.2 H, MPV 8.2, Gran % 83.6 H, Lymphocytes % 7.3 L, Monocytes % 8.9, Eosinophils % 0.2, Basophils % 0, Absolute Granulocytes 14.4 H, Absolute Lymphocytes 1.3, Absolute Monocytes 1.5 H, Absolute Eosinophils 0, Absolute Basophils 0 Assessment/Plan Assessment/Plan Assessment: 1. Right hip fracture, s/p redo surgical repair 2. Known CAD; last cath in 10/14 with non revascularizable disease at that time 3. PPM / AICD 4. PAD 5. COPD 6. Mild hypotension Recommend additions: -From a cardiac standpoint, the patient appears stable postoperatively. -Await follow-up labs -Continue current medication -Short-term rehab pending resolution of aforementioned issues. -If the patient remains stable, he may come off of the engine monitor tomorrow Continue telemetry? Yes
--- NOTE | 2017-09-12 17:04 | PN- Att Addend ---
Attending Addendum Attending Brief Note Laboratory Tests 09/12/17 1415: Urine Color YEL, Urine Clarity CLEAR, Urine pH 6.0, Ur Specific [place] 1.025, Urine Protein TRACE H, Urine Ketones NEG, Urine Nitrite NEG, Urine Bilirubin NEG, Urine Urobilinogen 1.0, Ur Leukocyte Esterase NEG, Ur Microscopic SEDIMENT EXAMINED, Urine RBC 10-15 H, Urine WBC RARE, Ur Epithelial Cells RARE, Urine Mucus FEW, Urine Hemoglobin SMALL H, Urine Glucose NEG 09/12/17 1415: Urine Osmolality Pending, Ur Random Creatinine 91.2, Ur Random Sodium 72, Ur Random Potassium 53.2, Fraction Sodium Excret 0.4 09/12/17 0650: Anion Gap 10, Estimated GFR > 60, BUN/Creatinine Ratio 28.3 H, Phosphorus 3.4, Magnesium 1.7, CBC w Diff NO MAN DIFF REQ, RBC 3.24 L, MCV 90.5, MCH 30.2, MCHC 33.4, RDW 15.1 H, MPV 8.5, Gran % 87.2 H, Lymphocytes % 5.9 L, Monocytes % 6.8, Eosinophils % 0, Basophils % 0.1, Absolute Granulocytes 14.2 H, Absolute Lymphocytes 1.0 L, Absolute Monocytes 1.1 H, Absolute Eosinophils 0, Absolute Basophils 0 Vital Signs Date Time Temp Pulse Resp B/P B/P Pulse O2 O2 Flow FiO2 Mean Ox Delivery Rate 09/12 1429 98.1 76 20 140/80 95 Room Air 09/12 1045 70 20 148/84 89 Room Air 09/12 0738 99.6 74 18 120/80 97 Room Air 09/11 2200 99.4 84 20 28/76 94 Room Air 09/11 2146 84 128/76 09/11 214 84 128/76 Assessment/Plan Assessment/Plan leukocytosis- UA not very suggestive of UTI . Pt is afebrile and not having any chills and having no cough and sob. No abdominal pain. most likely reactive secondary to his dislcoation. pt went to OR today for reduction of his dislocation. May need to go to or again for revision surgery. d/w orhto PA Hyponatremia- urnine sodium high and urine osmolality pending. pt likely may have SIADH as despite 2 L NS yesteray his soidum dropped. will put him on fluid restriction of 1200ml and recheck sodium and f/u on urine osmolality. f/u on serum osmolality also. d/w pt the care plan As Ranked by this Provider Problem List: 1. Leukocytosis Consult Acknowledgment - Thank you for your consult request. Review of Systems Review of Systems Constitutional: Denies: chills, fever. Cardiovascular: Denies: chest pain, palpitations. Respiratory: Denies: cough, short of breath. GI: Denies: abdominal pain. Physical Exam Physical Exam General Appearance: well developed/nourished, no apparent distress, alert Head: atraumatic, normal appearance Eyes: Bilateral: EOMI. Respiratory: normal breath sounds, lungs clear Cardiovascular: regular rate/rhythm Gastrointestinal: normal bowel sounds, soft Core Measures ACS in differential dx? No CVA/TIA Diagnosis: No Sepsis Present: No Sepsis Focused Exam Completed? No
[2017-09-12 23:26] VITALS: BP 118/60
[2017-09-13 06:08] VITALS: BP 102/58
[2017-09-13 08:32] LABS: ABSOLUTE BASOPHIL COUNT 0 /CUMM (0.0-0.2); ABSOLUTE EOSINOPHIL COUNT 0.1 /CUMM (0.0-0.7); ABSOLUTE GRANULOCYTE CT 10.1 /CUMM (1.4-6.5); ABSOLUTE LYMPH COUNT 1.5 /CUMM (1.2-3.4); ABSOLUTE MONOCYTE COUNT 0.9 /CUMM (0.10-0.60); BASOPHIL % 0.3 % (0.0-2.0); EOSINOPHIL % 0.8 % (0-5); HEMATOCRIT 28.7 % (42-52); MEAN CORPUSCULAR HGB CONC 33.1 G/DL (33.0-37.0); MEAN CORPUSCULAR VOLUME 90.5 FL (80.0-94.0); MEAN PLATELET VOLUME 7.9 FL (7.4-10.4); PLATELET COUNT 390 /CUMM (130-400); RBC DISTRIBUTION WIDTH 15.1 % (11.5-14.5); RED BLOOD CELL CT 3.18 /CUMM (4.70-6.10); WHITE BLOOD CELL COUNT 12.7 /CUMM (4.8-10.8)
--- NOTE | 2017-09-13 09:07 | PN- Orthopedic ---
Subjective Subjective: pt in bed with minimal pain. denies paresthesias. tolerating diet, +bm, voiding to work with PT today, posterior hip precautions denies cp/sob Objective Vital Signs and I&Os Vital Signs Date Time Temp Pulse Resp B/P B/P Pulse O2 O2 Flow FiO2 Mean Ox Delivery Rate 09/13 0837 78 118/58 / 0837 78 118/58 09/13 0836 78 118/58 / 0832 98.5 74 16 118/58 16 0608 98.5 71 20 102/58 93 Room Air 09/12 2326 99.0 75 20 118/60 94 Room Air 09/12 2201 Room Air 09/12 2002 76 140/80 09/12 2002 76 140/80 09/12 1429 98.1 76 20 140/80 95 Room Air 09/12 1045 70 20 148/84 89 Room Air Intake & Output 09/13 1600 09/13 0800 09/13 0000 09/12 1600 09/12 0800 09/12 0000 Intake Total 064 245 8713 520 Output Total 300 Balance 240 220 820 520 Intake, IV 800 300 Intake, Oral 240 220 320 220 Number 1 4 6 Bowel Movements Output, Urine 300 Patient 135 lb 126 lb Weight Weight Bed scale Measurement Method Physical Exam: gen- NAD resp- clear cardaic-rrr abd- soft, nt ext- right hip soft, aliza in place, no drainage, no signs of infection. distal sensory and motor function intact. 2+ DP pulse Current Medications: Current Medications Sig/Jesus Start time Last Medication Dose Route Stop Time Status Admin Acetaminophen 650 MG .STK-MED ONE 09/12 1057 DC PO 09/12 1058 Acetaminophen 650 MG Q6PRN PRN 09/07 1330 AC 09/13 PO 0806 Albuterol Sulfate 2 PUF Q4-6 PRN PRN 09/07 1345 AC INH Amlodipine Besylate 5 MG DAILY 09/08 09 AC 09/13 PO 0836 Apixaban 2.5 MG BID 09/13 09 AC 09/13 PO 0836 Apixaban 2.5 MG BID 09/09 0900 DC 09/11 PO 2148 Budesonide/ 2 PUF BID 09/07 2100 AC 09/13 Formoterol Fumarate INH 0835 Carbidopa/Levodopa 1 TAB QPM 09/07 2100 AC 07/15 PO 2003 Carvedilol 12.5 MG BID 09/07 2100 AC 09/13 PO 0837 Docusate Sodium 100 MG BID 09/07 2100 AC 09/13 PO 0836 Duloxetine HCl 60 MG DAILY 09/08 09 AC 09/13 PO 0838 Fentanyl Citrate 50 MCG Q72H 09/10 2130 AC 09/10 TOP 2211 Gabapentin 100 MG TID 09/07 1400 AC 09/13 PO 0836 Hydromorphone HCl 2 MG .STK-MED ONE 09/12 1025 DC IM 09/12 1026 Hydromorphone HCl 2 MG .STK-MED ONE 09/12 1013 DC IM 09/12 1014 Isosorbide 60 MG DAILY 09/08 899 AC 09/13 Mononitrate PO 0837 Melatonin 5 MG QPM 09/07 2100 AC 09/12 PO 2003 Omeprazole 40 MG DAILY AC 09/08 07 AC 09/13 PO 0610 Ondansetron HCl 4 MG Q6-PRN PRN 09/07 1345 AC IV Oxycodone HCl 5 MG Q4-6 PRN PRN 09/08 2044 AC 09/12 PO 2214 Oxycodone HCl 10 MG Q4-6 PRN PRN 09/08 2044 AC 09/13 PO 0832 Polyethylene Glycol 17 GM DAILY NEEDED PRN 09/07 1345 AC 09/09 PO 0858 Ranolazine 500 MG BID 09/07 2100 AC 09/13 PO 0832 Sodium Chloride 1,000 ML Q10H 09/11 1330 DC 09/12 IV 1108 Tiotropium [place] 1 PUF DAILY 09/08 09 AC 09/13 INH 0836 Results Last 48 Hours of Labs: Laboratory Tests 09/13 09/12 0635 1415 Chemistry Sodium (137 - 145 mmol/L) 130 L Potassium (3.5 - 5.1 mmol/L) 4.4 Chloride (98 - 107 mmol/L) 97 L Carbon Dioxide (22 - 30 mmol/L) 24 Anion Gap (5 - 16) 8 BUN (9 - 20 mg/dL) 17 Creatinine (0.7 - 1.2 mg/dL) 0.6 L Estimated GFR (>60 ml/min) > 60 BUN/Creatinine Ratio (7 - 25 %) 28.3 H Hematology CBC w Diff NO MAN DIFF REQ WBC (4.8 - 10.8 /CUMM) 12.7 H RBC (4.70 - 6.10 /CUMM) 3.18 L Hgb (14.0 - 18.0 G/DL) 9.5 L Hct (42 - 52 %) 28.7 L MCV (80.0 - 94.0 FL) 90.5 MCH (27.0 - 31.0 PG) 30.0 MCHC (33.0 - 37.0 G/DL) 33.1 RDW (11.5 - 14.5 %) 15.1 H Plt Count (130 - 400 /CUMM) 390 MPV (7.4 - 10.4 FL) 7.9 Gran % (42.2 - 75.2 %) 80.0 H Lymphocytes % (20.5 - 51.1 %) 12.2 L Monocytes % (1.7 - 9.3 %) 6.7 Eosinophils % (0 - 5 %) 0.8 Basophils % (0.0 - 2.0 %) 0.3 Absolute Granulocytes (1.4 - 6.5 /CUMM) 10.1 H Absolute Lymphocytes (1.2 - 3.4 /CUMM) 1.5 Absolute Monocytes (0.10 - 0.60 /CUMM) 0.9 H Absolute Eosinophils (0.0 - 0.7 /CUMM) 0.1 Absolute Basophils (0.0 - 0.2 /CUMM) 0 Urines Urine Color (YEL,AMB,STR) YEL Urine Clarity (CLEAR) CLEAR Urine pH (5.0 - 8.0) 6.0 Ur Specific [place] (1.001 - 1.035) 1.025 Urine Protein (NEG,<30 MG/DL) TRACE H Urine Ketones (NEG) NEG Urine Nitrite (NEG) NEG Urine Bilirubin (NEG) NEG Urine Urobilinogen (0.1 - 1.0 EU/dl) 1.0 Ur Leukocyte Esterase (NEG) NEG Ur Microscopic SEDIMENT EXAMINED Urine RBC (0 - 5 /HPF) 10-15 H Urine WBC (0 - 2 /HPF) RARE Ur Epithelial Cells (NONE,FEW) RARE Urine Mucus (FEW,NONE) FEW Urine Hemoglobin (NEG) SMALL H Urine Glucose (N MG/DL) NEG 09/12 09/12 09/11 1415 0650 1102 Chemistry Sodium (137 - 145 mmol/L) 127 L Potassium (3.5 - 5.1 mmol/L) 4.5 Chloride (98 - 107 mmol/L) 97 L Carbon Dioxide (22 - 30 mmol/L) 21 L Anion Gap (5 - 16) 10 BUN (9 - 20 mg/dL) 17 Creatinine (0.7 - 1.2 mg/dL) 0.6 L Estimated GFR (>60 ml/min) > 60 BUN/Creatinine Ratio (7 - 25 %) 28.3 H Serum Osmolality (285 - 295 MOSM/KG) 266 L Phosphorus (2.5 - 4.5 mg/dL) 3.4 Magnesium (1.6 - 2.3 mg/dL) 1.7 Hematology CBC w Diff NO MAN DIFF REQ WBC (4.8 - 10.8 /CUMM) 16.3 H RBC (4.70 - 6.10 /CUMM) 3.24 L Hgb (14.0 - 18.0 G/DL) 9.8 L Hct (42 - 52 %) 29.4 L MCV (80.0 - 94.0 FL) 90.5 MCH (27.0 - 31.0 PG) 30.2 MCHC (33.0 - 37.0 G/DL) 33.4 RDW (11.5 - 14.5 %) 15.1 H Plt Count (130 - 400 /CUMM) 318 MPV (7.4 - 10.4 FL) 8.5 Gran % (42.2 - 75.2 %) 87.2 H Lymphocytes % (20.5 - 51.1 %) 5.9 L Monocytes % (1.7 - 9.3 %) 6.8 Eosinophils % (0 - 5 %) 0 Basophils % (0.0 - 2.0 %) 0.1 Absolute Granulocytes (1.4 - 6.5 /CUMM) 14.2 H Absolute Lymphocytes (1.2 - 3.4 /CUMM) 1.0 L Absolute Monocytes (0.10 - 0.60 /CUMM) 1.1 H Absolute Eosinophils (0.0 - 0.7 /CUMM) 0 Absolute Basophils (0.0 - 0.2 /CUMM) 0 Urines Urine Color Cancelled Urine Clarity Cancelled Urine pH Cancelled Ur Specific [place] Cancelled Urine Protein Cancelled Urine Ketones Cancelled Urine Nitrite Cancelled Urine Bilirubin Cancelled Urine Urobilinogen Cancelled Ur Leukocyte Esterase Cancelled Ur Microscopic Cancelled Urine Hemoglobin Cancelled Urine Osmolality (300 - 1000 MOSM/KG) 654 Ur Random Creatinine (mg/dL) 91.2 Ur Random Sodium (30 - 90 mmol/L) 72 Ur Random Potassium (mmol/L) 53.2 Fraction Sodium Excret (<1% %) 0.4 Urine Glucose Cancelled Assessment/Plan Assessment/Plan This is a 71 year old male, POD 1, s/p closed reduction right hip, POD 5 s/p explant gamma nail with conversion to MUNDO of same side -WBAT with knee immobilizer in place, knee immobilzer at all times -Can have heart healthy diet as tolerated -Eliquis to restart today -will contact Clinical Quality Assurance Specialist today for abduction brace fitting -Hyponatremic: concern for SIADH r/t hip trauma/stress, limit fluid intake- 1200cc/day per medicice -decrease narcotics to help with confusion -Leukocytosis: Appears stable for now, pt afebrile -Atelectasis: Incentive spirometry encouraged Will discuss plan of care with Dr. Leslie Core Measures Venous Thromboembolism VTE Risk Factors Surgery No Mechanical VTE Prophylaxis d/t N/A MechProphylax Ordered No VTE Pharm Prophylaxis d/t NA PharmProphylax ordered
--- NOTE | 2017-09-13 09:44 | PN- Medicine Consult ---
Veronica Gill 09/13/17 0943: Assessment/PlanMedical Consult Assessment/Plan Assessment: 71-year-old gentleman past medical history significant for CAD status post multiple MIs with PCI and multiple stents placement and CABG, s/p PPM / AICD, COPD, obstructive sleep apnea, Parkinson's disease, severe peripheral artery disease, prostate cancer status post radiation and in remission, history of right intertrochanteric fracture status post total hip release placement gamma nail surgery by Dr. Jara in April 2017. Admitted to [facility] for worsening right hip pain, admitted to surgical save service for revision of the gamma nail fixation versus total hip replacement. 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 Over the weekend patient continued to have leukocytosis as well as hyponatremia and medicine was reconsulted. Patient received 15 mg of oxycodone about every 4 hours. Dilaudid 2mg po over the weekend for pain control along with his fentanyl patch Plan: Problem list: acute delirium Hyponatremia-likely secondary to SIADH failed right hip implant/nail fixation CAD s/p TN with PCI and multiple stents placement HFrEF COPD not on home O2, ANDRADE. PAD prostate cancer s/p radiation in remission Plan: His acute delirium likely secondary to polypharmacy specifically with his pain medications. Discontinue 10 mg oxycodone and continue with 5 mg of oxycodone every 6 hours as needed for severe pain, with [id number] IV Tylenol reorient as needed Enourage Incentive spirometry at bedside. Hyponatremia secondary to SIADH, continue with fluid restriction Continue home meds including amlodipine, Imdur, Coreg, Cymbalta, Ranexa, Sinemet and Neurontin continue Eliquis continue bowel regimen DVT PPX : Eliquis restarted Full Code Formal attending recommendations to follow Thank you for your consult, we will follow along with you Subjective Subjective: Seen and examined patient. Seems more confused. He is able to recognize his daughter who is at bedside however is not not able to tell me his grandsons name. He is able to verbalize that he is in [place] and is in the hospital. Review of Systems Constitutional: Reports: see HPI. Objective Last 24 Hrs of Vital Signs/I&O Vital Signs Date Time Temp Pulse Resp B/P B/P Pulse O2 O2 Flow FiO2 Mean Ox Delivery Rate 09/13 1518 97.4 75 20 90/50 95 09/13 1451 Room Air 3.0L 09/13 0837 78 118/58 09/13 0837 78 118/58 09/13 0836 78 118/58 09/13 0832 98.5 74 16 118/58 09/13 0608 98.5 71 20 102/58 93 Room Air 09/12 2326 99.0 75 20 118/60 94 Room Air 09/12 2201 Room Air 09/12 2002 76 140/80 09/12 2002 76 140/80 Intake & Output 09/13 1600 09/13 0800 09/13 0000 Intake Total 240 220 Output Total 250 Balance -250 240 220 Intake, Oral 240 220 Number 1 Bowel Movements Output, Urine 250 Patient 135 lb Weight Physical Exam General Appearance: alert, awake, comfortable Cardiovascular: regular rate/rhythm Respiratory: normal breath sounds, chest non-tender Abdomen: normal bowel sounds Extremities: no edema Current Medications: Current Medications Sig/Jesus Start time Last Medication Dose Route Stop Time Status Admin Acetaminophen 1,000 MG Q6H 09/13 1015 AC 09/13 N/A 1 UNIT IV 09/14 0429 1304 Acetaminophen 650 MG Q6PRN PRN 09/07 1330 AC 09/13 PO 0806 Albuterol Sulfate 2 PUF Q4-6 PRN PRN 09/07 1345 AC INH Amlodipine Besylate 5 MG DAILY 09/08 09 AC 09/13 PO 0836 Apixaban 2.5 MG BID 09/13 09 AC 09/13 PO 0836 Budesonide/ 2 PUF BID 09/07 2100 AC 09/13 Formoterol Fumarate INH 0835 Carbidopa/Levodopa 1 TAB QPM 09/07 2100 AC 09/12 PO 2002 Carvedilol 12.5 MG BID 09/07 2100 AC 09/13 PO 0837 Docusate Sodium 100 MG BID 09/07 2100 AC 09/13 PO 0836 Duloxetine HCl 60 MG DAILY 09/08 0900 AC 09/13 PO 0838 Fentanyl Citrate 50 MCG Q72H 09/10 2130 AC 09/10 TOP 2211 Gabapentin 100 MG TID 09/07 1400 AC 09/13 PO 1304 Isosorbide 60 MG DAILY 09/08 09 AC 09/13 Mononitrate PO 0837 Melatonin 5 MG QPM 09/07 2100 AC 09/12 PO 2002 Omeprazole 40 MG DAILY AC 09/08 07 AC 09/13 PO 0610 Ondansetron HCl 4 MG Q6-PRN PRN 09/07 1345 AC IV Oxycodone HCl 5 MG Q4-6 PRN PRN 09/08 204 AC 09/13 PO 1250 Oxycodone HCl 10 MG Q4-6 PRN PRN 09/08 2045 DC 09/13 PO 0832 Polyethylene Glycol 17 GM DAILY NEEDED PRN 09/07 1345 AC 09/09 PO 0858 Ranolazine 500 MG BID 09/07 2099 AC 09/13 PO 0832 Sodium Chloride 1,000 ML Q10H 09/11 1330 DC 09/12 IV 1108 Tiotropium [place] 1 PUF DAILY 09/08 09 AC 09/13 INH 0836 Results Last 24 Hrs Lab/Rudy Results: Laboratory Tests 09/13/17 0635: Anion Gap 8, Estimated GFR > 60, BUN/Creatinine Ratio 28.3 H, CBC w Diff NO MAN DIFF REQ, RBC 3.18 L, MCV 90.5, MCH 30.0, MCHC 33.1, RDW 15.1 H, MPV 7.9, Gran % 80.0 H, Lymphocytes % 12.2 L, Monocytes % 6.7, Eosinophils % 0.8, Basophils % 0.3, Absolute Granulocytes 10.1 H, Absolute Lymphocytes 1.5, Absolute Monocytes 0.9 H, Absolute Eosinophils 0.1, Absolute Basophils 0 Alan CORREIA,[facility] 09/13/17 1150: Attending MD Review Statement Attending Sign Off Attending Cosign Statement: I have: examined this patient, reviewed [facility] EMR data, personally reviewd images, discussd w/resident/PA/GARDENER FLORIST, discussed mgmt plan w/ej, agreed w/resident/ PA/GARDENER FLORIST, amended to note. Other Findings: Patient seen and examined, slightly confused but able to answer questions appropriately. He was complaining of a lot of pain. Sodium seems to be slightly better on fluid restriction. Vital Signs Date Time Temp Pulse Resp B/P B/P Pulse O2 O2 Flow FiO2 Mean Ox Delivery Rate 09/13 836 78 118/58 07/16 0837 78 118/58 09/13 0836 78 118/58 09/13 0832 98.5 74 16 118/58 09/13 0608 98.5 71 20 102/58 93 Room Air 09/12 2326 99.0 75 20 118/60 94 Room Air 09/12 2201 Room Air 09/12 2002 76 140/80 072002 76 140/80 09/12 1429 98.1 76 20 140/80 95 Room Air on exam; awake, nad. cv; s1,s2, rrr resp; clear. abd; soft, nt, bs+ ext; no edema ms: rle is wrapped in immobulzer. Laboratory Tests 09/13 09/12 0635 1415 Chemistry Sodium (137 - 145 mmol/L) 130 L Potassium (3.5 - 5.1 mmol/L) 4.4 Chloride (98 - 107 mmol/L) 97 L Carbon Dioxide (22 - 30 mmol/L) 24 Anion Gap (5 - 16) 8 BUN (9 - 20 mg/dL) 17 Creatinine (0.7 - 1.2 mg/dL) 0.6 L Estimated GFR (>60 ml/min) > 60 BUN/Creatinine Ratio (7 - 25 %) 28.3 H Hematology CBC w Diff NO MAN DIFF REQ WBC (4.8 - 10.8 /CUMM) 12.7 H RBC (4.70 - 6.10 /CUMM) 3.18 L Hgb (14.0 - 18.0 G/DL) 9.5 L Hct (42 - 52 %) 28.7 L MCV (80.0 - 94.0 FL) 90.5 MCH (27.0 - 31.0 PG) 30.0 MCHC (33.0 - 37.0 G/DL) 33.1 RDW (11.5 - 14.5 %) 15.1 H Plt Count (130 - 400 /CUMM) 390 MPV (7.4 - 10.4 FL) 7.9 Gran % (42.2 - 75.2 %) 80.0 H Lymphocytes % (20.5 - 51.1 %) 12.2 L Monocytes % (1.7 - 9.3 %) 6.7 Eosinophils % (0 - 5 %) 0.8 Basophils % (0.0 - 2.0 %) 0.3 Absolute Granulocytes (1.4 - 6.5 /CUMM) 10.1 H Absolute Lymphocytes (1.2 - 3.4 /CUMM) 1.5 Absolute Monocytes (0.10 - 0.60 /CUMM) 0.9 H Absolute Eosinophils (0.0 - 0.7 /CUMM) 0.1 Absolute Basophils (0.0 - 0.2 /CUMM) 0 Urines Urine Color (YEL,AMB,STR) YEL Urine Clarity (CLEAR) CLEAR Urine pH (5.0 - 8.0) 6.0 Ur Specific [place] (1.001 - 1.035) 1.025 Urine Protein (NEG,<30 MG/DL) TRACE H Urine Ketones (NEG) NEG Urine Nitrite (NEG) NEG Urine Bilirubin (NEG) NEG Urine Urobilinogen (0.1 - 1.0 EU/dl) 1.0 Ur Leukocyte Esterase (NEG) NEG Ur Microscopic SEDIMENT EXAMINED Urine RBC (0 - 5 /HPF) 10-15 H Urine WBC (0 - 2 /HPF) RARE Ur Epithelial Cells (NONE,FEW) RARE Urine Mucus (FEW,NONE) FEW Urine Hemoglobin (NEG) SMALL H Urine Glucose (N MG/DL) NEG 09/12 1415 Urines Urine Osmolality (300 - 1000 MOSM/KG) 654 Ur Random Creatinine (mg/dL) 91.2 Ur Random Sodium (30 - 90 mmol/L) 72 Ur Random Potassium (mmol/L) 53.2 Fraction Sodium Excret (<1% %) 0.4 A/P: 71 y/o M with pmh sig for CAD status post multiple MIs with PCI and multiple stents placement and CABG, s/p PPM / AICD, COPD, obstructive sleep apnea, Parkinson's disease, severe peripheral artery disease, prostate cancer status post radiation and in remission, history of right intertrochanteric fracture status post total hip release placement gamma nail surgery by Dr. Jara in April 2017. 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 Over the weekend patient continued to have leukocytosis as well as hyponatremia. Patient underwent Closed reduction right total hip arthroplasty prosthetic on September 12, 2017 secondary to dislocation of the right hip. Medicine was reconsulted for leukocytosis and hyponatremia. Leukocytosis slightly better. Infection workup negative. This was thought to be secondary to dislocation of the hip. Patient has been started on fluid restriction for possible SIADH postoperatively as well as secondary to pain. Patient was slightly confused this morning. Recommend decreasing the dose of oxycodone and adding Tylenol scheduled. Can add IV Tylenol one thousand milligrams 3 times daily scheduled. Will keep on 5 mg of oxycodone every 6 hours as needed. Patient also has fentanyl patch on. Avoid any further narcotics or benzos. Avoid anticholinergics. Avoid for the delirium triggers. Try to reorient patient. Patient should be working with physical therapy. Encourage incentive spirometry use. We will continue to follow at this point for the above issues. Anticoagulation postoperatively is per orthopedic.
--- NOTE | 2017-09-13 11:07 | Operative Report ---
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 He received 2 g of Kefzol antibiotics he was placed in the left lateral decubitus position with an axillary roll and padding of both lower extremities. The perineum was draped out. The right hip and lower extremity were prepped and draped in usual sterile fashion. The first part of this procedure was to address the intramedullary implant which had to be removed Appropriate Incision for a Posterior Approach to the Hip Was Carried out. The Distal Locking Screw Was Removed the Proximal Locking [place] Was Removed. The Lag Screw Was Then Removed. The Nail Was Then Removed Proximal Fashion. At the End of the Hardware Removal Dr. Leslie Took over the Case for the Hip Replacement Portion of the Procedure. During this part of the procedure I assisted Dr. Leslie for the hip replacement. Dr. Leslie will dictate the hip replacement portion of the procedure.
--- NOTE | 2017-09-13 11:52 | PN- Cardiology ---
Subjective Subjective: Feeling well from a cardiac standpoint. No arrhythmias seen on telemetry. The patient denies any cardiac symptoms. No chest pain. No shortness of breath. No diaphoresis. No palpitations. No lightheadedness or dizziness. No nausea or vomiting. Objective Vital Signs and I&Os Vital Signs Date Time Temp Pulse Resp B/P B/P Pulse O2 O2 Flow FiO2 Mean Ox Delivery Rate 09/13 0837 78 118/58 09/13 0837 78 118/58 09/13 0836 78 118/58 09/13 0832 98.5 74 16 118/58 09/13 0608 98.5 71 20 102/58 93 Room Air 09/12 2326 99.0 75 20 118/60 94 Room Air 09/12 2201 Room Air 09/12 2002 76 140/80 09/12 2002 76 140/80 09/12 1429 98.1 76 20 140/80 95 Room Air Intake & Output 09/13 1600 09/13 0800 09/13 0000 09/12 1600 09/12 0800 09/12 0000 Intake Total 460 019 7948 520 Output Total 300 Balance 240 220 820 520 Intake, IV 800 300 Intake, Oral 240 220 320 220 Number 1 4 6 Bowel Movements Output, Urine 300 Patient 135 lb 126 lb Weight Weight Bed scale Measurement Method Physical Exam: Gen: NAD HEENT: normal Lungs: clear to auscultation, normal resp. effort Heart: RRR, S1, S2, 1/6 systolic murmur Abdomen: Soft, nontender, no masses Extremities: No clubbing, cyanosis, or edema. Neuro: Alert and oriented x 3, cranial nerves intact Current Medications: Current Medications Sig/Jesus Start time Last Medication Dose Route Stop Time Status Admin Acetaminophen 1,000 MG Q6H 09/13 1015 AC N/A 1 UNIT IV 09/14 0429 Acetaminophen 650 MG Q6PRN PRN 09/07 1330 AC 09/13 PO 0806 Albuterol Sulfate 2 PUF Q4-6 PRN PRN 09/07 1345 AC INH Amlodipine Besylate 5 MG DAILY 09/08 09 AC 09/13 PO 0836 Apixaban 2.5 MG BID 09/13 0900 AC 09/13 PO 0836 Apixaban 2.5 MG BID 09/09 0900 DC 09/11 PO 2148 Budesonide/ 2 PUF BID 09/07 2100 AC 09/13 Formoterol Fumarate INH 0835 Carbidopa/Levodopa 1 TAB QPM 09/07 2100 AC 09/12 PO 2003 Carvedilol 12.5 MG BID 09/07 2099 AC 09/13 PO 0837 Docusate Sodium 100 MG BID 09/07 2100 AC 09/13 PO 0836 Duloxetine HCl 60 MG DAILY 09/08 0900 AC 09/13 PO 0838 Fentanyl Citrate 50 MCG Q72H 09/10 2130 AC 09/10 TOP 2211 Gabapentin 100 MG TID 09/07 1400 AC 09/13 PO 0836 Isosorbide 60 MG DAILY 09/08 09 AC 09/13 Mononitrate PO 0837 Melatonin 5 MG QPM 09/07 2100 AC 09/12 PO 2003 Omeprazole 40 MG DAILY AC 09/08 07 AC 09/13 PO 0610 Ondansetron HCl 4 MG Q6-PRN PRN 09/07 1345 AC IV Oxycodone HCl 5 MG Q4-6 PRN PRN 09/08 2045 AC 09/12 PO 2214 Oxycodone HCl 10 MG Q4-6 PRN PRN 09/08 2045 DC 09/13 PO 0832 Polyethylene Glycol 17 GM DAILY NEEDED PRN 09/07 1345 AC 09/09 PO 0858 Ranolazine 500 MG BID 09/07 2099 AC 09/13 PO 0832 Sodium Chloride 1,000 ML Q10H 09/11 1330 DC 09/12 IV 1108 Tiotropium [place] 1 PUF DAILY 09/08 0900 AC 09/13 INH 0836 Results Last 48 Hrs of Labs/Mics: Laboratory Tests 09/13/17 0635: Anion Gap 8, Estimated GFR > 60, BUN/Creatinine Ratio 28.3 H, CBC w Diff NO MAN DIFF REQ, RBC 3.18 L, MCV 90.5, MCH 30.0, MCHC 33.1, RDW 15.1 H, MPV 7.9, Gran % 80.0 H, Lymphocytes % 12.2 L, Monocytes % 6.7, Eosinophils % 0.8, Basophils % 0.3, Absolute Granulocytes 10.1 H, Absolute Lymphocytes 1.5, Absolute Monocytes 0.9 H, Absolute Eosinophils 0.1, Absolute Basophils 0 09/12/17 1415: Urine Color YEL, Urine Clarity CLEAR, Urine pH 6.0, Ur Specific [place] 1.025, Urine Protein TRACE H, Urine Ketones NEG, Urine Nitrite NEG, Urine Bilirubin NEG, Urine Urobilinogen 1.0, Ur Leukocyte Esterase NEG, Ur Microscopic SEDIMENT EXAMINED, Urine RBC 10-15 H, Urine WBC RARE, Ur Epithelial Cells RARE, Urine Mucus FEW, Urine Hemoglobin SMALL H, Urine Glucose NEG 09/12/17 1415: Urine Osmolality 654, Ur Random Creatinine 91.2, Ur Random Sodium 72, Ur Random Potassium 53.2, Fraction Sodium Excret 0.4 09/12/17 0650: Anion Gap 10, Estimated GFR > 60, BUN/Creatinine Ratio 28.3 H, Serum Osmolality 266 L, Phosphorus 3.4, Magnesium 1.7, CBC w Diff NO MAN DIFF REQ, RBC 3.24 L, MCV 90.5, MCH 30.2, MCHC 33.4, RDW 15.1 H, MPV 8.5, Gran % 87.2 H, Lymphocytes % 5.9 L, Monocytes % 6.8, Eosinophils % 0, Basophils % 0.1, Absolute Granulocytes 14.2 H, Absolute Lymphocytes 1.0 L, Absolute Monocytes 1.1 H, Absolute Eosinophils 0, Absolute Basophils 0 Assessment/Plan Assessment/Plan Assessment: 1. Right hip fracture, s/p redo surgical repair 2. Known CAD; last cath in 10/14 with non revascularizable disease at that time 3. PPM / AICD 4. PAD 5. COPD 6. Mild hypotension, resolved Recommend additions: * Stable postoperatively from cardiac standpoint. * Continue current cardiac medications per * Discontinue telemetry Continue telemetry? No
[2017-09-13 15:18] VITALS: BP 90/50
[2017-09-13 22:01] VITALS: BP 118/62
[2017-09-14 07:04] VITALS: BP 112/60
--- NOTE | 2017-09-14 09:48 | PN- Orthopedic ---
See Addendum Subjective Subjective: pt in bed and pleasant, complains of right hip pain. Denies paresthesias. ambulated with PT and said he had minimal pain ambulating with brace. voiding. + BM, tolerating diet and fluid restriction Deneis CP/SOB fevers Objective Vital Signs and I&Os Vital Signs Date Time Temp Pulse Resp B/P B/P Pulse O2 O2 Flow FiO2 Mean Ox Delivery Rate 09/14 0911 98.0 70 20 112/60 09/14 0910 98.0 70 20 112/60 09/14 0910 98.0 70 20 112/60 09/14 0910 98.0 70 20 112/60 09/14 0704 98.0 70 20 112/60 98 Room Air 09/13 2201 98.5 67 20 118/62 95 Room Air 09/13 1518 97.4 75 20 90/50 95 09/13 1451 Room Air 3.0L Intake & Output 09/14 1600 09/14 0800 09/14 0000 09/13 1600 09/13 0800 09/13 0000 Intake Total 220 250 820 240 220 Output Total 1200 150 250 Balance -980 100 570 240 220 Intake, IV 220 200 Intake, Oral 50 820 240 220 Number 1 1 Bowel Movements Output, Urine 1200 150 250 Patient 137 lb 135 lb Weight Weight Bed scale Measurement Method Physical Exam: gen- NAD, AAO to person and place, but not to time resp-clear cardiac-rrr abd-soft, NT ext- ABduction brace in place. thigh with edema, no erythema. dressing clean and dry. no calf tenderness Current Medications: Current Medications Sig/Jesus Start time Last Medication Dose Route Stop Time Status Admin Acetaminophen 1,000 MG Q6H 09/13 1015 DC 09/14 N/A 1 UNIT IV 09/14 0429 0516 Acetaminophen 650 MG Q6PRN PRN 09/07 1330 AC 09/14 PO 0914 Albuterol Sulfate 2 PUF Q4-6 PRN PRN 09/07 1345 AC INH Amlodipine Besylate 5 MG DAILY 09/08 09 AC 09/14 PO 0910 Apixaban 2.5 MG BID 09/13 0900 AC 09/14 PO 0910 Budesonide/ 2 PUF BID 09/07 2100 AC 09/14 Formoterol Fumarate INH 0908 Carbidopa/Levodopa 1 TAB QPM 09/07 2100 AC 09/13 PO 211 Carvedilol 12.5 MG BID 09/07 2099 AC 09/14 PO 0910 Docusate Sodium 100 MG BID 09/07 2099 AC 09/14 PO 0910 Duloxetine HCl 60 MG DAILY 09/08 09 AC 09/14 PO 0910 Fentanyl Citrate 50 MCG Q72H 09/10 2129 AC 09/13 TOP 2116 Gabapentin 100 MG TID 09/07 1400 AC 09/14 PO 0910 Isosorbide 60 MG DAILY 09/08 09 AC 09/14 Mononitrate PO 0911 Melatonin 5 MG QPM 09/07 2100 AC 09/13 PO 211 Omeprazole 40 MG DAILY AC 09/08 07 AC 09/14 PO 0516 Ondansetron HCl 4 MG Q6-PRN PRN 09/07 1345 AC IV Oxycodone HCl 5 MG Q6P PRN 09/14 0945 AC PO Oxycodone HCl 5 MG Q4-6 PRN PRN 09/08 204 DC 09/14 PO 0515 Oxycodone HCl 10 MG Q4-6 PRN PRN 09/08 2045 DC 09/13 PO 0832 Polyethylene Glycol 17 GM DAILY NEEDED PRN 09/07 1345 AC 09/09 PO 0858 Ranolazine 500 MG BID 09/07 2099 AC 09/14 PO 0910 Tiotropium [place] 1 PUF DAILY 09/08 09 AC 09/14 INH 0911 Results Last 48 Hours of Labs: Laboratory Tests 09/13 09/12 0635 1415 Chemistry Sodium (137 - 145 mmol/L) 130 L Potassium (3.5 - 5.1 mmol/L) 4.4 Chloride (98 - 107 mmol/L) 97 L Carbon Dioxide (22 - 30 mmol/L) 24 Anion Gap (5 - 16) 8 BUN (9 - 20 mg/dL) 17 Creatinine (0.7 - 1.2 mg/dL) 0.6 L Estimated GFR (>60 ml/min) > 60 BUN/Creatinine Ratio (7 - 25 %) 28.3 H Hematology CBC w Diff NO MAN DIFF REQ WBC (4.8 - 10.8 /CUMM) 12.7 H RBC (4.70 - 6.10 /CUMM) 3.18 L Hgb (14.0 - 18.0 G/DL) 9.5 L Hct (42 - 52 %) 28.7 L MCV (80.0 - 94.0 FL) 90.5 MCH (27.0 - 31.0 PG) 30.0 MCHC (33.0 - 37.0 G/DL) 33.1 RDW (11.5 - 14.5 %) 15.1 H Plt Count (130 - 400 /CUMM) 390 MPV (7.4 - 10.4 FL) 7.9 Gran % (42.2 - 75.2 %) 80.0 H Lymphocytes % (20.5 - 51.1 %) 12.2 L Monocytes % (1.7 - 9.3 %) 6.7 Eosinophils % (0 - 5 %) 0.8 Basophils % (0.0 - 2.0 %) 0.3 Absolute Granulocytes (1.4 - 6.5 /CUMM) 10.1 H Absolute Lymphocytes (1.2 - 3.4 /CUMM) 1.5 Absolute Monocytes (0.10 - 0.60 /CUMM) 0.9 H Absolute Eosinophils (0.0 - 0.7 /CUMM) 0.1 Absolute Basophils (0.0 - 0.2 /CUMM) 0 Urines Urine Color (YEL,AMB,STR) YEL Urine Clarity (CLEAR) CLEAR Urine pH (5.0 - 8.0) 6.0 Ur Specific [place] (1.001 - 1.035) 1.025 Urine Protein (NEG,<30 MG/DL) TRACE H Urine Ketones (NEG) NEG Urine Nitrite (NEG) NEG Urine Bilirubin (NEG) NEG Urine Urobilinogen (0.1 - 1.0 EU/dl) 1.0 Ur Leukocyte Esterase (NEG) NEG Ur Microscopic SEDIMENT EXAMINED Urine RBC (0 - 5 /HPF) 10-15 H Urine WBC (0 - 2 /HPF) RARE Ur Epithelial Cells (NONE,FEW) RARE Urine Mucus (FEW,NONE) FEW Urine Hemoglobin (NEG) SMALL H Urine Glucose (N MG/DL) NEG 09/12 1415 Urines Urine Osmolality (300 - 1000 MOSM/KG) 654 Ur Random Creatinine (mg/dL) 91.2 Ur Random Sodium (30 - 90 mmol/L) 72 Ur Random Potassium (mmol/L) 53.2 Fraction Sodium Excret (<1% %) 0.4 Assessment/Plan Assessment/Plan This is a 71 year old male, POD 2 s/p R closed reduction right hip, POD 6 s/p explant Right gamma nail with conversion to R MUNDO. delierium seems to be improving with decreased narcotics. ABduction brace in place. Sodium seems to be improving -Physical therapy- WBAT with ABduction brace and knee immobilizer -Can have heart healthy diet as tolerated -FU AM labs -dvt ppx- Eliquis -Hyponatremia improving per medical team-cont to limit fluid intake-1200cc/day per medicice -decrease narcotics to help with confusion -Atelectasis: Incentive spirometry encouraged -DC planning- likely to go to rehab later today or tomorrow will discuss with attending Core Measures Venous Thromboembolism VTE Risk Factors Surgery No Mechanical VTE Prophylaxis d/t N/A MechProphylax Ordered No VTE Pharm Prophylaxis d/t NA PharmProphylax ordered
--- NOTE | 2017-09-14 10:23 | PN- Medicine Consult ---
Veronica Gill 09/14/17 1023: Assessment/PlanMedical Consult Assessment/Plan Assessment: 71-year-old gentleman past medical history significant for CAD status post multiple MIs with PCI and multiple stents placement and CABG, s/p PPM / AICD, COPD, obstructive sleep apnea, Parkinson's disease, severe peripheral artery disease, prostate cancer status post radiation and in remission, history of right intertrochanteric fracture status post total hip release placement gamma nail surgery by Dr. Jara in April 2017. Admitted to [facility] for worsening right hip pain, admitted to surgical save service for revision of the gamma nail fixation versus total hip replacement. 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 Patient's mentation is slightly improving however he still is slightly confused is oriented to person and place and is aware of the reason for his hospitalization. He still continuing to ask for oxycodone. However clinically he does not seem to be an severe pain. 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 PAD prostate cancer s/p radiation in remission Plan: His acute delirium likely secondary to polypharmacy specifically with his pain medications. Spoke to his brother this morning and was given information that patient apparently has pain seeking behavior and substance abuse disorder. Recommend pain management with p.o. Tylenol, and 5 mg oxycodone Q5-6 as needed reorient as needed Enourage Incentive spirometry at bedside. Hyponatremia secondary to SIADH, continue with fluid restriction Continue home meds including amlodipine, Imdur, Coreg, Cymbalta, Ranexa, Sinemet and Neurontin continue Eliquis continue bowel regimen Can be discharged from medical point of view if his sodium is 130 above, can continue with fluid restriction 1500 cc if sodium low 130s Advised pain management consult as outpatient DVT PPX : Eliquis restarted Full Code Formal attending recommendations to follow Thank you for your consult, we will follow along with you Subjective Subjective: seen and examined patient. offers no complaints but would like pain medication. Review of Systems Constitutional: Reports: see HPI. Objective Last 24 Hrs of Vital Signs/I&O Vital Signs Date Time Temp Pulse Resp B/P B/P Pulse O2 O2 Flow FiO2 Mean Ox Delivery Rate 09/15 2231 98.6 72 16 94 Room Air 09/15 2024 76 112/50 09/15 1454 98.4 69 18 96/50 93 Room Air 09/15 0818 78 110/54 95 Room Air 09/15 0638 99.1 71 22 138/72 95 Room Air Intake & Output 09/16 0800 09/16 0000 09/15 1600 Intake Total 525 740 Output Total 300 400 Balance 225 340 Intake, IV 20 Intake, Oral 525 720 Output, Urine 300 400 Patient 136 lb Weight Physical Exam General Appearance: alert, awake, comfortable Cardiovascular: regular rate/rhythm Respiratory: normal breath sounds Abdomen: normal bowel sounds, soft, non-tender Current Medications: Current Medications Sig/Jesus Start time Last Medication Dose Route Stop Time Status Admin Acetaminophen 650 MG .STK-MED ONE 09/15 1451 DC PO 09/15 1452 Acetaminophen 650 MG .STK-MED ONE 09/15 0801 DC PO 09/15 0802 Acetaminophen 650 MG Q6PRN PRN 09/07 1330 AC 09/15 PO 1921 Albuterol Sulfate 2 PUF Q4-6 PRN PRN 09/07 1345 AC INH Amlodipine Besylate 5 MG DAILY 09/08 09 AC 09/15 PO 08 Apixaban 2.5 MG BID 09/13 0900 AC 09/15 PO 2020 Budesonide/ 2 PUF BID 09/07 2100 AC 09/15 Formoterol Fumarate INH 2020 Carbidopa/Levodopa 1 TAB QPM 09/07 2100 AC 09/15 PO 2020 Carvedilol 12.5 MG BID 09/07 2100 AC 09/15 PO 2023 Docusate Sodium 100 MG BID 09/07 2100 AC 09/15 PO 2020 Duloxetine HCl 60 MG DAILY 09/08 09 AC 09/15 PO 08 Fentanyl Citrate 50 MCG Q72H 09/10 2130 AC 09/13 TOP 2115 Gabapentin 100 MG TID 09/07 1400 AC 09/15 PO 2021 Isosorbide 60 MG DAILY 09/08 09 AC 09/15 Mononitrate PO 08 Melatonin 5 MG QPM 09/07 2100 AC 09/15 PO 2020 Omeprazole 40 MG DAILY AC 09/08 0700 AC 09/15 PO 0603 Ondansetron HCl 4 MG Q6-PRN PRN 09/07 1345 AC IV Oxycodone HCl 5 MG Q6P PRN 09/14 0945 AC 09/15 PO 2020 Polyethylene Glycol 17 GM DAILY NEEDED PRN 09/07 1345 AC 09/09 PO 0858 Ranolazine 500 MG BID 09/07 2100 AC 09/15 PO 2020 Tiotropium [place] 1 PUF DAILY 09/08 09 AC 09/15 INH 0812 Results Last 24 Hrs Lab/Rudy Results: Laboratory Tests 09/15/17 0643: Anion Gap 9, Estimated GFR > 60, BUN/Creatinine Ratio 25.0, CBC w Diff NO MAN DIFF REQ, RBC 3.23 L, MCV 90.1, MCH 30.3, MCHC 33.7, RDW 15.7 H, MPV 7.5, Gran % 69.1, Lymphocytes % 16.9 L, Monocytes % 7.8, Eosinophils % 5.6 H, Basophils % 0.6, Absolute Granulocytes 7.6 H, Absolute Lymphocytes 1.9, Absolute Monocytes 0.9 H, Absolute Eosinophils 0.6, Absolute Basophils 0.1 Alan CORREIA,[facility] 09/14/17 1110: Attending MD Review Statement Attending Sign Off Attending Cosign Statement: I have: examined this patient, reviewed [facility] EMR data, personally reviewd images, discussd w/resident/PA/SIGNALS COLLECTOR/ANALYST, discussed mgmt plan w/ej, discussed mgmt plan w/pt, agreed w/resident/PA/SIGNALS COLLECTOR/ANALYST, amended to note. Other Findings: Patient seen and examined, he still slightly confused. He is oriented to person but is not oriented to place and time. His pain scors are still on the higher side. Dr. Gill PGY3 spoke with pateint's brother who confirms the chronic opiate dependence as well as possible pain med seeking behavior. Vital Signs Date Time Temp Pulse Resp B/P B/P Pulse O2 O2 Flow FiO2 Mean Ox Delivery Rate 09/14 910 98.0 70 20 112/60 09/14 0910 98.0 70 20 112/09/14 09 98.0 70 20 112/09/1410 98.0 70 20 112/60 07/17 0704 98.0 70 20 112/60 98 Room Air 09/13 2201 98.5 67 20 118/62 95 Room Air 09/13 1518 97.4 75 20 90/50 95 09/13 1451 Room Air 3.0L on exam; aox1, nad. cv; s1, s2, rrr resp; clear abd; soft, nt, bs+ ext; no edema Labs pending. Assessment and recommendations; 71 y/o M with pmh sig for CAD status post multiple MIs with PCI and multiple stents placement and CABG, s/p PPM / AICD, COPD, obstructive sleep apnea, Parkinson's disease, severe peripheral artery disease, prostate cancer status post radiation and in remission, history of right intertrochanteric fracture status post total hip release placement gamma nail surgery by Dr. Jara in April 2017. Admitted to [facility] for worsening right hip pain, admitted to surgical save service on 09/07/17 s/p removal of right intramedullary nail femur on 09/08/17 for Nonunion right intertrochanteric hip fracture with failure of intramedullary implant. Over the weekend patient continued to have leukocytosis as well as hyponatremia. Patient underwent Closed reduction right total hip arthroplasty prosthetic on September 12, 2017 secondary to dislocation of the right hip. Medicine was reconsulted for hyponatremia and leukocytosis. Please check labs today. Patient still somewhat confused. As noted above, patient's brother confirms chronic opiate dependence for this patient as well as possible pain seeking behavior. I would recommend checking with patient's family about his baseline mental state. He does have chronic hyponatremia and his sodium runs in the low 130s range. If he is not far from his baseline in terms of his mental state and his sodium is 130 or above then he can be discharged whenever he is deemed stable from surgical standpoint. Continue fluid restriction but can liberalize it to 1500 cc per 24 hours if sodium is in the low 130s range. Continue to cut down on the narcotics especially oxycodone. Ultimately patient will need to follow-up with pain management for further taper of his fentanyl patch. Would recommend controlling the pain with nonnarcotic regimen such as Tylenol. Patient on Eliquis for DVT px per ortho. Bowel regimen. PT eval. Encourage IS.
[2017-09-14 12:36] LABS: ABSOLUTE BASOPHIL COUNT 0 /CUMM (0.0-0.2); ABSOLUTE EOSINOPHIL COUNT 0.5 /CUMM (0.0-0.7); ABSOLUTE GRANULOCYTE CT 8.9 /CUMM (1.4-6.5); ABSOLUTE LYMPH COUNT 1.4 /CUMM (1.2-3.4); ABSOLUTE MONOCYTE COUNT 0.9 /CUMM (0.10-0.60); BASOPHIL % 0.1 % (0.0-2.0); EOSINOPHIL % 4.2 % (0-5); GRANULOCYTE % 75.7 % (42.2-75.2); HEMATOCRIT 30.4 % (42-52); MEAN CORPUSCULAR VOLUME 90.8 FL (80.0-94.0); MEAN PLATELET VOLUME 7.6 FL (7.4-10.4); PLATELET COUNT 470 /CUMM (130-400); RBC DISTRIBUTION WIDTH 15.8 % (11.5-14.5); RED BLOOD CELL CT 3.35 /CUMM (4.70-6.10); WHITE BLOOD CELL COUNT 11.7 /CUMM (4.8-10.8)
[2017-09-14 14:22] VITALS: BP 108/60
[2017-09-14 20:00] VITALS: BP 122/70
[2017-09-14 22:07] VITALS: BP 144/88
[2017-09-15 06:38] VITALS: BP 138/72
--- NOTE | 2017-09-15 07:51 | PN- Medicine Consult ---
Kristin Manuel 09/15/17 0750: Assessment/PlanMedical Consult Assessment/Plan Assessment: Patient is 71 years old male with PMH of CAD status post multiple MIs with PCI and multiple stents placement and CABG, s/p PPM / AICD, COPD, obstructive sleep apnea, Parkinson's disease, severe peripheral artery disease, prostate cancer status post radiation and in remission, history of right intertrochanteric fracture status post total hip release placement gamma nail surgery by Dr. Jara in April 2017. 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 Patient underwent closed reduction right total hip arthroplasty prosthetic on September 12, 2017 secondary to dislocation of the right hip. Plan: Problem List: 1. Acute delirium- improved 2. 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 Failed right hip implant/nail fixation s/p closed reduction right total hip arthroplasty prosthetic on 4. September 12, 2017 5. CAD s/p NE with PCI and multiple stents placement 6. HFrEF 7. COPD not on home O2, 8. ANDRADE. 9. PAD 10. prostate cancer s/p radiation in remission Overall, patient seems to be doing better. His mental status has improved after reduction in oxycodon. Consider pain management consult as outpatient for taper of his fentanyl patch. Serum sodium improved to 131 today on 1500 cc fluid restriction. Continue apixaban and home meds including amlodipine, Imdur, Coreg, Cymbalta, Ranexa, Sinemet and Neurontin. From medical stand point, patient is stable to be discharged. DVT ppx: apixaban Full code Formal attending recommendations to follow Subjective Subjective: Patient is seen and examined. He is doing well. Awake, Alert, Orientated times X 3. Serum Sodium is improving, vitals remain stable except for a low grade temp of 99.1, saturating 95% on RA. ROS negative for headache/chest pain/dyspnea /dizziness/ abdominal discomfort/ burning micturation etc. Review of Systems Constitutional: Reports: see HPI. EENTM: Reports: see HPI. Cardiovascular: Reports: see HPI. Objective Last 24 Hrs of Vital Signs/I&O Vital Signs Date Time Temp Pulse Resp B/P B/P Pulse O2 O2 Flow FiO2 Mean Ox Delivery Rate 09/15 0638 99.1 71 22 138/72 95 Room Air 09/14 2206 98.9 74 24 144/88 92 09/14 2030 Room Air 09/15 1999 82 122/70 09/14 1958 82 122/70 09/14 1958 82 122/70 09/14 1422 98.0 65 20 108/60 93 09/14 0911 98.0 70 20 112/60 09/14 0910 98.0 70 20 112/60 09/14 0910 98.0 70 20 112/60 09/14 0910 98.0 70 20 112/60 Intake & Output 09/15 0800 09/15 0000 09/14 1600 Intake Total 240 240 680 Output Total 1950 525 Balance -1710 -285 680 Intake, Oral 240 240 680 Number 0 Bowel Movements Output, Urine 1950 525 Patient 63.191 kg Weight Physical Exam General Appearance: well developed/nourished, no apparent distress, alert, awake , comfortable Head: atraumatic, normal appearance Ears, Nose, Throat: normal pharynx Neck: normal inspection, supple Cardiovascular: regular rate/rhythm Respiratory: normal breath sounds, chest non-tender, no respiratory distress Abdomen: soft, non-tender Extremities: normal inspection, no edema Skin: intact, normal color Current Medications: Current Medications Sig/Jesus Start time Last Medication Dose Route Stop Time Status Admin Acetaminophen 650 MG .STK-MED ONE 09/14 1755 DC PO 09/14 175 Acetaminophen 650 MG .STK-MED ONE 09/14 0913 DC PO 09/14 0914 Acetaminophen 650 MG Q6PRN PRN 09/07 1330 AC 09/15 PO 0807 Albuterol Sulfate 2 PUF Q4-6 PRN PRN 09/07 1345 AC INH Amlodipine Besylate 5 MG DAILY 09/08 09 AC 09/15 PO 08 Apixaban 2.5 MG BID 09/13 09 AC 09/15 PO 08 Budesonide/ 2 PUF BID 09/07 2099 AC 09/15 Formoterol Fumarate INH 0812 Carbidopa/Levodopa 1 TAB QPM 09/07 2099 AC 09/14 PO 195 Carvedilol 12.5 MG BID 09/07 2099 AC 09/15 PO 811 Docusate Sodium 100 MG BID 09/07 2099 AC 09/15 PO 0812 Duloxetine HCl 60 MG DAILY 09/08 09 AC 09/15 PO 0812 Fentanyl Citrate 50 MCG Q72H 09/10 2130 AC 09/13 TOP 2116 Gabapentin 100 MG TID 09/07 1400 AC 09/15 PO 0812 Isosorbide 60 MG DAILY 09/08 09 AC 09/15 Mononitrate PO 0812 Melatonin 5 MG QPM 09/07 2100 AC 09/14 PO 1959 Omeprazole 40 MG DAILY AC 09/08 07 AC 09/15 PO 0603 Ondansetron HCl 4 MG Q6-PRN PRN 09/07 1345 AC IV Oxycodone HCl 5 MG Q6P PRN 09/14 0945 AC 09/15 PO 0603 Oxycodone HCl 5 MG Q4-6 PRN PRN 09/08 2045 DC 09/14 PO 0515 Polyethylene Glycol 17 GM DAILY NEEDED PRN 09/07 1345 AC 09/09 PO 0858 Ranolazine 500 MG BID 09/07 2099 AC 09/15 PO 08 Tiotropium [place] 1 PUF DAILY 09/08 09 AC 09/15 INH 0812 Results Last 24 Hrs Lab/Rudy Results: Laboratory Tests 09/15/17 0643: Anion Gap 9, Estimated GFR > 60, BUN/Creatinine Ratio 25.0, CBC w Diff Pending, WBC Pending, RBC Pending, Hgb Pending, Hct Pending, MCV Pending, MCH Pending, MCHC Pending, RDW Pending, Plt Count Pending, MPV Pending 09/14/17 1145: Anion Gap 9, Estimated GFR > 60, BUN/Creatinine Ratio 26.7 H, CBC w Diff NO MAN DIFF REQ, RBC 3.35 L, MCV 90.8, MCH 30.0, MCHC 33.0, RDW 15.8 H, MPV 7.6, Gran % 75.7 H, Lymphocytes % 12.2 L, Monocytes % 7.8, Eosinophils % 4.2, Basophils % 0.1, Absolute Granulocytes 8.9 H, Absolute Lymphocytes 1.4, Absolute Monocytes 0.9 H, Absolute Eosinophils 0.5, Absolute Basophils 0 Alan CORREIA,Ivonne 09/15/17 1242: Attending MD Review Statement Attending Sign Off Attending Cosign Statement: I have: examined this patient, reviewed aval EMR data, discussd w/resident/PA/ COMEDIAN, discussed mgmt plan w/ej, discussed mgmt plan w/pt, agreed w/resident/PA/COMEDIAN , amended to note. Other Findings: Patient seen and examined, overall seems to be doing better today. He is ao2. He continues to complain of pain and asking for more pain medications. His sodium is at his baseline. He has been kept on 1500 mL fluid restriction. This can be continued for another week and repeat sodium can be checked in one week. Postop care per orthopedic. Please confirm with family member to see how far before meals from his baseline in terms of his mental state. If he's not far from his baseline then from medical standpoint he stable for discharge to rehabilitation whenever surgery exhibit appropriate. Continue the rest of the management and minimize narcotic use. Patient on Eliquis for DVT px.
[2017-09-15 07:59] LABS: ABSOLUTE BASOPHIL COUNT 0.1 /CUMM (0.0-0.2); ABSOLUTE EOSINOPHIL COUNT 0.6 /CUMM (0.0-0.7); ABSOLUTE GRANULOCYTE CT 7.6 /CUMM (1.4-6.5); ABSOLUTE LYMPH COUNT 1.9 /CUMM (1.2-3.4); ABSOLUTE MONOCYTE COUNT 0.9 /CUMM (0.10-0.60); BASOPHIL % 0.6 % (0.0-2.0); EOSINOPHIL % 5.6 % (0-5); GRANULOCYTE % 69.1 % (42.2-75.2); HEMATOCRIT 29.1 % (42-52); MEAN CORPUSCULAR HGB 30.3 PG (27.0-31.0); MEAN CORPUSCULAR HGB CONC 33.7 G/DL (33.0-37.0); MEAN CORPUSCULAR VOLUME 90.1 FL (80.0-94.0); MEAN PLATELET VOLUME 7.5 FL (7.4-10.4); PLATELET COUNT 456 /CUMM (130-400); RBC DISTRIBUTION WIDTH 15.7 % (11.5-14.5); RED BLOOD CELL CT 3.23 /CUMM (4.70-6.10)
[2017-09-15 08:18] VITALS: BP 110/54
--- NOTE | 2017-09-15 08:34 | PN- Orthopedic ---
Subjective Subjective: pod#7 s/p right chong revison pod#3 s/p closed reduction of right chong dislocation resting comfortably in bed with abduction brace in place no major issues overnight deneis cp, sob, no n+v with diet Objective Vital Signs and I&Os Vital Signs Date Time Temp Pulse Resp B/P B/P Pulse O2 O2 Flow FiO2 Mean Ox Delivery Rate 09/15 0818 78 110/54 95 Room Air 09/15 0638 99.1 71 22 138/72 95 Room Air 09/14 2207 98.9 74 24 144/88 92 09/14 2031 Room Air 09/15 1999 82 122/70 09/14 195 82 122/70 09/14 1958 82 122/70 09/14 1422 98.0 65 20 108/60 93 09/14 0911 98.0 70 20 112/60 09/14 0910 98.0 70 20 112/60 09/14 0910 98.0 70 20 112/60 09/14 0910 98.0 70 20 112/60 Intake & Output 09/15 1600 09/15 0800 09/15 0000 09/14 1600 09/14 0800 09/14 0000 Intake Total 240 240 680 220 250 Output Total 7081 468 1113 150 Balance -1710 -285 680 -980 100 Intake, IV 220 200 Intake, Oral 240 240 680 50 Number 0 1 Bowel Movements Output, Urine 4081 091 3676 150 Patient 139 lb 137 lb Weight Weight Bed scale Measurement Method Physical Exam: cv: rrr lungs: clear abd; soft, +bs ext: wound c/d/i distal cms intact bilat no calf tenderness lefg lengths similiar, no evidence of shortening Assessment/Plan Assessment/Plan ortho stable plan f/u am labs snf when bed available abduction brace in place at all times eliquis for dvt prophylaxis Core Measures Venous Thromboembolism VTE Risk Factors Surgery No Mechanical VTE Prophylaxis d/t N/A MechProphylax Ordered No VTE Pharm Prophylaxis d/t NA PharmProphylax ordered
--- NOTE | 2017-09-15 13:05 | PN- Cardiology ---
Subjective Subjective: Stable cardiac status. Complains of hip discomfort Objective Vital Signs and I&Os Vital Signs Date Time Temp Pulse Resp B/P B/P Pulse O2 O2 Flow FiO2 Mean Ox Delivery Rate 09/15 08 78 110/54 95 Room Air 09/15 0638 99.1 71 22 138/72 95 Room Air 09/14 2207 98.9 74 24 144/88 92 09/14 2030 Room Air 09/15 1999 82 122/70 09/14 1958 82 122/70 09/14 1958 82 122/70 09/14 1422 98.0 65 20 108/60 93 Intake & Output 09/15 1600 09/15 0800 09/15 0000 09/14 1600 09/14 0800 09/14 0000 Intake Total 240 240 680 220 250 Output Total 7067 963 9238 150 Balance -1710 -285 680 -980 100 Intake, IV 220 200 Intake, Oral 240 240 680 50 Number 0 1 Bowel Movements Output, Urine 7394 700 9256 150 Patient 139 lb 137 lb Weight Weight Bed scale Measurement Method Physical Exam: General Appearance: well developed/nourished, thin elderly male, alert, awake, oriented Head: normal HEENT: Normal Neck: supple, JVP normal, carotid upstrokes normal bilaterally, no masses or thyromegaly Respiratory: chest non-tender, clear to auscultation and percussion bilaterally Cardiovascular: regular rate/rhythm, normal S1, S2, 1/6 systolic murmur Abdomen: normal bowel sounds, soft, non-tender Extremities: normal inspection, no edema Vascular: Pulses are 2+ and equal bilaterally Neurologic: Grossly normal/nonfocal Current Medications: Current Medications Sig/Jesus Start time Last Medication Dose Route Stop Time Status Admin Acetaminophen 650 MG .STK-MED ONE 09/14 1755 DC PO 09/14 175 Acetaminophen 650 MG Q6PRN PRN 09/07 1330 AC 09/15 PO 0807 Albuterol Sulfate 2 PUF Q4-6 PRN PRN 09/07 1345 AC INH Amlodipine Besylate 5 MG DAILY 09/08 09 AC 09/15 PO 08 Apixaban 2.5 MG BID 09/13 09 AC 09/15 PO 08 Budesonide/ 2 PUF BID 09/07 2100 AC 09/15 Formoterol Fumarate INH 08 Carbidopa/Levodopa 1 TAB QPM 09/07 2100 AC 09/14 PO 195 Carvedilol 12.5 MG BID 09/07 2099 AC 09/15 PO 08 Docusate Sodium 100 MG BID 09/07 2099 AC 09/15 PO 08 Duloxetine HCl 60 MG DAILY 09/08 09 AC 09/15 PO 08 Fentanyl Citrate 50 MCG Q72H 09/10 2129 AC 09/13 TOP 2116 Gabapentin 100 MG TID 09/07 1400 AC 09/15 PO 125 Isosorbide 60 MG DAILY 09/08 09 AC 09/15 Mononitrate PO 08 Melatonin 5 MG QPM 09/07 2099 AC 09/14 PO 195 Omeprazole 40 MG DAILY AC 09/08 07 AC 09/15 PO 0603 Ondansetron HCl 4 MG Q6-PRN PRN 09/07 1345 AC IV Oxycodone HCl 5 MG Q6P PRN 09/14 0945 AC 09/15 PO 1251 Polyethylene Glycol 17 GM DAILY NEEDED PRN 09/07 1345 AC 09/09 PO 0858 Ranolazine 500 MG BID 09/07 2099 AC 09/15 PO 08 Tiotropium [place] 1 PUF DAILY 09/08 09 AC 09/15 INH 0812 Results Last 48 Hrs of Labs/Mics: Laboratory Tests 09/15/17 0643: Anion Gap 9, Estimated GFR > 60, BUN/Creatinine Ratio 25.0, CBC w Diff NO MAN DIFF REQ, RBC 3.23 L, MCV 90.1, MCH 30.3, MCHC 33.7, RDW 15.7 H, MPV 7.5, Gran % 69.1, Lymphocytes % 16.9 L, Monocytes % 7.8, Eosinophils % 5.6 H, Basophils % 0.6, Absolute Granulocytes 7.6 H, Absolute Lymphocytes 1.9, Absolute Monocytes 0.9 H, Absolute Eosinophils 0.6, Absolute Basophils 0.1 09/14/17 1145: Anion Gap 9, Estimated GFR > 60, BUN/Creatinine Ratio 26.7 H, CBC w Diff NO MAN DIFF REQ, RBC 3.35 L, MCV 90.8, MCH 30.0, MCHC 33.0, RDW 15.8 H, MPV 7.6, Gran % 75.7 H, Lymphocytes % 12.2 L, Monocytes % 7.8, Eosinophils % 4.2, Basophils % 0.1, Absolute Granulocytes 8.9 H, Absolute Lymphocytes 1.4, Absolute Monocytes 0.9 H, Absolute Eosinophils 0.5, Absolute Basophils 0 Assessment/Plan Assessment/Plan Assessment: 1. Right hip fracture, s/p redo surgical repair 2. Known CAD; last cath in 10/14 with non revascularizable disease at that time 3. PPM / AICD 4. PAD 5. COPD 6. Mild hypotension, resolved Recommend additions: * Stable postoperatively from cardiac standpoint. * Continue current cardiac medications * Discontinue telemetry Continue telemetry? No
[2017-09-15 14:54] VITALS: BP 96/50
[2017-09-16 06:35] VITALS: BP 140/72
--- NOTE | 2017-09-16 07:23 | PN- Medicine Consult ---
See Addendum Kristin Manuel 09/16/17 0723: Assessment/PlanMedical Consult Assessment/Plan Assessment: Patient is 71 years old male with PMH of CAD status post multiple MIs with PCI and multiple stents placement and CABG, s/p PPM / AICD, COPD, obstructive sleep apnea, Parkinson's disease, severe peripheral artery disease, prostate cancer status post radiation and in remission, history of right intertrochanteric fracture status post total hip release placement gamma nail surgery by Dr. Jara in April 2017. 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 Patient underwent closed reduction right total hip arthroplasty prosthetic on September 12, 2017 secondary to dislocation of the right hip. Plan: Problem List: 1. Acute delirium- improved 2. 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 Failed right hip implant/nail fixation s/p closed reduction right total hip arthroplasty prosthetic on 4. September 12, 2017 5. CAD s/p [place] with PCI and multiple stents placement 6. HFrEF 7. COPD not on home O2, 8. ANDRADE. 9. PAD 10. prostate cancer s/p radiation in remission Patient was to be discharged yesterday, however he could not go. 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 He continues to be on 5 mg every 6 when necessary of oxycodone and fentanyl patch of 50 MCG which seems to be helping with his pain. Consider tapering fentanyl patch as tolerated, and outpatient follow-up with pain management. Sodium from yesterday 131, he continues to be on fluid restriction, and serum electrolytes can be followed up as outpatient within a week for improvement. Can continue the rest of his home meds. DVT prophylaxis Eliquis Patient is full code. Subjective Subjective: Patient seen and examined, he was comfortably eating his breakfast. Sodium continues to improve. Patient remains oriented to place and person but not time. Overall he seems to be doing well. He states that the right hip pain as 7/10 at worse, improved after pain medications. Review of Systems Constitutional: Reports: no symptoms. EENTM: Reports: no symptoms. Cardiovascular: Reports: no symptoms. Respiratory: Reports: no symptoms. Gastrointestinal: Reports: no symptoms. Genitourinary: Reports: no symptoms. Musculoskeletal: Reports: no symptoms. Objective Last 24 Hrs of Vital Signs/I&O Vital Signs Date Time Temp Pulse Resp B/P B/P Pulse O2 O2 Flow FiO2 Mean Ox Delivery Rate 09/16 0635 98.4 69 18 140/72 94 Room Air 09/15 2231 98.6 72 16 94 Room Air 09/15 2024 76 112/50 09/15 1454 98.4 69 18 96/50 93 Room Air Intake & Output 09/16 1600 09/16 0800 09/16 0000 Intake Total 120 525 Output Total 725 300 Balance -605 225 Intake, Oral 120 525 Output, Urine 725 300 Patient 61.745 kg Weight Physical Exam General Appearance: well developed/nourished, no apparent distress, alert, awake , comfortable Head: atraumatic, normal appearance Neck: normal inspection, supple Cardiovascular: regular rate/rhythm Respiratory: normal breath sounds, chest non-tender Abdomen: normal bowel sounds, soft, non-tender Extremities: no edema Current Medications: Current Medications Sig/Jesus Start time Last Medication Dose Route Stop Time Status Admin Acetaminophen 650 MG .STK-MED ONE 09/15 1451 DC PO 09/15 1452 Acetaminophen 650 MG Q6PRN PRN 09/07 1330 AC 09/15 PO 192 Albuterol Sulfate 2 PUF Q4-6 PRN PRN 09/07 1345 AC INH Amlodipine Besylate 5 MG DAILY 09/08 09 AC 09/15 PO 08 Apixaban 2.5 MG BID 09/13 0900 AC 09/15 PO 2020 Budesonide/ 2 PUF BID 09/07 2100 AC 09/15 Formoterol Fumarate INH 2020 Carbidopa/Levodopa 1 TAB QPM 09/07 2100 AC 09/15 PO 2020 Carvedilol 12.5 MG BID 09/07 2100 AC 09/15 PO 2023 Docusate Sodium 100 MG BID 09/07 2100 AC 09/15 PO 2020 Duloxetine HCl 60 MG DAILY 09/08 0900 AC 09/15 PO 08 Fentanyl Citrate 50 MCG Q72H 09/10 2130 AC 09/13 TOP 2116 Gabapentin 100 MG TID 09/07 1400 AC 09/15 PO 2022 Isosorbide 60 MG DAILY 09/08 0900 AC 09/15 Mononitrate PO 0812 Melatonin 5 MG QPM 09/07 2100 AC 09/15 PO 2020 Omeprazole 40 MG DAILY AC 09/08 07 AC 09/16 PO 0520 Ondansetron HCl 4 MG Q6-PRN PRN 09/07 1345 AC IV Oxycodone HCl 5 MG Q6P PRN 09/14 0945 AC 09/16 PO 0217 Polyethylene Glycol 17 GM DAILY NEEDED PRN 09/07 1345 AC 09/09 PO 0858 Ranolazine 500 MG BID 09/07 2100 AC 09/15 PO 2020 Tiotropium [place] 1 PUF DAILY 09/08 09 AC 09/15 INH 0812 Results Last 24 Hrs Lab/Rudy Results: as above Alan CORREIA,Ivonne 09/16/17 1047: Attending MD Review Statement Attending Sign Off Attending Cosign Statement: I have: examined this patient, reviewed al EMR data, personally reviewd images, discussd w/resident/PA/[employer]KER, discussed mgmt plan w/ej, discussed mgmt plan w/CM, discussed mgmt plan w/pt, agreed w/resident/PA/[employer] KISS MAKER. Other Findings: Patient seen and examined, overall doing okay. He is constipated and needs bowel regimen. No behavioral issues. Patient has been doing well in last 24 hours. He was asking for pain medications for his right hip pain. His vital signs are stable. Sodium is now at his baseline. From medical standpoint patient is stable for discharge to rehab. As mentioned in the dye tub tender note yesterday, his telemetry can be discontinued. Continue the rest of his medications. Patient stable for discharge from medical standpoint.
--- NOTE | 2017-09-16 08:02 | PN- Orthopedic ---
Subjective Subjective: Awake, alert Worked with PT yesterday - still weak but moving No specific complaints Objective Vital Signs and I&Os Vital Signs Date Time Temp Pulse Resp B/P B/P Pulse O2 O2 Flow FiO2 Mean Ox Delivery Rate 09/16 0635 98.4 69 18 140/72 94 Room Air 09/15 2231 98.6 72 16 94 Room Air 09/15 2024 76 112/50 09/15 1454 98.4 69 18 96/50 93 Room Air 09/15 0818 78 110/54 95 Room Air Intake & Output 09/16 0800 09/16 0000 09/15 1600 09/15 0800 09/15 0000 09/14 1600 Intake Total 120 525 740 240 240 680 Output Total 725 306 894 1797 525 Balance -605 225 340 -1710 -285 680 Intake, IV 20 Intake, Oral 120 525 720 240 240 680 Number 0 Bowel Movements Output, Urine 725 836 219 6626 525 Patient 136 lb 139 lb Weight Physical Exam: General: alert and oriented times three Chest: clear anteriorly bilaterally, RRR Abd: soft, goodb bs Ext: RLE abduction brace in place, normosensate, good 5/5 FREDRICK at foot Wd: looks good, no signs or symptoms of infx Assessment/Plan Assessment/Plan 71yo male s/p R MUNDO on 09/08 followed by a post op dislocation with closed reduction on 09/12 Continued admission with hyponatremia, copd, cad plan is for rehab when accepted No issues from an orthopedic standpoint Continue PT - wbat Continue daily dressing changes per nursing Continue eliquis for dvt ppx fluid restriction per medical team transfer to medical service per Dr Leslie/Dr Phillips unless dc from hospital today Core Measures Venous Thromboembolism VTE Risk Factors Surgery No Mechanical VTE Prophylaxis d/t N/A MechProphylax Ordered No VTE Pharm Prophylaxis d/t NA PharmProphylax ordered
--- NOTE | 2017-09-16 12:20 | Operative Report ---
Operative/Inv Procedure Report Surgery Date: 09/08/17 Name of Procedure: Right total hip arthroplasty Pre-Operative Diagnosis: Right intertrochanteric hip fracture with failed hardware Post-Operative Diagnosis: Same Estimated Blood Loss: scant (400 cc) Surgeon/Environmental Professional: andrés Jara MD,Connor Ohara Anesthesia: general endotracheal tube IV Fluids: See anesthesia record Implants: [place] anglican module total hip system with a multiple hole porous coated acetabular shell size 52, size 18 distal porous coated stem standard body size 23 and a 36 mm head Drains: Large Hemovac Specimens: Intramedullary nail device and femoral head Complications: None Condition: Stable Operative Indication: The patient's a 71-year-old male who sustained an intertrochanteric hip fracture of the right hip a couple months ago. The intramedullary nail locked screw cut out of the femoral head and he was subsequently indicated for removal of the hardware and conversion to a total hip arthroplasty. Dr. Connor Jara performed removal of the hardware and implant prior to me performing the total hip arthroplasty. He did provide a skilled set of hands throughout the total hip arthroplasty with aiding in retraction and limb positioning and component assembly. Operative/Procedure Note Note: Informed consent I started been obtained by Dr. Jara for the procedure and the total hip arthroplasty portion of the procedure was started once Dr. Jara had successfully remove the implant from the right hip. The patient had been placed in the left lateral decubitus position for total hip arthroplasty to begin the procedure and the implant was removed that way. I then began the procedure using a posterior approach to the hip. The fascia was incised and the gluteus shmuel fibers were bluntly dissected. The sciatic nerve was identified and protected. The piriformis tendon and external rotators were sharply removed from their insertion on the piriformis fossa. This allowed us access to the joint. As I stated the intramedullary nail had already been removed and the lag screw and had also been removed. This gave us exposure to the acetabulum. There was a large defect in the superior medial aspect of the acetabulum. This was full-thickness. A decision was made to first begin reaming of the acetabulum for placement of an acetabular shell. We reamed initially with a 45 reamer to medialize and I sequentially reamed up to a size 51 reamer. This allowed excellent fit of the implant a size 52 trial implant was placed and found to be a good fit. At this point a decision was made to use bone graft that we had harvested from the femoral head to fill the acetabular defect. We used some bone graft to pack the defect and then we mixed bone graft with Hydrocet calcium phosphate to finish the packing of the defect. This allowed for a nice fill of the defect. Once the Hydrocet had hardened we then were able to place a multiple hole acetabular shell into the acetabulum. An excellent press-fit was obtained and then we secured the acetabular component with 2 screws in the superior portion of the acetabulum without complication. Attention was then turned to the femoral component. We began reaming with a starting reamer and then sequentially reamed up to reamed distally up to a size 18 reamer. This would allow us to put a distal fixation anglican modular distal stem into the femur distally. The trial stem was a good fit and a size 18 anglican modular stem was opened and press-fit into the femoral canal without complication. At this point we were using the greater trochanter as a landmark for height and length of the extremity. We reamed proximally up to a size 23 reamer for the body portion of the anglican modular system. A size 23 body 0 length was placed onto the stem and then a trial reduction was done with a 36 mm head. Version of the neck and head was adjusted based on the alignment of the femur in internal rotation. We attempted to approximate 15 of anteversion of the femoral neck. The hip was reduced. Leg lengths seemed to be equal. The hip had stability at 90 of flexion however the stability was not optimal with internal rotation so we redislocated the components and added slightly more version to the femoral neck to about 20. Also a decision was made to use the dual mobility hip prosthesis from [employer] for the head and neck and acetabular cup. This did provide more stability and we had stability at 90 of flexion with 20 of internal rotation and 20 of adduction. The hip was redislocated and the trial components removed. The 23 mm proximal body was then locked into place onto the distal stem with the version being 20 of anteversion of the femoral neck. The liner for the MDM dual mobility [employer] acetabular system was opened and locked into place into the acetabulum and a 36 mm ceramic head was opened and placed onto the femoral neck. The components were relocated and taken through range of motion. Once this was done the wound was pulse lavaged with 3 L of pulse lavage sterile saline solution. The fascia was then closed with a running #1 looped Maxon suture. The deep subcutaneous tissues were closed with #1 Vicryl interrupted sutures in the subcutaneous tissues closed with 2-0 Vicryl interrupted sutures. The skin was closed with aliza. Sterile dressing was applied. An abduction pillow was placed and the patient was awakened and taken recovery in stable condition.
--- NOTE | 2017-09-16 15:03 | PN- Cardiology ---
Subjective Subjective: tthe patient appears to be doing somewhat better. He denies any cardiac symptoms. Less hip pain today Objective Vital Signs and I&Os Vital Signs Date Time Temp Pulse Resp B/P B/P Pulse O2 O2 Flow FiO2 Mean Ox Delivery Rate 09/16 0859 69.0 140/72 09/16 0859 69 140/72 09/16 0859 69 140/72 09/16 0858 69 140/72 09/16 0635 98.4 69 18 140/72 94 Room Air 09/15 2231 98.6 72 16 94 Room Air 09/15 2024 76 112/50 Intake & Output 09/16 1600 09/16 0800 09/16 0000 09/15 1600 09/15 0800 09/15 0000 Intake Total 120 525 740 240 240 Output Total 725 798 072 7795 525 Balance -605 225 340 -1710 -285 Intake, IV 20 Intake, Oral 120 525 720 240 240 Number 0 Bowel Movements Output, Urine 725 592 825 6245 525 Patient 136 lb 139 lb Weight Physical Exam: General Appearance: well developed/nourished, thin elderly male, alert, awake, oriented Head: normal HEENT: Normal Neck: supple, JVP normal, carotid upstrokes normal bilaterally, no masses or thyromegaly Respiratory: chest non-tender, clear to auscultation and percussion bilaterally Cardiovascular: regular rate/rhythm, normal S1, S2, 1/6 systolic murmur Abdomen: normal bowel sounds, soft, non-tender Extremities: normal inspection, no edema Vascular: Pulses are 2+ and equal bilaterally Neurologic: Grossly normal/nonfocal Current Medications: Current Medications Sig/Jesus Start time Last Medication Dose Route Stop Time Status Admin Acetaminophen 650 MG Q6PRN PRN 09/07 1330 AC 09/16 PO 0857 Albuterol Sulfate 2 PUF Q4-6 PRN PRN 09/07 1345 AC INH Amlodipine Besylate 5 MG DAILY 09/08 09 AC 09/16 PO 0859 Apixaban 2.5 MG BID 09/13 09 AC 09/16 PO 0859 Bisacodyl 10 MG DAILY NEEDED 09/17 1015 AC UT Bisacodyl 10 MG DAILY NEEDED PRN 09/16 1015 AC 09/16 UT 09/17 1014 1200 Budesonide/ 2 PUF BID 09/07 2100 AC 09/16 Formoterol Fumarate INH 0858 Carbidopa/Levodopa 1 TAB QPM 09/07 2100 AC 09/15 PO 2020 Carvedilol 12.5 MG BID 09/07 2100 AC 09/16 PO 0859 Docusate Sodium 100 MG BID 09/07 2100 AC 09/16 PO 0858 Duloxetine HCl 60 MG DAILY 09/08 09 AC 09/16 PO 0859 Fentanyl Citrate 50 MCG Q72H 09/10 2130 AC 09/13 TOP 2116 Gabapentin 100 MG TID 09/07 1400 AC 09/16 PO 1319 Isosorbide 60 MG DAILY 09/08 09 AC 09/16 Mononitrate PO 0858 Magnesium Hydroxide 30 ML ONE ONE 09/16 1015 DC PO 09/16 1016 Melatonin 5 MG QPM 09/07 2099 AC 09/15 PO 2020 Omeprazole 40 MG DAILY AC 09/08 07 AC 09/16 PO 0520 Ondansetron HCl 4 MG Q6-PRN PRN 09/07 1345 AC IV Oxycodone HCl 5 MG Q6P PRN 09/14 0945 AC 09/16 PO 1317 Polyethylene Glycol 17 GM DAILY NEEDED PRN 09/07 1345 AC 09/09 PO 0858 Ranolazine 500 MG BID 09/07 2100 AC 09/16 PO 0859 Tiotropium [place] 1 PUF DAILY 09/08 09 AC 09/16 INH 0933 Results Last 48 Hrs of Labs/Mics: Laboratory Tests 09/15/17 0643: Anion Gap 9, Estimated GFR > 60, BUN/Creatinine Ratio 25.0, CBC w Diff NO MAN DIFF REQ, RBC 3.23 L, MCV 90.1, MCH 30.3, MCHC 33.7, RDW 15.7 H, MPV 7.5, Gran % 69.1, Lymphocytes % 16.9 L, Monocytes % 7.8, Eosinophils % 5.6 H, Basophils % 0.6, Absolute Granulocytes 7.6 H, Absolute Lymphocytes 1.9, Absolute Monocytes 0.9 H, Absolute Eosinophils 0.6, Absolute Basophils 0.1 Assessment/Plan Assessment/Plan Assessment: 1. Right hip fracture, s/p redo surgical repair 2. Known CAD; last cath in 10/14 with non revascularizable disease at that time 3. PPM / AICD 4. PAD 5. COPD 6. Mild hypotension, resolved Recommend additions: * Stable postoperatively from cardiac standpoint. * Continue current cardiac medications * Discontinue telemetry Continue telemetry? No Continue telemetry? No
[2017-09-16 15:15] VITALS: BP 106/64
[2017-09-16 22:19] VITALS: BP 108/62
[2017-09-17 06:35] VITALS: BP 120/60
--- NOTE | 2017-09-17 08:11 | PN- Orthopedic ---
Subjective Subjective: doing well no major issues overnight tolerating diet hip brace in place posterior hip precautions Objective Vital Signs and I&Os Vital Signs Date Time Temp Pulse Resp B/P B/P Pulse O2 O2 Flow FiO2 Mean Ox Delivery Rate 09/17 0635 98.9 72 18 120/60 97 Room Air 09/16 2219 98.7 64 16 108/62 95 Room Air 09/16 2038 70 09/16 1515 98.3 70 18 106/64 96 Room Air 09/16 1501 Room Air 3.0L 09/16 0859 69.0 140/72 09/16 0859 69 140/72 09/16 0859 69 140/72 09/16 0858 69 140/72 Intake & Output 09/17 1600 09/17 0800 09/17 0000 09/16 1600 09/16 0800 09/16 0000 Intake Total 250 1000 120 525 Output Total 500 550 725 300 Balance -500 250 450 -605 225 Intake, Oral 250 1000 120 525 Number 1 Bowel Movements Output, Urine 500 550 725 300 Patient 138 lb 136 lb Weight Physical Exam: leg lenghts equal distal cms intact bilat no calf tenderness Assessment/Plan Assessment/Plan ortho stable cleared by cardiology plan awaiting bed placement stable for d/c to snf today cont current plan Core Measures Venous Thromboembolism VTE Risk Factors Surgery No Mechanical VTE Prophylaxis d/t N/A MechProphylax Ordered No VTE Pharm Prophylaxis d/t NA PharmProphylax ordered
[2017-09-17 09:48] VITALS: BP 118/56
--- NOTE | 2017-09-17 14:56 | PN- Cardiology ---
Subjective Subjective: No change in cardiac status. The patient remained stable. Pending short-term rehab Objective Vital Signs and I&Os Vital Signs Date Time Temp Pulse Resp B/P B/P Pulse O2 O2 Flow FiO2 Mean Ox Delivery Rate 09/17 0948 78 118/56 09/17 0948 78 118/56 09/17 0947 78 118/56 09/17 0947 78 118/56 09/17 0903 Room Air 3.0L 09/17 0635 98.9 72 18 120/60 97 Room Air 09/16 2219 98.7 64 16 108/62 95 Room Air 09/16 2038 70 09/16 1515 98.3 70 18 106/64 96 Room Air 09/16 1501 Room Air 3.0L Intake & Output 09/17 1600 09/17 0809/17 0000 09/16 1600 09/16 0800 09/16 0000 Intake Total 250 1000 120 525 Output Total 400 500 550 725 300 Balance -400 -500 250 450 -605 225 Intake, Oral 250 1000 120 525 Number 1 Bowel Movements Output, Urine 400 500 550 725 300 Patient 138 lb 136 lb Weight Physical Exam: General Appearance: well developed/nourished, thin elderly male, alert, awake, oriented Head: normal HEENT: Normal Neck: supple, JVP normal, carotid upstrokes normal bilaterally, no masses or thyromegaly Respiratory: chest non-tender, clear to auscultation and percussion bilaterally Cardiovascular: regular rate/rhythm, normal S1, S2, 1/6 systolic murmur Abdomen: normal bowel sounds, soft, non-tender Extremities: normal inspection, no edema Vascular: Pulses are 2+ and equal bilaterally Neurologic: Grossly normal/nonfocal Current Medications: Current Medications Sig/Jesus Start time Last Medication Dose Route Stop Time Status Admin Acetaminophen 650 MG .STK-MED ONE 09/16 1609 DC PO 09/16 1610 Acetaminophen 650 MG Q6PRN PRN 09/07 1330 AC 09/17 PO 1032 Albuterol Sulfate 2 PUF Q4-6 PRN PRN 09/07 1345 AC INH Amlodipine Besylate 5 MG DAILY 09/08 09 AC 09/17 PO 0948 Apixaban 2.5 MG BID 09/13 09 AC 09/17 PO 0948 Bisacodyl 10 MG DAILY NEEDED 09/17 1015 AC NH Bisacodyl 10 MG DAILY NEEDED PRN 09/16 1015 DC 09/16 NH 09/17 1014 1200 Budesonide/ 2 PUF BID 09/07 2100 AC 09/17 Formoterol Fumarate INH 0948 Carbidopa/Levodopa 1 TAB QPM 09/07 2100 AC 09/16 PO 2033 Carvedilol 12.5 MG BID 09/07 2100 AC 09/17 PO 0947 Docusate Sodium 100 MG BID 09/07 2100 AC 09/17 PO 0947 Duloxetine HCl 60 MG DAILY 09/08 0900 AC 09/17 PO 0948 Fentanyl Citrate 50 MCG Q72H 09/10 2130 AC 09/16 TOP 2038 Gabapentin 100 MG TID 09/07 1400 AC 09/17 PO 0948 Isosorbide 60 MG DAILY 09/08 09 AC 09/17 Mononitrate PO 0947 Ketorolac 30 MG ONCE ONE 09/17 0900 DC 09/17 Tromethamine IV 09/17 0901 0915 Melatonin 5 MG QPM 09/07 2100 AC 09/16 PO 2034 Omeprazole 40 MG DAILY AC 09/08 0700 AC 09/17 PO 0605 Ondansetron HCl 4 MG Q6-PRN PRN 09/07 1345 AC IV Oxycodone HCl 5 MG ONCE ONE 09/17 1445 UNVr PO 09/17 1446 Oxycodone HCl 5 MG Q6P PRN 09/14 0945 AC 09/17 PO 1258 Polyethylene Glycol 17 GM DAILY NEEDED PRN 09/07 1345 AC 09/09 PO 0858 Ranolazine 500 MG BID 09/07 2100 AC 09/17 PO 0948 Tiotropium [place] 1 PUF DAILY 09/08 0900 AC 09/17 INH 0946 Assessment/Plan Assessment/Plan Assessment: 1. Right hip fracture, s/p redo surgical repair 2. Known CAD; last cath in 10/14 with non revascularizable disease at that time 3. PPM / AICD 4. PAD 5. COPD 6. Mild hypotension, resolved Recommend additions: * Stable postoperatively from cardiac standpoint. * Continue current cardiac medications * Discontinue telemetry Continue telemetry? No
== END 2017-09-17 17:30 | DRG 470 ==
LOC: DELPENDDIS → ERH 11:02 → ERHI 13:29 → 1NO 13:29 → 2NB 13:29 → ENRESERV 13:39 → 2NB 14:23 → ENTRNSPT 14:24 → EDTRNSPTSTS 14:35 → 2NB 14:48 → CMPTRNSPT 15:00 → ENRESERV 09-08 17:07 → 1NO 09-08 17:35 → ENTRNSPT 09-08 19:05 → EDTRNSPTSTS 09-08 19:19 → EDTRNSPT 09-08 19:19 → CMPTRNSPT 09-08 19:36 → ENPENDDIS 09-10 07:08 → 1NO 09-10 19:33 → ENTRNSPT 09-12 10:19 → EDTRNSPTSTS 09-12 10:23 → CMPTRNSPT 09-12 10:40 → 1NO 09-14 22:26 → ENPENDDIS 09-16 13:13 → 1NO 09-16 18:05 → ENPENDDIS 09-17 13:17 → 1NO 09-17 17:30
PROVIDERS: Internal Medicine; Nurse Practitioner; Orthopaedic Surgery Sports Medicine; Physician Assistant; Physician Assistant Surgical
PROC: 0SP904Z Removal of Internal Fixation Device from Right Hip Joint, Open Approach (ICD-10-PCS; principal; 2017-09-08)
PROC: 0SR901A Replacement of Right Hip Joint with Metal Synthetic Substitute, Uncemented, Open Approach (ICD-10-PCS; principal; 2017-09-08)
PROC: 0QB70ZZ Excision of Left Upper Femur, Open Approach (ICD-10-PCS; principal; 2017-09-08)
PROC: 0SU Lower Joints, Supplement (ICD-10-PCS; principal; 2017-09-08)
PROC: 30233N1 Transfusion of Nonautologous Red Blood Cells into Peripheral Vein, Percutaneous Approach (ICD-10-PCS; 2017-09-08)
PROC: 0SS9XZZ Reposition Right Hip Joint, External Approach (ICD-10-PCS; 2017-09-12)
DX: T84.020A Dislocation of internal right hip prosthesis, initial encounter (principal); I50.22 Chronic systolic (congestive) heart failure; F05 Delirium due to known physiological condition; E87.1 Hypo-osmolality and hyponatremia; I25.2 Old myocardial infarction; Z95.1 Presence of aortocoronary bypass graft; J44.9 Chronic obstructive pulmonary disease, unspecified; G20 Parkinson's disease; Z85.46 Personal history of malignant neoplasm of prostate; Z79.01 Long term (current) use of anticoagulants; Z79.891 Long term (current) use of opiate analgesic; Z79.51 Long term (current) use of inhaled steroids; G25.81 Restless legs syndrome; G47.33 Obstructive sleep apnea (adult) (pediatric); F41.9 Anxiety disorder, unspecified; F32.9 Major depressive disorder, single episode, unspecified; I25.10 Atherosclerotic heart disease of native coronary artery without angina pectoris; I73.9 Peripheral vascular disease, unspecified; Z95.810 Presence of automatic (implantable) cardiac defibrillator; I95.9 Hypotension, unspecified; Z98.61 Coronary angioplasty status; T40.2X5A Adverse effect of other opioids, initial encounter; Y92.239 Unspecified place in hospital as the place of occurrence of the external cause; D72.829 Elevated white blood cell count, unspecified; T84.020D Dislocation of internal right hip prosthesis, subsequent encounter
CPT/HCPCS: 1NSP; 2NBSP; 84133; 84300; 36415; 36592; 71045; 71046; 73501; 73502-RT; 81001; 82436; 82570; 82652; 86920; 87086; 93005; 93010; 97110-GO; 97116-GO; 97161-GP; 97164-GP; 97530-GO; J0131; J0690; J1170; J1644; J1885; J2405; J3490; J7042; P9016

== ENCOUNTER 2017-09-20 12:09 | Emergency (ER) | payer OTHER, MEDICARE ==
[~2017-09-20] VITALS: Ht 170.2 cm; Wt 54.4 kg
[~2017-09-20 12:09] MED LIST changes: +GABAPENTIN100 M2 PO; +MIRALAX119 GM PO; +PROAIR HFA8.5 GM INH; +VITAMIN D1000 UNIT PO
--- NOTE | 2017-09-20 12:15 | ED GENERAL ADULT ---
History of Present Illness General Chief Complaint: Lower Extremity Problems Stated Complaint: BIBA HIP DISPLACEMENT Source: patient, family, old records Exam Limitations: no limitations Vital Signs & Intake/Output Vital Signs & Intake/Output Vital Signs Date Time Temp Pulse Resp B/P B/P Pulse O2 O2 Flow FiO2 Mean Ox Delivery Rate 09/20 1656 Room Air 09/20 1630 97.6 64 16 128/66 98 Room Air 09/20 1409 98.6 71 18 115/70 98 Room Air 09/20 1224 97.6 70 18 103/60 96 Room Air Allergies Coded Allergies: No Known Allergies (07/23/17) Reconcile Medications Albuterol Sulfate (Proair Hfa) 90 MCG HFA.AER.AD 2 PUF INH Q4-6 PRN PRN SHORTNESS OF BREATH (Reported) Amlodipine Besylate (Norvasc) 5 MG TABLET 1 TAB PO DAILY HTN (Reported) Apixaban (Eliquis) 2.5 MG TABLET 2.5 MG PO BID Blood thinner Aspirin (Ecotrin*) 81 MG TABLET.DR 1 TAB PO DAILY HEART/BLOOD (Reported) Budesonide/Formoterol Fumarate (Symbicort 160-4.5 Mcg Inhaler) 160 MCG-4.5 MCG/ ACTUATION HFA.AER.AD 2 PUF INH BID COPD (Reported) Carbidopa/Levodopa (Sinemet 25-100 MG Tablet) 25 MG-100 MG TABLET 1 TAB PO QPM RESTLESS LEGS (Reported) Carvedilol 12.5 MG TABLET 1 TAB PO BID HEART (Reported) Cholecalciferol (Vitamin D3) (Vitamin D) 1,000 UNIT TABLET 1 TAB PO DAILY VITAMIN SUPPORT (Reported) Docusate Sodium (Colace) 100 MG CAPSULE 1 CAP PO DAILY CONSTIPATION (Reported ) Duloxetine HCl (Cymbalta) 60 MG CAPSULE.DR 1 CAP PO DAILY MOOD (Reported) Fentanyl 50 MCG/HOUR PATCH.TD72 1 PAT TOP Q3D PAIN (Reported) Gabapentin 100 MG CAPSULE 1 CAP PO TID PAIN (Reported) Isosorbide Mononitrate (Isosorbide Mononitrate ER) 60 MG TAB.ER.24H 1 TAB PO DAILY HEART (Reported) Melatonin 5 MG TABLET 1 TAB PO QPM SLEEP (Reported) Metoclopramide HCl (Reglan) 10 MG TABLET 1 TAB PO TIDAC/HS NAUSEA (Reported) 30 minutes before meals and bedtime Omeprazole 40 MG CAPSULE.DR 1 CAP PO DAILY GI (Reported) Oxycodone HCl 10 MG TABLET 1 TAB PO Q4-6 PRN PRN PAIN Polyethylene Glycol 3350 (Miralax) 17 GRAM/DOSE POWDER 17 GM PO DAILY PRN CONSTIPATION (Reported) mix with water, juice, soda, coffee or tea Ranolazine (Ranexa) 500 MG TAB.ER.12H 1 TAB PO BID HEART (Reported) Spironolactone 25 MG TABLET 0.5 TAB PO AD DIURETIC (Reported) Tiotropium [place] (Spiriva) 18 MCG CAP.W.DEV 1 PUF INH DAILY COPD Triage Nurses Notes Reviewed? yes Onset: Abrupt Duration: day(s): Timing: recent history Injury Environment: count includes the [facility] Severity: moderate, severe Severity Numbers: 7 No Modifying Factors: none HPI: 71-year-old male history of COPD, coronary artery disease, hypertension, presents for evaluation of a right hip dislocation. Patient was discharged from the hospital 2 days ago after being admitted for a right hip replacement revision. While in the hospital he did have a right hip dislocation which was reduced. He was discharged to an [facility] where he had been for 2 days. Patient was supposed be wearing a hip immobilizer at all times but had not been wearing it and trying to get out of bed. There is no fall or trauma but patient's hip was dislocated again. Patient does report some pain in the right hip and decreased range of motion. No numbness or tingling no swelling no fevers no chest pain or shortness of breath. (Drew Dsouza) Past History Medical History Any Pertinent Medical History? see below for history Neurological: restless leg syndrome EENT: NONE Cardiovascular: hypertension, myocardial infarction, CAD NE X 4 BYPASS ATHLEROSCLEROSIS PAD Respiratory: COPD, obstructive sleep apnea Gastrointestinal: NAUSEA Hepatic: NONE Renal: NONE Musculoskeletal: BACK FX restless leg syndrome Psychiatric: anxiety, depression Endocrine: NONE Blood Disorders: NONE Cancer(s): prostate cancer LEAD NURSE/Reproductive: NONE History of MRSA: No History of VRE: No History of CDIFF: No Surgical History Surgical History: CABG Psychosocial History Who do you live with Patient/Self Services at Home Nursing What is your primary language [place] Family History Family History, If Any: BROTHER FH: NE (myocardial infarction) Hx Contributory? No (Drew Dsouza) Review of Systems Review of Systems Constitutional: Reports: no symptoms. EENTM: Reports: no symptoms. Respiratory: Reports: no symptoms. Cardiovascular: Reports: no symptoms. GI: Reports: no symptoms. Genitourinary: Reports: no symptoms. Musculoskeletal: Reports: see HPI, joint pain, muscle pain, muscle stiffness. Skin: Reports: no symptoms. Neurological/Psychological: Reports: no symptoms. Hematologic/Endocrine: Reports: no symptoms. Immunologic/Allergic: Reports: no symptoms. All Other Systems: Reviewed and Negative (Drew Dsouza) Physical Exam Physical Exam General Appearance: well developed/nourished, no apparent distress, alert, awake Head: atraumatic, normal appearance Eyes: Bilateral: normal appearance, EOMI. Ears, Nose, Throat: normal pharynx, normal ENT inspection, hearing grossly normal Neck: normal inspection, supple, full range of motion Respiratory: normal breath sounds, chest non-tender, no respiratory distress, lungs clear Cardiovascular: regular rate/rhythm, normal peripheral pulses Peripheral Pulses: 2+ radial (R), 2+ radial (L) Back: normal inspection, normal range of motion Extremities: right hip surgical incision is well approximated without erythema or discharge. There is a gross deformity at the right hip causing the right lower extremity to be shortened. n/v supply inatct, no other joint swelling or pain Neurologic/Psych: no motor/sensory deficits, awake, alert, oriented x 3, normal gait, normal mood/affect Skin: intact, normal color, warm/dry Lymphatic: no anterior cervical arielle Core Measures ACS in differential dx? No CVA/TIA Diagnosis: No Sepsis Present: No Sepsis Focused Exam Completed? No (Drew Dsouza) Progress Differential Diagnoses I considered the following diagnoses in my evaluation of the patient: [Hip dislocation, fracture, sprain, hardware malfunction] Plan of Care: Orders Procedure Date/time Status Durable Medical Equipment 09/20 162 Active Patient is here with a right hip dislocation neurovascular supply is intact. X- rays are negative for fracture. Conscious sedation was used and the right hip was successfully reduced neurovascular supply remains intact there was no immediate complications. Dr. Stone supervised. Spoke with Dr. Jara's office who recommended placing the patient in a knee immobilizer and instructing him to wear the immobilizer at all times no physical therapy follow-up in the next week. Continue at home pain medications. Discussed return precautions case discussed Dr. Stone he agrees. Diagnostic Imaging: Viewed by Me: Radiology Read. Discussed w/RAD: Radiology Read. Radiology Impression: PATIENT: CORNELL GARNER PRESENT AGE: 71 PATIENT ACCOUNT NO: [id number] : 44 LOCATION: [facility] ORDERING PHYSICIAN: Drew MENDOZA SERVICE DATE: 09/20/17 EXAM TYPE: RAD - XRY-HIP 2-3 VIEWS, RIGHT EXAMINATION: XR HIP, RIGHT CLINICAL INFORMATION: Hip dislocation. COMPARISON: 09/12/2017 TECHNIQUE: Two views of the right hip. FINDINGS: There has been dislocation of the right hip prosthesis since the comparison study. The femoral head component is located superior and posterior to the acetabular component. This is nearly identical to the appearance from the previous dislocation on 09/11/2017. Multiple similar-appearing bone fragments are seen about the proximal femur. Skin aliza along the lateral aspect of the proximal right lower extremity are again appreciated. IMPRESSION: Superior and posterior dislocation of the right hip arthroplasty femoral component from its acetabular component. This is very similar in appearance to the prior from 09/11. DICTATED BY: Viry Maxwell MD DATE/TIME DICTATED:09/20/171316 RATE QUOTING OPERATOR:RAMÓN DATE/TIME TRANSCRIBED:09/20/171316 CONFIDENTIAL, DO NOT COPY WITHOUT APPROPRIATE AUTHORIZATION. <Electronically signed in Other Vendor System> SIGNED BY: Viry Maxwell MD 09/20/17 1332, PATIENT: CORNELL GARNER PRESENT AGE: 71 PATIENT ACCOUNT NO: [id number] : 44 LOCATION: [facility] ORDERING PHYSICIAN: Drew MENDOZA SERVICE DATE: 09/20/17200 EXAM TYPE: RAD - XRY-HIP 1 VIEW, RIGHT EXAMINATION: XR HIP, RIGHT CLINICAL INFORMATION: Status post reduction. COMPARISON: 09/20/2017, 09/12/2017, 09/11/2017. TECHNIQUE: AP view of the right hip. FINDINGS: There has been interval relocation of the femoral component of the hip arthroplasty into the acetabular component. The realignment is unchanged when compared with the previous realignment radiograph from 09/12/2017. There has been complete reduction. Bone fragments about the proximal femur are unchanged. No new fracture identified. Cutaneous staple line along the right lateral incision. IMPRESSION: Successful reduction of the previously dislocated right hip arthroplasty. DICTATED BY: Viry Maxwell MD DATE/TIME DICTATED:09/20/171457 RATE QUOTING OPERATOR:RAMÓN DATE/TIME TRANSCRIBED:09/20/171457 CONFIDENTIAL, DO NOT COPY WITHOUT APPROPRIATE AUTHORIZATION. <Electronically signed in Other Vendor System> SIGNED BY: Viry Maxwell MD 09/20/17 1514 Initial ED EKG: none (Drew Dsouza) Departure Departure Disposition: HOME OR SELF CARE Condition: Stable Clinical Impression Primary Impression: Hip dislocation, right Qualifiers: Encounter type: initial encounter Qualified Code: S73.004A - Unspecified dislocation of right hip, initial encounter Referrals: Marek CORREIA,Connor Govea MD,Toni Araiza (PCP/Family) Additional Instructions: FOLLOW UP WITH DR JARA SOON POSSIBLE. Wear knee immobilizer at all times. No physical therapy. RETURN WITH ANY CONCERNS. CONTINUE AT HOME PAIN MEDS. Departure Forms: Customer Survey General Discharge Information (Drew Dsouza) Departure Comments 09/20/17 I've seen and personally examined the patient and I agree with the PAs evaluation. Status post right hip dislocation. He is had prior dislocations. Recent surgical revision. The right hip was reduced under moderate sedation under my direct supervision, with a Captain Bearden technique. Postreduction x-rays showed adequate reduction. The patient's orthopedic surgeon Dr. Jara was notified by the [facility]. The patient will follow-up with his orthopedist. There were no complications related to the procedure. (Murali Stone DO) Procedures Joint Reduction Joint Reduction Site: hip (R) Conscious Sedation: conscious sedation, performed by me, performed by other (DR STONE) Reduction Attempts: 1 Pre-Procedure NV Exam: Yes Post-Procedure NV Exam: Yes Post Joint Reduction Film: joint reduced, no fracture seen Procedural Sedation Sedation Type: moderate Indication: RT HIP DISLOCATION Prior Complications: none, unknown ASA Classification: P3 Airway: normal anatomy Mallampati Classification: Class 2 Preparation: plan explained to patient, hospital consent signed, oximetry during procedure, IV access obtained, suction immediately avail, cardiac nurse practitioner used Sedation: etomidate Complications During/After Procedure: none Post Sedation Score: see sedation record I personally performed: sedation, procedure Intra-Service Time: 30 minutes or less (Drew Dsouza) Critical Care Note Critical Care Note Critical Care Time: non-applicable (Drew Dsouza)
--- NOTE | 2017-09-20 13:32 | RADIOLOGY REPORT ---
EXAMINATION: XR HIP, RIGHT CLINICAL INFORMATION: Hip dislocation. COMPARISON: 09/12/2017 TECHNIQUE: Two views of the right hip. FINDINGS: There has been dislocation of the right hip prosthesis since the comparison study. The femoral head component is located superior and posterior to the acetabular component. This is nearly identical to the appearance from the previous dislocation on 09/11/2017. Multiple similar-appearing bone fragments are seen about the proximal femur. Skin aliza along the lateral aspect of the proximal right lower extremity are again appreciated. IMPRESSION: Superior and posterior dislocation of the right hip arthroplasty femoral component from its acetabular component. This is very similar in appearance to the prior from 09/11/2017.
--- NOTE | 2017-09-20 15:15 | RADIOLOGY REPORT ---
EXAMINATION: XR HIP, RIGHT CLINICAL INFORMATION: Status post reduction. COMPARISON: 09/20/2017, 09/12/2017, 09/11/2017. TECHNIQUE: AP view of the right hip. FINDINGS: There has been interval relocation of the femoral component of the hip arthroplasty into the acetabular component. The realignment is unchanged when compared with the previous realignment radiograph from 09/12/2017. There has been complete reduction. Bone fragments about the proximal femur are unchanged. No new fracture identified. Cutaneous staple line along the right lateral incision. IMPRESSION: Successful reduction of the previously dislocated right hip arthroplasty.
[2017-09-20 16:30] VITALS: BP 128/66
== END 2017-09-20 16:40 ==
LOC: ERH 12:09
DX: T84.020A Dislocation of internal right hip prosthesis, initial encounter (principal); X58.XXXA Exposure to other specified factors, initial encounter
CPT/HCPCS: 73501; 73502-RT; 96374

== ENCOUNTER 2017-09-21 13:53 | Inpatient (IN) | payer OTHER, MEDICARE ==
[~2017-09-21] VITALS: Ht 177.8 cm; Wt 60.5 kg
--- NOTE | 2017-09-21 14:07 | ED UPPER/LOWER EXTREMITY COMPL ---
History of Present Illness General Chief Complaint: Lower Extremity Injury Stated Complaint: BIBA RIGHT HIP INJRY Source: patient, old records Exam Limitations: no limitations Allergies Coded Allergies: No Known Allergies (07/23/17) Reconcile Medications Albuterol Sulfate (Proair Hfa) 90 MCG HFA.AER.AD 2 PUF INH Q4-6 PRN PRN SHORTNESS OF BREATH (Reported) Amlodipine Besylate (Norvasc) 5 MG TABLET 1 TAB PO DAILY HTN (Reported) Apixaban (Eliquis) 2.5 MG TABLET 2.5 MG PO BID Blood thinner Aspirin (Ecotrin*) 81 MG TABLET.DR 1 TAB PO DAILY HEART/BLOOD (Reported) Budesonide/Formoterol Fumarate (Symbicort 160-4.5 Mcg Inhaler) 160 MCG-4.5 MCG/ ACTUATION HFA.AER.AD 2 PUF INH BID COPD (Reported) Carbidopa/Levodopa (Sinemet 25-100 MG Tablet) 25 MG-100 MG TABLET 1 TAB PO QPM RESTLESS LEGS (Reported) Carvedilol 12.5 MG TABLET 1 TAB PO BID HEART (Reported) Cholecalciferol (Vitamin D3) (Vitamin D) 1,000 UNIT TABLET 1 TAB PO DAILY VITAMIN SUPPORT (Reported) Docusate Sodium (Colace) 100 MG CAPSULE 1 CAP PO DAILY CONSTIPATION (Reported ) Duloxetine HCl (Cymbalta) 60 MG CAPSULE.DR 1 CAP PO DAILY MOOD (Reported) Fentanyl 50 MCG/HOUR PATCH.TD72 1 PAT TOP Q3D PAIN (Reported) Gabapentin 100 MG CAPSULE 1 CAP PO TID PAIN (Reported) Isosorbide Mononitrate (Isosorbide Mononitrate ER) 60 MG TAB.ER.24H 1 TAB PO DAILY HEART (Reported) Melatonin 5 MG TABLET 1 TAB PO QPM SLEEP (Reported) Metoclopramide HCl (Reglan) 10 MG TABLET 1 TAB PO TIDAC/HS NAUSEA (Reported) 30 minutes before meals and bedtime Omeprazole 40 MG CAPSULE.DR 1 CAP PO DAILY GI (Reported) Oxycodone HCl 10 MG TABLET 1 TAB PO Q4-6 PRN PRN PAIN Polyethylene Glycol 3350 (Miralax) 17 GRAM/DOSE POWDER 17 GM PO DAILY PRN CONSTIPATION (Reported) mix with water, juice, soda, coffee or tea Ranolazine (Ranexa) 500 MG TAB.ER.12H 1 TAB PO BID HEART (Reported) Spironolactone 25 MG TABLET 0.5 TAB PO AD DIURETIC (Reported) Tiotropium [place] (Spiriva) 18 MCG CAP.W.DEV 1 PUF INH DAILY COPD Triage Note: PT SHARATHA FROM REHAB FACILITY WITH C/O RIGHT POST-OP HIP REPEATEDLY "POPPING OUT". EMS REPORTS THAT IT APPEARED ON ASSESSMENT THAT HIP WOULD POP OUT OF JOINT AND THEN BACK INTO PLACE INTERMITTENTLY. PT STATES THAT THIS HAS BEEN HAPPINGING "FOR A WHILE" BUT CANNOT QUALIFY THAT WITH A SPECIFIC TIME RANGE. PT VERY SHORT WITH ANSWERS AND DISMISSIVE OF QUESTIONS ON ARRIVAL. ARIVES WITH RLE IN IMMOBILIZER, MARIA DE JESUS INTACT TO TWO SURGICAL INCISIONS TO RIGHT HIP, SLIGHT ERYTHEMA TO UPPER SITE, NO DRAINAGE TO EITHER Triage Nurses Notes Reviewed? yes Onset: Abrupt Duration: constant Timing: recent history Severity: severe Severity Numbers: 10 HPI: Patient is a 71-year-old male with a past medical history of COPD CAD hypertension and which patient is easily status post right hip revision where he was discharged from [facility] days ago currently is residing at [facility] facility in which old records also indicate that patient is supposed to be wearing a hip immobilizer at all times however staff is noted that he's been noncompliant and trying to always get out of bed when he was seen yesterday at [facility] for right hip pain where he had a right hip dislocation and reduction was performed patient was strongly advised to follow-up with hip dislocation precautions however he states that he still in a significant amount of pain to his right hip and knee. Patient denies any recent falls and is otherwise without complaints (Wilner MENDOZA,Ilan) Vital Signs & Intake/Output Vital Signs & Intake/Output Vital Signs Date Time Temp Pulse Resp B/P B/P Pulse O2 O2 Flow FiO2 Mean Ox Delivery Rate 09/23 0612 98.3 70 18 110/76 94 Room Air 09/22 2144 84 130/70 09/22 2143 84 130/70 09/22 2134 98.5 84 18 130/70 96 09/22 1348 98.4 68 18 100/64 95 Room Air 09/22 1112 Room Air Room Air 09/22 0809 74 116/78 09/22 0809 74 116/78 09/22 0809 74 116/78 09/22 0809 74 116/78 ED Intake and Output 09/23 0000 09/22 1200 Intake Total 1310 640 Output Total 575 1375 Balance 735 -735 Intake, IV 210 400 Intake, Oral 1100 240 Number 0 Bowel Movements Output, Urine 575 1375 Patient 112 lb Weight Weight Bed scale Measurement Method (Kaleb CORREIA,Kristin) Past History Medical History Any Pertinent Medical History? 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 No (Ilan Florence) Review of Systems Review of Systems Constitutional: Reports: no symptoms. EENTM: Reports: no symptoms. Respiratory: Reports: no symptoms. Cardiovascular: Reports: no symptoms. Gastrointestinal/Abdominal: Reports: no symptoms. Genitourinary: Reports: no symptoms. Musculoskeletal: Reports: see HPI, joint pain. Skin: Reports: no symptoms. Neurological/Psychological: Reports: no symptoms. Hematologic/Endocrine: Reports: no symptoms. Immunological: Reports: no symptoms. All Other Systems: Reviewed and Negative (Ilan Florence) Physical Exam Physical Exam General Appearance: no apparent distress, alert, thin Head: atraumatic Eyes: Bilateral: normal appearance. Ears, Nose, Throat: hearing grossly normal Cardiovascular/Respiratory: regular rate/rhythm, no respiratory distress Peripheral Pulses: 2+ dorsalis pedis (R) Gastrointestinal: NONTENDER ABDOMEN Neurologic/Tendon: responds to pain, no evidence tendon injury, no pulse deficit Skin: intact, normal color Comments: Right hip noted lateral well-healing incision with multiple maria de jesus in place with no active discharge or erythema noted shortening of the right leg compared bilaterally Generalized point tenderness noted Right knee normal inspection generalized point tenderness noted upon palpation Right lower extremity dermatomes intact pedal pulse +2 capillary refill less than 2 seconds (Ilan Florence) Progress Differential Diagnosis: arterial insufficiency, compartment syndrome, contusion, dislocation, DVT, fracture, gout, septic arthritis, sprain, tendon injury Diagnostic Imaging: Viewed by Me: Radiology Read. Radiology Impression: acute abnormality, dislocation Initial ED EKG: normal p-waves, normal QRS complex Comments: PATIENT: CORNELL GARNER PRESENT AGE: 71 PATIENT ACCOUNT NO: [id number] : 44 LOCATION: [facility] ORDERING PHYSICIAN: Be MENDOZA SERVICE DATE: 09/21/17 EXAM TYPE: RAD - XRY-PORTABLE CHEST XRAY EXAMINATION: XR PORTABLE CHEST CLINICAL INFORMATION: Admission preop. COMPARISON: Chest x-ray 09/11/2017 TECHNIQUE: Portable frontal view of the chest was obtained. 4:03 PM FINDINGS: Surgical clips over the cardiac silhouette with sternal suture wires present. Pacemaker lead in right atrium and right ventricle unchanged position since prior study. The heart size is normal. There is no pulmonary vascular congestion. There is chronic scarring at the right lung base. There is no acute infiltrate. There is no pleural effusion and no pneumothorax. IMPRESSION: No acute abnormality of the chest. DICTATED BY: Abel Siddiqui MD DATE/TIME DICTATED:09/21/171632 MAGISTERIAL DISTRICT JUDGE:RAMÓN DATE/TIME TRANSCRIBED:09/21/171632 (Ilan Florence) Comments: 09/21 1534 71-year-old male comes in with pain to the right hip. The patient appears to have dislocated his hip again. The patient was recently admitted had a surgery done on the right hip and has had 2 dislocations which have needed reduction. The patient remains noncompliant with his instructions and keeps dislocating his hip. I spoke with orthopedic surgeon. I discussed my concern that the patient will keep dislocating his hip and risk needing sedation again and again. After discussion we decided that we will reduce the hip but the orthopedic surgeon will admit the patient for definitive care which she was planning to as an outpatient. 1732 71-year-old male presents with dislocation of the hip. He has had dislocation multiple times this month following a surgery earlier this month. I spoke with . I am concerned that the patient keeps having frequent dislocations and that puts him at risk. He has not had any formal corrective surgery which is planned for the future. Concerned that the patient will keep coming back with dislocations because he is noncompliant with the instructions given orthopedics. The orthopedic surgeon recommends that we can safely reduce his dislocation and was done yesterday. Will follow his advice and do so. At the same time he will accept the patient for admission for definitive care of this recurrent dislocation. I did conscious sedation while the dislocation was done by REJI Groves. Conscious sedation went without any concerns. The patient woke up comfortably. 2008 the hip replacement was unsuccessful. The patient is to be admitted to the orthopedic surgery anyway. We will not reattempt to relocate the hip, it would be taken care of by the orthopedic surgeon. (Caden CORREIA,[facility]) Plan of Care: Orders Procedure Date/time Status Nothing by Mouth 09/23 B Active Heart Healthy Diet 09/22 B Complete EKG 09/22 1842 Active Weight 09/22 1427 Active Wound Care/Dressing 09/22 0847 Active Turn and Reposition 09/22 0847 Active Skin Integrity Protocol 09/22 0847 Active PHOSPHORUS 09/22 0825 Complete MAGNESIUM 09/22 0825 Complete BASIC ELECTROLYTES PLUS BUN&CR 09/22 0825 Complete Admit to inpatient 09/22 UNK Active Nursing Misc 09/22 UNK Active Current Medications Sig/Jesus Start time Last Medication Dose Stop Time Status Admin Dextrose/Sodium 1,000 ML Q20H 09/23 0000 AC 09/22 Chloride 2334 (D5-Normal Saline) Amlodipine Besylate 5 MG DAILY 09/22 0900 AC 09/22 (Norvasc) 0809 Aspirin Buffered 81 MG DAILY 09/22 0900 AC 09/22 (Ecotrin) 0809 Docusate Sodium 100 MG DAILY 09/22 0900 AC 09/22 (Colace) 0809 Duloxetine HCl 60 MG DAILY 09/22 0900 AC 09/22 (Cymbalta) 0809 Isosorbide 60 MG DAILY 09/22 0900 AC 09/22 Mononitrate 0809 (Imdur) Tiotropium [place] 1 PUF DAILY 09/22 0900 AC 09/22 (Spiriva) 0808 Omeprazole 40 MG DAILY AC 09/22 0700 AC 09/23 (Prilosec) 0515 Heparin Sodium 5,000 UNIT Q8 09/21 2200 AC 09/22 (Porcine) 214 Budesonide/ 2 PUF BID 09/21 2100 AC 09/22 Formoterol Fumarate 214 (Symbicort) Carbidopa/Levodopa 1 TAB QPM 09/21 2099 AC 09/22 (Sinemet 25/100MG) 2143 Carvedilol 12.5 MG BID 09/21 2099 AC 09/22 (Coreg) 2142 Gabapentin 100 MG TID 09/21 2099 AC 09/22 (Neurontin) 2145 Melatonin 5 MG QPM 09/21 2099 AC 09/22 (Melatonin) 2142 Metoclopramide HCl 10 MG TIDAC/HS 09/21 2099 AC 09/22 (Reglan) 2143 Ranolazine 500 MG BID 09/21 2099 AC 09/22 (Ranexa) 2143 Oxycodone HCl 10 MG Q4-6 PRN PRN 09/21 1714 AC 09/22 (Roxicodone) 2146 Albuterol Sulfate 2 PUF Q4-6 PRN PRN 09/21 170 AC (Ventolin) Fentanyl Citrate 50 MCG Q3D 09/21 170 AC 09/21 (Duragesic) 183 Laboratory Tests 09/22/17 0855: Anion Gap 10, Estimated GFR > 60, BUN/Creatinine Ratio 16.7, Phosphorus 3.5, Magnesium 1.7 Patient was neurovascular intact to right lower extremity patient's confirmed x- ray findings of prosthetic right hip dislocation patient signed consent form for conscious procedural sedation Patient's continues to ask for pain medications none relief with Percocet Morphine was administered Dr. SCHWARTZ discussed patient with Dr. ALEXANDER SCHWARTZ discussed patient with orthopedics who advised for the emergency room to perform conscious sedation and reduction and orthopedics will admit patient. Discussed risks and benefits of the conscious sedation with patient for reduction of the right hip patient He signed consent form DR SCHWARTZ supervised the conscious sedation after multiple attempts there was an audible clunk out for a second audible clunk was noted to the right hip. Post neurovascular was intact repeat x-rays show persistent right hip dislocation 1831 - I discussed the x-ray results with the surgical PA was aware of persistent right hip dislocation POST PROCEDURE WAS NEUROVASCULARLY INTACT TO RIGHT LEG (Ilan Florence) (Kaleb CORREIA,Kristin) Departure Departure Disposition: STILL A PATIENT Condition: Stable Clinical Impression Primary Impression: Recurrent dislocation, right hip Referrals: Ann Govea MD (PCP/Family) Departure Forms: Customer Survey General Discharge Information Observation Note Physician Advisor Notified: ANN MCKEON MD (Ilan Florence) Departure Time of Disposition: 1734 Observation Note Spoke With: Alexander CORREIA,Titi Rhoades Place Patient In: Non-ED OBS Care Area Rationale for Observation: My rational for observation is as follows recurrent dislocation, the patient is not safe to go home because of noncompliance and recurrent dislocations putting him at high risk of causing an injury, patient needs definitive care for his recurrent dislocations. PA/CLINICAL REVIEW SPECIALIST Co-Sign Statement Statement: ED Attending supervision documentation- [y] I saw and evaluated the patient. I have also reviewed all the pertinent lab results and diagnostic results. I agree with the findings and the plan of care as documented in the PA's/CLINICAL REVIEW SPECIALIST's documentation. [] I have reviewed the ED Record and agree with the PA's/CLINICAL REVIEW SPECIALIST's documentation. [] Additions or exceptions (if any) to the PAs/CLINICAL REVIEW SPECIALIST's note and plan are summarized below: [] (Caden CORREIA,[facility]) Procedures Joint Reduction Joint Reduction Site: hip (R) Conscious Sedation: performed by me Reduction Attempts: 3 Pre-Procedure NV Exam: Yes Post-Procedure NV Exam: Yes Post Joint Reduction Film: joint not reduced Procedural Sedation Sedation Type: moderate Indication: right hip dislocation Prior Complications: procedural sedation ASA Classification: P1 Airway: normal anatomy Mallampati Classification: Class 3 Preparation: plan explained to patient, hospital consent signed, oximetry during procedure, IV access obtained, suction immediately avail, monitor and storage bin tender used Sedation: etomidate Complications During/After Procedure: none Post Sedation Score: see sedation record I personally performed: sedation, procedure Intra-Service Time: 30 minutes or less (Ilan Florence)
--- NOTE | 2017-09-21 15:03 | RADIOLOGY REPORT ---
EXAMINATION: XR HIP, RIGHT XR KNEE, RIGHT CLINICAL INFORMATION: Right hip dislocation, right knee pain. COMPARISON: Hip radiograph 09/20/2017. Right knee radiograph 08/25/2008. TECHNIQUE: Three views of the right hip. 5 views right knee. FINDINGS: RIGHT HIP: Similar-appearing dislocation of the right hip arthroplasty when compared to the prior study from 09/20/2017 with superior migration of the femoral component above the acetabular component. Similar appearance of the bony fragments surrounding the hip. No periprosthetic fracture identified. The acetabular component is intact. Lateral staple lines over the proximal right lower extremity. RIGHT KNEE: Degenerative changes at all 3 compartments with joint space narrowing and small marginal osteophytes. No joint effusion. No radiographic evidence of acute fracture or subluxation. Vascular calcifications. IMPRESSION: 1. Similar-appearing dislocation of the right hip arthroplasty femoral component superior to the acetabular component. 2. Degenerative changes of the right knee without radiographic evidence of acute displaced fracture or subluxation.
--- NOTE | 2017-09-21 16:38 | RADIOLOGY REPORT ---
EXAMINATION: XR PORTABLE CHEST CLINICAL INFORMATION: Admission preop. COMPARISON: Chest x-ray 09/11/2017 TECHNIQUE: Portable frontal view of the chest was obtained. 4:03 PM FINDINGS: Surgical clips over the cardiac silhouette with sternal suture wires present. Pacemaker lead in right atrium and right ventricle unchanged position since prior study. The heart size is normal. There is no pulmonary vascular congestion. There is chronic scarring at the right lung base. There is no acute infiltrate. There is no pleural effusion and no pneumothorax. IMPRESSION: No acute abnormality of the chest.
[2017-09-21 17:01] LABS: ABSOLUTE BASOPHIL COUNT 0 /CUMM (0.0-0.2); ABSOLUTE EOSINOPHIL COUNT 0.1 /CUMM (0.0-0.7); ABSOLUTE GRANULOCYTE CT 7.6 /CUMM (1.4-6.5); ABSOLUTE LYMPH COUNT 1.1 /CUMM (1.2-3.4); ABSOLUTE MONOCYTE COUNT 0.8 /CUMM (0.10-0.60); BASOPHIL % 0.3 % (0.0-2.0); HEMATOCRIT 32.7 % (42-52); MEAN CORPUSCULAR HGB 29.8 PG (27.0-31.0); MEAN CORPUSCULAR HGB CONC 33.1 G/DL (33.0-37.0); MEAN PLATELET VOLUME 6.9 FL (7.4-10.4); PLATELET COUNT 633 /CUMM (130-400); RBC DISTRIBUTION WIDTH 15.9 % (11.5-14.5); RED BLOOD CELL CT 3.64 /CUMM (4.70-6.10); WHITE BLOOD CELL COUNT 9.7 /CUMM (4.8-10.8)
[2017-09-21 17:15] LABS: PT 15.2 SEC (9.4-12.5)
--- NOTE | 2017-09-21 17:19 | Cons- Medical ---
Kristin Manuel 09/21/17 1718: General Information and HPI Consulting Request Date of Consult: 09/21/17 Requested By: orthopedic surgeon Reason for Consult: Medical co-morbidities Source of Information: patient, old records Exam Limitations: no limitations History of Present Illness: Patient is 71 years old male with PMH of CAD status post multiple MIs with PCI and multiple stents placement and CABG, s/p PPM / AICD, COPD, obstructive sleep apnea, Parkinson's disease, severe peripheral artery disease, prostate cancer status post radiation and in remission, history of right intertrochanteric fracture status post total hip release placement gamma nail surgery by Dr. Jara in April 2017. Was recently admitted to [facility] for worsening right hip pain, on 09/07/17 s/p removal of right intramedullary nail femur on 01/16 for Non-union right intertrochanteric hip fracture with failure of intramedullary implant. Patient underwent closed reduction right total hip arthroplasty prosthetic on September 12, 2017 secondary to dislocation of the right hip. Patient was discharged to a rehabilitation facility on 09/16/17. Patient states that at the rehabilitation facility he was doing his physical therapy, and he noticed that his right hip was popping out. He also reported 10/10 sharp pain radiating from right hip down to the knee. Patient states that the pain is worse on movement, and the right hip region is also tender on palpation. Patient denies any headaches/dizziness/chest pain/palpitations/shortness of breath/abdominal discomfort/burning micturition/urgency/hesitancy. Allergies/Medications Allergies: Coded Allergies: No Known Allergies (07/23/17) Home Med List: Albuterol Sulfate (Proair Hfa) 90 MCG HFA.AER.AD 2 PUF INH Q4-6 PRN PRN SHORTNESS OF BREATH (Reported) Amlodipine Besylate (Norvasc) 5 MG TABLET 1 TAB PO DAILY HTN (Reported) Apixaban (Eliquis) 2.5 MG TABLET 2.5 MG PO BID Blood thinner Aspirin (Ecotrin*) 81 MG TABLET.DR 1 TAB PO DAILY HEART/BLOOD (Reported) Budesonide/Formoterol Fumarate (Symbicort 160-4.5 Mcg Inhaler) 160 MCG-4.5 MCG/ ACTUATION HFA.AER.AD 2 PUF INH BID COPD (Reported) Carbidopa/Levodopa (Sinemet 25-100 MG Tablet) 25 MG-100 MG TABLET 1 TAB PO QPM RESTLESS LEGS (Reported) Carvedilol 12.5 MG TABLET 1 TAB PO BID HEART (Reported) Cholecalciferol (Vitamin D3) (Vitamin D) 1,000 UNIT TABLET 1 TAB PO DAILY VITAMIN SUPPORT (Reported) Docusate Sodium (Colace) 100 MG CAPSULE 1 CAP PO DAILY CONSTIPATION (Reported ) Duloxetine HCl (Cymbalta) 60 MG CAPSULE.DR 1 CAP PO DAILY MOOD (Reported) Fentanyl 50 MCG/HOUR PATCH.TD72 1 PAT TOP Q3D PAIN (Reported) Gabapentin 100 MG CAPSULE 1 CAP PO TID PAIN (Reported) Isosorbide Mononitrate (Isosorbide Mononitrate ER) 60 MG TAB.ER.24H 1 TAB PO DAILY HEART (Reported) Melatonin 5 MG TABLET 1 TAB PO QPM SLEEP (Reported) Metoclopramide HCl (Reglan) 10 MG TABLET 1 TAB PO TIDAC/HS NAUSEA (Reported) 30 minutes before meals and bedtime Omeprazole 40 MG CAPSULE.DR 1 CAP PO DAILY GI (Reported) Oxycodone HCl 10 MG TABLET 1 TAB PO Q4-6 PRN PRN PAIN Polyethylene Glycol 3350 (Miralax) 17 GRAM/DOSE POWDER 17 GM PO DAILY PRN CONSTIPATION (Reported) mix with water, juice, soda, coffee or tea Ranolazine (Ranexa) 500 MG TAB.ER.12H 1 TAB PO BID HEART (Reported) Spironolactone 25 MG TABLET 0.5 TAB PO AD DIURETIC (Reported) Tiotropium [place] (Spiriva) 18 MCG CAP.W.DEV 1 PUF INH DAILY COPD Review of Systems Review of Systems Constitutional: Reports: see HPI. 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 Ambulation: walker IADLs Independent: shopping, housework, finances, food prep, telephone, transportation , medication admin. Exam & Diagnostic Data Last 24 Hrs of Vital Signs/I&O Vital Signs Date Time Temp Pulse Resp B/P B/P Pulse O2 O2 Flow FiO2 Mean Ox Delivery Rate 09/21 1635 99.4 69 20 132/67 97 Room Air 09/21 1406 99.7 71 14 116/63 97 Room Air Physical Exam General Appearance: well developed/nourished, no apparent distress, alert, awake Head: atraumatic, normal appearance Eyes: Bilateral: normal appearance. Neck: normal inspection, supple Respiratory: normal breath sounds Cardiovascular: regular rate/rhythm Gastrointestinal: normal bowel sounds, soft, non-tender Extremities: RIGHT HIP HAS MARIA DE JESUS IN PLACE,WITH SURROUNDING INDURATION. tHERE IS NO DISCHARGE FROM THE SURGICAL SITE. Last 24 Hrs of Labs/Rudy: Laboratory Tests 09/21/17 1651: Anion Gap 11, Estimated GFR > 60, BUN/Creatinine Ratio 23.3, Calcium 8.7, Phosphorus 4.1, Magnesium 1.9, PT 15.2 H, INR 1.39 H, CBC w Diff NO MAN DIFF REQ, RBC 3.64 L, MCV 90.0, MCH 29.8, MCHC 33.1, RDW 15.9 H, MPV 6.9 L, Gran % 79.0 H, Lymphocytes % 11.7 L, Monocytes % 8.0, Eosinophils % 1.0, Basophils % 0.3, Absolute Granulocytes 7.6 H, Absolute Lymphocytes 1.1 L, Absolute Monocytes 0.8 H, Absolute Eosinophils 0.1, Absolute Basophils 0 Assessment/Plan Assessment/Plan Problem List: 1. hx Acute delirium 2. hx Hyponatremia 3. Recurrent right hip dislocation -Failed right hip implant/nail fixation s/p closed reduction right total hip arthroplasty prosthetic on September 12, 2017 5. CAD s/p [place] with PCI and multiple stents placement 6. HFrEF 7. COPD not on home O2, 8. ANDRADE. 9. PAD 10. prostate cancer s/p radiation in remission Patient will be admitted to general medicine floor, he had closed reduction under conscious sedation in ER, and he will need revision of right total hip arthroplasty. Since patient is on Eliquis, his revision surgery will be held for a few days, while he will be monitored for his medical comorbidities. 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 Please continue his home meds including albuterol, Symbicort, Sinemet, carvedilol, fentanyl patch, gabapentin, metoclopramide,ranolazine, amlodipine, aspirin, Cymbalta, omeprazole. Patient states that he has been having poor oral intake since past few days, will start him on low-dose IV fluids given his cardiac history. If patient is awake/alert after the conscious sedation in ER, he can have his dinner. Check sodium in 2 days, or on the day of surgery. DVT prophylaxis Alps Patient is full code. Attending recommendations to follow Problem List: 1. Recurrent dislocation, right hip Consult Acknowledgment - Thank you for your consult request. TorresTio taocarrington 09/21/17 1731: Assessment/Plan Consult Acknowledgment - Thank you for your consult request. Attending MD Review Statement Attending Statement Attending MD Statement: examined this patient, discuss w/resident/PA/CHIEF MATE, agreed w/resident/PA/CHIEF MATE, reviewed EMR data (avail), discussed with case mgmt Attending Assessment/Plan: 71 yr old male know to me from previous admission presented to ER with rt hip dislocation. pt was seen in ER Yesterday for same reason and was reduced and dishcarged and came back again with dislocation. Medicine was consulted for comanagement of medical conditions. Hyponatremia- likely siadh. plan is to cont him on fluid restriction of 1200cc / day and monitor his sodium. Will monitor him closely for his bp and for other issues and watch for urinary retention given his BPH. Hip dislocation- pt was reduced in ER today again and was given etomidate for sedation during the procedure. Ortho is planning to take him to OR for revision surgery.
--- NOTE | 2017-09-21 17:20 | Admission Core Measures ---
Acute Coronary Syndrome (CM) ACS Core Measures Acute Coronary Syndrome Diagnosis No Congestive Heart Failure (NEW) CHF Core Measures Congestive Heart Failure Diagnosis No Cerebrovascular Accident CVA Core Measures CVA/TIA Diagnosis No Venous Thromboembolism VTE Core Eulalia (View Protocol) VTE Risk Factors Age>40 No Mechanical VTE Prophylaxis d/t N/A MechProphylax Ordered No VTE Pharm Prophylaxis d/t NA PharmProphylax ordered Problem List As ranked by this Provider includes Assessment & Plan 1. Recurrent dislocation, right hip HOME MEDS Home Med List Albuterol Sulfate (Proair Hfa) 90 MCG HFA.AER.AD 2 PUF INH Q4-6 PRN PRN SHORTNESS OF BREATH (Reported) Amlodipine Besylate (Norvasc) 5 MG TABLET 1 TAB PO DAILY HTN (Reported) Apixaban (Eliquis) 2.5 MG TABLET 2.5 MG PO BID Blood thinner Aspirin (Ecotrin*) 81 MG TABLET.DR 1 TAB PO DAILY HEART/BLOOD (Reported) Budesonide/Formoterol Fumarate (Symbicort 160-4.5 Mcg Inhaler) 160 MCG-4.5 MCG/ ACTUATION HFA.AER.AD 2 PUF INH BID COPD (Reported) Carbidopa/Levodopa (Sinemet 25-100 MG Tablet) 25 MG-100 MG TABLET 1 TAB PO QPM RESTLESS LEGS (Reported) Carvedilol 12.5 MG TABLET 1 TAB PO BID HEART (Reported) Cholecalciferol (Vitamin D3) (Vitamin D) 1,000 UNIT TABLET 1 TAB PO DAILY VITAMIN SUPPORT (Reported) Docusate Sodium (Colace) 100 MG CAPSULE 1 CAP PO DAILY CONSTIPATION (Reported ) Duloxetine HCl (Cymbalta) 60 MG CAPSULE.DR 1 CAP PO DAILY MOOD (Reported) Fentanyl 50 MCG/HOUR PATCH.TD72 1 PAT TOP Q3D PAIN (Reported) Gabapentin 100 MG CAPSULE 1 CAP PO TID PAIN (Reported) Isosorbide Mononitrate (Isosorbide Mononitrate ER) 60 MG TAB.ER.24H 1 TAB PO DAILY HEART (Reported) Melatonin 5 MG TABLET 1 TAB PO QPM SLEEP (Reported) Metoclopramide HCl (Reglan) 10 MG TABLET 1 TAB PO TIDAC/HS NAUSEA (Reported) Omeprazole 40 MG CAPSULE.DR 1 CAP PO DAILY GI (Reported) Oxycodone HCl 10 MG TABLET 1 TAB PO Q4-6 PRN PRN PAIN Polyethylene Glycol 3350 (Miralax) 17 GRAM/DOSE POWDER 17 GM PO DAILY PRN CONSTIPATION (Reported) Ranolazine (Ranexa) 500 MG TAB.ER.12H 1 TAB PO BID HEART (Reported) Spironolactone 25 MG TABLET 0.5 TAB PO AD DIURETIC (Reported) Tiotropium [place] (Spiriva) 18 MCG CAP.W.DEV 1 PUF INH DAILY COPD
--- NOTE | 2017-09-21 17:40 | History & Physical Pre-Op ---
General Information and [facility] MD Statement: I have seen and personally examined CORNELL GARNER and documented this H&P. The patient is a 71 year old M who presented with a patient stated chief complaint of [right dislocated total hip arthroplasty]. Source of Information: patient, old records, EMS Exam Limitations: no limitations History of Present Illness: Mr. Garner is a 71-year-old male with a past medical history of coronary artery disease, [place] with stents x4, COPD, hypertension, GERD, prostate CA, PM/ AICD, presents status post revision of periprosthetic right total hip arthroplasty 2 weeks ago. During that admission he dislocated this hip at which time he was taken back to the operating room for closed reduction with application of abductor brace prior to discharge. At his current custodial facility he has been transferred back to [facility] 3 times for a dislocation of the same hip with just a relocation under conscious sedation and discharge. Today he presents with a dislocation of this right hip with minimal activity. This case was discussed with Dr. Suárez by the ER attending and Dr. Leslie feels that this patient needs to be readmitted to the hospital for revision right total hip arthroplasty. Although this patient is clinically stable at this time due to his past medical history the hospitalist team and global implementation manager will be consulted for medical and cardiac management respectively. Also of note the patient is currently on Eliquis 2.5 mg twice daily for DVT prophylaxis. Because of this this revision hip surgery will have to be held for a couple of days and the plan will be to take him on or Wednesday for this procedure. In the meantime he will be kept on bed rest and monitor closely for any medical or cardiac changes. Allergies/Medications Allergies: Coded Allergies: No Known Allergies (07/23/17) Home Med list Albuterol Sulfate (Proair Hfa) 90 MCG HFA.AER.AD 2 PUF INH Q4-6 PRN PRN SHORTNESS OF BREATH (Reported) Amlodipine Besylate (Norvasc) 5 MG TABLET 1 TAB PO DAILY HTN (Reported) Apixaban (Eliquis) 2.5 MG TABLET 2.5 MG PO BID Blood thinner Aspirin (Ecotrin*) 81 MG TABLET.DR 1 TAB PO DAILY HEART/BLOOD (Reported) Budesonide/Formoterol Fumarate (Symbicort 160-4.5 Mcg Inhaler) 160 MCG-4.5 MCG/ ACTUATION HFA.AER.AD 2 PUF INH BID COPD (Reported) Carbidopa/Levodopa (Sinemet 25-100 MG Tablet) 25 MG-100 MG TABLET 1 TAB PO QPM RESTLESS LEGS (Reported) Carvedilol 12.5 MG TABLET 1 TAB PO BID HEART (Reported) Cholecalciferol (Vitamin D3) (Vitamin D) 1,000 UNIT TABLET 1 TAB PO DAILY VITAMIN SUPPORT (Reported) Docusate Sodium (Colace) 100 MG CAPSULE 1 CAP PO DAILY CONSTIPATION (Reported ) Duloxetine HCl (Cymbalta) 60 MG CAPSULE.DR 1 CAP PO DAILY MOOD (Reported) Fentanyl 50 MCG/HOUR PATCH.TD72 1 PAT TOP Q3D PAIN (Reported) Gabapentin 100 MG CAPSULE 1 CAP PO TID PAIN (Reported) Isosorbide Mononitrate (Isosorbide Mononitrate ER) 60 MG TAB.ER.24H 1 TAB PO DAILY HEART (Reported) Melatonin 5 MG TABLET 1 TAB PO QPM SLEEP (Reported) Metoclopramide HCl (Reglan) 10 MG TABLET 1 TAB PO TIDAC/HS NAUSEA (Reported) 30 minutes before meals and bedtime Omeprazole 40 MG CAPSULE.DR 1 CAP PO DAILY GI (Reported) Oxycodone HCl 10 MG TABLET 1 TAB PO Q4-6 PRN PRN PAIN Polyethylene Glycol 3350 (Miralax) 17 GRAM/DOSE POWDER 17 GM PO DAILY PRN CONSTIPATION (Reported) mix with water, juice, soda, coffee or tea Ranolazine (Ranexa) 500 MG TAB.ER.12H 1 TAB PO BID HEART (Reported) Spironolactone 25 MG TABLET 0.5 TAB PO AD DIURETIC (Reported) Tiotropium [place] (Spiriva) 18 MCG CAP.W.DEV 1 PUF INH DAILY COPD Past History Medical History Neurological: restless leg syndrome EENT: NONE Cardiovascular: hypertension, myocardial infarction, CAD [place] X 4 BYPASS ATHLEROSCLEROSIS PAD Respiratory: COPD, obstructive sleep apnea Gastrointestinal: NAUSEA Hepatic: NONE Renal: NONE Musculoskeletal: BACK FX restless leg syndrome Psychiatric: anxiety, depression Endocrine: NONE Blood Disorders: NONE Cancer(s): 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 Ambulation: walker IADLs Independent: shopping, housework, finances, food prep, telephone, transportation , medication admin. Exam & Diagnostic Data Last 24 Hrs of Vital Signs/I&O Vital Signs Date Time Temp Pulse Resp B/P B/P Pulse O2 O2 Flow FiO2 Mean Ox Delivery Rate 09/21 1635 99.4 69 20 132/67 97 Room Air 09/21 1406 99.7 71 14 116/63 97 Room Air Physical Exam General Appearance Alert, Cooperative, Mild Distress Skin No Breakdown, No Significant Lesion HEENT PERRLA Cardiovascular Regular Rate Lungs Normal Air Movement Abdomen Normal Bowel Sounds, Soft, No Tenderness Neurological Normal Speech, Normal Tone Extremities No Edema, no calf tenderness, right leg shortened, cms intact distally, well healed right hip wound with aliza Last 24 Hrs of Labs/Rudy: Laboratory Tests 09/21/17 1651: Anion Gap 11, Estimated GFR > 60, BUN/Creatinine Ratio 23.3, Calcium 8.7, Phosphorus 4.1, Magnesium 1.9, PT 15.2 H, INR 1.39 H, CBC w Diff NO MAN DIFF REQ, RBC 3.64 L, MCV 90.0, MCH 29.8, MCHC 33.1, RDW 15.9 H, MPV 6.9 L, Gran % 79.0 H, Lymphocytes % 11.7 L, Monocytes % 8.0, Eosinophils % 1.0, Basophils % 0.3, Absolute Granulocytes 7.6 H, Absolute Lymphocytes 1.1 L, Absolute Monocytes 0.8 H, Absolute Eosinophils 0.1, Absolute Basophils 0 Diagnostic Data CXR Results SERVICE DATE: 09/21/17 EXAM TYPE: RAD - XRY-PORTABLE CHEST XRAY EXAMINATION: XR PORTABLE CHEST CLINICAL INFORMATION: Admission preop. COMPARISON: Chest x-ray 09/11/2017 TECHNIQUE: Portable frontal view of the chest was obtained. 4:03 PM FINDINGS: Surgical clips over the cardiac silhouette with sternal suture wires present. Pacemaker lead in right atrium and right ventricle unchanged position since prior study. The heart size is normal. There is no pulmonary vascular congestion. There is chronic scarring at the right lung base. There is no acute infiltrate. There is no pleural effusion and no pneumothorax. IMPRESSION: No acute abnormality of the chest. DICTATED BY: Abel Siddiqui MD DATE/TIME DICTATED:09/21/171632 HEAVY DUTY TRUCK MECHANIC:RAMÓN DATE/TIME TRANSCRIBED:09/21/171632 Other Results SERVICE DATE: 09/21/17 EXAM TYPE: RAD - XRY-HIP 2-3 VIEWS, RIGHT; XRY-KNEE COMPLETE RIGHT EXAMINATION: XR HIP, RIGHT XR KNEE, RIGHT CLINICAL INFORMATION: Right hip dislocation, right knee pain. COMPARISON: Hip radiograph 09/20/2017. Right knee radiograph 08/25/2008. TECHNIQUE: Three views of the right hip. 5 views right knee. FINDINGS: RIGHT HIP: Similar-appearing dislocation of the right hip arthroplasty when compared to the prior study from 09/20/2017 with superior migration of the femoral component above the acetabular component. Similar appearance of the bony fragments surrounding the hip. No periprosthetic fracture identified. The acetabular component is intact. Lateral staple lines over the proximal right lower extremity. RIGHT KNEE: Degenerative changes at all 3 compartments with joint space narrowing and small marginal osteophytes. No joint effusion. No radiographic evidence of acute fracture or subluxation. Vascular calcifications. IMPRESSION: 1. Similar-appearing dislocation of the right hip arthroplasty femoral component superior to the acetabular component. 2. Degenerative changes of the right knee without radiographic evidence of acute displaced fracture or subluxation. DICTATED BY: Viry Maxwell MD DATE/TIME DICTATED:09/21/171448 HEAVY DUTY TRUCK MECHANIC:RAMÓN DATE/TIME TRANSCRIBED:09/21/171448 Assessment/Plan Assessment/Plan: Mr. Garner is a 71-year-old male with extensive past medical and cardiac history who presents with multiple dislocations of a right total hip arthroplasty. He will be placed in observation and proper management of this recurrent dislocating right total hip arthroplasty will be discussed to determine what will be the best option for management. Plan Place in observation Regular diet Hold Eliquis now Bedrest with abduction brace As Ranked By This Provider Problem List: 1. Recurrent dislocation, right hip
--- NOTE | 2017-09-21 18:06 | RADIOLOGY REPORT ---
EXAMINATION: XR HIP, RIGHT CLINICAL INFORMATION: Right hip reduction. COMPARISON: Right hip today, 2:11 PM TECHNIQUE: AP view of the right hip. 5:31 PM FINDINGS: Patient has a right total hip replacement. There is continued superior dislocation of the femur relative to the acetabular component. The dislocation is unchanged position since prior exam today. Surgical clips over the soft tissues. IMPRESSION: Persistent dislocation of the right total hip replacement.
[2017-09-21 20:55] VITALS: BP 100/68
[2017-09-22 07:00] VITALS: BP 111/75
--- NOTE | 2017-09-22 07:26 | PN- Medicine Consult ---
Kristin Manuel 09/22/17 0726: Assessment/PlanMedical Consult Assessment/Plan Assessment: Patient is 71 years old male with PMH of CAD status post multiple MIs with PCI and multiple stents placement and CABG, s/p PPM / AICD, COPD, obstructive sleep apnea, Parkinson's disease, severe peripheral artery disease, prostate cancer status post radiation and in remission, history of right intertrochanteric fracture status post total hip release placement gamma nail surgery by Dr. Jara in April 2017. Was recently admitted to [facility] for worsening right hip pain, on 09/07/17 s/p removal of right intramedullary nail femur on 01/16 for Non-union right intertrochanteric hip fracture with failure of intramedullary implant. Patient underwent closed reduction right total hip arthroplasty prosthetic on September 12, 2017 secondary to dislocation of the right hip. Patient was discharged to a rehabilitation facility on 09/16/17. Patient states that at the rehabilitation facility he was doing his physical therapy, and he noticed that his right hip was popping out. He also reported 10/10 sharp pain radiating from right hip down to the knee. Patient states that the pain is worse on movement, and the right hip region is also tender on palpation. Patient denies any headaches/dizziness/chest pain/palpitations/shortness of breath/abdominal discomfort/burning micturition/urgency/hesitancy. Plan: Problem List: 1. hx Acute delirium 2. hx Hyponatremia 3. Recurrent right hip dislocation -Failed right hip implant/nail fixation s/p closed reduction right total hip arthroplasty prosthetic on September 12, 2017 5. CAD s/p WA with PCI and multiple stents placement 6. HFrEF 7. COPD not on home O2, 8. ANDRADE. 9. PAD 10. prostate cancer s/p radiation in remission Will continue to monitor him on general medicine floor, he had closed reduction under conscious sedation in ER yesterday, Plan is for right total hip arthroplasty on 09/23/17, patient is aware. Eliquis is currently held. 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 Please continue his home meds including albuterol, Symbicort, Sinemet, carvedilol, fentanyl patch, gabapentin, metoclopramide,ranolazine, amlodipine, aspirin, Cymbalta, omeprazole. Patient states that ate yesterday so no need for IV fluids for now. He will need to be npo after midnight for his surgical procedure in am can start d5 NS when npo. DVT prophylaxis Alps Patient is full code. Subjective Subjective: Patient is seen and examined. He looks comfortable in bed but complains of 8/10 pain, worsened by right leg movement. He denies any chest pain/headache/ dizziness/palpitations/ abdominal discomfort. Review of Systems Constitutional: Reports: see HPI. Objective Last 24 Hrs of Vital Signs/I&O Vital Signs Date Time Temp Pulse Resp B/P B/P Pulse O2 O2 Flow FiO2 Mean Ox Delivery Rate 09/22 07 97.4 73 18 111/75 98 09/21 2121 74 100/68 09/21 2120 74 100/68 09/21 2054 99.1 74 18 100/68 98 Room Air 09/21 2027 72 16 128/70 95 Room Air 09/21 1840 99.2 71 18 128/60 96 Room Air Room Air 09/21 1800 98.0 72 16 127/68 98 Room Air 09/21 1635 99.4 69 20 132/67 97 Room Air 09/21 1406 Room Air 09/21 1406 99.7 71 14 116/63 97 Room Air Intake & Output 09/22 0800 09/22 0000 09/21 1600 Intake Total 640 750 Output Total 1100 450 Balance -460 300 Intake, IV 400 500 Intake, Oral 240 250 Output, Urine 1100 450 Patient 50.802 kg Weight Physical Exam General Appearance: well developed/nourished, no apparent distress, alert, awake Head: atraumatic, normal appearance Neck: normal inspection, supple Cardiovascular: regular rate/rhythm Respiratory: normal breath sounds, chest non-tender Abdomen: normal bowel sounds, soft, non-tender Extremities: normal inspection, no edema Neurologic/Psychiatric: no motor/sensory deficits, awake, alert Current Medications: Current Medications Sig/Jesus Start time Last Medication Dose Route Stop Time Status Admin Albuterol Sulfate 2 PUF Q4-6 PRN PRN 09/21 1700 AC INH Amlodipine Besylate 5 MG DAILY 09/22 0900 AC 09/22 PO 0809 Aspirin Buffered 81 MG DAILY 09/22 0900 AC 09/22 PO 0809 Budesonide/ 2 PUF BID 09/21 2100 AC 09/22 Formoterol Fumarate INH 0808 Carbidopa/Levodopa 1 TAB QPM 09/21 2100 AC 09/21 PO 2122 Carvedilol 12.5 MG BID 09/21 2100 AC 09/22 PO 0809 Dextrose/Sodium 1,000 ML .Q20H 09/21 1745 DC 09/21 Chloride IV 2057 Docusate Sodium 100 MG DAILY 09/22 0900 AC 09/22 PO 0809 Duloxetine HCl 60 MG DAILY 09/22 0900 AC 09/22 PO 0809 Etomidate 5 MG ONCE ONE 09/21 1800 DC 09/21 IV 09/21 1801 1706 Etomidate 0 .STK-MED ONE 09/21 1555 DC IV Etomidate 10 MG ONCE ONE 09/21 1530 DC 09/21 IV 09/21 1531 1700 Fentanyl Citrate 50 MCG Q3D 09/21 1700 AC 09/21 TOP 1832 Gabapentin 100 MG TID 09/21 2100 AC 09/22 PO 0809 Heparin Sodium 5,000 UNIT Q8 09/21 2200 AC 09/22 (Porcine) SC 0505 Isosorbide 60 MG DAILY 09/22 0900 AC 09/22 Mononitrate PO 0809 Melatonin 5 MG QPM 09/21 2100 AC 09/21 PO 2121 Metoclopramide HCl 10 MG TIDAC/HS 09/21 2100 AC 09/22 PO 0809 Morphine Sulfate 0 .STK-MED ONE 09/21 1554 DC .ROUTE Morphine Sulfate 2 MG ONCE ONE 09/21 1545 DC 09/21 IV 09/21 1546 1555 Omeprazole 40 MG DAILY AC 09/22 07 AC 09/22 PO 0505 Oxycodone HCl 0 .STK-MED ONE 09/21 1757 DC PO Oxycodone HCl 5 MG ONCE ONE 09/21 1745 DC 09/21 PO 09/21 1746 1757 Oxycodone HCl 10 MG Q4-6 PRN PRN 09/21 1715 AC 09/22 PO 0858 Oxycodone/ 0 .STK-MED ONE 09/21 1430 DC Acetaminophen PO Oxycodone/ 1 TAB ONCE ONE 09/21 1415 DC 09/21 Acetaminophen PO 09/21 1416 1432 Ranolazine 500 MG BID 09/21 2100 AC 09/22 PO 0809 Tiotropium [place] 1 PUF DAILY 09/22 0900 AC 09/22 INH 0808 Results Last 24 Hrs Lab/Rudy Results: Laboratory Tests 09/22/17 0855: Anion Gap 10, Estimated GFR > 60, BUN/Creatinine Ratio 16.7, Phosphorus 3.5, Magnesium 1.7 09/21/17 1651: Anion Gap 11, Estimated GFR > 60, BUN/Creatinine Ratio 23.3, Calcium 8.7, Phosphorus 4.1, Magnesium 1.9, PT 15.2 H, INR 1.39 H, CBC w Diff NO MAN DIFF REQ, RBC 3.64 L, MCV 90.0, MCH 29.8, MCHC 33.1, RDW 15.9 H, MPV 6.9 L, Gran % 79.0 H, Lymphocytes % 11.7 L, Monocytes % 8.0, Eosinophils % 1.0, Basophils % 0.3, Absolute Granulocytes 7.6 H, Absolute Lymphocytes 1.1 L, Absolute Monocytes 0.8 H, Absolute Eosinophils 0.1, Absolute Basophils 0 Alan CORREIA,[facility] 09/22/17 1158: Attending MD Review Statement Attending Sign Off Attending Cosign Statement: I have: examined this patient, reviewed [facility] EMR data, personally reviewd images, discussed mgmt plan w/ej, discussed mgmt plan w/CM, discussed mgmt plan w/pt, 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 Other Findings: Patient seen and examined, continues to complain of pain in the right hip. Patient is admitted under orthopedic service secondary to dislocation of the right hip. He has been seen in the emergency room and closed reduction was performed. Patient scheduled to go to operating room on 09/23. Vital Signs Date Time Temp Pulse Resp B/P B/P Pulse O2 O2 Flow FiO2 Mean Ox Delivery Rate 09/22 1112 Room Air Room Air 09/22 0809 74 116/78 09/22 0809 74 116/78 09/22 0809 74 116/78 09/22 0809 74 116/78 09/22 0700 97.4 73 18 111/75 98 09/212 74 100/68 09/21 2120 74 100/68 09/215 99.1 74 18 100/68 98 Room Air 09/21 2027 72 16 128/70 95 Room Air 09/21 1840 99.2 71 18 128/60 96 Room Air Room Air 09/21 1800 98.0 72 16 127/68 98 Room Air 09/21 1635 99.4 69 20 132/67 97 Room Air 09/21 1406 Room Air 09/21 1406 99.7 71 14 116/63 97 Room Air on exam; awake, slightly confused. cv; s1, s2, rrr resp; clear abd; soft, nt, bs+ ext; no edema ms: + aliza on right hip. Laboratory Tests 09/22 09/21 0855 1651 Chemistry Sodium (137 - 145 mmol/L) 130 L 130 L Potassium (3.5 - 5.1 mmol/L) 4.2 4.4 Chloride (98 - 107 mmol/L) 95 L 94 L Carbon Dioxide (22 - 30 mmol/L) 25 25 Anion Gap (5 - 16) 10 11 BUN (9 - 20 mg/dL) 10 14 Creatinine (0.7 - 1.2 mg/dL) 0.6 L 0.6 L Estimated GFR (>60 ml/min) > 60 > 60 BUN/Creatinine Ratio (7 - 25 %) 16.7 23.3 Calcium (8.4 - 10.2 mg/dL) 8.7 Phosphorus (2.5 - 4.5 mg/dL) 3.5 4.1 Magnesium (1.6 - 2.3 mg/dL) 1.7 1.9 Coagulation PT (9.4 - 12.5 SEC) 15.2 H INR (0.90 - 1.17) 1.39 H Hematology CBC w Diff NO MAN DIFF REQ WBC (4.8 - 10.8 /CUMM) 9.7 RBC (4.70 - 6.10 /CUMM) 3.64 L Hgb (14.0 - 18.0 G/DL) 10.8 L Hct (42 - 52 %) 32.7 L MCV (80.0 - 94.0 FL) 90.0 MCH (27.0 - 31.0 PG) 29.8 MCHC (33.0 - 37.0 G/DL) 33.1 RDW (11.5 - 14.5 %) 15.9 H Plt Count (130 - 400 /CUMM) 633 H MPV (7.4 - 10.4 FL) 6.9 L Gran % (42.2 - 75.2 %) 79.0 H Lymphocytes % (20.5 - 51.1 %) 11.7 L Monocytes % (1.7 - 9.3 %) 8.0 Eosinophils % (0 - 5 %) 1.0 Basophils % (0.0 - 2.0 %) 0.3 Absolute Granulocytes (1.4 - 6.5 /CUMM) 7.6 H Absolute Lymphocytes (1.2 - 3.4 /CUMM) 1.1 L Absolute Monocytes (0.10 - 0.60 /CUMM) 0.8 H Absolute Eosinophils (0.0 - 0.7 /CUMM) 0.1 Absolute Basophils (0.0 - 0.2 /CUMM) 0 Assessment and recommendations: 71 yo M with pmh sig for CAD status post multiple MIs with PCI and multiple stents placement and CABG, s/p PPM / AICD, COPD, obstructive sleep apnea, Parkinson's disease, severe peripheral artery disease, prostate cancer status post radiation and in remission, history of right intertrochanteric fracture status post total hip release placement gamma nail surgery by Dr. Jara in April 2017. Was recently admitted to [facility] for worsening right hip pain, on 09/07/17 s/p removal of right intramedullary nail femur on 09/08/17 for Non-union right intertrochanteric hip fracture with failure of intramedullary implant. Patient underwent closed reduction right total hip arthroplasty prosthetic on September 12, 2017 secondary to dislocation of the right hip. Patient was discharged to a rehabilitation facility on 09/16/17. Patient was seen in the emergency room on September 20 with dislocation of the right hip and it was reduced in the emergency room. Patient was sent back to rehab. Patient is now admitted under orthopedic service for dislocation of the right hip and is planning to taken to operating room tomorrow. Medicine is consulted for comanagement. Patient has hyponatremia likely a component of SIADH. Continue fluid restriction at and monitor sodium. He has chronic hyponatremia and therefore goal sodium is 130 or above. No need for IV fluids during the day today. Once patient n.p.o. after midnight can use gentle IV hydration. Continue the rest of the management. Try to avoid too much narcotics as patient has pain medication seeking behavior. Elqiuis is on hold per ortho and pt started on hep sq for DVT px. Thank you will follow.
--- NOTE | 2017-09-22 08:47 | PN- Orthopedic ---
Subjective Subjective: complains of hip pain,. aware of plan for or tomorrow. no other complaints Objective Vital Signs and I&Os Vital Signs Date Time Temp Pulse Resp B/P B/P Pulse O2 O2 Flow FiO2 Mean Ox Delivery Rate 09/22 0809 74 116/78 09/22 0809 74 116/78 09/22 0809 74 116/78 09/22 0809 74 116/78 09/22 0700 97.4 73 18 111/75 98 09/21 2121 74 100/68 09/21 2120 74 100/68 09/21 2055 99.1 74 18 100/68 98 Room Air 09/21 2027 72 16 128/70 95 Room Air 09/21 1840 99.2 71 18 128/60 96 Room Air Room Air 09/21 1800 98.0 72 16 127/68 98 Room Air 09/21 1635 99.4 69 20 132/67 97 Room Air 09/21 1406 Room Air 09/21 1406 99.7 71 14 116/63 97 Room Air Intake & Output 09/22 1600 09/22 0800 09/22 0000 09/21 1600 09/21 0800 09/21 0000 Intake Total 640 750 Output Total 175 1100 450 Balance -175 -460 300 Intake, IV 400 500 Intake, Oral 240 250 Output, Urine 175 1100 450 Patient 112 lb Weight Physical Exam: gen- nad card-s1s2 rrr pulm- ctab ext- r hip with aliza intact, clip erythema. ttp. calves soft nt. gross motor/ sensate intact bl ankles/feet Results Last 48 Hours of Labs: Laboratory Tests 09/22 09/21 0855 1651 Chemistry Sodium (137 - 145 mmol/L) Pending 130 L Potassium (3.5 - 5.1 mmol/L) Pending 4.4 Chloride (98 - 107 mmol/L) Pending 94 L Carbon Dioxide (22 - 30 mmol/L) Pending 25 Anion Gap (5 - 16) Pending 11 BUN (9 - 20 mg/dL) Pending 14 Creatinine (0.7 - 1.2 mg/dL) Pending 0.6 L Estimated GFR (>60 ml/min) > 60 BUN/Creatinine Ratio (7 - 25 %) Pending 23.3 Calcium (8.4 - 10.2 mg/dL) 8.7 Phosphorus (2.5 - 4.5 mg/dL) Pending 4.1 Magnesium (1.6 - 2.3 mg/dL) Pending 1.9 Coagulation PT (9.4 - 12.5 SEC) 15.2 H INR (0.90 - 1.17) 1.39 H Hematology CBC w Diff NO MAN DIFF REQ WBC (4.8 - 10.8 /CUMM) 9.7 RBC (4.70 - 6.10 /CUMM) 3.64 L Hgb (14.0 - 18.0 G/DL) 10.8 L Hct (42 - 52 %) 32.7 L MCV (80.0 - 94.0 FL) 90.0 MCH (27.0 - 31.0 PG) 29.8 MCHC (33.0 - 37.0 G/DL) 33.1 RDW (11.5 - 14.5 %) 15.9 H Plt Count (130 - 400 /CUMM) 633 H MPV (7.4 - 10.4 FL) 6.9 L Gran % (42.2 - 75.2 %) 79.0 H Lymphocytes % (20.5 - 51.1 %) 11.7 L Monocytes % (1.7 - 9.3 %) 8.0 Eosinophils % (0 - 5 %) 1.0 Basophils % (0.0 - 2.0 %) 0.3 Absolute Granulocytes (1.4 - 6.5 /CUMM) 7.6 H Absolute Lymphocytes (1.2 - 3.4 /CUMM) 1.1 L Absolute Monocytes (0.10 - 0.60 /CUMM) 0.8 H Absolute Eosinophils (0.0 - 0.7 /CUMM) 0.1 Absolute Basophils (0.0 - 0.2 /CUMM) 0 Assessment/Plan Assessment/Plan A- 71yoM with dislocation of R MUNDO, with multiple medical comorbidities, with isadh on fluid restriction, with eliquis on hold for pending hip revision. P- prn pain meds nwb appreicate medicine input- fluid restriction 1200cc per day for siadh cardiac clearance pending- d/w dr. staley labs pending cont to hold eliquis will dw dr bowen Core Measures Venous Thromboembolism VTE Risk Factors Age>40 No Mechanical VTE Prophylaxis d/t N/A MechProphylax Ordered No VTE Pharm Prophylaxis d/t NA PharmProphylax ordered
[2017-09-22 13:48] VITALS: BP 100/64
--- NOTE | 2017-09-22 18:42 | Cons- Cardiology ---
General Information and HPI Consulting Request Date of Consult: 09/22/17 Requested By: Titi Leslie MD Reason for Consult: Preoperative evaluation History of Present Illness: The patient is a 71-year-old male with history of coronary artery disease status post stent placement, myocardial infarction, obstructive sleep apnea, peripheral arterial disease, and COPD. At the time of his most recent cardiac catheterization he had evidence of coronary artery disease, however there were no lesions amenable to intervention at that time. He is status post recent right total hip replacement 2 weeks ago. During that admission he dislocated the hip and was brought back to the operating room for closed reduction with application of an abductor brace. He has been at rehab, and has been transferred back to the hospital 3 times for dislocation of the hip. He is now planned for surgical revision of the right total hip arthroplasty, and I am consulted for preoperative evaluation. He denies any recent cardiac symptoms. No chest pain. No palpitations. No shortness of breath. No diaphoresis. No nausea or vomiting. No lightheadedness or dizziness. He is treated with Eliquis for DVT prophylaxis, and the Eliquis has been held in preparation for surgery. Allergies/Medications Allergies: Coded Allergies: No Known Allergies (07/23/17) Home Med List: Albuterol Sulfate (Proair Hfa) 90 MCG HFA.AER.AD 2 PUF INH Q4-6 PRN PRN SHORTNESS OF BREATH (Reported) Amlodipine Besylate (Norvasc) 5 MG TABLET 1 TAB PO DAILY HTN (Reported) Apixaban (Eliquis) 2.5 MG TABLET 2.5 MG PO BID Blood thinner Aspirin (Ecotrin*) 81 MG TABLET.DR 1 TAB PO DAILY HEART/BLOOD (Reported) Budesonide/Formoterol Fumarate (Symbicort 160-4.5 Mcg Inhaler) 160 MCG-4.5 MCG/ ACTUATION HFA.AER.AD 2 PUF INH BID COPD (Reported) Carbidopa/Levodopa (Sinemet 25-100 MG Tablet) 25 MG-100 MG TABLET 1 TAB PO QPM RESTLESS LEGS (Reported) Carvedilol 12.5 MG TABLET 1 TAB PO BID HEART (Reported) Cholecalciferol (Vitamin D3) (Vitamin D) 1,000 UNIT TABLET 1 TAB PO DAILY VITAMIN SUPPORT (Reported) Docusate Sodium (Colace) 100 MG CAPSULE 1 CAP PO DAILY CONSTIPATION (Reported ) Duloxetine HCl (Cymbalta) 60 MG CAPSULE.DR 1 CAP PO DAILY MOOD (Reported) Fentanyl 50 MCG/HOUR PATCH.TD72 1 PAT TOP Q3D PAIN (Reported) Gabapentin 100 MG CAPSULE 1 CAP PO TID PAIN (Reported) Isosorbide Mononitrate (Isosorbide Mononitrate ER) 60 MG TAB.ER.24H 1 TAB PO DAILY HEART (Reported) Melatonin 5 MG TABLET 1 TAB PO QPM SLEEP (Reported) Metoclopramide HCl (Reglan) 10 MG TABLET 1 TAB PO TIDAC/HS NAUSEA (Reported) 30 minutes before meals and bedtime Omeprazole 40 MG CAPSULE.DR 1 CAP PO DAILY GI (Reported) Oxycodone HCl 10 MG TABLET 1 TAB PO Q4-6 PRN PRN PAIN Polyethylene Glycol 3350 (Miralax) 17 GRAM/DOSE POWDER 17 GM PO DAILY PRN CONSTIPATION (Reported) mix with water, juice, soda, coffee or tea Ranolazine (Ranexa) 500 MG TAB.ER.12H 1 TAB PO BID HEART (Reported) Spironolactone 25 MG TABLET 0.5 TAB PO AD DIURETIC (Reported) Tiotropium [place] (Spiriva) 18 MCG CAP.W.DEV 1 PUF INH DAILY COPD Current Medications: Current Medications Sig/Jesus Start time Last Medication Dose Route Stop Time Status Admin Albuterol Sulfate 2 PUF Q4-6 PRN PRN 09/21 1700 AC INH Amlodipine Besylate 5 MG DAILY 09/22 09 AC 09/22 PO 0809 Aspirin Buffered 81 MG DAILY 09/22 09 AC 09/22 PO 0809 Budesonide/ 2 PUF BID 09/21 2100 AC 09/22 Formoterol Fumarate INH 0808 Carbidopa/Levodopa 1 TAB QPM 09/21 2100 AC 09/21 PO 2122 Carvedilol 12.5 MG BID 09/21 2100 AC 09/22 PO 0809 Dextrose/Sodium 1,000 ML Q20H 09/23 0000 AC Chloride IV Dextrose/Sodium 1,000 ML .Q20H 09/21 1745 DC 09/21 Chloride IV 2057 Docusate Sodium 100 MG DAILY 09/22 0900 AC 09/22 PO 0809 Duloxetine HCl 60 MG DAILY 09/22 0900 AC 09/22 PO 0809 Fentanyl Citrate 50 MCG Q3D 09/21 1700 AC 09/21 TOP 1832 Gabapentin 100 MG TID 09/21 2100 AC 09/22 PO 1305 Heparin Sodium 5,000 UNIT Q8 09/21 2200 AC 09/22 (Porcine) SC 1305 Isosorbide 60 MG DAILY 09/22 0900 AC 09/22 Mononitrate PO 0809 Melatonin 5 MG QPM 09/21 2100 AC 09/21 PO 2121 Metoclopramide HCl 10 MG TIDAC/HS 09/21 2100 AC 09/22 PO 1614 Omeprazole 40 MG DAILY AC 09/22 0700 AC 09/22 PO 0505 Oxycodone HCl 10 MG Q4-6 PRN PRN 09/21 1715 AC 09/22 PO 1659 Ranolazine 500 MG BID 09/21 2100 AC 09/22 PO 0809 Tiotropium [place] 1 PUF DAILY 09/22 0900 AC 09/22 INH 0808 Review of Systems Review of Systems: No fever. No chills. No hemoptysis. No hematemesis. All other systems were reviewed, and were noted to be negative. 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 Extended Care Facility Services at Home: Nursing Primary Language: [place] Smoking Status: Former Smoker Functional Ability ADLs Independent: dressing, eating, toileting, bathing. Ambulation: walker IADLs Independent: shopping, housework, finances, food prep, telephone, transportation , medication admin. Exam & Diagnostic Data Vital Signs and I&O Vital Signs Date Time Temp Pulse Resp B/P B/P Pulse O2 O2 Flow FiO2 Mean Ox Delivery Rate 09/22 1348 98.4 68 18 100/64 95 Room Air 09/22 1112 Room Air Room Air 09/22 0809 74 116/78 09/22 0809 74 116/78 09/22 0809 74 116/78 09/22 0809 74 116/78 09/22 0700 97.4 73 18 111/75 98 09/21 2121 74 100/68 09/21 2120 74 100/68 09/21 2054 99.1 74 18 98 Room Air 09/21 2026 72 16 128/70 95 Room Air Intake & Output 09/22 1600 09/22 0800 09/22 0000 09/21 1600 09/21 0800 09/21 0000 Intake Total 800 640 750 Output Total 725 1100 450 Balance 75 -460 300 Intake, IV 200 400 500 Intake, Oral 600 240 250 Output, Urine 725 1100 450 Patient 112 lb 112 lb Weight Weight Bed scale Measurement Method Physical Exam: Gen: The patient is in no acute distress HEENT: Normal nose, ears, and oropharynx. Pupils equal bilaterally. Conjunctiva normal. Neck: Supple with no JVD, no masses, and no thyromegaly Lungs: Clear to auscultation with normal respiratory effort Heart: RRR, S1, S2, 2/6 systolic murmur. No peripheral edema, 2+ pulses in the lower extremities bilaterally Abdomen: Soft, nontender, no masses. No hepatomegaly. No splenomegaly Extremities: No clubbing or cyanosis. Normal muscle strength in the upper and lower extremities Skin: Normal skin turgor with no skin ulcers or lesions noted. Neuro: Cranial nerves intact. Sensation intact Psych: Alert and oriented x 3 with appropriate affect Labs/Rudy Results: Laboratory Tests 09/22 09/21 0855 1651 Chemistry Sodium (137 - 145 mmol/L) 130 L 130 L Potassium (3.5 - 5.1 mmol/L) 4.2 4.4 Chloride (98 - 107 mmol/L) 95 L 94 L Carbon Dioxide (22 - 30 mmol/L) 25 25 Anion Gap (5 - 16) 10 11 BUN (9 - 20 mg/dL) 10 14 Creatinine (0.7 - 1.2 mg/dL) 0.6 L 0.6 L Estimated GFR (>60 ml/min) > 60 > 60 BUN/Creatinine Ratio (7 - 25 %) 16.7 23.3 Calcium (8.4 - 10.2 mg/dL) 8.7 Phosphorus (2.5 - 4.5 mg/dL) 3.5 4.1 Magnesium (1.6 - 2.3 mg/dL) 1.7 1.9 Coagulation PT (9.4 - 12.5 SEC) 15.2 H INR (0.90 - 1.17) 1.39 H Hematology CBC w Diff NO MAN DIFF REQ WBC (4.8 - 10.8 /CUMM) 9.7 RBC (4.70 - 6.10 /CUMM) 3.64 L Hgb (14.0 - 18.0 G/DL) 10.8 L Hct (42 - 52 %) 32.7 L MCV (80.0 - 94.0 FL) 90.0 MCH (27.0 - 31.0 PG) 29.8 MCHC (33.0 - 37.0 G/DL) 33.1 RDW (11.5 - 14.5 %) 15.9 H Plt Count (130 - 400 /CUMM) 633 H MPV (7.4 - 10.4 FL) 6.9 L Gran % (42.2 - 75.2 %) 79.0 H Lymphocytes % (20.5 - 51.1 %) 11.7 L Monocytes % (1.7 - 9.3 %) 8.0 Eosinophils % (0 - 5 %) 1.0 Basophils % (0.0 - 2.0 %) 0.3 Absolute Granulocytes (1.4 - 6.5 /CUMM) 7.6 H Absolute Lymphocytes (1.2 - 3.4 /CUMM) 1.1 L Absolute Monocytes (0.10 - 0.60 /CUMM) 0.8 H Absolute Eosinophils (0.0 - 0.7 /CUMM) 0.1 Absolute Basophils (0.0 - 0.2 /CUMM) 0 Diagnostic Data EKG Results EKG tracing is independently reviewed, and reveals normal sinus rhythm at 82, left atrial enlargement, anteroseptal infarct age undetermined, T-wave abnormality CXR Results Negative Other Results Echocardiogram 11/12/15: 1. Mild to moderate aortic sclerosis is presnet with no valvular stenosis or insufficiency. 2. Mitral leaflet thickening is present with anular calcification and mild mitral insufficiency 3. There is no pericardial fluid detected 4. The left ventricular chamber size is normal with mild global hypokinesia, worse at the apex, with an ejection fraction of 40-45%. 5. Mild tricuspid and pulmonic insufficiency are present with no evidence of pulmonary hypertension. 6. AICD wired are present in the right heart chambers. Assessment/Plan Assessment/Plan The patient is a 71-year-old male with history of CAD, status post multiple stents, myocardial infarction, implanted defibrillator who underwent right total hip replacement 2 weeks ago and is now admitted for surgical revision of the prosthetic hip. He is stable from a cardiac standpoint with no recent cardiac symptoms. Blood pressure is normal, and EKG does not reveal any evidence of ischemic changes. Recommendations: * Cardiac risk for surgery is acceptable. * The patient is cleared from a cardiac standpoint for surgical revision of the prosthetic hip * Continue cardiac medications. Consult Acknowledgment - Thank you for your consult request.
[2017-09-22 21:34] VITALS: BP 130/70
[2017-09-23 06:12] VITALS: BP 110/76
--- NOTE | 2017-09-23 07:35 | PN- Medicine Consult ---
Kristin Manuel 09/23/17 0734: Assessment/PlanMedical Consult Assessment/Plan Assessment: Patient is 71 years old male with PMH of CAD status post multiple MIs with PCI and multiple stents placement and CABG, s/p PPM / AICD, COPD, obstructive sleep apnea, Parkinson's disease, severe peripheral artery disease, prostate cancer status post radiation and in remission, history of right intertrochanteric fracture status post total hip release placement gamma nail surgery by Dr. Jara in April 2017. Was recently admitted to [facility] for worsening right hip pain, on 09/07/17 s/p removal of right intramedullary nail femur on 01/16 for Non-union right intertrochanteric hip fracture with failure of intramedullary implant. Patient underwent closed reduction right total hip arthroplasty prosthetic on September 12, 2017 secondary to dislocation of the right hip. Patient was discharged to a rehabilitation facility on 09/16/17. Patient states that at the rehabilitation facility he was doing his physical therapy, and he noticed that his right hip was popping out. He also reported 10/10 sharp pain radiating from right hip down to the knee. Patient states that the pain is worse on movement, and the right hip region is also tender on palpation. Patient denies any headaches/dizziness/chest pain/palpitations/shortness of breath/abdominal discomfort/burning micturition/urgency/hesitancy. Plan: Plan: Problem List: 1. hx Acute delirium 2. hx Hyponatremia 3. Recurrent right hip dislocation -Failed right hip implant/nail fixation s/p closed reduction right total hip arthroplasty prosthetic on September 12, 2017 5. CAD s/p TN with PCI and multiple stents placement 6. HFrEF 7. COPD not on home O2, 8. ANDRADE. 9. PAD 10. prostate cancer s/p radiation in remission Patient will go to OR today, for right total hip arthroplasty. Eliquis is on hold, resume per orthopedic surgery service. Patient continues to have hyponatremia, this is possibly due to SIADH or could be his baseline, will continue him on fluid restriction of 1200 cc. Please continue his home meds including albuterol, Symbicort, Sinemet, carvedilol, fentanyl patch, gabapentin, metoclopramide,ranolazine, amlodipine, aspirin, Cymbalta, omeprazole. DVT prophylaxis Alps Patient is full code. Problem List: 1. Hip dislocation, right Subjective Subjective: Patient is seen and examined. He is doing well. did not Objective Last 24 Hrs of Vital Signs/I&O Vital Signs Date Time Temp Pulse Resp B/P B/P Pulse O2 O2 Flow FiO2 Mean Ox Delivery Rate 09/23 06 98.3 70 18 110/76 94 Room Air 09/22 2144 84 130/70 09/22 2143 84 130/70 09/22 2134 98.5 84 18 130/70 96 09/22 1348 98.4 68 18 100/64 95 Room Air 09/22 1112 Room Air Room Air 09/22 0809 74 116/78 09/22 0809 74 116/78 09/22 0809 74 116/78 09/22 0809 74 116/78 Intake & Output 09/23 0800 09/23 0000 09/22 1600 Intake Total 400 510 800 Output Total 50 125 725 Balance 350 385 75 Intake, IV 400 10 200 Intake, Oral 0 500 600 Number 0 Bowel Movements Output, Urine 50 125 725 Patient 50.491 kg 50.802 kg Weight Weight Bed scale Measurement Method Current Medications: Current Medications Sig/Jesus Start time Last Medication Dose Route Stop Time Status Admin Albuterol Sulfate 2 PUF Q4-6 PRN PRN 09/21 1700 AC INH Amlodipine Besylate 5 MG DAILY 09/22 09 AC 09/22 PO 0809 Aspirin Buffered 81 MG DAILY 09/22 09 AC 09/22 PO 0809 Budesonide/ 2 PUF BID 09/21 2100 AC 09/22 Formoterol Fumarate INH 2146 Carbidopa/Levodopa 1 TAB QPM 09/21 2100 AC 09/22 PO 214 Carvedilol 12.5 MG BID 09/21 2100 AC 09/22 PO 2143 Dextrose/Sodium 1,000 ML Q20H 09/23 0000 AC 09/22 Chloride IV 2334 Dextrose/Sodium 1,000 ML .Q20H 09/21 1745 DC 09/21 Chloride IV 2057 Docusate Sodium 100 MG DAILY 09/22 09 AC 09/22 PO 0809 Duloxetine HCl 60 MG DAILY 09/22 09 AC 09/22 PO 0809 Fentanyl Citrate 50 MCG Q3D 09/21 1700 AC 09/21 TOP 1832 Gabapentin 100 MG TID 09/21 2100 AC 09/22 PO 214 Heparin Sodium 5,000 UNIT Q8 09/21 2200 AC 09/22 (Porcine) SC 2147 Isosorbide 60 MG DAILY 09/22 0900 AC 09/22 Mononitrate PO 0809 Melatonin 5 MG QPM 09/21 2100 AC 09/22 PO 214 Metoclopramide HCl 10 MG TIDAC/HS 09/21 2100 AC 09/22 PO 214 Omeprazole 40 MG DAILY AC 09/22 0700 AC 09/23 PO 0515 Oxycodone HCl 10 MG Q4-6 PRN PRN 09/21 1715 AC 09/22 PO 214 Ranolazine 500 MG BID 09/21 2100 AC 09/22 PO 214 Tiotropium [place] 1 PUF DAILY 09/22 0900 AC 09/22 INH 0808 Results Last 24 Hrs Lab/Rudy Results: Laboratory Tests 09/22/17 0855: Anion Gap 10, Estimated GFR > 60, BUN/Creatinine Ratio 16.7, Phosphorus 3.5, Magnesium 1.7 Alan CORREIA,[facility] 09/23/17 1559: Attending MD Review Statement Attending Sign Off Attending Cosign Statement: I have: examined this patient, reviewed [facility] EMR data, personally reviewd images, discussd w/resident/PA/LASER BEAM CUTTER, discussed mgmt plan w/ej, discussed mgmt plan w/pt, agreed w/resident/PA/LASER BEAM CUTTER, amended to note. Other Findings: Patient seen and examined, does complain of right hip pain. Patient is scheduled to go to operating room today. Would recommend checking his sodium monitor for hyponatremia. Patient did receive IV fluids overnight. Please check sodium postoperatively. Continue current pain medications. Avoid too much narcotics as patient does have pain med seeking behavior. The rest of the management will be up to orthopedic. His anti-coagulation is on hold per orthopedic for this pending procedure.
[2017-09-23 17:08] LABS: ABSOLUTE BASOPHIL COUNT 0 /CUMM (0.0-0.2); ABSOLUTE EOSINOPHIL COUNT 0.3 /CUMM (0.0-0.7); ABSOLUTE GRANULOCYTE CT 6.7 /CUMM (1.4-6.5); ABSOLUTE LYMPH COUNT 1.2 /CUMM (1.2-3.4); ABSOLUTE MONOCYTE COUNT 0.7 /CUMM (0.10-0.60); BASOPHIL % 0.2 % (0.0-2.0); EOSINOPHIL % 3.1 % (0-5); GRANULOCYTE % 75.5 % (42.2-75.2); HEMATOCRIT 30.7 % (42-52); MEAN CORPUSCULAR HGB 30.6 PG (27.0-31.0); MEAN CORPUSCULAR HGB CONC 33.6 G/DL (33.0-37.0); MEAN CORPUSCULAR VOLUME 91.2 FL (80.0-94.0); MEAN PLATELET VOLUME 7.3 FL (7.4-10.4); PLATELET COUNT 511 /CUMM (130-400); RED BLOOD CELL CT 3.37 /CUMM (4.70-6.10); WHITE BLOOD CELL COUNT 8.8 /CUMM (4.8-10.8)
--- NOTE | 2017-09-23 17:54 | Operative Report ---
Operative/Inv Procedure Report Surgery Date: 09/23/17 Name of Procedure: Revision right total hip arthroplasty Pre-Operative Diagnosis: Right total hip arthroplasty dislocation and instability Post-Operative Diagnosis: Same Estimated Blood Loss: 900 Surgeon/Outlet Manager: Mariama CORREIA,Titi MENDOZA Anesthesia: general endotracheal tube IV Fluids: See anesthesia record, 2 2 units packed red blood cell Implants: Kimberly anglican module total hip system size 23 body with a standard length, 60 mm acetabular shell with screws appropriate length, constrained liner and 28 mm Biolox head Drains: None Specimens: Retained hardware Complications: None Condition: Stable Operative Indication: Patient is a 71-year-old male who underwent a total hip arthroplasty for failed intramedullary nail 2-1/2 weeks ago. Unfortunately postoperatively his hip replacement was quite unstable and he dislocated multiple times. He was indicated for revision total hip arthroplasty. The risks and benefits of procedure discussed with the patient and his family. Operative/Procedure Note Note: Once informed consent was obtained and the correct limb was identified the patient brought to the operating room placed on table in supine position. After demonstration of general endotracheal anesthesia patient was placed in left lateral decubitus position on the pegboard with all bony prominences well-padded and axillary roll in place. Marie catheter in place. The right lower extremity is prepped and draped in usual sterile fashion. To begin the procedure the old incision was opened sharply with a #10 blade. Sharp dissection carried onto the skin and subcu tissue. The running suture for the fascia was removed and the fascia was opened. Charnley retractor was placed. The dislocated hip was identified in the head was removed with a bone tamp and a mallet. At this point multiple options were available we removed the MDM liner from the acetabulum. This point under direct visualization to my eyes seem that the acetabulum was not quite introverted enough. A decision was made to revise the acetabular component. The screws from the previous surgery removed and the acetabular shell was removed with the bottle house quality control technician. At this point we decided to ream slightly and go to a larger acetabular shell. We reamed up to size 58 reamer and trialed a size 60 shell. This was a good fit and a size 60 press-fit acetabular shell was opened and press-fit into the cup. The appropriate version and abduction angle were obtained. 2 screws were placed for fixation purposes into the acetabulum. Once this was done we then trialed with a hooded liner. We used a size 21 standard body in -5 neck length. The hip was relocated. The hip was much more stable than the previous surgery and was stable to about 30 of abduction and 20 of internal rotation. However due to the patient's Parkinson' s disease a decision was made to place a constrained hip. The hip was dislocated again and the trial body was removed as well as a trial liner. A size 23 body was then trialed and found to be a better fit. So at this point a constrained liner was opened and placed into the acetabular shell. Next the a new size 23 press-fit standard length body was opened and placed onto the distal stem and the correct version was dialed in and screwed tightly into place there is check with the pressure gauge. A 28 mm Biolox head was then opened and placed onto the femoral neck. The hip was then reduced into the constrained liner without complication. At this point the hip was taken through range of motion and found to be much more stable. It was stable at 90 of flexion with 30 of internal rotation and 30-40 of adduction. Leg lengths were equal. There is no shocking. The wound was then copiously irrigated sterile saline. The fascia was closed with a running #1 looped Maxon suture. The subcutaneous tissues closed with 2-0 Vicryl interrupted sutures and the skin was closed with aliza. A sterile dressing was applied patient was awakened taken recovery in stable condition.
[2017-09-23 19:10] VITALS: BP 118/60
--- NOTE | 2017-09-23 19:33 | PN- Cardiology ---
Subjective Subjective: The patient seen while awaiting surgery. He is comfortable with no cardiac complaints. No chest pain. No palpitations. No diaphoresis. Objective Vital Signs and I&Os Vital Signs Date Time Temp Pulse Resp B/P B/P Pulse O2 O2 Flow FiO2 Mean Ox Delivery Rate 09/23 1003 68 144/82 09/23 1002 68 144/82 09/23 1002 68 144/82 09/23 1001 68 144/82 09/23 0800 94 Room Air Room Air 09/23 0612 98.3 70 18 110/76 94 Room Air 09/22 2144 84 130/70 09/22 2143 84 130/70 09/22 2134 98.5 84 18 130/70 96 Intake & Output 09/23 1600 09/23 0809/23 0000 09/22 1600 09/22 0809/22 0000 Intake Total 120 400 510 800 640 750 Output Total 425 50 067 018 8515 450 Balance -305 350 385 75 -460 300 Intake, IV 400 10 200 400 500 Intake, Oral 120 0 500 600 240 250 Number 0 Bowel Movements Output, Urine 425 50 100 838 7230 450 Patient 111 lb 111 lb 112 lb 112 lb Weight Weight Bed scale Measurement Method Physical Exam: Gen: The patient is in no acute distress HEENT: Normal nose, ears, and oropharynx. Pupils equal bilaterally. Conjunctiva normal. Neck: Supple with no JVD, no masses, and no thyromegaly Lungs: Clear to auscultation with normal respiratory effort Heart: RRR, S1, S2, 2/6 systolic murmur. No peripheral edema, 2+ pulses in the lower extremities bilaterally Abdomen: Soft, nontender, no masses. No hepatomegaly. No splenomegaly Extremities: No clubbing or cyanosis. Normal muscle strength in the upper and lower extremities Skin: Normal skin turgor with no skin ulcers or lesions noted. Neuro: Cranial nerves intact. Sensation intact Current Medications: Current Medications Sig/Jesus Start time Last Medication Dose Route Stop Time Status Admin Albuterol Sulfate 2 PUF Q4-6 PRN PRN 09/21 1700 AC INH Amlodipine Besylate 5 MG DAILY 09/22 09 AC 09/23 PO 1002 Aspirin Buffered 81 MG DAILY 09/22 09 AC 09/23 PO 1002 Budesonide/ 2 PUF BID 09/21 2100 AC 09/23 Formoterol Fumarate INH 1010 Carbidopa/Levodopa 1 TAB QPM 09/21 2100 AC 09/22 PO 2144 Carvedilol 12.5 MG BID 09/21 2100 AC 09/23 PO 1002 Cefazolin Sodium 2 GM Q8H 09/23 2300 AC N/A 1 UNIT IV 09/24 0729 Dextrose/Sodium 1,000 ML Q20H 09/23 0000 AC 09/22 Chloride IV 2334 Docusate Sodium 100 MG BID 09/23 2100 AC PO Docusate Sodium 100 MG DAILY 09/22 0900 DC 09/23 PO 1002 Duloxetine HCl 60 MG DAILY 09/22 0900 AC 09/23 PO 1002 Fentanyl Citrate 50 MCG Q3D 09/21 1700 AC 09/21 TOP 1832 Gabapentin 100 MG TID 09/21 2100 AC 09/23 PO 1002 Heparin Sodium 5,000 UNIT Q8 09/21 2200 DC 09/22 (Porcine) SC 2147 Isosorbide 60 MG DAILY 09/22 0900 AC 09/23 Mononitrate PO 1001 Melatonin 5 MG QPM 09/21 2100 AC 09/22 PO 2143 Metoclopramide HCl 10 MG TIDAC/HS 09/21 2100 AC 09/23 PO 1001 Morphine Sulfate 2 MG Q3P PRN 09/23 1800 AC IV Omeprazole 40 MG DAILY AC 09/22 07 AC 09/23 PO 0515 Oxycodone HCl 10 MG Q4-6 PRN PRN 09/21 1715 AC 09/23 PO 1140 Patient Medication 1 ED ONE ONE 09/23 1645 ID Teaching ED 09/23 1646 Ranolazine 500 MG BID 09/21 2100 AC 09/23 PO 1003 Tiotropium [place] 1 PUF DAILY 09/22 0900 AC 09/23 INH 1003 Results Last 48 Hrs of Labs/Mics: Laboratory Tests 09/23/17 1655: CBC w Diff NO MAN DIFF REQ, RBC 3.37 L, MCV 91.2, MCH 30.6, MCHC 33.6, RDW 15.0 H, MPV 7.3 L, Gran % 75.5 H, Lymphocytes % 13.2 L, Monocytes % 8.0, Eosinophils % 3.1, Basophils % 0.2, Absolute Granulocytes 6.7 H, Absolute Lymphocytes 1.2, Absolute Monocytes 0.7 H, Absolute Eosinophils 0.3, Absolute Basophils 0 09/22/17 0855: Anion Gap 10, Estimated GFR > 60, BUN/Creatinine Ratio 16.7, Phosphorus 3.5, Magnesium 1.7 Assessment/Plan Assessment/Plan Assessment: 1. CAD, status post myocardial infarction and multiple stents 2. Defibrillator 3. Preop for surgical revision of prosthetic hip Recommendations: * Cardiac risk for surgery is acceptable. * The patient is cleared from a cardiac standpoint for surgical revision of the prosthetic hip * Continue cardiac medications. Continue telemetry? Not applicable
--- NOTE | 2017-09-23 21:54 | PN- Att Addend ---
Attending Addendum Attending Brief Note Patient is an elderly gentleman with multiple comorbidities admitted under the orthopedic service for revision of right total hip arthroplasty. He has been seen by the medical service for management of his comorbidities. He went to the OR today for the surgical procedure was reported to have lost about 900 cc of blood intraoperatively. He received a transfusion of 2 units of blood in the OR. The orthopedic service has decided more prudent to monitor the patient postoperatively in the intensive care unit. I did evaluate the patient in the unit. He is lying in bed mildly sedated. Nursing staff reports that he had received morphine after returning from the OR. He has bilateral wrist restraints in place. Nursing staff reports that patient was playing on the A-line. He was hemodynamically stable with acceptable blood pressure. He was not requiring oxygen supplementation. General appearance: Lean elderly male, not in any acute distress. HEENT: Anicteric, no pallor, pupils equal and reactive. Neck: Supple with no jugular venous distention. Heart: S1-S2 regular with no audible murmur. Lungs: Adequate and symmetric air entry bilaterally with no added sounds. Abdomen: Nondistended with normal bowel sounds. Soft, nontender with no palpable masses. Extremities: Intact dressing over the right hip. Nursing staff reports mild bloodstained and stated that she had reinforced the dressing. No pedal edema. No cyanosis. Marie catheter in place. Laboratory Tests 09/23/171956: Urine Osmolality 526, Ur Random Creatinine 102.2, Ur Random Sodium 93 H, Ur Random Potassium 66.1, Fraction Sodium Excret Pending 09/23/17 1655: CBC w Diff NO MAN DIFF REQ, RBC 3.37 L, MCV 91.2, MCH 30.6, MCHC 33.6, RDW 15.0 H, MPV 7.3 L, Gran % 75.5 H, Lymphocytes % 13.2 L, Monocytes % 8.0, Eosinophils % 3.1, Basophils % 0.2, Absolute Granulocytes 6.7 H, Absolute Lymphocytes 1.2, Absolute Monocytes 0.7 H, Absolute Eosinophils 0.3, Absolute Basophils 0 Microbiology 09/23 1929 UPPER RESP: Surveillance Culture - RECD 09/23 1929 GI: Surveillance Culture - RECD 09/23 1450 URINE ROUT: Urine Culture - RECD Problems: 1. Intraoperative blood loss Plan: -Bleeding in the OR was likely due to his recent use of anticoagulant therapy for DVT prophylaxis. He is also on aspirin and received a dose this morning. He fortunately is currently hemodynamically stable. No indication at present for aggressive reversal of his anticoagulation agent. -Repeat H&H. Transfuse to keep hemoglobin level greater than 8 in view of his coronary artery disease history. -In view of his coronary disease history will continue antiplatelet therapy with aspirin unless he shows evidence of significant ongoing bleeding. -Monitor blood pressure closely. Monitor input and output.
[2017-09-23 22:52] LABS: ABSOLUTE BASOPHIL COUNT 0 /CUMM (0.0-0.2); ABSOLUTE EOSINOPHIL COUNT 0 /CUMM (0.0-0.7); ABSOLUTE GRANULOCYTE CT 13.4 /CUMM (1.4-6.5); ABSOLUTE LYMPH COUNT 0.9 /CUMM (1.2-3.4); BASOPHIL % 0.1 % (0.0-2.0); EOSINOPHIL % 0.1 % (0-5); HEMATOCRIT 27.5 % (42-52); MEAN CORPUSCULAR HGB 29.9 PG (27.0-31.0); MEAN CORPUSCULAR HGB CONC 32.6 G/DL (33.0-37.0); MEAN CORPUSCULAR VOLUME 91.8 FL (80.0-94.0); MEAN PLATELET VOLUME 6.5 FL (7.4-10.4); PLATELET COUNT 537 /CUMM (130-400); RBC DISTRIBUTION WIDTH 14.3 % (11.5-14.5); RED BLOOD CELL CT 2.99 /CUMM (4.70-6.10)
--- NOTE | 2017-09-23 22:52 | PN- Orthopedic ---
Subjective Subjective: POC some pain at incision, ok with pain meds. no other complaints Objective Vital Signs and I&Os Vital Signs Date Time Temp Pulse Resp B/P B/P Pulse O2 O2 Flow FiO2 Mean Ox Delivery Rate 09/24 2223 70 16 131/59 09/23 2223 70 18 133/56 09/23 1910 98.2 70 18 118/60 96 Room Air 09/23 1910 100 Room Air 09/23 1003 68 144/82 09/23 1002 68 144/82 09/23 1002 68 144/82 09/23 1001 68 144/82 09/23 0800 94 Room Air Room Air 09/23 0612 98.3 70 18 110/76 94 Room Air Intake & Output 09/23 1600 09/23 0800 09/23 0000 09/22 1600 09/22 0800 09/22 0000 Intake Total 120 400 510 800 640 750 Output Total 425 50 146 313 6146 450 Balance -305 350 385 75 -460 300 Intake, IV 400 10 200 400 500 Intake, Oral 120 0 500 600 240 250 Number 0 Bowel Movements Output, Urine 425 50 849 302 9804 450 Patient 111 lb 111 lb 112 lb 112 lb Weight Weight Bed scale Measurement Method Physical Exam: gen- nad card-s1s2 pulm-ctab ext- r hip dressed, bloody staining contained in dressing, gross motor/sensate intact rle. feet warm bl, calves soft nt bl, alps on, abductor pillow in place Assessment/Plan Assessment/Plan A- POD0 sp revision recurrent dislocated R MUNDO (sp gamma nail to total hip--> revision previous dislocation), in ICU for overnight obs due to acute blood loss anemia due to surgery 1L ebl (got 2u prbc intraop) in setting of extensive cardiac hx, currently stable. P- appreciate medical input trend labs abx postop stone cath hip precautionsholf home dose eliquis until monday 09/25 prn pain meds will dw attending Core Measures Venous Thromboembolism VTE Risk Factors Age>40 No Mechanical VTE Prophylaxis d/t N/A MechProphylax Ordered No VTE Pharm Prophylaxis d/t NA PharmProphylax ordered
[2017-09-23 23:14] LABS: WHITE BLOOD CELL COUNT 15.3 /CUMM (4.8-10.8)
[2017-09-23 23:27] LABS: GRANULOCYTE % 87.9 % (42.2-75.2)
[2017-09-24] VITALS: BP 98/60
[2017-09-24 05:17] LABS: ABSOLUTE BASOPHIL COUNT 0.1 /CUMM (0.0-0.2); ABSOLUTE EOSINOPHIL COUNT 0 /CUMM (0.0-0.7); ABSOLUTE GRANULOCYTE CT 10.2 /CUMM (1.4-6.5); ABSOLUTE LYMPH COUNT 0.7 /CUMM (1.2-3.4); ABSOLUTE MONOCYTE COUNT 0.8 /CUMM (0.10-0.60); BASOPHIL % 0.6 % (0.0-2.0); EOSINOPHIL % 0.2 % (0-5); HEMATOCRIT 23.7 % (42-52); MEAN CORPUSCULAR HGB 30.8 PG (27.0-31.0); MEAN CORPUSCULAR HGB CONC 34.1 G/DL (33.0-37.0); MEAN CORPUSCULAR VOLUME 90.3 FL (80.0-94.0); MEAN PLATELET VOLUME 7.3 FL (7.4-10.4); RBC DISTRIBUTION WIDTH 14.6 % (11.5-14.5); RED BLOOD CELL CT 2.63 /CUMM (4.70-6.10); WHITE BLOOD CELL COUNT 11.8 /CUMM (4.8-10.8)
--- NOTE | 2017-09-24 05:39 | PN- Orthopedic ---
See Addendum Subjective Subjective: no issues overnight in icu, comfortable. ivf adjusted overnight by medicine. no active complaints Objective Vital Signs and I&Os Vital Signs Date Time Temp Pulse Resp B/P B/P Pulse O2 O2 Flow FiO2 Mean Ox Delivery Rate 09/24 0410 96 09/24 0000 96.9 78 18 98/60 96 09/23 2224 70 16 131/59 09/23 2223 70 18 133/56 09/23 1910 98.2 70 18 118/60 96 Room Air 09/23 1910 100 Room Air 09/23 1003 68 144/82 09/23 1002 68 144/82 09/23 1002 68 144/82 09/23 1001 68 144/82 09/23 0800 94 Room Air Room Air 09/23 0612 98.3 70 18 110/76 94 Room Air Intake & Output 09/24 0800 09/24 0000 09/23 1600 09/23 0800 09/23 0000 09/22 1600 Intake Total 2550 120 400 510 800 Output Total 1220 425 50 125 725 Balance 1330 -305 350 385 75 Intake, IV 2550 400 10 200 Intake, Oral 120 0 500 600 Number 0 Bowel Movements Output, Other 900 Output, Urine 320 425 50 125 725 Patient 111 lb 111 lb 112 lb Weight Weight Bed scale Measurement Method Physical Exam: gen- nad card-s1s2 pulm-ctab ext- r hip dressed, bloody staining contained in dressing- no change from last evening, gross motor/sensate intact rle. feet warm bl, calves soft nt bl, alps on, abductor pillow in place Results Last 48 Hours of Labs: Laboratory Tests 09/248 2236 1956 Chemistry Sodium (137 - 145 mmol/L) 127 L Potassium (3.5 - 5.1 mmol/L) 4.3 Chloride (98 - 107 mmol/L) 98 Carbon Dioxide (22 - 30 mmol/L) 20 L Anion Gap (5 - 16) 9 BUN (9 - 20 mg/dL) 11 Creatinine (0.7 - 1.2 mg/dL) 0.6 L Estimated GFR (>60 ml/min) > 60 BUN/Creatinine Ratio (7 - 25 %) 18.3 Hematology CBC w Diff Pending NO MAN DIFF REQ WBC (4.8 - 10.8 /CUMM) Pending 15.3 H RBC (4.70 - 6.10 /CUMM) Pending 2.99 L Hgb (14.0 - 18.0 G/DL) Pending 9.0 L Hct (42 - 52 %) Pending 27.5 L MCV (80.0 - 94.0 FL) Pending 91.8 MCH (27.0 - 31.0 PG) Pending 29.9 MCHC (33.0 - 37.0 G/DL) Pending 32.6 L RDW (11.5 - 14.5 %) Pending 14.3 Plt Count (130 - 400 /CUMM) Pending 537 H MPV (7.4 - 10.4 FL) Pending 6.5 L Gran % (42.2 - 75.2 %) 87.9 H Lymphocytes % (20.5 - 51.1 %) 5.6 L Monocytes % (1.7 - 9.3 %) 6.3 Eosinophils % (0 - 5 %) 0.1 Basophils % (0.0 - 2.0 %) 0.1 Absolute Granulocytes (1.4 - 6.5 /CUMM) 13.4 H Absolute Lymphocytes (1.2 - 3.4 /CUMM) 0.9 L Absolute Monocytes (0.10 - 0.60 /CUMM) 1.0 H Absolute Eosinophils (0.0 - 0.7 /CUMM) 0 Absolute Basophils (0.0 - 0.2 /CUMM) 0 Urines Urine Osmolality (300 - 1000 MOSM/KG) 526 Ur Random Creatinine (mg/dL) 102.2 Ur Random Sodium (30 - 90 mmol/L) 93 H Ur Random Potassium (mmol/L) 66.1 Fraction Sodium Excret (<1% %) 0.4 09/23 09/22 1655 0855 Chemistry Sodium (137 - 145 mmol/L) 130 L Potassium (3.5 - 5.1 mmol/L) 4.2 Chloride (98 - 107 mmol/L) 95 L Carbon Dioxide (22 - 30 mmol/L) 25 Anion Gap (5 - 16) 10 BUN (9 - 20 mg/dL) 10 Creatinine (0.7 - 1.2 mg/dL) 0.6 L Estimated GFR (>60 ml/min) > 60 BUN/Creatinine Ratio (7 - 25 %) 16.7 Phosphorus (2.5 - 4.5 mg/dL) 3.5 Magnesium (1.6 - 2.3 mg/dL) 1.7 Hematology CBC w Diff NO MAN DIFF REQ WBC (4.8 - 10.8 /CUMM) 8.8 RBC (4.70 - 6.10 /CUMM) 3.37 L Hgb (14.0 - 18.0 G/DL) 10.3 L Hct (42 - 52 %) 30.7 L MCV (80.0 - 94.0 FL) 91.2 MCH (27.0 - 31.0 PG) 30.6 MCHC (33.0 - 37.0 G/DL) 33.6 RDW (11.5 - 14.5 %) 15.0 H Plt Count (130 - 400 /CUMM) 511 H MPV (7.4 - 10.4 FL) 7.3 L Gran % (42.2 - 75.2 %) 75.5 H Lymphocytes % (20.5 - 51.1 %) 13.2 L Monocytes % (1.7 - 9.3 %) 8.0 Eosinophils % (0 - 5 %) 3.1 Basophils % (0.0 - 2.0 %) 0.2 Absolute Granulocytes (1.4 - 6.5 /CUMM) 6.7 H Absolute Lymphocytes (1.2 - 3.4 /CUMM) 1.2 Absolute Monocytes (0.10 - 0.60 /CUMM) 0.7 H Absolute Eosinophils (0.0 - 0.7 /CUMM) 0.3 Absolute Basophils (0.0 - 0.2 /CUMM) 0 Assessment/Plan Assessment/Plan A- POD0 sp revision recurrent dislocated R MUNDO (sp gamma nail to total hip--> revision previous dislocation), in ICU for overnight obs due to acute blood loss anemia due to surgery 1L ebl (got 2u prbc intraop) in setting of extensive cardiac hx, on fluid restrction for siadh, otherwise stable. P- appreciate medical input. siadh/fluid mgmt per medical team trend labs- hct 27 from 30 overnight, am cbc pending abx postop stone cath hip precautions wb status? will charan bowen NO home dose eliquis until monday 09/25 prn pain meds will charan attending Core Measures Venous Thromboembolism VTE Risk Factors Age>40 No Mechanical VTE Prophylaxis d/t N/A MechProphylax Ordered No VTE Pharm Prophylaxis d/t NA PharmProphylax ordered
[2017-09-24 06:24] LABS: GRANULOCYTE % 86.8 % (42.2-75.2); PLATELET COUNT 446 /CUMM (130-400)
[2017-09-24 07:00] VITALS: BP 110/60
--- NOTE | 2017-09-24 07:49 | PN- Resident CRCU ---
Subjective HPI/CRCU Issues: Post op monitoring after perioperative blood loss 24 Hour Events: No acute events overnight. Required no further blood transfusions after the initial 2 units that he received yesterday. Objective Vital Signs & I&O Last 8 Hrs of Vitals and I&O: . Exam General Appearance: no apparent distress, awake, lethargic, mild distress, thin Head: atraumatic, normal appearance Respiratory: normal breath sounds, chest non-tender, decreased breath sounds at RLL Cardiovascular: regular rate/rhythm, systolic murmur Gastrointestinal: soft, non-tender Extremities: no edema Cranial Nerves: normal hearing Skin: intact, normal color Skin Temp/Moisture Exam: Cool/Dry Sepsis Skin Exam (color): Normal for Ethnicity Current Medications: Current Medications Sig/Jesus Start time Last Medication Dose Route Stop Time Status Admin Albuterol Sulfate 2 PUF Q4-6 PRN PRN 09/21 1700 AC INH Amlodipine Besylate 5 MG DAILY 09/22 0900 AC 09/24 PO 0833 Aspirin Buffered 81 MG DAILY 09/22 0900 AC 09/24 PO 0837 Budesonide/ 2 PUF BID 09/21 2100 AC 09/24 Formoterol Fumarate INH 0835 Carbidopa/Levodopa 1 TAB QPM 09/21 2100 AC 09/23 PO 2223 Carvedilol 12.5 MG BID 09/21 2100 AC 09/24 PO 0834 Cefazolin Sodium 2 GM Q8H 09/23 2300 DC 09/24 N/A 1 UNIT IV 09/24 0729 0602 Dextrose/Sodium 1,000 ML Q20H 09/23 0000 AC 09/23 Chloride IV 1936 Docusate Sodium 100 MG BID 09/23 2100 AC 09/24 PO 0831 Docusate Sodium 100 MG DAILY 09/22 0900 DC 09/23 PO 1002 Duloxetine HCl 60 MG DAILY 09/22 0900 AC 09/24 PO 0833 Fentanyl Citrate 250 MCG .STK-MED ONE 09/23 1354 DC IM 09/23 1355 Fentanyl Citrate 50 MCG Q3D 09/21 1700 AC 09/21 TOP 1832 Gabapentin 100 MG TID 09/21 2100 AC 09/24 PO 0833 Heparin Sodium 5,000 UNIT Q8 09/21 2200 DC 09/22 (Porcine) SC 2147 Hydromorphone HCl 2 MG .STK-MED ONE 09/23 1355 DC IM 09/23 1356 Isosorbide 60 MG DAILY 09/22 0900 AC 09/24 Mononitrate PO 0834 Melatonin 5 MG QPM 09/21 2100 AC 09/23 PO 2223 Metoclopramide HCl 10 MG TIDAC/HS 09/21 2100 AC 09/24 PO 0834 Morphine Sulfate 2 MG Q3P PRN 09/23 1800 AC 09/23 IV 1931 Omeprazole 40 MG DAILY AC 09/22 0700 AC 09/24 PO 0607 Oxycodone HCl 10 MG Q4-6 PRN PRN 09/21 1715 AC 09/23 PO 1140 Patient Medication 1 ED ONE ONE 09/23 1645 DC Teaching ED 09/23 1646 Ranolazine 500 MG BID 09/21 2100 AC 09/24 PO 0833 Tiotropium [place] 1 PUF DAILY 09/22 0900 AC 09/24 INH 0835 Tranexamic Acid 2,000 MG .STK-MED ONE 09/23 1356 DC IV 09/23 1357 Impression/Plan Impression/Problem List Impression: 71 years old male with PMH of CAD status post multiple MIs with PCI and multiple stents placement and CABG, s/p PPM / AICD, COPD, obstructive sleep apnea, Parkinson's disease, severe peripheral artery disease, prostate cancer status post radiation and in remission, history of right total hip arthroplasty Assessment: 1. Right total hip arthroplasty dislocation s/p revision arthroplasty 2. Acute Blood Loss Anemia 3. Hyponatremia 4. Severe Protein Calorie Malnutrition 5. History of CAD 6. History of COPD Plan: * Continue monitoring in the ICU for now. * s/p 2 unit pRBC in OR due to perioperative blood loss * Would repeat CBC later during the day and if Hb<8 would transfuse due to his history of CAD. * Anticoagulation on hold. To be started on Wednesday per Ortho * PT * Continue 1200cc fluid restriction for hyponatremia. * Monitor electrolytes and replete as needed. * Pain control with oxycodone and IV Morphine. * Protein supplement with Ensure for malnutrition. * Diet: Heart Healthy * DVT Prophylaxis: ALPS * Code: Full Code Problem List: 1. Hip dislocation, right Pain Ratin Tomorrow's Labs & Rationales: CBC, ICU bundle Plan DVT/Prophylaxis: mechanical
--- NOTE | 2017-09-24 08:21 | PN- CRCU ---
Subjective HPI/Critical Care Issues: The patient is awake and appears comfortable. The patient notes that he has ongoing pain at his incision site. He has been hemodynamically stable, with good urine output. He is afebrile. He denies any respiratory complaints. Objective Current Medications: Current Medications Sig/Jesus Start time Last Medication Dose Route Stop Time Status Admin Albuterol Sulfate 2 PUF Q4-6 PRN PRN 09/21 1700 AC INH Amlodipine Besylate 5 MG DAILY 09/22 09 AC 09/23 PO 1002 Aspirin Buffered 81 MG DAILY 09/22 0900 AC 09/23 PO 1002 Budesonide/ 2 PUF BID 09/21 2100 AC 09/23 Formoterol Fumarate INH 2224 Carbidopa/Levodopa 1 TAB QPM 09/21 2100 AC 09/23 PO 2223 Carvedilol 12.5 MG BID 09/21 2100 AC 09/23 PO 2224 Cefazolin Sodium 2 GM Q8H 09/23 2300 DC 09/24 N/A 1 UNIT IV 09/24 0729 0602 Dextrose/Sodium 1,000 ML Q20H 09/23 0000 AC 09/23 Chloride IV 1936 Docusate Sodium 100 MG BID 09/23 2100 AC 09/23 PO 2224 Docusate Sodium 100 MG DAILY 09/22 0900 DC 09/23 PO 1002 Duloxetine HCl 60 MG DAILY 09/22 09 AC 09/23 PO 1002 Fentanyl Citrate 250 MCG .STK-MED ONE 09/23 1354 DC IM 09/23 1355 Fentanyl Citrate 50 MCG Q3D 09/21 1700 AC 09/21 TOP 1832 Gabapentin 100 MG TID 09/21 2100 AC 09/23 PO 2222 Heparin Sodium 5,000 UNIT Q8 09/21 2200 DC 09/22 (Porcine) SC 2147 Hydromorphone HCl 2 MG .STK-MED ONE 09/23 1355 DC IM 09/23 1356 Isosorbide 60 MG DAILY 09/22 0900 AC 09/23 Mononitrate PO 1001 Melatonin 5 MG QPM 09/21 2100 AC 09/23 PO 2223 Metoclopramide HCl 10 MG TIDAC/HS 09/21 2100 AC 09/23 PO 2222 Morphine Sulfate 2 MG Q3P PRN 09/23 1800 AC 09/23 IV 1931 Omeprazole 40 MG DAILY AC 09/22 0700 AC 09/24 PO 0607 Oxycodone HCl 10 MG Q4-6 PRN PRN 09/21 1715 AC 09/23 PO 1140 Patient Medication 1 ED ONE ONE 09/23 1645 DC Teaching ED 09/23 1646 Ranolazine 500 MG BID 09/21 2100 AC 09/23 PO 2223 Tiotropium [place] 1 PUF DAILY 09/22 0900 AC 09/23 INH 1003 Tranexamic Acid 2,000 MG .STK-MED ONE 09/23 1356 DC IV 09/23 1357 Vital Signs & I&O Last 24 Hrs of Vitals and I&O: Vital Signs Date Time Temp Pulse Resp B/P B/P Pulse O2 O2 Flow FiO2 Mean Ox Delivery Rate 09/24 0410 96 09/24 0000 96.9 78 18 98/60 96 09/23 2224 70 16 131/59 09/23 2223 70 18 133/56 09/23 1910 98.2 70 18 118/60 96 Room Air 09/23 1910 100 Room Air 09/23 1003 68 144/82 09/23 1002 68 144/82 09/23 1002 68 144/82 09/23 1001 68 144/82 Intake & Output 09/24 1600 09/24 0800 09/24 0000 Intake Total 3025 2550 Output Total 235 1220 Balance 2790 1330 Intake, IV 3025 2550 Output, Other 900 Output, Urine 235 320 Exam General Appearance: well developed/nourished, alert, awake, comfortable Head: atraumatic Neck: normal inspection, supple Respiratory: quiet respiration, lungs clear Cardiovascular: regular rate/rhythm Abdomen: normal bowel sounds, soft, non-tender Extremities: Bandaged and elevated right lower extremity. Skin: intact, normal color, warm/dry Results Last 24 Hrs of Lab Results: Laboratory Tests 09/24/17 1400: CBC w Diff Cancelled, WBC Cancelled, RBC Cancelled, Hgb Cancelled, Hct Cancelled , MCV Cancelled, MCH Cancelled, MCHC Cancelled, RDW Cancelled, Plt Count Cancelled, MPV Cancelled 09/24/17 0935: Anion Gap 9, Estimated GFR > 60, Glucose 165 H, Calcium 6.9 L, Phosphorus 3.6, Magnesium 1.3 L, Total Bilirubin 0.7, AST 22, ALT 23, Albumin 2.1 L 09/24/17 0600: Sodium Cancelled, Potassium Cancelled, Chloride Cancelled, Carbon Dioxide Cancelled, Anion Gap Cancelled, BUN Cancelled, Creatinine Cancelled, BUN/ Creatinine Ratio Cancelled, CBC w Diff Cancelled, WBC Cancelled, RBC Cancelled, Hgb Cancelled, Hct Cancelled, MCV Cancelled, MCH Cancelled, MCHC Cancelled, RDW Cancelled, Plt Count Cancelled, MPV Cancelled 09/24/17 0358: CBC w Diff NO MAN DIFF REQ, RBC 2.63 L, MCV 90.3, MCH 30.8, MCHC 34.1, RDW 14.6 H, MPV 7.3 L, Gran % 86.8 H, Lymphocytes % 5.9 L, Monocytes % 6.5, Eosinophils % 0.2, Basophils % 0.6, Absolute Granulocytes 10.2 H, Absolute Lymphocytes 0.7 L, Absolute Monocytes 0.8 H, Absolute Eosinophils 0, Absolute Basophils 0.1 09/23/172236: Anion Gap 9, Estimated GFR > 60, BUN/Creatinine Ratio 18.3, CBC w Diff NO MAN DIFF REQ, RBC 2.99 L, MCV 91.8, MCH 29.9, MCHC 32.6 L, RDW 14.3, MPV 6.5 L, Gran % 87.9 H, Lymphocytes % 5.6 L, Monocytes % 6.3, Eosinophils % 0.1, Basophils % 0.1, Absolute Granulocytes 13.4 H, Absolute Lymphocytes 0.9 L, Absolute Monocytes 1.0 H, Absolute Eosinophils 0, Absolute Basophils 0 09/23/171956: Urine Osmolality 526, Ur Random Creatinine 102.2, Ur Random Sodium 93 H, Ur Random Potassium 66.1, Fraction Sodium Excret 0.4 09/23/17 1655: CBC w Diff NO MAN DIFF REQ, RBC 3.37 L, MCV 91.2, MCH 30.6, MCHC 33.6, RDW 15.0 H, MPV 7.3 L, Gran % 75.5 H, Lymphocytes % 13.2 L, Monocytes % 8.0, Eosinophils % 3.1, Basophils % 0.2, Absolute Granulocytes 6.7 H, Absolute Lymphocytes 1.2, Absolute Monocytes 0.7 H, Absolute Eosinophils 0.3, Absolute Basophils 0 Impression/Plan Impression/Plan Impression/Plan: 1. Right total hip arthroplasty dislocation s/p revision arthroplasty. 2. Acute Blood Loss Anemia. 3. Hyponatremia - slowly resolving. 4. Severe Protein Calorie Malnutrition. 5. History of CAD. 6. History of COPD. 7. Post operative pain. 8. Post operative delerium. Recommendations: * Continue monitoring in the ICU. * Agree with repeat CBC later today and transfuse if Hb<8 to his history of CAD. * Anticoagulation on hold. To be started on Wednesday per Ortho. * PT evaluation and treatment. * Continue 1200cc fluid restriction for hyponatremia. * Monitor electrolytes and replete as needed. * Pain control with oxycodone and IV Morphine. * Protein supplement with Ensure for malnutrition. * Diet: Heart Healthy * DVT Prophylaxis: ALPS * Code: Full Code * Discussed with housestaff.
--- NOTE | 2017-09-24 10:51 | RADIOLOGY REPORT ---
EXAMINATION: XR HIP, RIGHT CLINICAL INFORMATION: 71-year-old male status post revision of right total hip arthroplasty. COMPARISON: 09/21/2017 TECHNIQUE: 2 frontal views of the right hip. FINDINGS: Postsurgical changes of total right hip arthroplasty are noted currently showing satisfactory alignment of the femoral and acetabular components. There is a subtle cerclage wire identified around the femoral component. No new abnormalities. IMPRESSION: Satisfactory alignment of the total right hip arthroplasty.
[2017-09-24 16:00] VITALS: BP 84/45
--- NOTE | 2017-09-24 19:31 | PN- Cardiology ---
Subjective Subjective: No chest pain. No shortness of breath. No palpitations. No diaphoresis. Objective Vital Signs and I&Os Vital Signs Date Time Temp Pulse Resp B/P B/P Pulse O2 O2 Flow FiO2 Mean Ox Delivery Rate 09/25 0807 83 120/60 09/25 0807 83 120/60 09/25 0807 83 120/60 09/25 0800 99.6 76 18 112/60 98 Room Air 09/25 0400 97 Room Air 09/25 0000 98.2 79 20 100/60 98 Room Air 09/25 0000 97 Room Air 09/24 2232 97.0 72 20 116/58 09/24 2227 70 18 106/49 09/24 2000 96 Room Air 09/24 1600 97 Room Air 09/24 1600 98.9 64 16 84/45 97 Room Air 09/24 1200 97 Room Air Intake & Output 09/25 1600 09/25 0800 09/25 0000 09/24 1600 09/24 0800 09/24 0000 Intake Total 847 844 8504 3025 2550 Output Total 118 142 108 299 8769 Balance 799 434 7685 2790 1330 Intake, Blood 250 Product Intake, IV 569 392 589 7179 2550 Intake, Oral 400 200 620 Output, Other 900 Output, Urine 118 142 105 235 320 Patient 131 lb Weight Weight Bed scale Measurement Method Physical Exam: Gen: The patient is in no acute distress HEENT: Normal nose, ears, and oropharynx. Pupils equal bilaterally. Conjunctiva normal. Neck: Supple with no JVD, no masses, and no thyromegaly Lungs: Clear to auscultation with normal respiratory effort Heart: RRR, S1, S2, 2/6 systolic murmur. No peripheral edema, 2+ pulses in the lower extremities bilaterally Abdomen: Soft, nontender, no masses. No hepatomegaly. No splenomegaly Extremities: No clubbing or cyanosis. Normal muscle strength in the upper and lower extremities Skin: Normal skin turgor with no skin ulcers or lesions noted. Neuro: Cranial nerves intact. Sensation intact Current Medications: Current Medications Sig/Jesus Start time Last Medication Dose Route Stop Time Status Admin Albuterol Sulfate 2 PUF Q4-6 PRN PRN 09/21 1700 AC INH Amlodipine Besylate 5 MG DAILY 09/22 09 AC 09/24 PO 0833 Apixaban 2.5 MG BID 09/25 0900 AC 09/25 PO 0828 Aspirin Buffered 81 MG DAILY 09/22 0900 AC 09/25 PO 0807 Budesonide/ 2 PUF BID 09/21 2100 AC 09/25 Formoterol Fumarate INH 0808 Carbidopa/Levodopa 1 TAB QPM 09/21 2100 AC 09/24 PO 2224 Carvedilol 12.5 MG BID 09/21 2100 AC 09/25 PO 0807 Dextrose/Sodium 1,000 ML Q20H 09/23 0000 AC 09/25 Chloride IV 0654 Docusate Sodium 100 MG BID 09/23 2100 AC 09/25 PO 0807 Duloxetine HCl 60 MG DAILY 09/22 0900 AC 09/25 PO 0807 Fentanyl Citrate 50 MCG Q3D 09/21 1700 AC 09/24 TOP 1759 Gabapentin 100 MG TID 09/21 2100 AC 09/25 PO 0807 Isosorbide 60 MG DAILY 09/22 0900 AC 09/25 Mononitrate PO 0807 Ketorolac 30 MG ONCE ONE 09/24 1145 DC 09/24 Tromethamine IV 09/24 1146 1201 Magnesium Sulfate 1 GM Q2H 09/24 1145 DC 09/24 Dextrose/Water 100 ML IV 09/24 1544 1748 Melatonin 5 MG ONCE ONE 09/25 0045 DC 09/25 PO 09/25 0046 0042 Melatonin 5 MG QPM 09/21 2100 AC 09/24 PO 2226 Metoclopramide HCl 10 MG TIDAC/HS 09/21 2100 AC 09/25 PO 0806 Morphine Sulfate 2 MG Q3P PRN 09/23 1800 AC 09/25 IV 0159 Omeprazole 40 MG DAILY AC 09/22 07 AC 09/25 PO 0648 Oxycodone HCl 10 MG Q4-6 PRN PRN 09/21 1715 AC 09/25 PO 0806 Ranolazine 500 MG BID 09/21 2100 AC 09/25 PO 0807 Tiotropium [place] 1 PUF DAILY 09/22 0900 AC 09/25 INH 0808 Results Last 48 Hrs of Labs/Mics: Laboratory Tests 09/25/17 0345: Anion Gap 9, Estimated GFR > 60, Glucose 104 H, Calcium 7.3 L, Phosphorus 3.2, Magnesium 2.0, Total Bilirubin 0.4, AST 21, ALT 20 L, Albumin 2.2 L, CBC w Diff NO MAN DIFF REQ, RBC 2.79 L, MCV 90.3, MCH 30.4, MCHC 33.6, RDW 14.3, MPV 7.6, Gran % 77.6 H, Lymphocytes % 11.2 L, Monocytes % 9.7 H, Eosinophils % 1.4, Basophils % 0.1, Absolute Granulocytes 8.8 H, Absolute Lymphocytes 1.3, Absolute Monocytes 1.1 H, Absolute Eosinophils 0.2, Absolute Basophils 0 09/24/17 1921: CBC w Diff NO MAN DIFF REQ, RBC 3.07 L, MCV 91.4, MCH 30.1, MCHC 33.0, RDW 14.3 , MPV 7.3 L, Gran % 80.9 H, Lymphocytes % 7.8 L, Monocytes % 10.4 H, Eosinophils % 0.9, Basophils % 0, Absolute Granulocytes 10.6 H, Absolute Lymphocytes 1.0 L, Absolute Monocytes 1.4 H, Absolute Eosinophils 0.1, Absolute Basophils 0 09/24/17 1400: CBC w Diff Cancelled, WBC Cancelled, RBC Cancelled, Hgb Cancelled, Hct Cancelled , MCV Cancelled, MCH Cancelled, MCHC Cancelled, RDW Cancelled, Plt Count Cancelled, MPV Cancelled 09/24/17 0935: Anion Gap 9, Estimated GFR > 60, Glucose 165 H, Calcium 6.9 L, Phosphorus 3.6, Magnesium 1.3 L, Total Bilirubin 0.7, AST 22, ALT 23, Albumin 2.1 L 09/24/17 0600: Sodium Cancelled, Potassium Cancelled, Chloride Cancelled, Carbon Dioxide Cancelled, Anion Gap Cancelled, BUN Cancelled, Creatinine Cancelled, BUN/ Creatinine Ratio Cancelled, CBC w Diff Cancelled, WBC Cancelled, RBC Cancelled, Hgb Cancelled, Hct Cancelled, MCV Cancelled, MCH Cancelled, MCHC Cancelled, RDW Cancelled, Plt Count Cancelled, MPV Cancelled 09/24/17 0358: CBC w Diff NO MAN DIFF REQ, RBC 2.63 L, MCV 90.3, MCH 30.8, MCHC 34.1, RDW 14.6 H, MPV 7.3 L, Gran % 86.8 H, Lymphocytes % 5.9 L, Monocytes % 6.5, Eosinophils % 0.2, Basophils % 0.6, Absolute Granulocytes 10.2 H, Absolute Lymphocytes 0.7 L, Absolute Monocytes 0.8 H, Absolute Eosinophils 0, Absolute Basophils 0.1 09/23/172236: Anion Gap 9, Estimated GFR > 60, BUN/Creatinine Ratio 18.3, CBC w Diff NO MAN DIFF REQ, RBC 2.99 L, MCV 91.8, MCH 29.9, MCHC 32.6 L, RDW 14.3, MPV 6.5 L, Gran % 87.9 H, Lymphocytes % 5.6 L, Monocytes % 6.3, Eosinophils % 0.1, Basophils % 0.1, Absolute Granulocytes 13.4 H, Absolute Lymphocytes 0.9 L, Absolute Monocytes 1.0 H, Absolute Eosinophils 0, Absolute Basophils 0 09/23/171956: Urine Osmolality 526, Ur Random Creatinine 102.2, Ur Random Sodium 93 H, Ur Random Potassium 66.1, Fraction Sodium Excret 0.4 09/23/17 165: CBC w Diff NO MAN DIFF REQ, RBC 3.37 L, MCV 91.2, MCH 30.6, MCHC 33.6, RDW 15.0 H, MPV 7.3 L, Gran % 75.5 H, Lymphocytes % 13.2 L, Monocytes % 8.0, Eosinophils % 3.1, Basophils % 0.2, Absolute Granulocytes 6.7 H, Absolute Lymphocytes 1.2, Absolute Monocytes 0.7 H, Absolute Eosinophils 0.3, Absolute Basophils 0 Microbiology 09/23 1929 UPPER RESP: Surveillance Culture - COMP 09/23 1929 GI: Surveillance Culture - COMP Assessment/Plan Assessment/Plan Assessment: 1. CAD, status post myocardial infarction and multiple stents 2. Defibrillator 3. S/P surgical revision of prosthetic hip Recommendations: * Stable postoperatively from cardiac standpoint. * Continue cardiac medications.
[2017-09-24 20:14] LABS: ABSOLUTE BASOPHIL COUNT 0 /CUMM (0.0-0.2); ABSOLUTE EOSINOPHIL COUNT 0.1 /CUMM (0.0-0.7); ABSOLUTE GRANULOCYTE CT 10.6 /CUMM (1.4-6.5); ABSOLUTE MONOCYTE COUNT 1.4 /CUMM (0.10-0.60); BASOPHIL % 0 % (0.0-2.0); EOSINOPHIL % 0.9 % (0-5); GRANULOCYTE % 80.9 % (42.2-75.2); HEMATOCRIT 28.1 % (42-52); MEAN CORPUSCULAR HGB 30.1 PG (27.0-31.0); MEAN CORPUSCULAR VOLUME 91.4 FL (80.0-94.0); MEAN PLATELET VOLUME 7.3 FL (7.4-10.4); PLATELET COUNT 432 /CUMM (130-400); RBC DISTRIBUTION WIDTH 14.3 % (11.5-14.5); RED BLOOD CELL CT 3.07 /CUMM (4.70-6.10); WHITE BLOOD CELL COUNT 13.1 /CUMM (4.8-10.8)
[2017-09-25] VITALS: BP 100/60
[2017-09-25 05:37] LABS: ABSOLUTE BASOPHIL COUNT 0 /CUMM (0.0-0.2); ABSOLUTE EOSINOPHIL COUNT 0.2 /CUMM (0.0-0.7); ABSOLUTE GRANULOCYTE CT 8.8 /CUMM (1.4-6.5); ABSOLUTE LYMPH COUNT 1.3 /CUMM (1.2-3.4); ABSOLUTE MONOCYTE COUNT 1.1 /CUMM (0.10-0.60); BASOPHIL % 0.1 % (0.0-2.0); EOSINOPHIL % 1.4 % (0-5); GRANULOCYTE % 77.6 % (42.2-75.2); HEMATOCRIT 25.1 % (42-52); MEAN CORPUSCULAR HGB 30.4 PG (27.0-31.0); MEAN CORPUSCULAR HGB CONC 33.6 G/DL (33.0-37.0); MEAN CORPUSCULAR VOLUME 90.3 FL (80.0-94.0); MEAN PLATELET VOLUME 7.6 FL (7.4-10.4); PLATELET COUNT 379 /CUMM (130-400); RBC DISTRIBUTION WIDTH 14.3 % (11.5-14.5); RED BLOOD CELL CT 2.79 /CUMM (4.70-6.10); WHITE BLOOD CELL COUNT 11.4 /CUMM (4.8-10.8)
--- NOTE | 2017-09-25 07:42 | PN- Orthopedic ---
Veronica Barrazaa 09/25/17 0742: Subjective Subjective: Patient lying in fat this morning without complaints of pain or discomfort he has some mild right thigh edema but no active drainage of the wound. This dressing is changed toda. He is tolerating a normal diety. He is tolerating a normal diet Objective Vital Signs and I&Os Vital Signs Date Time Temp Pulse Resp B/P B/P Pulse O2 O2 Flow FiO2 Mean Ox Delivery Rate 09/25 0000 98.2 79 20 100/60 98 Room Air 09/24 2232 97.0 72 20 116/58 09/24 2227 70 18 106/49 09/24 2000 96 Room Air 09/24 1600 97 Room Air 09/24 1600 98.9 64 16 84/45 97 Room Air 09/24 1200 97 Room Air 09/24 0834 98.6 70 18 128/58 09/24 0834 98.6 70 18 128/58 09/24 0833 98.6 70 18 128/58 09/24 0833 98.6 70 18 128/58 Intake & Output 09/25 0800 09/25 0000 09/24 1600 09/24 0800 09/24 0000 09/23 1600 Intake Total 592 347 0668 3025 2550 120 Output Total 118 142 968 115 2536 425 Balance 161 896 1873 2790 1330 -305 Intake, Blood 250 Product Intake, IV 569 029 327 6208 2550 Intake, Oral 400 200 620 120 Output, Other 900 Output, Urine 118 142 105 235 320 425 Patient 111 lb Weight Physical Exam: On physical examination patient is comfortable answers questions but somewhat confused Chest clear to auscultation symmetric without rales rhonchi or wheeze Heart regular rate and rhythm without murmurs rubs gallops Abdomen is rounded without distention nontender no guarding or rebound Right hip there is a moderate amount of swelling without drainage dressings are changed today the wound is clean dry and intact without erythema or drainage calves are soft bilaterally distal pulses are intact sensorimotor is intact Current Medications: Current Medications Sig/Jesus Start time Last Medication Dose Route Stop Time Status Admin Albuterol Sulfate 2 PUF Q4-6 PRN PRN 09/21 1700 AC INH Amlodipine Besylate 5 MG DAILY 09/22 09 AC 09/24 PO 0833 Aspirin Buffered 81 MG DAILY 09/22 09 AC 09/24 PO 0837 Budesonide/ 2 PUF BID 09/21 2100 AC 09/24 Formoterol Fumarate INH 2234 Carbidopa/Levodopa 1 TAB QPM 09/21 2100 AC 09/24 PO 2224 Carvedilol 12.5 MG BID 09/21 2100 AC 09/24 PO 2232 Dextrose/Sodium 1,000 ML Q20H 09/23 0000 AC 09/25 Chloride IV 0654 Docusate Sodium 100 MG BID 09/23 2100 AC 09/24 PO 2225 Duloxetine HCl 60 MG DAILY 09/22 0900 AC 09/24 PO 0833 Fentanyl Citrate 50 MCG Q3D 09/21 1700 AC 09/24 TOP 1759 Gabapentin 100 MG TID 09/21 2100 AC 09/24 PO 2226 Isosorbide 60 MG DAILY 09/22 09 AC 09/24 Mononitrate PO 0834 Ketorolac 30 MG ONCE ONE 09/24 1145 DC 09/24 Tromethamine IV 09/24 1146 1201 Magnesium Sulfate 1 GM Q2H 09/24 1145 DC 09/24 Dextrose/Water 100 ML IV 09/24 1544 1748 Melatonin 5 MG ONCE ONE 09/25 0045 DC 09/25 PO 09/25 0046 0042 Melatonin 5 MG QPM 09/21 2100 AC 09/24 PO 2226 Metoclopramide HCl 10 MG TIDAC/HS 09/21 2100 AC 09/24 PO 2228 Morphine Sulfate 2 MG Q3P PRN 09/23 1800 AC 09/25 IV 0159 Omeprazole 40 MG DAILY AC 09/22 0700 AC 09/25 PO 0648 Oxycodone HCl 10 MG Q4-6 PRN PRN 09/21 1715 AC 09/25 PO 0335 Ranolazine 500 MG BID 09/21 2100 AC 09/24 PO 2227 Tiotropium [place] 1 PUF DAILY 09/22 0900 AC 09/24 INH 0835 Results Last 48 Hours of Labs: Laboratory Tests 09/25 09/24 0345 1921 Chemistry Sodium (137 - 145 mmol/L) 127 L Potassium (3.5 - 5.1 mmol/L) 4.1 Chloride (98 - 107 mmol/L) 95 L Carbon Dioxide (22 - 30 mmol/L) 23 Anion Gap (5 - 16) 9 BUN (9 - 20 mg/dL) 17 Creatinine (0.7 - 1.2 mg/dL) 0.6 L Estimated GFR (>60 ml/min) > 60 Glucose (65 - 99 mg/dL) 104 H Calcium (8.4 - 10.2 mg/dL) 7.3 L Phosphorus (2.5 - 4.5 mg/dL) 3.2 Magnesium (1.6 - 2.3 mg/dL) 2.0 Total Bilirubin (0.2 - 1.3 mg/dL) 0.4 AST (17 - 59 U/L) 21 ALT (21 - 72 U/L) 20 L Albumin (3.5 - 5.0 g/dL) 2.2 L Hematology CBC w Diff NO MAN DIFF REQ NO MAN DIFF REQ WBC (4.8 - 10.8 /CUMM) 11.4 H 13.1 H RBC (4.70 - 6.10 /CUMM) 2.79 L 3.07 L Hgb (14.0 - 18.0 G/DL) 8.5 L 9.3 L Hct (42 - 52 %) 25.1 L 28.1 L MCV (80.0 - 94.0 FL) 90.3 91.4 MCH (27.0 - 31.0 PG) 30.4 30.1 MCHC (33.0 - 37.0 G/DL) 33.6 33.0 RDW (11.5 - 14.5 %) 14.3 14.3 Plt Count (130 - 400 /CUMM) 379 432 H MPV (7.4 - 10.4 FL) 7.6 7.3 L Gran % (42.2 - 75.2 %) 77.6 H 80.9 H Lymphocytes % (20.5 - 51.1 %) 11.2 L 7.8 L Monocytes % (1.7 - 9.3 %) 9.7 H 10.4 H Eosinophils % (0 - 5 %) 1.4 0.9 Basophils % (0.0 - 2.0 %) 0.1 0 Absolute Granulocytes (1.4 - 6.5 /CUMM) 8.8 H 10.6 H Absolute Lymphocytes (1.2 - 3.4 /CUMM) 1.3 1.0 L Absolute Monocytes (0.10 - 0.60 /CUMM) 1.1 H 1.4 H Absolute Eosinophils (0.0 - 0.7 /CUMM) 0.2 0.1 Absolute Basophils (0.0 - 0.2 /CUMM) 0 0 09/24 09/24 09/24 1400 0935 0600 Chemistry Sodium (137 - 145 mmol/L) 130 L Cancelled Potassium (3.5 - 5.1 mmol/L) 3.9 Cancelled Chloride (98 - 107 mmol/L) 102 Cancelled Carbon Dioxide (22 - 30 mmol/L) 19 L Cancelled Anion Gap (5 - 16) 9 Cancelled BUN (9 - 20 mg/dL) 10 Cancelled Creatinine (0.7 - 1.2 mg/dL) 0.5 L Cancelled Estimated GFR (>60 ml/min) > 60 BUN/Creatinine Ratio Cancelled Glucose (65 - 99 mg/dL) 165 H Calcium (8.4 - 10.2 mg/dL) 6.9 L Phosphorus (2.5 - 4.5 mg/dL) 3.6 Magnesium (1.6 - 2.3 mg/dL) 1.3 L Total Bilirubin (0.2 - 1.3 mg/dL) 0.7 AST (17 - 59 U/L) 22 ALT (21 - 72 U/L) 23 Albumin (3.5 - 5.0 g/dL) 2.1 L Hematology CBC w Diff Cancelled Cancelled WBC Cancelled Cancelled RBC Cancelled Cancelled Hgb Cancelled Cancelled Hct Cancelled Cancelled MCV Cancelled Cancelled MCH Cancelled Cancelled MCHC Cancelled Cancelled RDW Cancelled Cancelled Plt Count Cancelled Cancelled MPV Cancelled Cancelled 09/24 09/23 0358 2237 Chemistry Sodium (137 - 145 mmol/L) 127 L Potassium (3.5 - 5.1 mmol/L) 4.3 Chloride (98 - 107 mmol/L) 98 Carbon Dioxide (22 - 30 mmol/L) 20 L Anion Gap (5 - 16) 9 BUN (9 - 20 mg/dL) 11 Creatinine (0.7 - 1.2 mg/dL) 0.6 L Estimated GFR (>60 ml/min) > 60 BUN/Creatinine Ratio (7 - 25 %) 18.3 Hematology CBC w Diff NO MAN DIFF REQ NO MAN DIFF REQ WBC (4.8 - 10.8 /CUMM) 11.8 H 15.3 H RBC (4.70 - 6.10 /CUMM) 2.63 L 2.99 L Hgb (14.0 - 18.0 G/DL) 8.1 L 9.0 L Hct (42 - 52 %) 23.7 L 27.5 L MCV (80.0 - 94.0 FL) 90.3 91.8 MCH (27.0 - 31.0 PG) 30.8 29.9 MCHC (33.0 - 37.0 G/DL) 34.1 32.6 L RDW (11.5 - 14.5 %) 14.6 H 14.3 Plt Count (130 - 400 /CUMM) 446 H 537 H MPV (7.4 - 10.4 FL) 7.3 L 6.5 L Gran % (42.2 - 75.2 %) 86.8 H 87.9 H Lymphocytes % (20.5 - 51.1 %) 5.9 L 5.6 L Monocytes % (1.7 - 9.3 %) 6.5 6.3 Eosinophils % (0 - 5 %) 0.2 0.1 Basophils % (0.0 - 2.0 %) 0.6 0.1 Absolute Granulocytes (1.4 - 6.5 /CUMM) 10.2 H 13.4 H Absolute Lymphocytes (1.2 - 3.4 /CUMM) 0.7 L 0.9 L Absolute Monocytes (0.10 - 0.60 /CUMM) 0.8 H 1.0 H Absolute Eosinophils (0.0 - 0.7 /CUMM) 0 0 Absolute Basophils (0.0 - 0.2 /CUMM) 0.1 0 09/23 1655 Hematology CBC w Diff NO MAN DIFF REQ WBC (4.8 - 10.8 /CUMM) 8.8 RBC (4.70 - 6.10 /CUMM) 3.37 L Hgb (14.0 - 18.0 G/DL) 10.3 L Hct (42 - 52 %) 30.7 L MCV (80.0 - 94.0 FL) 91.2 MCH (27.0 - 31.0 PG) 30.6 MCHC (33.0 - 37.0 G/DL) 33.6 RDW (11.5 - 14.5 %) 15.0 H Plt Count (130 - 400 /CUMM) 511 H MPV (7.4 - 10.4 FL) 7.3 L Gran % (42.2 - 75.2 %) 75.5 H Lymphocytes % (20.5 - 51.1 %) 13.2 L Monocytes % (1.7 - 9.3 %) 8.0 Eosinophils % (0 - 5 %) 3.1 Basophils % (0.0 - 2.0 %) 0.2 Absolute Granulocytes (1.4 - 6.5 /CUMM) 6.7 H Absolute Lymphocytes (1.2 - 3.4 /CUMM) 1.2 Absolute Monocytes (0.10 - 0.60 /CUMM) 0.7 H Absolute Eosinophils (0.0 - 0.7 /CUMM) 0.3 Absolute Basophils (0.0 - 0.2 /CUMM) 0 Urines Urine Osmolality (300 - 1000 MOSM/KG) 526 Ur Random Creatinine (mg/dL) 102.2 Ur Random Sodium (30 - 90 mmol/L) 93 H Ur Random Potassium (mmol/L) 66.1 Fraction Sodium Excret (<1% %) 0.4 Recent Imaging Studies: X-ray of his hip shows the hardware is in good position he will be weightbearing as tolerated with physical therapy Assessment/Plan Assessment/Plan POD 2 sp revision recurrent dislocated R MUNDO (sp gamma nail to total hip--> revision previous dislocation) appreciate medical input. siadh/fluid mgmt per medical team CBC stable abx postop stone cath hip precautions OOB to chair -FWB with PT start on eliquis today Core Measures Venous Thromboembolism VTE Risk Factors Age>40 No Mechanical VTE Prophylaxis d/t N/A MechProphylax Ordered No VTE Pharm Prophylaxis d/t NA PharmProphylax ordered Dandre Shanks MD 09/25/17 1647: Attending MD Review Statement Attending Statement Attending MD Statement: examined this patient, discuss w/resident/PA/FIELD TRAFFIC INVESTIGATOR, agreed w/resident/PA/FIELD TRAFFIC INVESTIGATOR Attending Assessment/Plan: Hemoglobin and hematocrit have remained stable. No obvious recurrent instability issues for the right hip since revision hip surgery. The patient remains neurovascularly intact distally. Eliquis anticoagulant medication restarted this afternoon. The patient is apparently scheduled to be transferred out to the general med/ surgical floor today. Continue with daily dressing changes. Mobilize out of bed with therapy with hip precautions for the right hip.
[2017-09-25 08:00] VITALS: BP 112/60
--- NOTE | 2017-09-25 08:01 | PN- Resident CRCU ---
Subjective HPI/CRCU Issues: post op monitoring after perioperative blood loss hypotension 24 Hour Events: No acute events overnight. Patient was found to be hypotensive yesterday afternoon for which he received another unit of pRBC. Blood pressure has been stable since transfusion. Objective Vital Signs & I&O Last 8 Hrs of Vitals and I&O: . Exam General Appearance: no apparent distress, alert, awake, thin Head: atraumatic, normal appearance Respiratory: normal breath sounds, chest non-tender, decreased air entry RLL Cardiovascular: regular rate/rhythm, systolic murmur, AICD palpable in left infraclavicular region Gastrointestinal: soft, non-tender Extremities: no edema Cranial Nerves: normal hearing, normal speech Skin: intact, normal color Skin Temp/Moisture Exam: Warm/Dry Sepsis Skin Exam (color): Normal for Ethnicity Current Medications: Current Medications Sig/Jesus Start time Last Medication Dose Route Stop Time Status Admin Albuterol Sulfate 2 PUF Q4-6 PRN PRN 09/21 1700 AC INH Amlodipine Besylate 5 MG DAILY 09/22 09 AC 09/24 PO 0833 Apixaban 2.5 MG BID 09/25 0900 AC 09/25 PO 0828 Aspirin Buffered 81 MG DAILY 09/22 0900 AC 09/25 PO 0807 Budesonide/ 2 PUF BID 09/21 2100 AC 09/25 Formoterol Fumarate INH 0808 Carbidopa/Levodopa 1 TAB QPM 09/21 2100 AC 09/24 PO 2224 Carvedilol 12.5 MG BID 09/21 2100 AC 09/25 PO 0807 Dextrose/Sodium 1,000 ML Q20H 09/23 0000 DC 09/25 Chloride IV 0654 Docusate Sodium 100 MG BID 09/23 2100 AC 09/25 PO 0807 Duloxetine HCl 60 MG DAILY 09/22 0900 AC 09/25 PO 0807 Fentanyl Citrate 50 MCG Q3D 09/21 1700 AC 09/24 TOP 1759 Gabapentin 100 MG TID 09/21 2100 AC 09/25 PO 0807 Isosorbide 60 MG DAILY 09/22 0900 AC 09/25 Mononitrate PO 0807 Ketorolac 30 MG ONCE ONE 09/24 1145 DC 09/24 Tromethamine IV 09/24 1146 1201 Magnesium Sulfate 1 GM Q2H 09/24 1145 DC 09/24 Dextrose/Water 100 ML IV 09/24 1544 1748 Melatonin 5 MG ONCE ONE 09/25 0045 DC 09/25 PO 09/25 0046 0042 Melatonin 5 MG QPM 09/21 2100 AC 09/24 PO 2226 Metoclopramide HCl 10 MG TIDAC/HS 09/21 2100 AC 09/25 PO 0806 Morphine Sulfate 2 MG Q3P PRN 09/23 1800 AC 09/25 IV 0931 Omeprazole 40 MG DAILY AC 09/22 0700 AC 09/25 PO 0648 Oxycodone HCl 10 MG Q4-6 PRN PRN 09/21 1715 AC 09/25 PO 0806 Ranolazine 500 MG BID 09/21 2100 AC 09/25 PO 0807 Sodium Chloride 1,000 ML Q13H 09/25 0930 AC 09/25 IV 09/25 2229 0929 Tiotropium [place] 1 PUF DAILY 09/22 0900 AC 09/25 INH 0808 Impression/Plan Impression/Problem List Impression: 71 years old male with PMH of CAD status post multiple MIs with PCI and multiple stents placement and CABG, s/p PPM / AICD, COPD, obstructive sleep apnea, Parkinson's disease, severe peripheral artery disease, prostate cancer status post radiation and in remission, history of right total hip arthroplasty Assessment: 1. Right total hip arthroplasty dislocation s/p revision arthroplasty 2. Acute Blood Loss Anemia 3. Hyponatremia 4. Severe Protein Calorie Malnutrition 5. History of CAD 6. History of COPD Plan: * Can be downgraded to general medicine floor later today if remains hemodynamically stable. * s/p 2 unit pRBC in OR due to perioperative blood loss and 1 unit pRBC 09/24 * Would repeat CBC later during the day and if Hb<8 would transfuse due to his history of CAD. * Amlodipine was held this morning due to low blood pressure. Will discontinue it temporarily until blood pressure improves. * Continue Coreg 12.5mg BID * Started on Eliquis 2.5mg BID per ortho * PT * Monitor electrolytes and replete as needed. * Pain control with oxycodone and IV Morphine. * Protein supplement with Ensure for malnutrition. * Diet: Heart Healthy with 1200cc fluid restriction * DVT Prophylaxis: Eliquis * Code: Full Code Problem List: 1. Hip dislocation, right Pain Ratin Tomorrow's Labs & Rationales: CBC, ICU bundle Plan DVT/Prophylaxis: mechanical
--- NOTE | 2017-09-25 10:28 | PN- CRCU ---
Subjective HPI/Critical Care Issues: The patient is awake and alert. He is intermittently confused when receiving morphine. He denies any respiratory complaints. He complains of pain at his incisional site. The patient transiently had hypotension yesterday, improved post transfusion. Objective Current Medications: Current Medications Sig/Jesus Start time Last Medication Dose Route Stop Time Status Admin Albuterol Sulfate 2 PUF Q4-6 PRN PRN 09/21 1700 AC INH Amlodipine Besylate 5 MG DAILY 09/22 09 AC 09/24 PO 0833 Aspirin Buffered 81 MG DAILY 09/22 0900 AC 09/24 PO 0837 Budesonide/ 2 PUF BID 09/21 2100 AC 09/24 Formoterol Fumarate INH 2234 Carbidopa/Levodopa 1 TAB QPM 09/21 2100 AC 09/24 PO 2224 Carvedilol 12.5 MG BID 09/21 2100 AC 09/24 PO 2232 Dextrose/Sodium 1,000 ML Q20H 09/23 0000 AC 09/25 Chloride IV 0654 Docusate Sodium 100 MG BID 09/23 2100 AC 09/24 PO 2225 Duloxetine HCl 60 MG DAILY 09/22 0900 AC 09/24 PO 0833 Fentanyl Citrate 50 MCG Q3D 09/21 1700 AC 09/24 TOP 1759 Gabapentin 100 MG TID 09/21 2100 AC 09/24 PO 2226 Isosorbide 60 MG DAILY 09/22 09 AC 09/24 Mononitrate PO 0834 Ketorolac 30 MG ONCE ONE 09/24 1145 DC 09/24 Tromethamine IV 09/24 1146 1201 Magnesium Sulfate 1 GM Q2H 09/24 1145 DC 09/24 Dextrose/Water 100 ML IV 09/24 1544 1748 Melatonin 5 MG ONCE ONE 09/25 0045 DC 09/25 PO 09/25 0046 0042 Melatonin 5 MG QPM 09/21 2100 AC 09/24 PO 2226 Metoclopramide HCl 10 MG TIDAC/HS 09/21 2100 AC 09/24 PO 2228 Morphine Sulfate 2 MG Q3P PRN 09/23 1800 AC 09/25 IV 0159 Omeprazole 40 MG DAILY AC 09/22 0700 AC 09/25 PO 0648 Oxycodone HCl 10 MG Q4-6 PRN PRN 09/21 1715 AC 09/25 PO 0335 Ranolazine 500 MG BID 09/21 2100 AC 09/24 PO 2227 Tiotropium [place] 1 PUF DAILY 09/22 0900 AC 09/24 INH 0835 Vital Signs & I&O Last 24 Hrs of Vitals and I&O: Vital Signs Date Time Temp Pulse Resp B/P B/P Pulse O2 O2 Flow FiO2 Mean Ox Delivery Rate 09/25 0000 98.2 79 20 100/60 98 Room Air 09/24 2232 97.0 72 20 116/58 09/24 2227 70 18 106/49 09/24 2000 96 Room Air 09/24 1600 97 Room Air 09/24 1600 98.9 64 16 84/45 97 Room Air 09/24 1200 97 Room Air 09/24 0834 98.6 70 18 128/58 09/24 0834 98.6 70 18 128/58 09/24 0833 98.6 70 18 128/58 09/24 0833 98.6 70 18 128/58 Intake & Output 09/25 0800 09/25 0000 09/24 1600 Intake Total 112 488 1018 Output Total 118 142 105 Balance 532 505 5376 Intake, Blood 250 Product Intake, IV 569 500 565 Intake, Oral 400 200 620 Output, Urine 118 142 105 Exam General Appearance: well developed/nourished, alert, awake, comfortable Head: atraumatic Neck: normal inspection, supple Respiratory: quiet respiration, lungs clear Cardiovascular: regular rate/rhythm Abdomen: normal bowel sounds, soft, non-tender Extremities: Bandaged and elevated right lower extremity. Skin: intact, normal color, warm/dry Results Last 24 Hrs of Lab Results: Laboratory Tests 09/25/17 0345: Anion Gap 9, Estimated GFR > 60, Glucose 104 H, Calcium 7.3 L, Phosphorus 3.2, Magnesium 2.0, Total Bilirubin 0.4, AST 21, ALT 20 L, Albumin 2.2 L, CBC w Diff NO MAN DIFF REQ, RBC 2.79 L, MCV 90.3, MCH 30.4, MCHC 33.6, RDW 14.3, MPV 7.6, Gran % 77.6 H, Lymphocytes % 11.2 L, Monocytes % 9.7 H, Eosinophils % 1.4, Basophils % 0.1, Absolute Granulocytes 8.8 H, Absolute Lymphocytes 1.3, Absolute Monocytes 1.1 H, Absolute Eosinophils 0.2, Absolute Basophils 0 07/27/18 1921: CBC w Diff NO MAN DIFF REQ, RBC 3.07 L, MCV 91.4, MCH 30.1, MCHC 33.0, RDW 14.3 , MPV 7.3 L, Gran % 80.9 H, Lymphocytes % 7.8 L, Monocytes % 10.4 H, Eosinophils % 0.9, Basophils % 0, Absolute Granulocytes 10.6 H, Absolute Lymphocytes 1.0 L, Absolute Monocytes 1.4 H, Absolute Eosinophils 0.1, Absolute Basophils 0 09/24/17 1400: CBC w Diff Cancelled, WBC Cancelled, RBC Cancelled, Hgb Cancelled, Hct Cancelled , MCV Cancelled, MCH Cancelled, MCHC Cancelled, RDW Cancelled, Plt Count Cancelled, MPV Cancelled 09/24/17 0935: Anion Gap 9, Estimated GFR > 60, Glucose 165 H, Calcium 6.9 L, Phosphorus 3.6, Magnesium 1.3 L, Total Bilirubin 0.7, AST 22, ALT 23, Albumin 2.1 L Impression/Plan Impression/Plan Impression/Plan: 1. Right total hip arthroplasty dislocation s/p revision arthroplasty. 2. Acute Blood Loss Anemia. 3. Hyponatremia - slowly resolving. 4. Severe Protein Calorie Malnutrition. 5. History of CAD. 6. History of COPD. 7. Post operative pain. 8. Post operative delerium. Recommendations: * Discontinue A-line. * Hold antihypertensives for hypotension. * Encourage oral intake. * Boost, protein shakes. * Monitor for bleeding. * Agree with repeat CBC later today and transfuse if Hb<8 to his history of CAD. * Anticoagulation on hold. To be started on Wednesday per Ortho. * PT evaluation and treatment. * Continue 1200cc fluid restriction for hyponatremia. * Monitor electrolytes and replete as needed. * Pain control with oxycodone and IV Morphine. * PT evaluation. Out of bed to chair. * DVT Prophylaxis: ALPS * Code: Full Code * Discussed with housestaff and nursing.
[2017-09-25 15:39] LABS: ABSOLUTE BASOPHIL COUNT 0 /CUMM (0.0-0.2); ABSOLUTE EOSINOPHIL COUNT 0.3 /CUMM (0.0-0.7); ABSOLUTE GRANULOCYTE CT 8.9 /CUMM (1.4-6.5); ABSOLUTE MONOCYTE COUNT 1.2 /CUMM (0.10-0.60); BASOPHIL % 0.1 % (0.0-2.0); EOSINOPHIL % 2.5 % (0-5); HEMATOCRIT 25.6 % (42-52); MEAN CORPUSCULAR HGB 29.8 PG (27.0-31.0); MEAN CORPUSCULAR HGB CONC 33.4 G/DL (33.0-37.0); MEAN CORPUSCULAR VOLUME 89.3 FL (80.0-94.0); MEAN PLATELET VOLUME 7.8 FL (7.4-10.4); PLATELET COUNT 428 /CUMM (130-400); RBC DISTRIBUTION WIDTH 14.5 % (11.5-14.5); RED BLOOD CELL CT 2.86 /CUMM (4.70-6.10); WHITE BLOOD CELL COUNT 11.4 /CUMM (4.8-10.8)
[2017-09-25 16:00] VITALS: BP 118/68
[2017-09-25 18:20] VITALS: BP 122/98
[2017-09-25 22:31] VITALS: BP 120/80
[2017-09-25 22:59] VITALS: BP 120/66
[2017-09-26 06:34] VITALS: BP 118/76
--- NOTE | 2017-09-26 06:48 | PN- Orthopedic ---
See Addendum Subjective Subjective: Patient laying flat in bed in no acute distress. No events overnight. Per patient has not been out of bed and continues to complain of moderate right hip pain with any major movments. He is wbat and with hip precautions. Otherwise, denies cp, sob, n/v, palpitations. Objective Vital Signs and I&Os Vital Signs Date Time Temp Pulse Resp B/P B/P Pulse O2 O2 Flow FiO2 Mean Ox Delivery Rate 09/26 0634 98.0 78 20 118/76 99 09/26 0000 Nasal 2.0L Cannula 09/25 2259 98.2 95 20 120/66 95 Nasal 2.0L Cannula 09/25 2231 98.6 98 20 120/80 93 Room Air 09/25 2202 98.6 73 18 120/80 09/25 2200 98.6 73 18 120/80 09/25 1820 98.8 83 122/98 95 Room Air 09/25 1600 96.9 87 20 118/68 96 Room Air 09/25 0807 83 120/60 09/25 0807 83 120/60 09/25 0807 83 120/60 09/25 0800 99.6 76 18 112/60 98 Room Air Intake & Output 09/26 0800 09/26 0000 09/25 1600 09/25 0800 09/25 0000 09/24 1600 Intake Total 100 1285 857 468 5388 Output Total 245 150 200 118 142 105 Balance -245 -50 1085 564 151 8502 Intake, Blood 250 Product Intake, IV 765 569 500 565 Intake, Oral 100 520 400 200 620 Number 0 Bowel Movements Output, Urine 245 150 200 118 142 105 Patient 131 lb Weight Weight Bed scale Measurement Method Physical Exam: Cardiac: RRR, s1s2, systolic murmer Pulm: CTA b/l, poor inspiratory effort Abd: soft, NT/ND extremities: right hip surgical wound covered with dressing is c/d/i, aliza well approximate wound, right thigh is swollen and appears like a hematoma, no evidence of compartment, DP 2+ b/l, leg precaution pillow in place Neuro: awake and oriented to person, place, time Current Medications: Current Medications Sig/Jesus Start time Last Medication Dose Route Stop Time Status Admin Albuterol Sulfate 2 PUF Q4-6 PRN PRN 09/21 1700 AC 09/25 INH 2342 Amlodipine Besylate 5 MG DAILY 09/22 0900 DC 09/25 PO 1000 Apixaban 2.5 MG BID 09/25 0900 AC 09/25 PO 2203 Aspirin Buffered 81 MG DAILY 09/22 09 AC 09/25 PO 0807 Budesonide/ 2 PUF BID 09/21 2100 AC 09/25 Formoterol Fumarate INH 2202 Carbidopa/Levodopa 1 TAB QPM 09/21 2100 AC 09/25 PO 2202 Carvedilol 12.5 MG BID 09/21 2100 AC 09/25 PO 2200 Dextrose/Sodium 1,000 ML Q20H 09/23 0000 DC 09/25 Chloride IV 0654 Docusate Sodium 100 MG BID 09/23 2100 AC 09/25 PO 2201 Duloxetine HCl 60 MG DAILY 09/22 09 AC 09/25 PO 0807 Fentanyl Citrate 50 MCG Q3D 09/21 1700 AC 09/24 TOP 1759 Gabapentin 100 MG TID 09/21 2100 AC 09/25 PO 2202 Isosorbide 60 MG DAILY 09/22 09 AC 09/25 Mononitrate PO 0807 Melatonin 5 MG QPM 09/21 2100 AC 09/25 PO 2201 Metoclopramide HCl 10 MG TIDAC/HS 09/21 2100 AC 09/25 PO 2201 Morphine Sulfate 2 MG Q3P PRN 09/23 1800 AC 09/25 IV 0931 Omeprazole 40 MG DAILY AC 09/22 07 AC 09/26 PO 0621 Oxycodone HCl 10 MG Q4-6 PRN PRN 09/21 1715 AC 09/25 PO 1452 Ranolazine 500 MG BID 09/21 2100 AC 09/25 PO 2202 Sodium Chloride 250 ML BOLUS ONE 09/25 1315 DC 09/25 IV 09/25 1414 1314 Sodium Chloride 1,000 ML Q13H 09/25 0930 DC 09/25 IV 09/25 2229 0929 Tiotropium [place] 1 PUF DAILY 09/22 09 AC 09/25 INH 0808 Results Last 48 Hours of Labs: Laboratory Tests 09/25 09/25 1338 0345 Chemistry Sodium (137 - 145 mmol/L) 127 L Potassium (3.5 - 5.1 mmol/L) 4.1 Chloride (98 - 107 mmol/L) 95 L Carbon Dioxide (22 - 30 mmol/L) 23 Anion Gap (5 - 16) 9 BUN (9 - 20 mg/dL) 17 Creatinine (0.7 - 1.2 mg/dL) 0.6 L Estimated GFR (>60 ml/min) > 60 Glucose (65 - 99 mg/dL) 104 H Calcium (8.4 - 10.2 mg/dL) 7.3 L Phosphorus (2.5 - 4.5 mg/dL) 3.2 Magnesium (1.6 - 2.3 mg/dL) 2.0 Total Bilirubin (0.2 - 1.3 mg/dL) 0.4 AST (17 - 59 U/L) 21 ALT (21 - 72 U/L) 20 L Albumin (3.5 - 5.0 g/dL) 2.2 L Hematology CBC w Diff NO MAN DIFF REQ NO MAN DIFF REQ WBC (4.8 - 10.8 /CUMM) 11.4 H 11.4 H RBC (4.70 - 6.10 /CUMM) 2.86 L 2.79 L Hgb (14.0 - 18.0 G/DL) 8.5 L 8.5 L Hct (42 - 52 %) 25.6 L 25.1 L MCV (80.0 - 94.0 FL) 89.3 90.3 MCH (27.0 - 31.0 PG) 29.8 30.4 MCHC (33.0 - 37.0 G/DL) 33.4 33.6 RDW (11.5 - 14.5 %) 14.5 14.3 Plt Count (130 - 400 /CUMM) 428 H 379 MPV (7.4 - 10.4 FL) 7.8 7.6 Gran % (42.2 - 75.2 %) 78.0 H 77.6 H Lymphocytes % (20.5 - 51.1 %) 8.6 L 11.2 L Monocytes % (1.7 - 9.3 %) 10.8 H 9.7 H Eosinophils % (0 - 5 %) 2.5 1.4 Basophils % (0.0 - 2.0 %) 0.1 0.1 Absolute Granulocytes (1.4 - 6.5 /CUMM) 8.9 H 8.8 H Absolute Lymphocytes (1.2 - 3.4 /CUMM) 1.0 L 1.3 Absolute Monocytes (0.10 - 0.60 /CUMM) 1.2 H 1.1 H Absolute Eosinophils (0.0 - 0.7 /CUMM) 0.3 0.2 Absolute Basophils (0.0 - 0.2 /CUMM) 0 0 09/24 09/24 09/24 1921 1400 0935 Chemistry Sodium (137 - 145 mmol/L) 130 L Potassium (3.5 - 5.1 mmol/L) 3.9 Chloride (98 - 107 mmol/L) 102 Carbon Dioxide (22 - 30 mmol/L) 19 L Anion Gap (5 - 16) 9 BUN (9 - 20 mg/dL) 10 Creatinine (0.7 - 1.2 mg/dL) 0.5 L Estimated GFR (>60 ml/min) > 60 Glucose (65 - 99 mg/dL) 165 H Calcium (8.4 - 10.2 mg/dL) 6.9 L Phosphorus (2.5 - 4.5 mg/dL) 3.6 Magnesium (1.6 - 2.3 mg/dL) 1.3 L Total Bilirubin (0.2 - 1.3 mg/dL) 0.7 AST (17 - 59 U/L) 22 ALT (21 - 72 U/L) 23 Albumin (3.5 - 5.0 g/dL) 2.1 L Hematology CBC w Diff NO MAN DIFF REQ Cancelled WBC (4.8 - 10.8 /CUMM) 13.1 H Cancelled RBC (4.70 - 6.10 /CUMM) 3.07 L Cancelled Hgb (14.0 - 18.0 G/DL) 9.3 L Cancelled Hct (42 - 52 %) 28.1 L Cancelled MCV (80.0 - 94.0 FL) 91.4 Cancelled MCH (27.0 - 31.0 PG) 30.1 Cancelled MCHC (33.0 - 37.0 G/DL) 33.0 Cancelled RDW (11.5 - 14.5 %) 14.3 Cancelled Plt Count (130 - 400 /CUMM) 432 H Cancelled MPV (7.4 - 10.4 FL) 7.3 L Cancelled Gran % (42.2 - 75.2 %) 80.9 H Lymphocytes % (20.5 - 51.1 %) 7.8 L Monocytes % (1.7 - 9.3 %) 10.4 H Eosinophils % (0 - 5 %) 0.9 Basophils % (0.0 - 2.0 %) 0 Absolute Granulocytes (1.4 - 6.5 /CUMM) 10.6 H Absolute Lymphocytes (1.2 - 3.4 /CUMM) 1.0 L Absolute Monocytes (0.10 - 0.60 /CUMM) 1.4 H Absolute Eosinophils (0.0 - 0.7 /CUMM) 0.1 Absolute Basophils (0.0 - 0.2 /CUMM) 0 Assessment/Plan Assessment/Plan This is a 71 y/o M w/ PMHx of CAD s/p multiple MIs with PCI and multiple stents placement and CABG, s/p PPM / AICD, COPD, obstructive sleep apnea, Parkinson's disease, severe peripheral artery disease, prostate cancer s/p radiation and in remission, who is POD#3 s/p revision of dislocated R MUNDO (sp gamma nail to total hip-->revision previous dislocation). - appreciate onging medical input. siadh/fluid/HTN mgmt per medical team - CBC stable, f/u morning labs - stone cath until more mobile - hip precautions - OOB to chair -FWB with PT - start on eliquis yesterday - daily dressing changes Core Measures Venous Thromboembolism VTE Risk Factors Age>40 No Mechanical VTE Prophylaxis d/t N/A MechProphylax Ordered No VTE Pharm Prophylaxis d/t NA PharmProphylax ordered 3. Hyponatremia 4. Severe Protein Calorie Malnutrition 5. History of CAD 6. History of COPD Plan: * Can be downgraded to general medicine floor later today if remains hemodynamically stable. * s/p 2 unit pRBC in OR due to perioperative blood loss and 1 unit pRBC 09/24 * Would repeat CBC later during the day and if Hb<8 would transfuse due to his history of CAD. * Amlodipine was held this morning due to low blood pressure. Will discontinue it temporarily until blood pressure improves. * Continue Coreg 12.5mg BID * Started on Eliquis 2.5mg BID per ortho * PT * Monitor electrolytes and replete as needed. * Pain control with oxycodone and IV Morphine. * Protein supplement with Ensure for malnutrition. * Diet: Heart Healthy with 1200cc fluid restriction * DVT Prophylaxis: Eliquis * Code: Full Code Core Measures Venous Thromboembolism VTE Risk Factors Age>40 No Mechanical VTE Prophylaxis d/t N/A MechProphylax Ordered No VTE Pharm Prophylaxis d/t NA PharmProphylax ordered
[2017-09-26 08:31] LABS: ABSOLUTE BASOPHIL COUNT 0 /CUMM (0.0-0.2); ABSOLUTE EOSINOPHIL COUNT 0.3 /CUMM (0.0-0.7); ABSOLUTE GRANULOCYTE CT 8.5 /CUMM (1.4-6.5); ABSOLUTE LYMPH COUNT 1.2 /CUMM (1.2-3.4); BASOPHIL % 0.1 % (0.0-2.0); EOSINOPHIL % 2.5 % (0-5); GRANULOCYTE % 77.1 % (42.2-75.2); HEMATOCRIT 26.9 % (42-52); MEAN CORPUSCULAR HGB 30.6 PG (27.0-31.0); MEAN CORPUSCULAR HGB CONC 34.3 G/DL (33.0-37.0); MEAN CORPUSCULAR VOLUME 89.4 FL (80.0-94.0); MEAN PLATELET VOLUME 7.9 FL (7.4-10.4); PLATELET COUNT 485 /CUMM (130-400); RBC DISTRIBUTION WIDTH 14.2 % (11.5-14.5); RED BLOOD CELL CT 3.01 /CUMM (4.70-6.10); WHITE BLOOD CELL COUNT 11.1 /CUMM (4.8-10.8)
--- NOTE | 2017-09-26 11:18 | PN- Pulmonary ---
Subjective HPI/Critical Care Issues: Patient is mildly lethargic but denies respiratory symptoms Objective Current Medications: Current Medications Sig/Jesus Start time Last Medication Dose Route Stop Time Status Admin Albuterol Sulfate 2 PUF Q4-6 PRN PRN 09/21 1700 AC 09/25 INH 2342 Amlodipine Besylate 5 MG DAILY 09/22 0900 DC 09/25 PO 1000 Apixaban 2.5 MG BID 09/25 0900 AC 09/26 PO 0802 Aspirin Buffered 81 MG DAILY 09/22 09 AC 09/26 PO 0802 Budesonide/ 2 PUF BID 09/21 2100 AC 09/26 Formoterol Fumarate INH 0804 Carbidopa/Levodopa 1 TAB QPM 09/21 2100 AC 09/25 PO 2202 Carvedilol 12.5 MG BID 09/21 2100 AC 09/26 PO 0803 Docusate Sodium 100 MG BID 09/23 2100 AC 09/26 PO 0803 Duloxetine HCl 60 MG DAILY 09/22 0900 AC 09/26 PO 0802 Fentanyl Citrate 50 MCG Q3D 09/21 1700 AC 09/24 TOP 1759 Gabapentin 100 MG TID 09/21 2100 AC 09/26 PO 0802 Isosorbide 60 MG DAILY 09/22 09 AC 09/26 Mononitrate PO 0815 Melatonin 5 MG QPM 09/21 2100 AC 09/25 PO 2201 Metoclopramide HCl 10 MG TIDAC/HS 09/21 2100 AC 09/26 PO 0803 Morphine Sulfate 2 MG Q3P PRN 09/23 1800 AC 09/26 IV 0806 Omeprazole 40 MG DAILY AC 09/22 0700 AC 09/26 PO 0621 Oxycodone HCl 10 MG Q4-6 PRN PRN 09/21 1715 AC 09/25 PO 1452 Ranolazine 500 MG BID 09/21 2100 AC 09/26 PO 0803 Sodium Chloride 250 ML BOLUS ONE 09/25 1315 DC 09/25 IV 09/25 1414 1314 Sodium Chloride 1,000 ML Q13H 09/25 0930 DC 09/25 IV 09/25 2229 0929 Tiotropium [place] 1 PUF DAILY 09/22 0900 AC 09/26 INH 0804 Vital Signs & I&O Last 24 Hrs of Vitals and I&O: Vital Signs Date Time Temp Pulse Resp B/P B/P Pulse O2 O2 Flow FiO2 Mean Ox Delivery Rate 09/26 0815 78 118/76 09/26 0803 78 118/76 09/26 0803 78 118/76 09/26 0800 Nasal 2.0L Cannula 09/26 0634 98.0 78 20 118/76 99 09/26 0000 Nasal 2.0L Cannula 09/25 2259 98.2 95 20 120/66 95 Nasal 2.0L Cannula 09/25 2231 98.6 98 20 120/80 93 Room Air 09/25 2202 98.6 73 18 120/80 09/25 2200 98.6 73 18 120/80 09/25 1820 98.8 83 122/98 95 Room Air 09/25 1600 96.9 87 20 118/68 96 Room Air Intake & Output 09/26 1600 09/26 0800 09/26 0000 Intake Total 550 100 Output Total 245 150 Balance 305 -50 Intake, IV 350 Intake, Oral 200 100 Output, Urine 245 150 Oxygen saturation 2 L 99% exam of his chest shows coarse exam shows a regular S1 and S2 without murmurs Impression/Plan Impression/Plan Impression/Plan: 71-year-old gentleman status post hip surgery has stable respiratory status. Hyponatremia is improved. Recommendations: Assess room air oxygen saturation. Continue fluid restriction. Mobilization per orthopedics.
--- NOTE | 2017-09-26 12:56 | PN- Cardiology ---
Subjective Subjective: Patient seen and evaluated this morning. He offers no complaints no chest pain shortness of breath dizziness lightheadedness nausea vomiting. Review of Systems: Review of systems: See HPI, All other systems negative. Constitutional, no chills no fever, no malaise Cardiovascular: No chest pain , no palpitation Respiratory: No dyspnea no cough no sputum no hemoptysis GI: No nausea no vomiting, Muscle skeletal: No joint pain Neurologic: no headache Heme/endocrine: No bruising Objective Vital Signs and I&Os Vital Signs Date Time Temp Pulse Resp B/P B/P Pulse O2 O2 Flow FiO2 Mean Ox Delivery Rate 09/26 0815 78 118/76 09/26 0803 78 118/76 09/26 0803 78 118/76 09/26 0800 Nasal 2.0L Cannula 09/26 0634 98.0 78 20 118/76 99 09/26 0000 Nasal 2.0L Cannula 09/25 2259 98.2 95 20 120/66 95 Nasal 2.0L Cannula 09/25 2231 98.6 98 20 120/80 93 Room Air 09/25 2202 98.6 73 18 120/80 09/25 2200 98.6 73 18 120/80 09/25 1820 98.8 83 122/98 95 Room Air 09/25 1600 96.9 87 20 118/68 96 Room Air Intake & Output 09/26 1600 09/26 0800 09/26 0000 09/25 1600 09/25 0800 09/25 0000 Intake Total 275 987 2768 969 950 Output Total 245 150 200 118 142 Balance 305 -50 1085 851 808 Intake, Blood 250 Product Intake, IV 350 765 569 500 Intake, Oral 200 100 520 400 200 Number 0 Bowel Movements Output, Urine 245 150 200 118 142 Patient 131 lb Weight Weight Bed scale Measurement Method Physical Exam: Well-developed well-nourished person in no acute distress HEENT: HEAD is atraumatic. moist mucous membranes. Neck: Supple, no bruit Cardiovascular: Regular rate and rhythms, 2/6 systolic murmur, no rubs or gallops, normal JVP Respiratory: No respiratory distress. Patient speaking in full complete sentences. Breath sounds clear to auscultation bilaterally: NO W/R/R Abdomen: Soft Extremity: No edema Neuro: Alert oriented x3 Skin: No appreciable rash on exposed skin, skin is warm and dry. Assessment/Plan Assessment/Plan Assessment: 1. CAD, status post myocardial infarction and multiple stents 2. Defibrillator 3. S/P surgical revision of prosthetic hip Recommendations: * Stable postoperatively from cardiac standpoint. * Continue cardiac medications. The plan was discussed with Dr. Austin. Thank you for the opportunity to assist in the patient's care. These do not hesitate to call with any questions. Ilan Mario PA-C [facility] [address], [address] [place] [address] Continue telemetry? No
[2017-09-26 14:39] VITALS: BP 110/60
[2017-09-26 22:24] VITALS: BP 110/58
[2017-09-27 07:05] VITALS: BP 104/61
--- NOTE | 2017-09-27 07:12 | PN- Medicine Consult ---
Kristin Manuel 09/27/17 0712: Assessment/PlanMedical Consult Assessment/Plan Assessment: Patient is 71 years old male with PMH of CAD status post multiple MIs with PCI and multiple stents placement and CABG, s/p PPM / AICD, COPD, obstructive sleep apnea, Parkinson's disease, severe peripheral artery disease, prostate cancer status post radiation and in remission, history of right intertrochanteric fracture status post total hip release placement gamma nail surgery by Dr. Jara in April 2017. Was recently admitted to [facility] for worsening right hip pain, on 09/07/17 s/p removal of right intramedullary nail femur on 01/16 for Non-union right intertrochanteric hip fracture with failure of intramedullary implant. Patient underwent closed reduction right total hip arthroplasty prosthetic on September 12, 2017 secondary to dislocation of the right hip. Patient was discharged to a rehabilitation facility on 09/16/17. Patient states that at the rehabilitation facility he was doing his physical therapy, and he noticed that his right hip was popping out. He also reported 10/10 sharp pain radiating from right hip down to the knee. Patient states that the pain is worse on movement, and the right hip region is also tender on palpation. Plan: Problem List: 1. hx Acute delirium 2. hx Hyponatremia 3. Recurrent right hip dislocation -Failed right hip implant/nail fixation s/p closed reduction right total hip arthroplasty prosthetic on September 12, 2017 5. CAD s/p LA with PCI and multiple stents placement 6. HFrEF 7. COPD not on home O2, 8. ANDRADE. 9. PAD 10. prostate cancer s/p radiation in remission -Patient was down graded to general medicine as he was hemodynamically stable. -He has recieved a total of 4 units of blood postoperatively. HB 9.2 on 09/26, morning cbc shows hb of 8.9 -Patient was started on Eliqus post operatively per ortho. -Patients sodium is around 130 at baseline, continue him on fluid restriction of 1000 cc. -BP boderline this am 104/61, continue to hold amlodipine for now -Patient has morphine ordered for breakthrough pain along with oxycodon. He continues to be on fentanyl patch which needs a taper. -Please continue his home meds including albuterol, Symbicort, Sinemet, carvedilol, fentanyl patch, gabapentin, metoclopramide,ranolazine, aspirin, Cymbalta, omeprazole. DVT prophylaxis Alps Patient is full code. Subjective Subjective: Patient seen and examined, reported of 9/10 right hip pain. His stone is still in place post op. Overall he reports that he is doing well and looked comfortable. Review of Systems Constitutional: Reports: see HPI. Objective Last 24 Hrs of Vital Signs/I&O Vital Signs Date Time Temp Pulse Resp B/P B/P Pulse O2 O2 Flow FiO2 Mean Ox Delivery Rate 09/27 0900 140/60 09/27 0859 140/60 09/27 0859 68 140/60 09/27 0705 98.8 68 20 104/61 96 Room Air 09/26 2224 98.2 75 18 110/58 93 Room Air 09/26 2010 75 110/58 09/26 2009 75 110/68 09/26 1600 Nasal 2.0L Cannula 09/26 1439 97.8 88 20 110/60 96 Room Air Intake & Output 09/27 1600 09/27 0800 09/27 0000 Intake Total 60 210 Output Total 800 350 Balance -740 -140 Intake, IV 10 10 Intake, Oral 50 200 Output, Urine 800 350 Patient 60.044 kg Weight Physical Exam General Appearance: well developed/nourished, no apparent distress, alert, awake , comfortable Head: atraumatic Neck: normal inspection, supple Cardiovascular: regular rate/rhythm Respiratory: normal breath sounds, chest non-tender Abdomen: normal bowel sounds, soft, non-tender Extremities: normal inspection, no edema Neurologic/Psychiatric: awake, alert, oriented x 3 Current Medications: Current Medications Sig/Jesus Start time Last Medication Dose Route Stop Time Status Admin Albuterol Sulfate 2 PUF Q4-6 PRN PRN 09/21 1700 AC 09/25 INH 2342 Apixaban 2.5 MG BID 09/25 09 AC 09/27 PO 0859 Aspirin Buffered 81 MG DAILY 09/22 09 AC 09/27 PO 858 Budesonide/ 2 PUF BID 09/21 2100 AC 09/27 Formoterol Fumarate INH 0857 Carbidopa/Levodopa 1 TAB QPM 09/21 2100 AC 09/26 PO 2006 Carvedilol 12.5 MG BID 09/21 2099 AC 09/27 PO 899 Docusate Sodium 100 MG BID 09/23 2099 AC 09/27 PO 0900 Duloxetine HCl 60 MG DAILY 09/22 09 AC 09/27 PO 0859 Fentanyl Citrate 50 MCG Q3D 09/21 1700 AC 09/24 TOP 1759 Gabapentin 100 MG TID 09/21 2100 AC 09/27 PO 0859 Isosorbide 60 MG DAILY 09/22 09 AC 09/27 Mononitrate PO 0859 Melatonin 5 MG QPM 09/21 2100 AC 09/26 PO 2011 Metoclopramide HCl 10 MG TIDAC/HS 09/21 2100 DC 09/26 PO 1314 Morphine Sulfate 2 MG Q3P PRN 09/23 1800 AC 09/27 IV 0851 Omeprazole 40 MG DAILY AC 09/22 07 AC 09/27 PO 0605 Oxycodone HCl 10 MG Q4-6 PRN PRN 09/21 1715 AC 09/27 PO 0558 Polyethylene Glycol 17 GM DAILY 09/27 09 AC 09/27 PO 0944 Ranolazine 500 MG BID 09/21 2099 AC 09/27 PO 0859 Tiotropium [place] 1 PUF DAILY 09/22 899 AC 09/26 INH 0804 Results Last 24 Hrs Lab/Rudy Results: Laboratory Tests 09/27/17 0820: Anion Gap 9, Estimated GFR > 60, BUN/Creatinine Ratio 18.3, CBC w Diff NO MAN DIFF REQ, RBC 2.97 L, MCV 91.2, MCH 30.0, MCHC 32.9 L, RDW 14.6 H, MPV 7.8, Gran % 69.2, Lymphocytes % 14.5 L, Monocytes % 10.2 H, Eosinophils % 5.0, Basophils % 1.1, Absolute Granulocytes 5.8, Absolute Lymphocytes 1.2, Absolute Monocytes 0.9 H, Absolute Eosinophils 0.4, Absolute Basophils 0.1 Alan CORREIA,[facility] 09/27/17 1242: Attending MD Review Statement Attending Sign Off Attending Cosign Statement: I have: examined this patient, reviewed [facility] EMR data, personally reviewd images, discussed mgmt plan w/ej, discussed mgmt plan w/CM, discussed mgmt plan w/pt, agreed w/resident/PA/FLIGHT STEWARD. Other Findings: Patient seen and examined, continued to complain of pain and asking for more pain medications. H&H is stable after transfusion. Sodium is relatively stable. Would recommend putting the fluid restriction to 1000cc as sodium still below 130. His baseline is in low 130s. The rest of the management will be orthopedic. Please recheck sodium after patient has been started on 1000 cc of fluid restriction.
--- NOTE | 2017-09-27 07:33 | PN- Orthopedic ---
Subjective Subjective: Complaints of mild right hip pain, otherwise no complaints, no acute events overnight Objective Vital Signs and I&Os Vital Signs Date Time Temp Pulse Resp B/P B/P Pulse O2 O2 Flow FiO2 Mean Ox Delivery Rate 09/27 0705 98.8 68 20 104/61 96 Room Air 09/26 2224 98.2 75 18 110/58 93 Room Air 09/26 2010 75 110/58 09/26 2009 75 110/68 09/26 1600 Nasal 2.0L Cannula 09/26 1439 97.8 88 20 110/60 96 Room Air 09/26 0815 78 118/76 09/26 0803 78 118/76 09/26 0803 78 118/76 09/26 0800 Nasal 2.0L Cannula Intake & Output 09/27 0000 09/26 1600 09/26 0809/26 0000 09/25 1600 Intake Total 60 210 370 487 917 0263 Output Total 800 350 450 245 150 200 Balance -740 -140 -80 305 -50 1085 Intake, IV 10 10 10 350 765 Intake, Oral 50 200 360 200 100 520 Number 0 Bowel Movements Output, Urine 800 350 450 245 150 200 Patient 132 lb Weight Physical Exam: Well-developed well-nourished no apparent distress. Patient in soft restraints bilateral upper extremities HEENT: Atraumatic, extraocular motion intact Neck: Supple, no lymphadenopathy Respiratory: No respiratory distress Extremities: No edema RIGHT lower extremity hip dressing in place, abduction pillow in place Dressing with minimal bloody staining, dressing changed, dry sterile dressing applied Incision without erythema Mild thigh swelling No signs of infection. No shortening or rotation Hip range of motion is limited and without unexpected pain Neurovascularly intact distally Bilateral calves are supple, nontender. Neuro: Alert and oriented x3 Psych: Mood affect normal, normal memory normal judgment. Skin: Warm and dry, no rash on exposed skin Results Last 48 Hours of Labs: Laboratory Tests 09/26 09/25 0632 1338 Chemistry Sodium (137 - 145 mmol/L) 129 L Potassium (3.5 - 5.1 mmol/L) 4.6 Chloride (98 - 107 mmol/L) 96 L Carbon Dioxide (22 - 30 mmol/L) 22 Anion Gap (5 - 16) 11 BUN (9 - 20 mg/dL) 15 Creatinine (0.7 - 1.2 mg/dL) 0.6 L Estimated GFR (>60 ml/min) > 60 BUN/Creatinine Ratio (7 - 25 %) 25.0 Glucose (65 - 99 mg/dL) 87 Calcium (8.4 - 10.2 mg/dL) 7.9 L Phosphorus (2.5 - 4.5 mg/dL) 3.6 Magnesium (1.6 - 2.3 mg/dL) 1.8 Total Bilirubin (0.2 - 1.3 mg/dL) 0.7 AST (17 - 59 U/L) 29 ALT (21 - 72 U/L) 22 Albumin (3.5 - 5.0 g/dL) 2.7 L Hematology CBC w Diff NO MAN DIFF REQ NO MAN DIFF REQ WBC (4.8 - 10.8 /CUMM) 11.1 H 11.4 H RBC (4.70 - 6.10 /CUMM) 3.01 L 2.86 L Hgb (14.0 - 18.0 G/DL) 9.2 L 8.5 L Hct (42 - 52 %) 26.9 L 25.6 L MCV (80.0 - 94.0 FL) 89.4 89.3 MCH (27.0 - 31.0 PG) 30.6 29.8 MCHC (33.0 - 37.0 G/DL) 34.3 33.4 RDW (11.5 - 14.5 %) 14.2 14.5 Plt Count (130 - 400 /CUMM) 485 H 428 H MPV (7.4 - 10.4 FL) 7.9 7.8 Gran % (42.2 - 75.2 %) 77.1 H 78.0 H Lymphocytes % (20.5 - 51.1 %) 11.0 L 8.6 L Monocytes % (1.7 - 9.3 %) 9.3 10.8 H Eosinophils % (0 - 5 %) 2.5 2.5 Basophils % (0.0 - 2.0 %) 0.1 0.1 Absolute Granulocytes (1.4 - 6.5 /CUMM) 8.5 H 8.9 H Absolute Lymphocytes (1.2 - 3.4 /CUMM) 1.2 1.0 L Absolute Monocytes (0.10 - 0.60 /CUMM) 1.0 H 1.2 H Absolute Eosinophils (0.0 - 0.7 /CUMM) 0.3 0.3 Absolute Basophils (0.0 - 0.2 /CUMM) 0 0 Assessment/Plan Assessment/Plan This is a 71 y/o M w/ PMHx of CAD s/p multiple MIs with PCI and multiple stents placement and CABG, s/p PPM / AICD, COPD, obstructive sleep apnea, Parkinson's disease, severe peripheral artery disease, prostate cancer s/p radiation and in remission, who is POD#4 s/p revision of revision of R MUNDO (sp gamma nail to total hip-->revision previous dislocation). - appreciate onging medical input. siadh/fluid/HTN mgmt per medical team -Acute blood loss anemia, follow morning labs - hip precautions, abduction pillow - OOB to chair -weightbearing as tolerated -Eliquis for DVT prophylaxis - daily dressing changes -Postoperative agitation/confusion has resolved, DC soft restraints Core Measures Venous Thromboembolism VTE Risk Factors Age>40 No Mechanical VTE Prophylaxis d/t N/A MechProphylax Ordered No VTE Pharm Prophylaxis d/t NA PharmProphylax ordered
[2017-09-27 09:19] LABS: ABSOLUTE BASOPHIL COUNT 0.1 /CUMM (0.0-0.2); ABSOLUTE EOSINOPHIL COUNT 0.4 /CUMM (0.0-0.7); ABSOLUTE GRANULOCYTE CT 5.8 /CUMM (1.4-6.5); ABSOLUTE LYMPH COUNT 1.2 /CUMM (1.2-3.4); ABSOLUTE MONOCYTE COUNT 0.9 /CUMM (0.10-0.60); BASOPHIL % 1.1 % (0.0-2.0); GRANULOCYTE % 69.2 % (42.2-75.2); HEMATOCRIT 27.1 % (42-52); MEAN CORPUSCULAR HGB CONC 32.9 G/DL (33.0-37.0); MEAN CORPUSCULAR VOLUME 91.2 FL (80.0-94.0); MEAN PLATELET VOLUME 7.8 FL (7.4-10.4); PLATELET COUNT 476 /CUMM (130-400); RBC DISTRIBUTION WIDTH 14.6 % (11.5-14.5); RED BLOOD CELL CT 2.97 /CUMM (4.70-6.10); WHITE BLOOD CELL COUNT 8.4 /CUMM (4.8-10.8)
[2017-09-27 14:21] VITALS: BP 112/66
[2017-09-27 21:35] VITALS: BP 110/60
[2017-09-28 06:13] VITALS: BP 128/78
--- NOTE | 2017-09-28 07:18 | PN- Medicine Consult ---
Kristin Manuel 09/28/17 0718: Assessment/PlanMedical Consult Assessment/Plan Assessment: Patient is 71 years old male with PMH of CAD status post multiple MIs with PCI and multiple stents placement and CABG, s/p PPM / AICD, COPD, obstructive sleep apnea, Parkinson's disease, severe peripheral artery disease, prostate cancer status post radiation and in remission, history of right intertrochanteric fracture status post total hip release placement gamma nail surgery by Dr. Jara in April 2017. Was recently admitted to [facility] for worsening right hip pain, on 09/07/17 s/p removal of right intramedullary nail femur on 01/16 for Non-union right intertrochanteric hip fracture with failure of intramedullary implant. Patient underwent closed reduction right total hip arthroplasty prosthetic on September 12, 2017 secondary to dislocation of the right hip. Patient was discharged to a rehabilitation facility on 09/16/17. Patient states that at the rehabilitation facility he was doing his physical therapy, and he noticed that his right hip was popping out. He also reported 10/10 sharp pain radiating from right hip down to the knee. Patient states that the pain is worse on movement, and the right hip region is also tender on palpation. Plan: Problem List: 1. hx Acute delirium- off of restraints 2. hx Hyponatremia 3. Recurrent right hip dislocation -Failed right hip implant/nail fixation s/p closed reduction right total hip arthroplasty prosthetic on September 12, 2017 and s/ p Revision right total hip arthroplasty on 09/23/17. 5. CAD s/p SC with PCI and multiple stents placement 6. HFrEF 7. COPD not on home O2, 8. ANDRADE. 9. PAD 10. prostate cancer s/p radiation in remission Patient seems to be doing well on [facility] floor, Hemoglobin has been stable, morning labs pending. Patient was started on Eliqus post operatively per ortho. Patients sodium is around 130 at baseline, continue him on fluid restriction of 1000 cc, he does not necessarily need to be on fluid restriction at the rehab facility. Blood pressure has improved to 128/78, can continue amlodipine if he gets hypertensive. Patient looks comfortable but does have a pain seeking attitude. He can be discharged on oxycodon q4-6 prn which was his home med. He eventually needs to follow up with pain management as outpatient as his fentanyl needs to be tapered. Please continue his home meds including albuterol, Symbicort, Sinemet, carvedilol, fentanyl patch, gabapentin, metoclopramide,ranolazine, aspirin, Cymbalta, omeprazole. DVT prophylaxis Alps Patient is full code. Attending recommendations to follow Subjective Subjective: Patient is seen and examined. He is doing well sitting in his recliner. Looks comfortable. ROS negative for chest pain/headache/dizziness/abdominal discomfort/burning micturation. Plan is to be discharged to [facility] today if bed is avaliable. Review of Systems Constitutional: Reports: see HPI. Objective Last 24 Hrs of Vital Signs/I&O Vital Signs Date Time Temp Pulse Resp B/P B/P Pulse O2 O2 Flow FiO2 Mean Ox Delivery Rate 09/28 0748 98.6 64 20 128/78 09/28 0747 98.6 64 20 128/78 09/28 0747 98.6 64 20 128/78 09/28 0613 98.6 64 20 128/78 97 Room Air 09/27 2135 98.1 63 20 110/60 96 Room Air 09/27 2030 62 118/62 09/27 2030 62 118/62 09/27 1421 98.2 70 18 112/66 96 Room Air 09/27 1109 Room Air Room Air 09/27 0900 140/60 09/27 0859 140/60 09/27 0859 68 140/60 Intake & Output 09/28 1600 09/28 0800 09/28 0000 Intake Total 150 120 Output Total 900 225 Balance -750 -105 Intake, Oral 150 120 Output, Urine 900 225 Patient 60.47 kg Weight Physical Exam General Appearance: well developed/nourished, no apparent distress, alert, awake , comfortable Head: atraumatic, normal appearance Neck: normal inspection, supple Cardiovascular: regular rate/rhythm Respiratory: normal breath sounds, chest non-tender Abdomen: normal bowel sounds, soft, non-tender Extremities: normal inspection, no edema Neurologic/Psychiatric: awake, alert, oriented x 3 Skin: intact, normal color Current Medications: Current Medications Sig/Jesus Start time Last Medication Dose Route Stop Time Status Admin Albuterol Sulfate 2 PUF Q4-6 PRN PRN 09/21 1700 AC 09/25 INH 2342 Apixaban 2.5 MG BID 09/25 09 AC 09/28 PO 0747 Aspirin Buffered 81 MG DAILY 09/22 0900 AC 09/28 PO 0747 Budesonide/ 2 PUF BID 09/21 2100 AC 09/28 Formoterol Fumarate INH 0748 Carbidopa/Levodopa 1 TAB QPM 09/21 2100 AC 09/27 PO 2027 Carvedilol 12.5 MG BID 09/21 2100 AC 09/28 PO 0747 Docusate Sodium 100 MG BID 09/23 2100 AC 09/28 PO 0747 Duloxetine HCl 60 MG DAILY 09/22 0900 AC 09/28 PO 0747 Fentanyl Citrate 50 MCG Q3D 09/21 1700 AC 09/27 TOP 1627 Gabapentin 100 MG TID 09/21 2100 AC 09/28 PO 0747 Isosorbide 60 MG DAILY 09/22 0900 AC 09/28 Mononitrate PO 0748 Melatonin 5 MG QPM 09/21 2100 AC 09/27 PO 2030 Morphine Sulfate 2 MG Q3P PRN 09/23 1800 AC 09/28 IV 0745 Omeprazole 40 MG DAILY AC 09/22 0700 AC 09/28 PO 0556 Oxycodone HCl 10 MG Q4-6 PRN PRN 09/21 1715 AC 09/28 PO 0556 Patient Medication 1 ED ONE ONE 09/27 1330 DC 09/27 Teaching ED 09/27 1331 1424 Polyethylene Glycol 17 GM DAILY 09/27 0900 AC 09/28 PO 0746 Ranolazine 500 MG BID 09/21 2100 AC 09/28 PO 0747 Tiotropium [place] 1 PUF DAILY 09/22 0900 AC 09/28 INH 0748 Results Last 24 Hrs Lab/Rudy Results: Laboratory Tests 09/28/17 0730: Sodium Pending, Potassium Pending, Chloride Pending, Carbon Dioxide Pending, Anion Gap Pending, BUN Pending, Creatinine Pending, BUN/Creatinine Ratio Pending , CBC w Diff Pending, WBC Pending, RBC Pending, Hgb Pending, Hct Pending, MCV Pending, MCH Pending, MCHC Pending, RDW Pending, Plt Count Pending, MPV Pending Alan CORREIA,Ivonne 09/28/17 1049: Attending MD Review Statement Attending Sign Off Attending Cosign Statement: I have: examined this patient, reviewed aval EMR data, personally reviewd images, discussd w/resident/PA/FINISH CLEANER, discussed mgmt plan w/ej, discussed mgmt plan w/pt, agreed w/resident/PA/FINISH CLEANER, amended to note. Other Findings: Patient seen and examined, overall doing okay. Still complaining of pain in the right hip. Sodium is improved. Likely this is a new baseline for the sodium. H&H remained stable. Patient continues to ask for pain medicines. From medical standpoint he is stable. Chronic medical issues are stable. He has been kept on Eliquis and H&H had remained stable. He remains on narcotics. Would continue to recommend avoid extra use of narcotics. Medicine will sign off at this point. Please call with questions.
--- NOTE | 2017-09-28 07:45 | PN- Orthopedic ---
Subjective Subjective: Asking for pain medication. No events reported overnight. Restraints off since yesterday. Tolerating diet. He denies dizziness. No shortness of breath. No chest pains. Objective Vital Signs and I&Os Vital Signs Date Time Temp Pulse Resp B/P B/P Pulse O2 O2 Flow FiO2 Mean Ox Delivery Rate 09/28 0748 98.6 64 20 128/78 09/28 0747 98.6 64 20 128/78 09/28 0747 98.6 64 20 128/78 09/28 0613 98.6 64 20 128/78 97 Room Air 09/27 2135 98.1 63 20 110/60 96 Room Air 09/27 2030 62 118/62 09/27 2030 62 118/62 09/27 1421 98.2 70 18 112/66 96 Room Air 09/27 1109 Room Air Room Air 09/27 0900 140/60 09/27 0859 140/60 09/27 0859 68 140/60 Intake & Output 09/28 0800 09/28 0000 09/27 1600 09/27 0800 09/27 0000 09/26 1600 Intake Total 150 120 120 60 210 370 Output Total 900 225 370 800 350 450 Balance -750 -105 -250 -740 -140 -80 Intake, IV 10 10 10 Intake, Oral 150 120 120 50 200 360 Number 0 Bowel Movements Output, Urine 900 225 370 800 350 450 Patient 133 lb 132 lb Weight Assessment/Plan Assessment/Plan This is a 71 y/o M w/ PMHx of CAD s/p multiple MIs with PCI and multiple stents placement and CABG, s/p PPM / AICD, COPD, obstructive sleep apnea, Parkinson's disease, severe peripheral artery disease, prostate cancer s/p radiation and in remission, who is POD#5 s/p revision of revision of R MUNDO (sp gamma nail to total hip-->revision previous dislocation) tolerating diet pain controlled continue PT. total hip precautions. abduction pillow. wbat dressing changed continue eliquis - dvt ppx f/u medical input d/c planning d/c to str once bed secured will d/w Core Measures Venous Thromboembolism VTE Risk Factors Age>40 No Mechanical VTE Prophylaxis d/t N/A MechProphylax Ordered No VTE Pharm Prophylaxis d/t NA PharmProphylax ordered
--- NOTE | 2017-09-28 08:02 | Surgical Discharge Summary ---
Visit Information Visit Dates Admission Date: 09/22/17 Discharge Date: 09/28/17 History of Present Illness Chief Complaint: right hip dislocation Medical History Blood Transfusion Hx: Yes Neurological: restless leg syndrome EENT: NONE Cardiovascular: hypertension, myocardial infarction, CAD ID X 4 BYPASS ATHLEROSCLEROSIS PAD Respiratory: COPD, obstructive sleep apnea Gastrointestinal: NAUSEA Hepatic: NONE Renal: NONE Musculoskeletal: BACK FX restless leg syndrome RIGHT HIP ORIF Psychiatric: anxiety, depression Endocrine: NONE Blood Disorders: NONE Cancer(s): prostate cancer SUPERIOR COURT JUSTICE/Reproductive: NONE History of MRSA: No History of VRE: No History of CDIFF: No Isolation History: Standard Surgical History Pertinent Surgical History: CABG Family History Relations & Conditions If Any: BROTHER FH: ID (myocardial infarction) Psychosocial History Where Do You Live? Extended Care Facility Who Do You Live With? Patient/Self Services at Home: Nursing What is Your Primary Language? Kuwaiti Review of Systems: see h&p Hospital Course Course Attending Physician: Mariama CORREIA,Titi Rhoades Primary Care Physician: Toni Govea MD Hospital Course: Presented to [facility] on 09/21/17 from short term rehab facility due to recurrent hip dislocation following closed reduction s/p total hip replacement. He was taken back to the OR on 09/23/17 by for revision right total hip arthroplasty for right total hip arthroplasty dislocation and instability. Restarted on eliquis post-operatively for ongoing dvt prophylaxis. Resumed PT with total hip precautions, abduction pillow, and weight bearing as tolerated activity. Dry guaze dressing changes started on post-op day#2 with his right hip incision, continued daily. Followed by medical team for chronic hyponatremia, which has stabilized around 129 with fluid restriction to 1200mls/day. It appears his baseline sodium level is around 130. He had post-op delirium, which did require soft wrist restraints for attempting to get out of bed, which were removed on 09/27/17 morning. He was transfused blood for acute grupo-operative blood loss anemia. Our hospitalist was consulted and followed for co-management for his chronic hyponatremia and post-operative delirium, which has resolved. Complications: none Allergies: Coded Allergies: No Known Allergies (07/23/17) Significant Procedures: Surgery Date: 09/23/17 Name of Procedure: Revision right total hip arthroplasty Disposition Summary Disposition Principal Diagnosis: Right total hip arthroplasty dislocation and instability Additional Diagnosis: Right total hip arthroplasty dislocation and instability, s/p Surgery Date: 09/23/17 Name of Procedure: Revision right total hip arthroplasty chronic hyponatremia, stable at 129 with fluid restriction 1200 mls/day acute grupo-operative blood loss anemia, resolved s/p transfusion blood Discharge Disposition: SNF Discharge Instructions General Discharge Information Code Status: Full Code Patient's Diet: heart healthy diet Patient's Activity: weight bearing as tolerated. total hip precautions. abduction pillow while in bed. Follow-Up Instructions/Appts: 6 week follow up with Dr.Richo abrams to be removed around post-op day#14 continue daily dry guaze dressing changes, right hip continue PT. wbat. total hip precautions continue eliquis for dvt ppx, to complete 4 weeks Medications at Discharge Discharge Medications: Stop taking the following medications: Docusate Sodium (Colace) 100 MG CAPSULE ORAL DAILY Continue taking these medications: Carbidopa/Levodopa (Sinemet 25-100 MG Tablet) 25 MG-100 MG TABLET 1 Tablet ORAL Every night Comments: Last Taken: 09/17/17 Time: 8:00 PM Duloxetine HCl (Cymbalta) 60 MG CAPSULE. 1 Capsule ORAL DAILY Comments: Last Taken: 09/17/17 Time: 9:30 AM Amlodipine Besylate (Norvasc) 5 MG TABLET 1 Tablet ORAL DAILY Comments: Last Taken: 09/17/17 Time: 9:30 AM Ranolazine (Ranexa) 500 MG TAB.ER.12H 1 Tablet ORAL TWICE DAILY Comments: Last Taken: 09/17/17 Time: 9:30 AM Fentanyl (Fentanyl) 50 MCG/HOUR PATCH.TD72 1 Patch On the skin Every 3 days Comments: Last Taken: 09/16/17 Time: 8:00PM Omeprazole (Omeprazole) 40 MG CAPSULE. 1 Capsule ORAL DAILY Qty = 30 Comments: Last Taken: 09/17/17 Time: 6:00 AM Metoclopramide HCl (Reglan) 10 MG TABLET 1 Tablet ORAL BEFORE MEALS AND AT BEDTIME Qty = 90 Instructions: 30 minutes before meals and bedtime Comments: PER PT NOT GIVEN IN HOSPITAL Budesonide/Formoterol Fumarate (Symbicort 160-4.5 Mcg Inhaler) 160 MCG-4.5 MCG/ ACTUATION HFA.AER.AD 2 Puff Inhale through mouth TWICE DAILY Qty = 10 Comments: PER PT Last Taken: 09/16/17 Time: 9:00 AM Spironolactone (Spironolactone) 25 MG TABLET 0.5 Tablet ORAL As Directed Qty = 15 Comments: PER PT NOT GIVEN IN HOSPITAL Isosorbide Mononitrate (Isosorbide Mononitrate ER) 60 MG TAB.ER.24H 1 Tablet ORAL DAILY Qty = 30 Comments: PER PT Last Taken: 09/16/17 Time: 9:00 AM Aspirin (Ecotrin*) 81 MG TABLET.DR 1 Tablet ORAL DAILY Comments: PER PT NOT GIVEN IN HOSPITAL Tiotropium [place] (Spiriva) 18 MCG CAP.W.DEV 1 Puff Inhale through mouth DAILY Qty = 1 Comments: Last Taken: 09/17/17 Time: 9:00 AM Apixaban (Eliquis) 2.5 MG TABLET 2.5 Milligram ORAL TWICE DAILY Qty = 60 Comments: Last Taken: 09/17/17 Time: 9:30 AM Polyethylene Glycol 3350 (Miralax) 17 GRAM/DOSE POWDER 17 Gram ORAL DAILY as needed for CONSTIPATION Instructions: mix with water, juice, soda, coffee or tea Comments: Last Taken: 09/09/17 Time: 9:00 AM Cholecalciferol (Vitamin D3) (Vitamin D) 1,000 UNIT TABLET 1 Tablet ORAL DAILY Comments: NOT GIVEN IN HOSPITAL Melatonin (Melatonin) 5 MG TABLET 1 Tablet ORAL Every night Comments: Last Taken: 09/16/17 Time: 8:00 PM Carvedilol (Carvedilol) 12.5 MG TABLET 1 Tablet ORAL TWICE DAILY Comments: Last Taken: 09/17/17 Time: 9:30 AM Gabapentin (Gabapentin) 100 MG CAPSULE 1 Capsule ORAL THREE TIMES DAILY Comments: Last Taken: 09/17/17 Time: 9:30 PM Albuterol Sulfate (Proair Hfa) 90 MCG HFA.AER.AD 2 Puff Inhale through mouth EVERY 4-6 HOURS NEEDED as needed for SHORTNESS OF BREATH Comments: NOT GIVEN IN HOSPITAL Oxycodone HCl (Oxycodone HCl) 10 MG TABLET 1 Tablet ORAL EVERY 4-6 HOURS NEEDED as needed for PAIN Qty = 30 Comments: Last Taken: 09/17/17 Time: 1:00 PM Start taking the following new medications: Docusate Sodium (Docusate Sodium) 100 MG CAPSULE 100 Milligram ORAL TWICE DAILY as needed for CONSTIPATION Days = 28 No Refills Instructions: hold for loose stool Copies To: Xuan CORREIA,Toni Araiza
--- NOTE | 2017-09-28 08:19 | Patient Discharge Instructions ---
Discharge Instructions General Discharge Information You were seen/treated for: Right total hip arthroplasty dislocation and instability You had these procedures: Surgery Date: 09/23/17 Name of Procedure: Revision right total hip arthroplasty Watch for these problems: fever>101.3, increased pain, redness/swelling/drainage, dizziness, shortness of breath, chest pains Call Surgeon to remove: [place] (post-op day#14) No bath, but you may shower: Yes Other wound care: dry guaze dressing changes daily, right hip keep incision clean & dry Diet Continue normal diet: Yes Recommended Diet: Heart Healthy Activity Full Activity/No Limits: No Activity Self Limited: Yes Activity Limited to: Weight bear as tolerated Other activity limits: total hip precuations hip abduction pillow when in bed Additional ACTIVITY Info: rolling walker assistance Acute Coronary Syndrome Inclusion Criteria At DC or during hospital stay patient has or had the following: ACS DIAGNOSIS No Discharge Core Measures Meds if any: Prescribed or Continued at Discharge Meds if any: NOT Prescribed or Continued at Discharge Congestive Heart Failure Inclusion Criteria At DC or during hospital stay patient has or had the following: CHF DIAGNOSIS No Discharge Core Measures Meds if any: Prescribed or Continued at Discharge Meds if any: NOT Prescribed or Continued at Discharge Cerebrovascular accident Inclusion Criteria At DC or during hospital stay patient has or had the following: CVA/TIA Diagnosis No Discharge Core Measures Meds if any: Prescribed or Continued at Discharge Meds if any: NOT Prescribed or Continued at Discharge Venous thromboembolism Inclusion Criteria VTE Diagnosis No VTE Type NONE VTE Confirmed by (Test) NONE Discharge Core Measures - Per Current guidelines, there needs to be overlap - treatment for the first 5 days of Warfarin therapy. - If discharged on Warfarin prior to 5 days of - overlap therapy, the patient will need to be - assessed for post discharge needs including - *Post discharge parental anticoagulation - *Warfarin and/or parental anticoagulation education - *Follow up date to check INR post discharge At least 5 days overlap therapy as Inpatient No Meds if any: Prescribed or Continued at Discharge Note: Overlap Therapy is Warfarin and Anticoagulant Meds if any: NOT Prescribed or Continued at Discharge
[2017-09-28] MEDS ORDERED: DOCUSATE SODIU100 M3 PO (08:20)
[2017-09-28 08:45] LABS: ABSOLUTE BASOPHIL COUNT 0.1 /CUMM (0.0-0.2); ABSOLUTE EOSINOPHIL COUNT 0.4 /CUMM (0.0-0.7); ABSOLUTE GRANULOCYTE CT 4.9 /CUMM (1.4-6.5); ABSOLUTE LYMPH COUNT 1.4 /CUMM (1.2-3.4); ABSOLUTE MONOCYTE COUNT 0.9 /CUMM (0.10-0.60); BASOPHIL % 0.7 % (0.0-2.0); EOSINOPHIL % 4.8 % (0-5); GRANULOCYTE % 64.9 % (42.2-75.2); HEMATOCRIT 25.4 % (42-52); MEAN CORPUSCULAR HGB 30.3 PG (27.0-31.0); MEAN CORPUSCULAR HGB CONC 33.5 G/DL (33.0-37.0); MEAN CORPUSCULAR VOLUME 90.4 FL (80.0-94.0); MEAN PLATELET VOLUME 7.3 FL (7.4-10.4); PLATELET COUNT 482 /CUMM (130-400); RBC DISTRIBUTION WIDTH 14.3 % (11.5-14.5); RED BLOOD CELL CT 2.81 /CUMM (4.70-6.10); WHITE BLOOD CELL COUNT 7.6 /CUMM (4.8-10.8)
[2017-09-28 14:57] VITALS: BP 120/68
== END 2017-09-28 16:12 | DRG 939 ==
LOC: ERH 13:53 → ERHI 17:46 → 2NB 17:46 → ERHI 17:46 → ENRESERV 18:20 → ENTRNSPT 20:12 → EDTRNSPT 20:27 → EDTRNSPTSTS 20:27 → 2NB 20:33 → CMPTRNSPT 20:50 → 2NB 09-22 13:57 → 2NA 09-22 13:57 → CRI 09-22 13:57 → 2NB 09-22 13:57 → EDBEDREQ 09-23 17:58 → ENRESERV 09-23 18:02 → CRI 09-23 18:39 → ENTRNSPT 09-23 18:48 → EDTRNSPT 09-23 19:01 → EDTRNSPTSTS 09-23 19:01 → CMPTRNSPT 09-23 19:03 → ENTRNSPT 09-25 17:15 → EDTRNSPTSTS 09-25 17:38 → 2NA 09-25 18:21 → CMPTRNSPT 09-25 18:40 → ENPENDDIS 09-28 08:28 → 2NA 09-28 16:12
PROVIDERS: Internal Medicine; Orthopaedic Surgery Foot and Ankle Surgery; Physician Assistant; Physician Assistant Surgical; Student in an Organized Health Care Education/Training Program
PROC: 0SS9XZZ Reposition Right Hip Joint, External Approach (ICD-10-PCS; principal; 2017-09-21)
PROC: 0SR901A Replacement of Right Hip Joint with Metal Synthetic Substitute, Uncemented, Open Approach (ICD-10-PCS; 2017-09-23)
PROC: 0SP904Z Removal of Internal Fixation Device from Right Hip Joint, Open Approach (ICD-10-PCS; 2017-09-23)
PROC: 30233N1 Transfusion of Nonautologous Red Blood Cells into Peripheral Vein, Percutaneous Approach (ICD-10-PCS; 2017-09-24)
DX: T84.020D Dislocation of internal right hip prosthesis, subsequent encounter (principal); E43 Unspecified severe protein-calorie malnutrition; E22.2 Syndrome of inappropriate secretion of antidiuretic hormone; Z68.1 Body mass index [BMI] 19.9 or less, adult; D62 Acute posthemorrhagic anemia; F05 Delirium due to known physiological condition; I50.22 Chronic systolic (congestive) heart failure; I25.10 Atherosclerotic heart disease of native coronary artery without angina pectoris; I73.9 Peripheral vascular disease, unspecified; Z95.810 Presence of automatic (implantable) cardiac defibrillator; Z85.46 Personal history of malignant neoplasm of prostate; G25.81 Restless legs syndrome; J44.9 Chronic obstructive pulmonary disease, unspecified; G47.33 Obstructive sleep apnea (adult) (pediatric); Z91.19 Patient's noncompliance with other medical treatment and regimen; I25.2 Old myocardial infarction; F32.9 Major depressive disorder, single episode, unspecified; R11.0 Nausea; I11.0 Hypertensive heart disease with heart failure; T45.515A Adverse effect of anticoagulants, initial encounter; G20 Parkinson's disease; I95.81 Postprocedural hypotension; Z98.61 Coronary angioplasty status; K21.9 Gastro-esophageal reflux disease without esophagitis; F41.9 Anxiety disorder, unspecified
CPT/HCPCS: 2NAP; 2NBSP; 84133; 84300; CCU; 36415; 36592; 71045; 73501; 73502-RT; 73562-RT; 82436; 82570; 86920; 87086; 93005; 93010; 96374; 97110-GO; 97116-GO; 97162-GP; 97530-GO; J0690; J1644; J1885; J3490; J7040; J7042; P9016